=== PATIENT | male | born 1950 | race Caucasian/White ===

== ENCOUNTER 2020-01-24 09:46 | Outpatient (REF) | payer MEDICARE, SELFPAY ==
--- NOTE | 2020-01-24 09:49 | XR_ITS ---
EXAMINATION: XR KNEES, STANDING AP XR KNEE, LEFT CLINICAL INFORMATION: Knee pain. Total arthroplasty on left. COMPARISON: Standing AP knees and left knee 04/26/2019 TECHNIQUE: Standing AP view of both knees is performed along with lateral view left knee. FINDINGS: The left knee has total arthroplasty. The hardware is intact. There is no fracture, dislocation, destructive process, or osteolysis. There is moderate suprapatellar effusion and edema in region of Hoffa's fat pad, similar to prior exam. No periostitis. No acute abnormality. The right knee shows no joint narrowing or erosive change or chondrocalcinosis. Bony mineralization normal. No destructive process. IMPRESSION: 1. Left: Total knee arthroplasty. Hardware intact. No destructive process. Moderate suprapatellar effusion stable. 2. Right: Unremarkable.
== END 2020-01-24 09:47 | disposition home or self-care (01) ==
LOC: HO.XRAY 09:46
PROVIDERS: Visit Provider Orthopaedic Surgery
DX: M25.561 Pain in right knee (principal); M25.562 Pain in left knee; Z96.652 Presence of left artificial knee joint
CPT/HCPCS: 73560; 73565; 99213

== ENCOUNTER 2020-05-01 07:51 | Day surgery (SDC) | payer MEDICARE, SELFPAY ==
[2020-04-25 15:38] VITALS: BMI 27.1
--- NOTE | 2020-04-26 14:57 | P.CONAN_ITS ---
Documented by User: Kristi Dawkins 04/26/20 15:02 HPI - Anesthesia Eval Consult details Narrative: 69yo for Colonoscopy PMFSH Past Medical History Medical History Anxiety Aortic aneurysm Back pain Depression History of hepatitis B HTN (hypertension) Hx-TIA (transient ischemic attack) Hyperlipidemia Osteoarthritis Post traumatic stress disorder (PTSD) Prostatitis RLS (restless legs syndrome) Sleep apnea Family History Family History Father No problems noted. Mother No problems noted. Surgical History Surgical History History of tonsillectomy History of total left knee replacement Hx of detached retina repair S/P left knee arthroscopy Social History Social History Alcohol intake: never Smoking Status: Former smoker Smoking Quit Date: Advance Directives: No Advance Directives Information Provided: No Advance Directives on File: No Current occupational status: retired Current occupation: Right Handed Narrative Narrative: Follows with [facility] Aorti iliac stable 2019 per imaging and eval prior to L TKA Meds Allergies Allergy/AdvReac Type Severity Reaction Status Date / Time red dye [RED DYE] Allergy Unknown + ALLERGY Verified 04/25/20 15:31 TEST shellfish derived Allergy Unknown + ALLERGY Verified 04/25/20 15:31 [SHELLFISH DERIVED] TEST Home Medications Medication Instructions Recorded Confirmed Type amlodipine 5 mg tablet 5 mg PO DAILY 01/23/20 04/25/20 History aspirin 81 mg tablet,delayed 81 mg PO DAILY 01/23/20 04/25/20 History release bupropion HCl 100 mg tablet 150 mg PO DAILY tab 01/23/20 04/25/20 History finasteride 5 mg tablet 5 mg PO BEDTIME 01/23/20 04/25/20 History gabapentin 600 mg tablet 600 mg PO TID 01/23/20 04/25/20 History hydroxyzine HCl 50 mg tablet 50 mg PO TID 01/23/20 04/25/20 History pravastatin 40 mg tablet 40 mg PO BEDTIME 01/23/20 04/25/20 History prazosin 1 mg capsule 2 mg PO BEDTIME 01/23/20 04/25/20 History tamsulosin 0.4 mg capsule 0.4 mg PO DAILY@1700 01/23/20 04/25/20 History valsartan 160 mg tablet 160 mg PO DAILY 01/23/20 04/25/20 History sertraline 100 mg tablet 100 mg PO DAILY 01/24/20 04/25/20 History Exam Exam Date and Time: April 26, 2020 1457 Height,Weight and Vital Signs: Height 6 ft Weight 90.718 kg Assessment and Plan Assessment Anesthesia Assessment: Chart Reviewed Documented by User: Shonda Begum 05/01/20 08:56 PMFSH Past Medical History Medical History Anxiety Aortic aneurysm Back pain Depression History of hepatitis B HTN (hypertension) Hx-TIA (transient ischemic attack) Hyperlipidemia Osteoarthritis Post traumatic stress disorder (PTSD) Prostatitis RLS (restless legs syndrome) Sleep apnea Family History Family History Father No problems noted. Mother No problems noted. Surgical History Surgical History History of tonsillectomy History of total left knee replacement Hx of detached retina repair S/P left knee arthroscopy Social History Social History Alcohol intake: never Smoking Status: Former smoker Smoking Quit Date: Advance Directives: No Advance Directives Information Provided: No Advance Directives on File: No Current occupational status: retired Current occupation: Right Handed Meds Allergies Allergy/AdvReac Type Severity Reaction Status Date / Time red dye [RED DYE] Allergy Unknown + ALLERGY Verified 04/25/20 15:31 TEST shellfish derived Allergy Unknown + ALLERGY Verified 04/25/20 15:31 [SHELLFISH DERIVED] TEST Home Medications Medication Instructions Recorded Confirmed Type amlodipine 5 mg tablet 5 mg PO DAILY 01/23/20 04/25/20 History aspirin 81 mg tablet,delayed 81 mg PO DAILY 01/23/20 04/25/20 History release bupropion HCl 100 mg tablet 150 mg PO DAILY tab 01/23/20 04/25/20 History finasteride 5 mg tablet 5 mg PO BEDTIME 01/23/20 04/25/20 History gabapentin 600 mg tablet 600 mg PO TID 01/23/20 04/25/20 History hydroxyzine HCl 50 mg tablet 50 mg PO TID 01/23/20 04/25/20 History pravastatin 40 mg tablet 40 mg PO BEDTIME 01/23/20 04/25/20 History prazosin 1 mg capsule 2 mg PO BEDTIME 01/23/20 04/25/20 History tamsulosin 0.4 mg capsule 0.4 mg PO DAILY@1700 01/23/20 04/25/20 History valsartan 160 mg tablet 160 mg PO DAILY 01/23/20 04/25/20 History sertraline 100 mg tablet 100 mg PO DAILY 01/24/20 04/25/20 History Exam Airway Mallampati Class: II TM Dist: >3cm Neck ROM: Full
[2020-05-01 08:41] VITALS: BP 134/68; PULSE 53; RESP 18; TEMP 36.6; O2SAT 95
[2020-05-01] MEDS: Lactated Ringers 1,000 ML 100 ML IVCONT (08:58)
--- NOTE | 2020-05-01 08:59 | MHC.SHP ---
Pre-Procedural Eval Section A The patient is an INPATIENT: No Changes since office visit: No Cold of Flu in the past 2 weeks, No New Medical Problems, No Changes in Medication and No Patient answered all questions The History & Physical has been completed within 30 days and I have reviewed it.: Yes Section B Chief Complaint: screening Allergies: Allergies Allergy/AdvReac Type Severity Reaction Status Date / Time red dye [RED DYE] Allergy Unknown + ALLERGY Verified 04/25/20 15:31 TEST shellfish derived Allergy Unknown + ALLERGY Verified 04/25/20 15:31 [SHELLFISH DERIVED] TEST Plan I have reviewed the history and physical and performed a pertinent physical examination on my patient. No changes have occurred unless specified.
[2020-05-01 09:36] VITALS: BP 105/57; PULSE 43; RESP 18; TEMP 36.4; O2SAT 96
--- NOTE | 2020-05-01 09:41 | PM.OP ---
Brief Operative Note Date of Service: 05/01/20 Pre-op diagnosis: screening Post-op diagnosis: same (colon polyp) Procedure: coonoscopyo Surgeon: Clarence Dorsey Anesthesia: MAC Estimated blood loss (mL): 0 Pathology: other (polyp) Condition: stable Disposition: PACU
[2020-05-01 09:51] VITALS: BP 119/67; PULSE 55; RESP 18; TEMP 36.4; O2SAT 95
--- NOTE | 2020-05-01 09:58 | OP_ITS ---
SURGEON: Clarence Dorsey MD INDICATIONS: Colon cancer screening. PREOPERATIVE DIAGNOSIS: POSTOPERATIVE DIAGNOSIS: PROCEDURE PERFORMED: Colonoscopy to the terminal ileum with snare polypectomy. ESTIMATED BLOOD LOSS: COMPLICATIONS: ANESTHESIA: ASSISTANTS: SPECIMENS: MEDICATIONS: Monitored anesthesia care. DESCRIPTION OF PROCEDURE: History and physical performed. The risks and benefits of the procedure were explained to the patient. Informed consent was obtained. The patient was placed in the left lateral decubitus position. A digital rectal exam was performed and was found to be normal. The Olympus pediatric video colonoscope was introduced into the rectum and advanced to the cecum without difficulty. The cecum was identified by transillumination, palpation, and identification of ileocecal valve. Examination was performed and the scope was removed. He tolerated the procedure well and was taken to recovery area in stable condition. FINDINGS: The terminal ileum was examined and appeared normal. The visualized colonic mucosa was within normal limits without evidence of masses or ulcers. A single polyp at 55 cm measuring approximately 8 mm was removed with a snare and recovered via suction. No other polyps were identified. There was mild sigmoid diverticulosis. Retroflexed examination showed small internal hemorrhoids. Quality of the prep was good. IMPRESSION: Colon polyp. RECOMMENDATION: Follow up the biopsy results. MD LIZET Todd/LANNYL / [id number]
--- NOTE | 2020-05-01 10:18 | HO.POSTANES ---
Post Anesthesia Evaluation Post Anesthesia Evaluation Vital Signs: Vital Signs Temp Pulse Resp BP Pulse Ox 05/01/20 09:51 97.5 F 55 18 119/67 95 05/01/20 09:36 97.5 F 43 L 18 105/57 L 96 05/01/20 08:41 97.9 F 53 18 134/68 95 Anesthesia: Monitored Mental Status: Awake Pain Control: Satisfactory Nausea/Vomiting: None Hydration: Adequate Anesthesia-Related Issues: No Anes. Related Issues
== END 2020-05-01 10:17 | disposition home or self-care (01) ==
PROVIDERS: Visit Provider Internal Medicine Gastroenterology
PROC: 0DJD8ZZ Inspection of Lower Intestinal Tract, Via Natural or Artificial Opening Endoscopic (ICD-10-PCS; CPT 45378; principal; 2020-05-01 09:10)
DX: Z12.11 Encounter for screening for malignant neoplasm of colon (principal); K51.40 Inflammatory polyps of colon without complications; K57.30 Diverticulosis of large intestine without perforation or abscess without bleeding; K64.8 Other hemorrhoids; I10 Essential (primary) hypertension; I73.9 Peripheral vascular disease, unspecified; G47.33 Obstructive sleep apnea (adult) (pediatric); F32.9 Major depressive disorder, single episode, unspecified; F43.10 Post-traumatic stress disorder, unspecified; Z79.82 Long term (current) use of aspirin; Z79.899 Other long term (current) drug therapy; Z86.73 Personal history of transient ischemic attack (TIA), and cerebral infarction without residual deficits; Z96.652 Presence of left artificial knee joint; Z87.891 Personal history of nicotine dependence
CPT/HCPCS: 45385; 88305

== ENCOUNTER 2021-01-24 12:44 | Outpatient (REF) | payer MEDICARE, SELFPAY ==
--- NOTE | ~2021-01-24 | XR_ITS ---
EXAMINATION: XR AP BILATERAL KNEES STANDING. LEFT KNEE CLINICAL INFORMATION: Left knee pain. COMPARISON: None. TECHNIQUE: AP bilateral knee 1 view. Left knee 2 views. FINDINGS: AP bilateral knee: There is a total left knee prosthesis in satisfactory alignment. There is mild loss of right hip joint space with periarticular spurring. No bony erosive changes. The lateral compartment right knee is normal. The soft tissues are normal. Left knee: There is a total left knee arthroplasty with patellar prosthesis in addition to the femoral and tibial prostheses. No loosening seen. No abnormal joint effusion. No loose bodies. XR/XR knee standing BI IMPRESSION: Total left knee arthroplasty with prosthetic components in satisfactory alignment. No prosthetic loosening or joint effusion seen. Mild degenerative changes medial compartment right knee.
--- NOTE | ~2021-01-24 | XR_ITS ---
EXAMINATION: XR AP BILATERAL KNEES STANDING. LEFT KNEE CLINICAL INFORMATION: Left knee pain. COMPARISON: None. TECHNIQUE: AP bilateral knee 1 view. Left knee 2 views. FINDINGS: AP bilateral knee: There is a total left knee prosthesis in satisfactory alignment. There is mild loss of right hip joint space with periarticular spurring. No bony erosive changes. The lateral compartment right knee is normal. The soft tissues are normal. Left knee: There is a total left knee arthroplasty with patellar prosthesis in addition to the femoral and tibial prostheses. No loosening seen. No abnormal joint effusion. No loose bodies. XR/XR knee LT 2V IMPRESSION: Total left knee arthroplasty with prosthetic components in satisfactory alignment. No prosthetic loosening or joint effusion seen. Mild degenerative changes medial compartment right knee.
== END 2021-01-24 12:45 | disposition home or self-care (01) ==
LOC: HO.HOSX 12:44
PROVIDERS: Visit Provider Orthopaedic Surgery
DX: Z96.652 Presence of left artificial knee joint (principal)
CPT/HCPCS: 73560; 73565; 99212

== ENCOUNTER 2021-08-22 08:45 | Outpatient (REF) | payer MEDICARE, SELFPAY ==
[2021-08-22 11:34] LABS: Hemoglobin 14.6 g/dl (14.0-18.0); Mean Corpuscular HGB Conc 32.4 g/dl (31.0-36.0); Mean Corpuscular Hemoglobin 26.3 pg (27.0-33.0); Mean Corpuscular Volume 81.1 fL (80.0-98.0); Mean Platelet Volume 10.9 fL (9.4-12.4); Platelet Count 258 X10*3/uL (160-400); Red Blood Count 5.55 X10*6/uL (4.60-5.80); Red Cell Distribution Width 12.9 % (11.0-16.0); White Blood Count 7.5 X10*3/uL (4.8-10.8)
[2021-08-22 12:13] LABS: Alanine Aminotransferase 24 U/L (0-40); Albumin Level 4.1 g/dL (3.5-5.0); Alkaline Phosphatase 75 U/L (39-117); Anion Gap 12 (12-20); Aspartate Amino Transferase 17 U/L (5-37); Bilirubin Total 0.4 mg/dL (0.0-1.0); Blood Urea Nitrogen 26 mg/dL (9-16); Calcium 9.9 mg/dL (8.4-10.2); Carbon Dioxide 28 mmol/L (22-29); Chloride 107 mmol/L (96-108); Estimated Glomerular Filt Rate 44; Glucose Random 99 mg/dL (60-115); Potassium 4.4 mmol/L (3.3-5.1); Sodium 143 mmol/L (135-145); TSH reflex Free T4 3.74 uIU/mL (0.32-4.0); Total Protein 7.5 g/dL (6.5-8.0)
== END 2021-08-22 08:46 | disposition home or self-care (01) ==
LOC: HO.HMGCLDS 08:45
PROVIDERS: PCP Internal Medicine; Visit Provider Internal Medicine
DX: I49.9 Cardiac arrhythmia, unspecified (principal); I11.0 Hypertensive heart disease with heart failure; I50.9 Heart failure, unspecified
CPT/HCPCS: 36415; 80053; 84443; 85027

== ENCOUNTER → 2021-10-17 07:06 | Outpatient (REF) | payer MEDICARE, SELFPAY ==
--- NOTE | 2021-10-17 07:11 | HM_ITS ---
Conclusion: 1. Patient was monitored for total period of 1 day and 18 hours 2. Baseline rhythm is normal sinus rhythm with average heart of 60 beats per minute 3. Very frequent PACs with total burden of 25.5% of total beats 4. No significant atrial fibrillation noted 5. No significant pauses or bradycardia noted 6. No patient reported events MTDD
--- NOTE | 2021-10-17 07:11 | CA_ITS ---
Transthoracic Echocardiogram Patient (Last, First, Middle): Young Monreal S Gender: Male Date of : 1950 Age: 71 Procedure Date: 10/17/2021 Procedure Type: Transthoracic Echocardiogram Location: OP Height: 182.88 cm Weight: 97.52 kg BSA: 2.20 m2 Heart Rate: 55 bpm BP: 131 / 71 mmHg Singer Back Tender: YRIS Referring MD: Teresa Lyn MD Symptoms: I10 - Essential (primary) hypertension Study Quality: Adequate/Contrast ECG Rhythm: Sinus arrhythmia Conclusions: - 1. Normal LV systolic function with grade 1 diastolic dysfunction 2. Normal cardiac valvular Doppler 3. Normal RV systolic pressure 4. No pericardial effusion Findings Procedure Information Contrast agent, definity, is being given per protocol without apparent complications. Left Ventricle Normal left ventricular size, thickness, and systolic function. The visually estimated ejection fraction is between 60-65%. Spectral Doppler is indicative of an impaired relaxation filling pattern. E/E prime ratio is <8, consistent with normal filling pressures. Evidence suggests grade I (mild) diastolic dysfunction. Right Ventricle Normal right ventricular cavity size and systolic function. Atria The left atrium is normal in size. There is no evidence of interatrial shunt. The right atrium is normal in size. Aortic Valve Normal aortic valve structure and function. There is no aortic valve stenosis. There is no aortic valve regurgitation. Mitral Valve Normal mitral valve structure and function. There is trace mitral valve regurgitation. There is no mitral valve stenosis. Pulmonic Valve The pulmonic valve was not well visualized. Tricuspid Valve Normal tricuspid valve structure. There is trace tricuspid valve regurgitation. The right ventricular systolic pressure is normal. The right ventricular systolic pressure is 25 mmHg. Normal right atrial pressure. There is no evidence of pulmonary hypertension. Great Vessels All visible segments of the aorta are normal in size. The pulmonary artery was not well visualized. Venous The inferior vena cava is normal in size and collapses greater than 50% with inspiration. Pericardium/Pleural There is no evidence of pericardial effusion. Prior Study Comparison No prior study available for comparison. Measurements 2D Linear Measurements IVSd: 0.98 0.6-0.9/0.6-1.0 cm LVIDd: 5.21 3.9-5.3/4.2-5.9 cm LVIDd Index: 2.37 2.4-3.2/2.2-3.1 cm/m2 LVIDs: 2.86 2.0-3.6 cm LVPWd: 1.04 0.7-1.1 cm LA Diam: 3.80 2.7-3.8/3.0-4.0 cm LAIDs Index: 1.73 1.5-2.3 cm/m2 LV Mass: 291.67 67-162/88-224 g LV Mass Index: 132.58 43-95/49-115 g/m2 LVOT Diam: 2.70 3.0+(-)1.3 cm 2D Systolic Function EF 4C: 69.70 >55% EF 2C: 59.30 >55% EF BiP: 65.70 >55% Mitral Valve MV Pk E: 0.53 MV PK A: 0.63 MV Decel Time: 340.00 E/A: 0.80 E'Lateral: 8.95 E'Medial: 4.73 E/E' Med: 11.20 E/E' Lat: 5.90 PHT: 100.00 MVA PHT: 2.20 Decel [place]: 1.56 Aortic Valve AoV Pk Lee: 1.37 AoV Mn Lee: 0.96 AoV VTI: 0.28 AoV Pk Grad: 8.00 Aov Mn Grad: 4.00 EMMANUEL Cont.VTI: 4.73 LVOT LVOT Pk Lee: 1.01 LVOT Mn Lee: 0.72 LVOT VTI: 0.23 LVOT Pk Grad: 4.00 LVOT Mn Grad: 2.00 LVOT Diam: 2.70 LVOT Area: 5.73 Diastolic Function MV Pk E: 0.53 MV Pk A: 0.63 E/A: 0.80 E'Medial: 4.73 E/E' Med: 11.20 E' Laterial: 8.95 E/E' Lat: 5.90 Right Ventricle TAPSE (mm): 19.80 TVS' Lee: 10.70 Tricuspid Valve TR Pk Lee: 2.37 TR Pk Grad: 22.00 RA Press: 3.00 RVSP: 25.00 Great Vessels Aorta Sinus of Valsalva: 3.30 2.0-3.5 cm Ao Asc: 3.40 2.1-3.4 cm Pulmonary Veins Pulm Vein S/D 1.30 Pulmonary Valve PV Pk Lee: 0.91 Peak PV Grad: 3.00 Updated in Other Vendor System with Status of Final Pk Werner MD electronically signed on 10/17/2021 2:23:02 PM with status of Final
== END ==
LOC: HO.CARD 07:06
PROVIDERS: PCP Internal Medicine; Visit Provider Internal Medicine
DX: I49.9 Cardiac arrhythmia, unspecified (principal); I11.0 Hypertensive heart disease with heart failure; I50.9 Heart failure, unspecified
CPT/HCPCS: 93242; 93306; Q9957

== ENCOUNTER 2022-12-30 09:20 | Outpatient (AMB) | payer MEDICARE, OTHER, SELFPAY ==
[2022-12-30 09:24] VITALS: BP 142/80; PULSE 61; BMI 29.8
--- NOTE | 2022-12-30 09:24 | A.OFFVIS_ITS ---
Intake Vital Signs 12/30/22 09:24 Height 6 ft Weight 219 lb 9.286 oz BMI 29.8 BP 142/80 H Blood Pressure Location Lt brachial Position Sitting Pulse 61 Intake Visit Reasons: NPV/Abnormal EKG/Marina Donaldson Intake Note: NPV w/ EKG Fruit Pitter Required: No Accompanied by: Self / Same As Patient Allergies red dye [RED DYE] Allergy (Unknown, Verified 12/30/22 09:33) + ALLERGY TEST shellfish derived [SHELLFISH DERIVED] Allergy (Unknown, Verified 12/30/22 09:33) + ALLERGY TEST Medication List - Last Reconciled 12/30/22 by Jozef Meadows MD amlodipine 5 mg PO DAILY aspirin 81 mg PO DAILY bupropion HCl 150 mg PO DAILY finasteride 5 mg PO BEDTIME gabapentin 600 mg PO TID hydroxyzine HCl 50 mg PO TID oxybutynin chloride 10 mg PO DAILY pravastatin 40 mg PO BEDTIME prazosin 2 mg PO BEDTIME sertraline 100 mg PO DAILY tamsulosin 0.4 mg PO DAILY@1700 valsartan 160 mg PO DAILY HPI HPI Comments History of Present Illness Details Young has been referred for evaluation of atrial arrhythmia but unable to open primary care note due to technical issue. EKG today shows atrial bigeminy type pattern. Patient himself states he does not have any cardiac issues known to him. No history of any coronary artery disease myocardial infarction. However, there is mention of 5 iliac artery aneurysm but patient states he does not see anybody in vascular [facility] Within limits of his activity, has not had any chest pain or shortness of breath or anything cardiac sounding. No palpitations. He states he walked up 3 flights of stairs today but no issues. [facility] Medical History Anxiety Aortic aneurysm Arrhythmia Back pain CHF (congestive heart failure) Depression History of hepatitis B HTN (hypertension) Hx-TIA (transient ischemic attack) Hyperlipidemia Osteoarthritis Post traumatic stress disorder (PTSD) Prostatitis RLS (restless legs syndrome) Sleep apnea Surgical History Hx of detached retina repair S/P left knee arthroscopy History of total left knee replacement History of tonsillectomy Family History Father No problems noted. Mother No problems noted. Social History Housing: House Alcohol intake: never Patient Tobacco Use Status: Never used Tobacco e-Cigarette/Vaping Use: Never Used Current occupational status: retired Current occupation: Right Handed Cognitive needs: No Hearing needs: No Vision needs: No Review of Systems Const Denies weakness Eyes Denies loss of vision ENT Denies dizziness Card Denies chest pain, Denies chest pain with activity, Denies syncope, Denies rapid heart rate, Denies pedal edema, Denies edema, Denies leg edema, Denies lightheadedness, Denies palpitations, Denies dyspnea, Denies dyspnea on exertion and Denies orthopnea Resp Denies cough, Denies dyspnea, Denies dyspnea on exertion and Denies wheezing GI Denies hematochezia and Denies change in stool character Denies hematuria, Denies dysuria and Denies urinary frequency Musc Denies abnormal gait, Denies muscle cramps, Denies muscle weakness, Denies numbness, Denies radiating pain into limb and Denies tingling Skin/Breast Denies nail changes and Denies rash Neuro Denies Abnormal speech present, Denies abnormal gait, Denies dizziness, Denies syncope, Denies loss of vision, Denies memory loss, Denies numbness, Denies tingling and Denies weakness Psych Denies depression and Denies memory loss Endo Denies palpitations Aller/Immun Denies wheezing Physical Exam Vital Signs: Last Vital Signs Pulse 61 12/30/22 09:24 BP 142/80 H 12/30/22 09:24 BMI result Body Mass Index 29.8 Const General: comfortable and no acute distress Orientation/consciousness: patient oriented x3 HEENT Other: Unremarkable Head: Yes normal to inspection Neck Neck: Yes normal visual inspection Chest Chest palpation & inspection: normal inspection of the chest Resp Auscultation: clear to auscultation bilaterally Cardio Palpation: normal PMI Heart sounds: S1 normal heart sound present, S2 normal heart sound present, no gallops, no murmurs and no rubs GI Palpation (GI): Soft to palpation Back/Spine/Pelvis Other: unremarkable Skin General skin exam: no rashes or lesions noted Neuro General: patient oriented x3 Speech: No Abnormal speech present Extrem General: Yes normal to inspection Psych Mental Status: mental status grossly normal Office Procedures EKG Details: EKG with sinus rhythm at 61/Min; frequent PACs in a bigeminal pattern. Incomplete left bundle type pattern. [id number], Complete Assessment & Plan Assessment & Plan (1) Atrial arrhythmia: Code(s): I49.8 - Other specified cardiac arrhythmias (2) Incomplete left bundle branch block: Code(s): I44.7 - Left bundle-branch block, unspecified Plan Unable to review the PCP no due to technical issues. Based on prior [facility] consultation from Cardiology in 2021, blistered history of iliac artery aneurysm, hypertension, dyslipidemia, TIA and CARLA/CPAP. At that time, it seems there was atrial bigeminy. Hence this seems to be rather chronic issue. EKG is similar to prior study from 2021. In previous Holter, he had frequent PACs the burden of 25%. However, no clear evidence of atrial fibrillation. We can reassess Holter for the same reason. Echocardiogram for cardiac function. Follow-up after testing. Orders: Orders CA echo transthoracic complete Today I25.10 - Atherosclerotic heart disease of [place] coronary artery without angina pectoris, I49.8 - Other specified cardiac arrhythmias ECG 3 day holter monitor Today I49.8 - Other specified cardiac arrhythmias Coding Level of Care Code New Pt Level 4 (14074) Diagnoses Atrial arrhythmia I49.8 Incomplete left bundle branch block I44.7 CPT Codes EKG - CPT: 19063-[id number], Complete ([id number])
== END 2022-12-30 09:47 | disposition home or self-care (01) ==
PROVIDERS: PCP Internal Medicine; Visit Provider Internal Medicine
DX: I49.8 Other specified cardiac arrhythmias (principal); I44.7 Left bundle-branch block, unspecified
CPT/HCPCS: 93010; 99204

== ENCOUNTER → 2022-12-30 09:20 | Outpatient (BNVA) | payer MEDICARE, OTHER, SELFPAY | PROVIDERS: PCP Internal Medicine; Visit Provider Internal Medicine | DX: I49.8 Other specified cardiac arrhythmias (principal); I44.7 Left bundle-branch block, unspecified | CPT/HCPCS: 93005 ==

== ENCOUNTER → 2023-02-03 08:28 | Outpatient (REF) | payer OTHER, SELFPAY ==
--- NOTE | 2023-02-03 08:31 | CA_ITS ---
Transthoracic Echocardiogram Patient (Last, First, Middle): Young Monreal S Gender: Male Date of : 1950 Age: 72 Procedure Date: 02/03/2023 Procedure Type: Transthoracic Echocardiogram Location: OP Height: 182.88 cm Weight: 96.16 kg BSA: 2.18 m2 Heart Rate: bpm BP: 122 / 68 mmHg Timber Watchman: TO Referring MD: Jozef Meadows MD Symptoms: I25.10 - Atherosclerotic heart disease of [place] coronary artery without... Study Quality: Adequate ECG Rhythm: Sinus Conclusions: - The left ventricular systolic function is normal. The calculated ejection fraction is 61% by biplane method. - No obvious valvular pathology seen on this study. Findings Left Ventricle Normal left ventricular cavity size. The left ventricular systolic function is normal. The calculated ejection fraction is 61% by biplane method. There is no evidence of regional wall motion abnormalities. Diastolic function is normal for age. There is mild septal asymmetric hypertrophy. Right Ventricle Mildly increased right ventricular cavity size. There is normal right ventricular systolic function. Atria Both atria are normal in size. Aortic Valve There is a normal trileaflet aortic valve. There is mild calcification of the aortic valve. There is no aortic valve stenosis. There is no aortic valve regurgitation. Mitral Valve The mitral valve appears normal. There is no mitral valve regurgitation. There is no mitral valve stenosis. Pulmonic Valve There is trace pulmonic valve regurgitation. Tricuspid Valve There is mild tricuspid valve regurgitation. There is no evidence of pulmonary hypertension. Great Vessels Top normal ascending aortic size at 3.9cm. Venous The inferior vena cava is normal in size and collapses greater than 50% with inspiration. Pericardium/Pleural There is no evidence of pericardial effusion. Prior Study Comparison No significant change compared to prior study dated: 10/17/2021. Recommendations, Care & Conclusions No obvious valvular pathology seen on this study. Measurements 2D Linear Measurements IVSd: 1.33 0.6-0.9/0.6-1.0 cm LVIDd: 4.32 3.9-5.3/4.2-5.9 cm LVIDd Index: 1.98 2.4-3.2/2.2-3.1 cm/m2 LVIDs: 2.90 2.0-3.6 cm LVPWd: 0.98 0.7-1.1 cm LA Diam: 3.70 2.7-3.8/3.0-4.0 cm LAIDs Index: 1.70 1.5-2.3 cm/m2 LV Mass: 218.83 67-162/88-224 g LV Mass Index: 100.38 43-95/49-115 g/m2 LVOT Diam: 2.40 3.0+(-)1.3 cm 2D Systolic Function EF 4C: 62.30 >55% EF 2C: 58.70 >55% EF BiP: 61.10 >55% Mitral Valve MV Pk E: 0.45 MV PK A: 0.53 MV Decel Time: 342.00 E/A: 0.90 E'Lateral: 7.62 E'Medial: 4.13 E/E' Med: 10.90 E/E' Lat: 5.90 PHT: 100.00 MVA PHT: 2.20 Decel [place]: 1.31 Aortic Valve AoV Pk Lee: 1.38 AoV Mn Lee: 0.83 AoV VTI: 0.28 AoV Pk Grad: 8.00 Aov Mn Grad: 3.00 EMMANUEL Cont.VTI: 2.92 LVOT LVOT Pk Lee: 0.82 LVOT Mn Lee: 0.51 LVOT VTI: 0.18 LVOT Pk Grad: 3.00 LVOT Mn Grad: 1.00 LVOT Diam: 2.40 LVOT Area: 4.52 Diastolic Function MV Pk E: 0.45 MV Pk A: 0.53 E/A: 0.90 E'Medial: 4.13 E/E' Med: 10.90 E' Laterial: 7.62 E/E' Lat: 5.90 Right Ventricle TAPSE (mm): 25.40 TVS' Lee: 13.10 Tricuspid Valve TR Pk Lee: 2.08 TR Pk Grad: 17.00 RA Press: 3.00 RVSP: 20.00 Great Vessels Aorta Sinus of Valsalva: 3.82 2.0-3.[address] [place]: 2.48 1.7-3.4 cm Ao Asc: 3.90 2.1-3.4 cm Updated in Other Vendor System with Status of Final Jozef Meadows MD electronically signed on 02/04/2023 11:18:18 AM with status of Final
== END ==
LOC: HO.CARD 08:28
PROVIDERS: PCP Internal Medicine; Visit Provider Internal Medicine
DX: I49.8 Other specified cardiac arrhythmias (principal); I25.10 Atherosclerotic heart disease of native coronary artery without angina pectoris
CPT/HCPCS: 93306

== ENCOUNTER → 2023-02-03 08:31 | Outpatient (BNV) | payer OTHER, SELFPAY | PROVIDERS: PCP Internal Medicine; Visit Provider Internal Medicine | DX: I25.10 Atherosclerotic heart disease of native coronary artery without angina pectoris (principal) | CPT/HCPCS: 93306 ==

== ENCOUNTER → 2023-02-10 10:16 | Outpatient (REF) | payer MEDICARE, OTHER, SELFPAY ==
--- NOTE | 2023-02-10 10:19 | HM_ITS ---
Conclusion: 1. Patient was monitored for total period of 2 days and 23 hours 2. Baseline was normal sinus with average heart of 62 beats per minute 3. No significant pauses noted next 4. Frequent PACs noted with total burden of 27.4% 4. 1 4 beat run of ventricular ectopic consistent with possibly excellent 80 ventricular rhythm at 104 beats per minute 5. Patient reported 4 events of sharp pain that correlated with PACs MTDD
== END ==
LOC: HO.CARD 10:16
PROVIDERS: PCP Internal Medicine; Referring Provider Internal Medicine; Visit Provider Internal Medicine
DX: I49.8 Other specified cardiac arrhythmias (principal)
CPT/HCPCS: 93242

== ENCOUNTER → 2023-02-10 10:19 | Outpatient (BNV) | payer OTHER, MEDICARE, SELFPAY | PROVIDERS: PCP Internal Medicine; Visit Provider Internal Medicine Cardiovascular Disease | DX: I49.1 Atrial premature depolarization (principal) | CPT/HCPCS: 93244 ==

== ENCOUNTER 2023-03-17 13:09 | Outpatient (AMB) | payer MEDICARE, OTHER, SELFPAY ==
--- NOTE | 2023-03-17 13:43 | MHC.OFFVIS ---
Intake Vital Signs 03/17/23 13:44 Height 6 ft Weight 216 lb 0.848 oz BMI 29.3 BP 142/78 H Blood Pressure Location Lt brachial Position Sitting Pulse 60 Intake Visit Reasons: f/up holter and echo Intake Note: follow up testing System Administration Manager Required: No Accompanied by: Self / Same As Patient Allergies red dye [RED DYE] Allergy (Unknown, Verified 03/17/23 13:43) + ALLERGY TEST shellfish derived [SHELLFISH DERIVED] Allergy (Unknown, Verified 03/17/23 13:43) + ALLERGY TEST Medication List - Last Reconciled 03/17/23 by Jozef Meadows MD amlodipine 5 mg PO DAILY aspirin 81 mg PO DAILY bupropion HCl 150 mg PO DAILY finasteride 5 mg PO BEDTIME gabapentin 600 mg PO TID hydroxyzine HCl 50 mg PO TID oxybutynin chloride 10 mg PO DAILY pravastatin 40 mg PO BEDTIME prazosin 2 mg PO BEDTIME sertraline 100 mg PO DAILY tamsulosin 0.4 mg PO DAILY@1700 valsartan 160 mg PO DAILY HPI HPI Comments History of Present Illness Details Young returns for follow-up. He was seen recently regarding atrial arrhythmias. EKG last visit had shown atrial bigeminy type pattern. Patient himself does not have any known cardiac issues like coronary disease or myocardial infarction or cardiomyopathy or in fact anything else from cardiac. He does get some occasional chest pains but not clear exertional type patterns. [facility] Medical History Anxiety Aortic aneurysm Arrhythmia Back pain CHF (congestive heart failure) Depression History of hepatitis B HTN (hypertension) Hx-TIA (transient ischemic attack) Hyperlipidemia Osteoarthritis Post traumatic stress disorder (PTSD) Prostatitis RLS (restless legs syndrome) Sleep apnea Surgical History Hx of detached retina repair S/P left knee arthroscopy History of total left knee replacement History of tonsillectomy Family History Father No problems noted. Mother No problems noted. Social History Housing: House Alcohol intake: never Patient Tobacco Use Status: Never used Tobacco e-Cigarette/Vaping Use: Never Used Current occupational status: retired Current occupation: Right Handed Cognitive needs: No Hearing needs: No Vision needs: No Review of Systems Const Denies weakness ENT Denies dizziness Card Denies chest pain with activity, Denies syncope, Denies rapid heart rate, Denies pedal edema, Denies edema, Denies leg edema, Denies lightheadedness, Denies palpitations, Denies dyspnea, Denies dyspnea on exertion and Denies orthopnea Resp Denies cough, Denies dyspnea and Denies dyspnea on exertion GI Denies hematochezia and Denies change in stool character Musc Denies abnormal gait, Denies muscle cramps, Denies muscle weakness, Denies numbness, Denies radiating pain into limb and Denies tingling Neuro Denies abnormal gait, Denies dizziness, Denies syncope, Denies numbness, Denies tingling and Denies weakness Endo Denies palpitations Physical Exam Vital Signs: Last Vital Signs Pulse 46 L 03/17/23 13:44 BP 142/78 H 03/17/23 13:44 BMI result Body Mass Index 29.3 Const General: comfortable and no acute distress Orientation/consciousness: patient oriented x3 HEENT Other: Unremarkable Head: Yes normal to inspection Neck Neck: Yes normal visual inspection Chest Chest palpation & inspection: normal inspection of the chest Resp Auscultation: clear to auscultation bilaterally Cardio Palpation: normal PMI Heart sounds: S1 normal heart sound present, S2 normal heart sound present, no gallops, no murmurs and no rubs GI Palpation (GI): Soft to palpation Back/Spine/Pelvis Other: unremarkable Skin General skin exam: no rashes or lesions noted Neuro General: patient oriented x3 Extrem General: Yes normal to inspection Psych Mental Status: mental status grossly normal Assessment & Plan Assessment & Plan (1) Atrial arrhythmia: Code(s): I49.8 - Other specified cardiac arrhythmias (2) Incomplete left bundle branch block: Code(s): I44.7 - Left bundle-branch block, unspecified (3) Precordial chest pain: Code(s): R07.2 - Precordial pain Plan Based on prior [facility] consultation from Cardiology in 2021, history of iliac artery aneurysm, hypertension, dyslipidemia, TIA and CARLA/CPAP. At that time, it seems there was atrial bigeminy. Hence this seems to be rather chronic issue. EKG is similar to prior study from 2021. Echocardiogram with EF of 61%. No valvular issues and otherwise unremarkable. Holter shows underlying sinus rhythm and frequent PACs with a high burden at 27%. Occasional PVCs. One 4 beat run. We discussed the findings today. High degree of atrial ectopy could be related to the underlying sleep apnea. Advised him to use the CPAP mask regularly. And not clear if he can lose any weight. Otherwise, the chest pain itself is nonspecific but at his age, will need assessment for coronary disease. Hence get an exercise stress test. Orders: Orders CA stress test Today R07.2 - Precordial pain NM cardiolite stress test Today R07.2 - Precordial pain Coding Level of Care Code Est Pt Level 4 (92749) Diagnoses Atrial arrhythmia I49.8 Incomplete left bundle branch block I44.7 Precordial chest pain R07.2
[2023-03-17 13:44] VITALS: BP 142/78; PULSE 60; BMI 29.3
== END 2023-03-17 14:00 | disposition home or self-care (01) ==
PROVIDERS: PCP Internal Medicine; Visit Provider Internal Medicine
DX: I49.8 Other specified cardiac arrhythmias (principal); I44.7 Left bundle-branch block, unspecified; R07.2 Precordial pain
CPT/HCPCS: 99214

== ENCOUNTER → 2023-03-17 13:09 | Outpatient (BNVA) | payer MEDICARE, OTHER, SELFPAY | PROVIDERS: PCP Internal Medicine; Visit Provider Internal Medicine | DX: I49.8 Other specified cardiac arrhythmias (principal); I44.7 Left bundle-branch block, unspecified; R07.2 Precordial pain | CPT/HCPCS: 99212 ==

== ENCOUNTER → 2023-05-06 07:41 | Outpatient (REF) | payer MEDICARE, SELFPAY ==
--- NOTE | ~2023-05-06 | NM_ITS ---
Lexiscan Myocardial perfusion study Indication: Chest pain, assess for coronary disease and ischemia Technique: The patient was brought in for a Lexiscan perfusion study on 05/06/2023 and was injected 0.4 mg of Lexiscan intravenously. Within a minute of this injection 35 mCi of sestamibi was given intravenously. Images were obtained using the SPECT gamma camera interlaced with the gating device. Images were obtained in supine position. Resting perfusion study was performed on 05/07/2023. Patient was administered 35 mCi of sestamibi intravenously at rest. Images were then obtained in supine position. Images were processed with the software and compared side to side in short axis, horizontal long axis and vertical long axis views. Total DLP 111mGy-cm. Findings: Raw acquisition reviewed. The stress perfusion study showed diminished tracer uptake along the inferior wall, most prominent towards the base. With CT attenuation correction, there is significant improvement suggestive of diaphragmatic attenuation artifact. The gated study shows normal LV systolic function with calculated LVEF of 58%. LV cavity is normal in size. The gated study shows basal inferior hypokinesis. Resting study shows diminished tracer uptake along the inferior wall, most prominent at the base. There is improvement with CT attenuation correction suggestive of diaphragmatic attenuation artifact. Gating at rest reveals basal inferior hypokinesis with LVEF of 52%. The findings are consistent with fixed perfusion defect most prominent in the basal to mid inferior wall, possibly from diaphragmatic attenuation artifact. No clear reversible defects.. NM/WI cardiolite stress test Impression: 1. Myocardial perfusion imaging study shows fixed basal inferior defect that could be from diaphragmatic attenuation artifact. Less likely prior inferior infarct. 2. Gated LVEF is 58% during stress and 52% during rest. 3. Transient ischemic dilatation not present. EKG component of the test reported separately.
--- NOTE | 2023-05-06 07:43 | CA_ITS ---
Acquisition Time: 2023-05-06 07:53:12 Total Exercise Time: 00:08:02 Test Indications: CP Medications: SEE H Protocol: WALLY Max HR: 118 BPM 80% of Pred: 147 BPM Max BP: 218/088 mmHG Max Work Load: 9.4 METS Exercise stress test exercise 8 min 2 sec of Wally protocol achieving 78% MPHR, with mild SOB, no chest discomfort, with isolated PVC, with max BP at peak 218/88, without EKG changes. Test changed to pharmacological stress test since didnt achieve the 85% MPHR once blood pressure returned to normal. Pharmacological stress test with Lexiscan injection while sitting and kicking his legs, without anginal symptoms, with isolated PVCs, with normotensive response to injection, with nondiagnositic EKGs. Nuclear images pending. Test reviewed with Dr. Werner. Referred By: Jozef Meadows Overread By: Elena Morel
== END ==
LOC: HO.CARD 07:41
PROVIDERS: PCP Internal Medicine; Visit Provider Internal Medicine
DX: R07.2 Precordial pain (principal)
CPT/HCPCS: 78452; 93017; A9500; J0280; J2785

== ENCOUNTER → 2023-05-06 07:43 | Outpatient (BNV) | payer MEDICARE, SELFPAY | PROVIDERS: PCP Internal Medicine; Visit Provider Nurse Practitioner | DX: R07.2 Precordial pain (principal) | CPT/HCPCS: 78452; 93016; 93018 ==

== ENCOUNTER 2024-04-05 09:48 | Outpatient (AMB) | payer MEDICARE, SELFPAY ==
--- OUTSIDE RECORDS SUMMARY | 2024-04-05 09:51 | XMS_ITS | Continuity of Care Document ---
Author Name [facility] Organization [facility] Care Team Providers Care Registered Medical Assistant Name Role Phone [facility] Unavailable Unavailable Problems Combined list of problems from Department of Defense and Veterans Affairs facilities. It does not include entries that were removed or entered in error. Problem Status Onset Date Problem Type Date of Resolution Comments Source Acute, but ill-defined, cerebrovascular disease (ICD-9-CM 436.) Active Condition Mar 14, 2010 Entered By: DMITRY MCMULLEN Comment: several events 04/2009. minor residuals. scans neg. 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 Jan 22, 2023 Entered By: JT ELISE Comment: 11/2022 stable --> repeat US in 2-3 y [facility] Anxiety * (ICD-9-CM 300.00/300.09) [facility] Aortic aneurysm Active Condition Sep 26, 2016 Entered By: DAVID BUSTAMANTE Comment: , Aorta MAY 22: (new) AAA - 3.1 CMSep 26, 2016 Entered By: DAVID BUSTAMANTE Comment: , Aorta SEPTEMBER 20: AAA Still at 3.1 CM;Sep 26, 2016 Entered By: DAVID BUSTAMANTE Comment: repeat SEPTEMBER 2017 [facility] Benign Prostatic Hypertrophy with Outflow Obstruction ([facility] 932051332) Active Condition [facility] Benign Prostatic Hypertrophy without Outflow Obstruction ([facility] 012145603) Active Condition [facility] Cannabis dependence Active Condition Jan 22, 2023 Entered By: JT ELISE Comment: in remission [facility] Depressive Disorder NOS * (ICD-9-CM 311./300.4) Active Condition [facility] Disorder of heart rhythm Active Condition Jan 22, 2023 Entered By: JT ELISE Comment: PAC bigeminy - f/w cardiology [facility] Elevated Prostate Specific antigen [psa] Active Condition August 12, 2012 Entered By: YADIRA BURNETT Comment: Followed in [facility] Erectile Dysfunction (SCT 899317683) Active Condition [facility] History of iron deficiency Active Condition [facility] Hyperlipidaemia (SNOMED CT 59268941) Active Condition [facility] Idiopathic hypertension (SNOMED CT 04975872) Active Condition [facility] IRON DEFICI[facility] Memory impairment Active Condition [facility] Obesity (SCT 258466397) Active Condition [facility] Periph Vascular Dis Active Condition Mar 14, 2010 Entered By: DMITRY MCMULLEN Comment: 2 cm left iliac aneurysm [facility] Posttraumatic stress disorder Active Condition [facility] Prediabetes (SCT 549753710) Active Condition [facility] Premature atrial contraction Active Condition Jan 23, 2023 Entered By: JT ELISE Comment: Bigeminy [facility] Restless legs Active Condition [facility] Sleep apnea (SNOMED CT 60642802) Active Condition [facility] Subdural hematoma Active Condition Se p 2017 Entered By: DAVID BUSTAMANTE Comment: SDH, NOV 21; CESARIO: Fall Ladder at HomeSep 2017 Entered By: DAVID BUSTAMANTE Comment: CT, Head in ED: +SDH;Dec 08, 2017 Entered By: DAVID BUSTAMANTE Comment: f/u CT, Head NOV 21: +/- Remnant SDH ; No On-Going SDH [facility] Urgency - urination Active Condition [facility] White matter disease Active Condition [facility] Diagnosis: ICD-10-CM L60.0 Ingrowing nail Active Diagnosis [facility] Diagnosis: ICD-10-CM I10 Essential (primary) hypertension Active Diagnosis [facility] Diagnosis: ICD-10-CM G47.30 Sleep apnea, unspecified Active Diagnosis [facility] Diagnosis: ICD-10-CM F43.12 Post-traumatic stress disorder, chronic Active Diagnosis [facility] Diagnosis: ICD-10-CM K02.62 Dental caries on smooth surface penetrating into dentin Active Diagnosis [facility] Diagnosis: ICD-10-CM K03.6 Deposits [accretions] on teeth Active [facility] Diagnosis: ICD-10-CM N40.1 Benign prostatic hyperplasia with lower urinary tract symp Active Diagnosis [facility] Diagnosis: ICD-10-CM R39.15 Urgency of urination Active Diagnosis [facility] Diagnosis: ICD-10-CM L84 Corns and callosities Active Diagnosis [facility] Diagnosis: ICD-10-CM K08.9 Disorder of teeth and supporting structures, unspecified Active Diagnosis [facility] [place] [facility] Diagnosis: ICD-10-CM G47.33 Obstructive sleep apnea (adult) (pediatric) Active Diagnosis [facility] Medications Combined list of outpatient medications from Department of Defense and [facility] Affairs facilities.Medications provided include 1) outpatient medications from the last 15 months, and 2) patient-reported medications. Medication Details Route Status Patient Instructions Prescription Expires Prescription Number Last Dispense Date Ordering Provider Order Date Order Qty Source AMLODIPINE BESYLATE 5MG TAB TAKE ONE TABLET BY MOUTH DAILY FOR BLOOD PRESSURE /HEART, DO NOT TAKE WITH GRAPEFRU IT JUICE ORAL SUSPEND ED 01/12/2025 [id number] 5 Ashkan GREEN [address] [place] [address] IELD AMLODIPINE BESYLATE 5MG TAB TAKE ONE TABLET BY MOUTH DAILY FOR BLOOD PRESSURE /HEART, DO NOT TAKE WITH GRAPEFRU IT JUICE ORAL DISCONT INUED 05/02/2024 [id number] 4 JT NARANJO [address] [place] [address] IELD AMLODIPINE BESYLATE 5MG TAB TAKE ONE TABLET BY MOUTH DAILY FOR BLOOD PRESSURE /HEART, DO NOT TAKE WITH GRAPEFRU IT JUICE ORAL DISCONT INUED 07/18/2023 [id number] JT NARANJO [address] [place] [address] IELD ASCORBIC ACID 500MG TAB TAKE ONE TABLET BY MOUTH TWO TIMES A WEEK TO HELP ABSORB IRON FOR VITAMIN/ NUTRITIO N SUPPLEME NT TAKE AT SAME TIME FERROUS SULFATE TABLETS ORAL DISCONT INUED BY CHARLES R 07/31/2023 [id number] JT NARANJO 2023 100 [place] ASCORBIC ACID 500MG TAB TAKE ONE TABLET BY MOUTH ONCE DAILY FOR VITAMIN/ NUTRITIO N SUPPLEME NT TAKE AT SAME TIME FERROUS SULFATE TABLETS ORAL DISCONT INUED (EDIT) 12/13/2023 [id number] JT NARANJO 2022 100 [place] ASPIRIN 81MG TAB,EC TAKE ONE TABLET BY MOUTH ONCE DAILY TO PREVENT STROKE/H EART ATTACK ORAL SUSPEND ED 01/12/2025 [id number] Ashkan GREEN 2023 120 [place] ASPIRIN 81MG TAB,EC TAKE ONE TABLET BY MOUTH ONCE DAILY TO PREVENT STROKE/H EART ATTACK ORAL DISCONT INUED 08/25/2024 [id number] JT NARANJO 2023 120 [place] ASPIRIN 81MG TAB,EC TAKE ONE TABLET BY MOUTH ONCE DAILY TO PREVENT STROKE/H EART ATTACK ORAL DISCONT INUED 09/12/2023 [id number] JT NARANJO 2022 120 [place] BUPROPION HCL 150MG 12HR TAB,SA TAKE ONE TABLET BY MOUTH EVERY MORNING ORAL SUSPEND ED 10/20/2024 [id number] 5 NOA FALLON 2023 90 [place] BUPROPION HCL 150MG 12HR TAB,SA TAKE ONE TABLET BY MOUTH EVERY MORNING ORAL DISCONT INUED 12/16/2023 [id number] NOA FALLON 2022 90 [place] DICLOFENAC NA 1% GEL,TOP APPLY 4 GRAMS TOPICALL Y FOUR TIMES A DAY FOR PAIN FOR OSTEOART HRITIS - USE DOSING CARD PROVIDED IN BOX TOPICA L ACTIVE 03/16/2025 [id number] JT NARANJO 2023 100 [place] FERROUS SO4 325MG TAB TAKE ONE TABLET BY MOUTH TWO TIMES A WEEK TO SUPPLEME NT IRON TO SUPPLEME NT IRON TAKE ALONG WITH VITAMIN C (ASCORBI C ACID) ORAL DISCONT INUED BY PROVIDE R 07/31/2023 [id number] JT NARANJO M 2023 100 [place] FERROUS SO4 325MG TAB TAKE ONE TABLET BY MOUTH ONCE DAILY TO SUPPLEME NT IRON TAKE ALONG WITH VITAMIN C (ASCORBI C ACID) ORAL DISCONT INUED (EDIT) 12/13/2023 [id number] JT NARANJO 2022 90 [place] FINASTERIDE 5MG TAB TAKE ONE TABLET BY MOUTH AT BEDTIME FOR PROSTATE ORAL SUSPEND ED 01/12/2025 [id number] Ashkan GREEN 2024 90 [place] FINASTERIDE 5MG TAB TAKE ONE TABLET BY MOUTH AT BEDTIME FOR PROSTATE ORAL DISCONT INUED 05/02/2024 [id number] JT NARANJO 2023 90 [place] FINASTERIDE 5MG TAB TAKE ONE TABLET BY MOUTH AT BEDTIME FOR PROSTATE ORAL DISCONT INUED 07/18/2023 [id number] JT NARANJO M 2022 90 [place] GABAPENTIN 300MG CAP TAKE ONE CAPSULE BY MOUTH TWICE DAILY AND TAKE THREE CAPSULES AT BEDTIME FOR PAIN, ANXIETY, POOR SLEEP, AND HEADACHE S ORAL SUSPEND ED 01/25/2025 [id number] 5 JT NARANJO 2023 450 [place] GABAPENTIN 300MG CAP TAKE ONE CAPSULE BY MOUTH TWICE DAILY AND TAKE THREE CAPSULES AT BEDTIME FOR PAIN, ANXIETY, POOR SLEEP, AND HEADACHE S ORAL DISCONT INUED 12/13/2023 [id number] 4 BILLY JOHNSON Y 2022 450 [facility] HYDROXYZINE PAMOATE 50MG CAP TAKE ONE CAPSULE BY MOUTH FOUR TIMES DAILY NEEDED FOR ANXIETY ORAL SUSPEND ED 10/20/2024 [id number] NOA FALLON F 2023 240 [place] HYDROXYZINE PAMOATE 50MG CAP TAKE ONE CAPSULE BY MOUTH FOUR TIMES DAILY NEEDED FOR ANXIETY ORAL DISCONT INUED 07/14/2024 [id number] 4 NOA FALLON F 2023 240 [place] HYDROXYZINE PAMOATE 50MG CAP TAKE ONE CAPSULE BY MOUTH FOUR TIMES DAILY NEEDED FOR ANXIETY ORAL DISCONT INUED 01/20/2024 [id number] 4 NOA FALLON 2022 240 [place] OXYBUTYNIN CL 10MG TAB,SA TAKE ONE TABLET BY MOUTH EVERY MORNING FOR BLADDER INSTABIL ITY ORAL DISCONT INUED BY PROVIDE R 08/07/2024 [id number] JT NARANJO 2023 30 [place] OXYBUTYNIN CL 10MG TAB,SA TAKE ONE TABLET BY MOUTH EVERY MORNING FOR BLADDER INSTABIL ITY ORAL DISCONT INUED 07/18/2023 [id number] JT NARANJO 2022 30 [place] PRAZOSIN HCL 2MG CAP TAKE FOUR CAPSULES BY MOUTH AT BEDTIME ORAL SUSPEND ED 10/20/2024 [id number] 5 NOA FALLON F 2023 360 [place] PRAZOSIN HCL 2MG CAP TAKE FOUR CAPSULES BY MOUTH AT BEDTIME ORAL DISCONT INUED 12/16/2023 [id number] NOA FALLON F 2022 360 [place] ROSUVASTATI N CA 40MG TAB TAKE ONE-HALF TABLET BY MOUTH ONCE DAILY FOR HIGH CHOLESTE ROL ORAL SUSPEND ED 08/25/2024 [id number] 5 JT NARANJO M 2023 45 [place] ROSUVASTATI N CA 40MG TAB TAKE ONE-HALF TABLET BY MOUTH ONCE DAILY FOR CHOLESTE ROL INSTEAD OF PRAVASTA TIN ORAL DISCONT INUED 01/21/2024 [id number] 4 JT NARANJO 2022 45 [place] ROSUVASTATI N CA 40MG TAB TAKE ONE-HALF TABLET BY MOUTH ONCE DAILY FOR CHOLESTE ROL INSTEAD OF PRAVASTA TIN ORAL DISCONT INUED 07/18/2023 [id number] JT NARANJO 2022 45 [place] SERTRALINE HCL 100MG TAB TAKE ONE TABLET BY MOUTH EVERY MORNING ORAL ACTIVE 10/20/2024 [id number] 5 FALLONNOA ROMAN F 2023 90 [place] SERTRALINE HCL 100MG TAB TAKE ONE TABLET BY MOUTH EVERY MORNING ORAL DISCONT INUED 11/05/2023 [id number] NOA FALLON F 2022 90 [place] SILDENAFIL CITRATE 100MG TAB TAKE ONE TABLET BY MOUTH ONCE DAILY NEEDED FOR ERECTILE DYSFUNCT ION TAKE 1 HOUR PRIOR TO SEXUAL ACTIVITY , AND SEPARATE FROM TAMSULOS IN AND PRAZOSIN BY AT LEAST 4 HOURS ORAL ACTIVE 08/25/2024 [id number] 4 JT NARANJO 2023 18 [place] SILDENAFIL CITRATE 100MG TAB TAKE ONE TABLET BY MOUTH ONCE DAILY NEEDED FOR ERECTILE DYSFUNCT ION TAKE 1 HOUR PRIOR TO SEXUAL ACTIVITY , AND SEPARATE FROM TAMSULOS IN AND PRAZOSIN BY AT LEAST 4 HOURS ORAL DISCONT INUED 07/28/2023 [id number] JT NARANJO 2022 6 [place] TAMSULOSIN HCL 0.4MG CAP TAKE TWO CAPSULES BY MOUTH AT BEDTIME FOR ENLARGED PROSTATE ORAL SUSPEND ED 01/12/2025 [id number] 5 Ashkan GREEN 2023 180 [place] TAMSULOSIN HCL 0.4MG CAP TAKE TWO CAPSULES BY MOUTH AT BEDTIME FOR ENLARGED PROSTATE ORAL DISCONT INUED 08/25/2024 [id number] JT NARANJO M 2023 60 [place] TAMSULOSIN HCL 0.4MG CAP TAKE ONE CAPSULE BY MOUTH AT BEDTIME ORAL DISCONT INUED (EDIT) 12/13/2023 [id number] 4 JT NARANJO 2022 30 [place] VALSARTAN 320MG TAB TAKE ONE TABLET BY MOUTH ONCE DAILY FOR HIGH BLOOD PRESSURE ORAL ACTIVE 01/12/2025 [id number] 5 Ashkan GREEN A 2024 90 [place] VALSARTAN 320MG TAB TAKE ONE TABLET BY MOUTH ONCE DAILY FOR HIGH BLOOD PRESSURE ORAL DISCONT INUED 07/29/2024 [id number] ZBIGNIEWJT ANDERSON 2023 90 [place] VALSARTAN 320MG TAB TAKE ONE TABLET BY MOUTH ONCE DAILY FOR HIGH BLOOD PRESSURE ORAL DISCONT INUED 07/18/2023 [id number] JT NARANJO 2022 30 [place] Allergies, Adverse Reactions, Alerts Combined list of allergies from Department of Defense and Veterans Affairs facilities. It does not include entries that were removed or entered in error. Substance Category Reaction Severity Reaction type Status Date Reported Comments Source RED DYES Propensity to adverse reactions to substance (finding) Eruption active 0 [facility] RED DYES Propensity to adverse reactions to substance (finding) active 6 [facility] Immunizations Combined list of available immunizations from the Department of Defense and Veterans Affairs facilities. Immunization Series Date Given Administered By Site Reaction Lot Number CVX Code Drug Creative Services Writer Status Comments Source INFLUENZA, INJECTABLE, QUADRIVALENT, PRESERVATIVE FREE 2022 JASWINDER LAZARO LEFT DELTO ID [id number] A 150 complet ed [facility] INFLUENZA, INJECTABLE, QUADRIVALENT, PRESERVATIVE FREE 2021 150 complet ed [place] INFLUENZA, UNSPECIFIED FORMULATION [address] [facility] COVID-19 (MODERNA), MRNA, LNP-S, PF, 100 MCG/0.5 ML DOSE 2 2020 207 complet ed [place]; [id number]; 1 [place] COVID-19 (MODERNA), MRNA, LNP-S, PF, 100 MCG/0.5 ML DOSE 1 2020 207 complet ed MOD; [id number]; 1 [place] INFLUENZA, INJECTABLE, QUADRIVALENT, PRESERVATIVE FREE 2019 150 complet ed Site: Left Deltoid [place] PNEUMOCOCCAL POLYSACCHARID E PPV23 2019 33 complet ed [facility] INFLUENZA, SEASONAL, INJECTABLE 2018 141 complet ed [facility] ZOSTER RECOMBINANT 2 2018 187 complet ed [place] ZOSTER RECOMBINANT 1 2018 187 complet ed [place] INFLUENZA, SEASONAL, INJECTABLE 2018 141 complet ed x [facility] INFLUENZA, SEASONAL, INJECTABLE 2017 141 complet ed Site: Left Deltoid [place] TDAP 2016 115 complet ed Site: Left Deltoid [place] INFLUENZA, SEASONAL, INJECTABLE 2016 141 complet ed Site: Right Deltoid [place] PNEUMOCOCCAL CONJUGATE PCV 13 2016 133 complet ed [place] FLU,3 YRS (HISTORICAL) 2015 88 complet ed Site: Right Deltoid [place] FLU,3 YRS (HISTORICAL) 2014 88 complet ed Site: Left Deltoid [facility] FLU,3 YRS (HISTORICAL) 2013 88 complet ed Site: Left Deltoid [place] FLU,3 YRS (HISTORICAL) 2012 88 complet ed Site: Left Deltoid [place] FLU,3 YRS (HISTORICAL) 2011 88 complet ed Site: Left Deltoid [place] ZOSTER LIVE 2011 CAITLIN AGUILLON 121 complet ed [place] FLU,3 YRS (HISTORICAL) 2010 88 complet ed [facility] PNEUMOCOCCAL, UNSPECIFIED FORMULATION 2009 109 complet ed [place] FLU,3 YRS (HISTORICAL) 2009 88 complet ed [facility] [place] [facility] DTAP, UNSPECIFIED FORMULATION 2008 107 complet ed [facility] [place] [facility] Results Combined list of recent chemistry, hematology and other laboratory results from Department of Defense and Veterans Affairs, ranging from 15 months to all on record, depending upon the facility. Order Name Results Value Reference Range Date Interpretation Specimen Comments Source LIPID PANEL FASTING CHOLESTEROL [MASS/VOLUM E] IN SERUM OR PLASMA 124 mg/dL 03/11 Specimen Type: SERUM No comment entered. Ordering Provider: KATHERINE VILLA Report Released Date/Time: Mar 09, 2024 02:10 PM Reporting Lab: [address] [address] Performing Lab: [address] [address] [facility] LIPID PANEL FASTING TRIGLYCERID E [MASS/VOLUM E] IN SERUM OR PLASMA 144 mg/dL 0 - 150 03/11 Specimen Type: SERUM No comment entered. Ordering Provider: KATHERINE VILLA Report Released Date/Time: Mar 09, 2024 02:10 PM Reporting Lab: [address] [address] Performing Lab: [address] [address] [facility] LIPID PANEL FASTING CHOLESTEROL IN LDL [MASS/VOLUM E] IN SERUM OR PLASMA BY CALCULATION 59 mg/dL 0 - 129 03/11 Specimen Type: SERUM No comment entered. Ordering Provider: KATHERINE VILLA Report Released Date/Time: Mar 09, 2024 02:10 PM Reporting Lab: [address] [address] Performing Lab: [address] [address] [place] LIPID PANEL FASTING CHOLESTEROL .TOTAL/CHOL ESTEROL IN HDL [MASS RATIO] IN SERUM OR PLASMA 3.4 03/11 Specimen Type: SERUM No comment entered. Ordering Provider: KATHERINE VILLA Report Released Date/Time: Mar 09, 2024 02:10 PM Reporting [facility]: [facility] [address] [address] Performing Lab: [address] [address] [place] LIPID PANEL FASTING CHOLESTEROL IN HDL [MASS/VOLUM E] IN SERUM OR PLASMA 36 mg/dL 40 - 60 03/11 L Specimen Type: SERUM No comment entered. Ordering Provider: KATHERINE VILLA Report Released Date/Time: Mar 09, 2024 02:10 PM Reporting Lab: [address] [address] Performing Lab: [address] [address] [place] LIVER FUNCTION PROTEIN [MASS/VOLUM E] IN SERUM OR PLASMA 7.1 g/dL 6.0 - 8.3 03/11 Specimen Type: SERUM No comment entered. Ordering Provider: KATHERINE VILLA Report Released Date/Time: Mar 09, 2024 02:10 PM Reporting Lab: [address] [address] Performing Lab: [facility] [address] [address] [place] LIVER FUNCTION ALBUMIN [MASS/VOLUM E] IN SERUM OR PLASMA 3.7 g/dL 3.5 - 5.0 03/11 Specimen Type: SERUM No comment entered. Ordering Provider: KATHERINE VILLA Report Released Date/Time: Mar 09, 2024 02:10 PM Reporting Lab: [facility] [address] [address] Performing Lab: [address] [address] [place] LIVER FUNCTION ALKALINE PHOSPHATASE [ENZYMATIC ACTIVITY/VO LUME] IN SERUM OR PLASMA 68 U/L 40 - 150 03/11 Specimen Type: SERUM No comment entered. Ordering Provider: KATHERINE VILLA Report Released Date/Time: Mar 09, 2024 02:10 PM Reporting Lab: [facility] [address] [address] Performing Lab: [facility] [address] [address] [place] LIVER FUNCTION ASPARTATE AMINOTRANSF ERASE [ENZYMATIC ACTIVITY/VO LUME] IN SERUM OR PLASMA 20 U/L 5 - 34 03/11 Specimen Type: SERUM No comment entered. Ordering Provider: KATHERINE VILLA Report Released Date/Time: Mar 09, 2024 02:10 PM Reporting Lab[facility] [address] Performing Lab: [facility] [place] [address] [address] [place] LIVER FUNCTION ALANINE AMINOTRANSF ERASE [ENZYMATIC ACTIVITY/VO LUME] IN SERUM OR PLASMA 24 U/L 03/11 Specimen Type: SERUM No comment entered. Ordering Provider: KATHERINE VILLA Report Released Date/Time: Mar 09, 2024 02:10 PM Reporting Lab: [facility] [address] [address] Performing Lab: [facility] [place] [address] [address] [place] LIVER FUNCTION BILIRUBIN.T OTAL [MASS/VOLUM E] IN SERUM OR PLASMA 0.4 mg/dL 0.2 - 1.2 03/11 Specimen Type: SERUM No comment entered. Ordering Provider: KATHERINE VILLA Report Released Date/Time: Mar 09, 2024 02:10 PM Reporting Lab: [facility] [address] [address] Performing Lab: [facility] [address] [place] BASIC METABOLIC PANEL (non-fast ing) UREA NITROGEN [MASS/VOLUM E] IN SERUM OR PLASMA 29 mg/dL 7 - 25 03/11 H Specimen Type: SERUM No comment entered. Ordering Provider: KATHERINE VILLA Report Released Date/Time: Mar 09, 2024 02:10 PM Reporting Lab: [facility] [address] [address] Performing Lab: [address] [address] [place] BASIC METABOLIC PANEL (non-fast ing) GLUCOSE [MASS/VOLUM E] IN SERUM OR PLASMA 109 mg/dL 65 - 100 03/11 H Specimen Type: SERUM No comment entered. Ordering Provider: KATHERINE VILLA Report Released Date/Time: Mar 09, 2024 02:10 PM Reporting Lab: [address] [address] Performing Lab: [address] [address] [place] BASIC METABOLIC PANEL (non-fast ing) SODIUM [MOLES/VOLU ME] IN SERUM OR PLASMA 141 mmol/L 135 - 145 03/11 Specimen Type: SERUM No comment entered. Ordering Provider: KATHERINE VILLA Report Released Date/Time: Mar 09, 2024 02:10 PM Reporting Lab: [address] [address] Performing Lab: [address] [address] [place] BASIC METABOLIC PANEL (non-fast ing) POTASSIUM [MOLES/VOLU ME] IN SERUM OR PLASMA 4.2 mmol/L 3.5 - 5.0 03/11 Specimen Type: SERUM No comment entered. Ordering Provider: KATHERINE VILLA Report Released Date/Time: Mar 09, 2024 02:10 PM Reporting Lab: [facility] [address] [facility] [address] Performing Lab: [facility] [address] [address] [place] BASIC METABOLIC PANEL (non-fast ing) CHLORIDE [MOLES/VOLU ME] IN SERUM OR PLASMA 106 mmol/L 100 - 110 03/11 Specimen Type: SERUM No comment entered. Ordering Provider: KATHERINE VILLA Report Released Date/Time: Mar 09, 2024 02:10 PM Reporting Lab: [facility] [address] [address] Performing Lab: [facility] [address] [address] [place] BASIC METABOLIC PANEL (non-fast ing) CARBON DIOXIDE, TOTAL [MOLES/VOLU ME] IN SERUM OR PLASMA 27 meq/L 20 - 30 03/11 Specimen Type: SERUM No comment entered. Ordering Provider: KATHERINE VILLA Report Released Date/Time: Mar 09, 2024 02:10 PM Reporting Lab: [facility] [address] [address] Performing Lab: [facility] [address] [address] [place] BASIC METABOLIC PANEL (non-fast ing) CREATININE [MASS/VOLUM E] IN SERUM OR PLASMA 1.19 mg/dL 0.50 - 1.40 03/11 Specimen Type: SERUM No comment entered. Ordering Provider: KATHERINE VILLA Report Released Date/Time: Mar 09, 2024 02:10 PM Reporting Lab: [facility] [address] [address] Performing Lab: [facility] [address] [address] [place] BASIC METABOLIC PANEL (non-fast ing) GLOMERULAR FILTRATION RATE/1.73 SQ M.PREDICTED [VOLUME RATE/AREA] IN SERUM, PLASMA OR BLOOD BY CREATININE- BASED FORMULA (CKD-EPI 2020) 64 mL/min 60 03/11 Specimen Type: SERUM No comment entered. Ordering Provider: KATHERINE VILLA Report Released Date/Time: Mar 09, 2024 02:10 PM Reporting Lab: [address] [address] Performing Lab: [address] [address] [place] TSH THYROTROPIN [UNITS/VOLU ME] IN SERUM OR PLASMA 3.07 u[IU]/ mL 0.35 - 5.00 03/11 Specimen Type: SERUM No comment entered. Ordering Provider: KATHERINE VILLA Report Released Date/Time: Mar 09, 2024 02:10 PM Reporting Lab: [address] [address] Performing Lab: [address] [address] [employer] [place] HEMOGLOBI N A1C PANEL HEMOGLOBIN A1C/HEMOGLO BIN.TOTAL IN BLOOD BY HPLC 5.9 4.0 - 5.6 03/11 H Specimen Type: BLOOD Comment: Values obtained from A1C measurement s can vary. For atypical A1C assays, a reported value of 7.0 could actually be between 6.72 and 7.28 if measured by a reference method. A reported value of 9.0 could actually be between 8.73 and 9.27. Ref: http://www. ngsp.org/[place] Pdata.asp Ordering Provider: KATHERINE VILLA Report Released Date/Time: Mar 09, 2024 02:10 PM Reporting Lab: [address] [address] Performing Lab: [address] [address] [place] CALCIUM CALCIUM [MASS/VOLUM E] IN SERUM OR PLASMA 9.8 mg/dL 8.5 - 10.2 03/11 Specimen Type: SERUM No comment entered. Ordering Provider: KATHERINE VILLA Report Released Date/Time: Mar 09, 2024 02:10 PM Reporting Lab: [address] [address] Performing Lab: [address] [address] [place] URIC ACID URATE [MASS/VOLUM E] IN SERUM OR PLASMA 5.4 mg/dL 3.5 - 7.2 03/11 Specimen Type: SERUM No comment entered. Ordering Provider: KATHERINE VILLA Report Released Date/Time: Mar 09, 2024 02:10 PM Reporting Lab: [address] [address] Performing Lab: [address] [address] [place] CBC AND DIFF (AUTO) LEUKOCYTES [#/VOLUME] IN BLOOD BY AUTOMATED COUNT 7.48 10*3/u L 4.50 - 11.00 03/11 Specimen Type: BLOOD No comment entered. Ordering Provider: KATHERINE VILLA Report Released Date/Time: Mar 09, 2024 02:10 PM Reporting Lab: [address] [address] Performing Lab: [address] [address] [place] CBC AND DIFF (AUTO) ERYTHROCYTE S [#/VOLUME] IN BLOOD BY AUTOMATED COUNT 5.19 10*6/u L 4.23 - 5.66 03/11 Specimen Type: BLOOD No comment entered. Ordering Provider: KATHERINE VILLA Report Released Date/Time: Mar 09, 2024 02:10 PM Reporting Lab: [address] [address] Performing Lab: [address] [address] [place] CBC AND DIFF (AUTO) HEMOGLOBIN [MASS/VOLUM E] IN BLOOD 14.0 g/dL 12.8 - 17 03/11 Specimen Type: BLOOD No comment entered. Ordering Provider: KATHERINE VILLA Report Released Date/Time: Mar 09, 2024 02:10 PM Reporting Lab: [facility]ITALTRN [facility] [address] [address] Performing Lab: [facility]ITALRL TRN [facility]ITALUSETS [address] [address] [place] CBC AND DIFF (AUTO) HEMATOCRIT [VOLUME FRACTION] OF BLOOD BY AUTOMATED COUNT 42.3 39.2 - 50.4 03/11 Specimen Type: BLOOD No comment entered. Ordering Provider: KATHERINE VILLA Report Released Date/Time: Mar 09, 2024 02:10 PM Reporting Lab: [facility]ITALTRN [facility]USE[address] [address] Performing Lab: [facility]ITALTRN [facility]ITALUSETS [address] [address] [place] CBC AND DIFF (AUTO) MCV [ENTITIC VOLUME] BY AUTOMATED COUNT 81.5 fL 82 - 99 03/11 L Specimen Type: BLOOD No comment entered. Ordering Provider: KATHERINE VILLA Report Released Date/Time: Mar 09, 2024 02:10 PM Reporting Lab: [facility]ITALTRN [facility]ITALUSETS [address] [address] Performing Lab: [facility]RL TRN [facility] [address] [address] [place] CBC AND DIFF (AUTO) MCHC [MASS/VOLUM E] BY AUTOMATED COUNT 33.1 g/dL 30.8 - 35.1 03/11 Specimen Type: BLOOD No comment entered. Ordering Provider: KATHERINE VILLA Report Released Date/Time: Mar 09, 2024 02:10 PM Reporting Lab: [facility]OSPITALTRN [facility]USE[address] [address] Performing Lab: [facility]OSPITALTRN [facility]USE[address] [address] [place] CBC AND DIFF (AUTO) PLATELETS [#/VOLUME] IN BLOOD BY AUTOMATED COUNT 241 10*3/u L 140 - 360 03/11 Specimen Type: BLOOD No comment entered. Ordering Provider: KATHERINE VILLA Report Released Date/Time: Mar 09, 2024 02:10 PM Reporting Lab: [facility] [place] [address] [address] Performing Lab: [facility] [place] [address] [place] CBC AND DIFF (AUTO) ERYTHROCYTE DISTRIBUTIO N WIDTH [RATIO] BY AUTOMATED COUNT 12.9 12.0 - 16.0 03/11 Specimen Type: BLOOD No comment entered. Ordering Provider: KATHERINE VILLA Report Released Date/Time: Mar 09, 2024 02:10 PM Reporting Lab: [facility] [place] [address] [address] Performing Lab: [facility] [place] [address] [address] [place] CBC AND DIFF (AUTO) MONOCYTES [#/VOLUME] IN BLOOD BY AUTOMATED COUNT 0.78 10*3/u L 0.30 - 1.10 03/11 Specimen Type: BLOOD No comment entered. Ordering Provider: KATHERINE VILLA Report Released Date/Time: Mar 09, 2024 02:10 PM Reporting Lab: [facility] [place] [address] [address] Performing Lab: [facility] [place] [address] [address] [place] CBC AND DIFF (AUTO) MCH [ENTITIC MASS] BY AUTOMATED COUNT 27.0 pg 26.2 - 32.6 03/11 Specimen Type: BLOOD No comment entered. Ordering Provider: KATHERINE VILLA Report Released Date/Time: Mar 09, 2024 02:10 PM Reporting Lab: [facility] [place] [address] [address] Performing Lab: [facility]ITALRL WSTRN [facility]ITAL[facility]ETS [facility] [address] [address] [place] CBC AND DIFF (AUTO) NEUTROPHILS /100 LEUKOCYTES IN BLOOD BY AUTOMATED COUNT 61.1 43.7 - 75.8 03/11 Specimen Type: BLOOD No comment entered. Ordering Provider: KATHERINE VILLA Report Released Date/Time: Mar 09, 2024 02:10 PM Reporting Lab: [facility]ITALRL WSTRN [facility]CH[facility]ETS [address] [address] Performing Lab: [facility]ITALRL TRN [facility] [address] [address] [place] CBC AND DIFF (AUTO) LYMPHOCYTES /100 LEUKOCYTES IN BLOOD BY AUTOMATED COUNT 25.5 14.0 - 42.3 03/11 Specimen Type: BLOOD No comment entered. Ordering Provider: KATHERINE VILLA Report Released Date/Time: Mar 09, 2024 02:10 PM Reporting Lab: [facility]ITALRL TRN [facility] [address] [address] Performing Lab: [facility]ITALRL TRN [facility] [address] [address] [place] CBC AND DIFF (AUTO) MONOCYTES/1 00 LEUKOCYTES IN BLOOD BY AUTOMATED COUNT 10.4 5.1 - 13.7 03/11 Specimen Type: BLOOD No comment entered. Ordering Provider: KATHERINE VILLA Report Released Date/Time: Mar 09, 2024 02:10 PM Reporting Lab: [facility]ITALRL WSTRN [facility]CHUSETS [address] [address] Performing Lab: [facility]ITALREN[facility] HOSPITALTRN [facility]US[facility] [address] [address] [place] CBC AND DIFF (AUTO) EOSINOPHILS /100 LEUKOCYTES IN BLOOD BY AUTOMATED COUNT 2.0 0.4 - 6.8 03/11 Specimen Type: BLOOD No comment entered. Ordering Provider: KATHERINE VILLA Report Released Date/Time: Mar 09, 2024 02:10 PM Reporting Lab: [facility] [place] [address] [address] Performing Lab: [facility] [address] [address] [place] CBC AND DIFF (AUTO) BASOPHILS/1 00 LEUKOCYTES IN BLOOD BY AUTOMATED COUNT 0.7 0.1 - 2.0 03/11 Specimen Type: BLOOD No comment entered. Ordering Provider: KATHERINE VILLA Report Released Date/Time: Mar 09, 2024 02:10 PM Reporting Lab: [facility] [address] [address] Performing Lab: [facility]ITALUSE[address] [address] [place] CBC AND DIFF (AUTO) NEUTROPHILS [#/VOLUME] IN BLOOD BY AUTOMATED COUNT 4.57 10*3/u L 2.20 - 7.60 03/11 Specimen Type: BLOOD No comment entered. Ordering Provider: KATHERINE VILLA Report Released Date/Time: Mar 09, 2024 02:10 PM Reporting Lab: [facility] [address] [address] Performing Lab: [facility] [address] [address] [place] CBC AND DIFF (AUTO) LYMPHOCYTES [#/VOLUME] IN BLOOD BY AUTOMATED COUNT 1.91 10*3/u L 1.00 - 3.20 03/11 Specimen Type: BLOOD No comment entered. Ordering Provider: KATHERINE VILLA Report Released Date/Time: Mar 09, 2024 02:10 PM Reporting Lab: [facility] [address] [address] Performing Lab: [facility] [address] [address] [place] CBC AND DIFF (AUTO) EOSINOPHILS [#/VOLUME] IN BLOOD BY AUTOMATED COUNT 0.15 10*3/u L 0.03 - 0.44 03/11 Specimen Type: BLOOD No comment entered. Ordering Provider: KATHERINE VILLA Report Released Date/Time: Mar 09, 2024 02:10 PM Reporting Lab: [facility] [place] [facility] [address] [address] Performing Lab: [facility] [address] [address] [place] CBC AND DIFF (AUTO) BASOPHILS [#/VOLUME] IN BLOOD BY AUTOMATED COUNT 0.05 10*3/u L 0.01 - 0.13 03/11 Specimen Type: BLOOD No comment entered. Ordering Provider: KATHERINE VILLA Report Released Date/Time: Mar 09, 2024 02:10 PM Reporting Lab: [facility] [address] [address] Performing Lab: [facility] [address] [address] [place] CBC AND DIFF (AUTO) IMMATURE GRANULOCYTE S/100 LEUKOCYTES IN BLOOD BY AUTOMATED COUNT 0.3 0.0 - 0.7 03/11 Specimen Type: BLOOD No comment entered. Ordering Provider: KATHERINE VILLA Report Released Date/Time: Mar 09, 2024 02:10 PM Reporting Lab: [facility] [address] [address] Performing Lab: [facility] [address] [address] [place] CBC AND DIFF (AUTO) IMMATURE GRANULOCYTE S [#/VOLUME] IN BLOOD 0.02 10*3/u L 0.00 - 0.06 03/11 Specimen Type: BLOOD No comment entered. Ordering Provider: KATHERINE VILLA Report Released Date/Time: Mar 09, 2024 02:10 PM Reporting Lab: [facility] [address] [address] Performing Lab: [facility] [address] [address] [place] CBC AND DIFF (AUTO) NRBC % 0.0 0.0 - 0.0 03/11 Specimen Type: BLOOD No comment entered. Ordering Provider: KATHERINE VILLA Report Released Date/Time: Mar 09, 2024 02:10 PM Reporting Lab: [facility] [address] [address] Performing Lab: [facility] [place] [address] [place] CBC AND DIFF (AUTO) NRBC, ABS 0.00 10*3/u L 0.00 - 0.00 03/11 Specimen Type: BLOOD No comment entered. Ordering Provider: KATHERINE VILLA Report Released Date/Time: Mar 09, 2024 02:10 PM Reporting Lab: [address] [address] Performing Lab: [facility] [address] [address] [place] MICROSCOP IC AUTOMATED , URINE LEUKOCYTES [#/AREA] IN URINE SEDIMENT BY MICROSCOPY HIGH POWER FIELD 0-5/[H PF] 0 - 5 08/04 Specimen Type: URINE Comment: If Glucose = >500 and Ketones are positive, please alert the Physician. Ordering Provider: KATHERINE VILLA Report Released Date/Time: Jul 30, 2023 08:43 AM Reporting Lab: [facility] [address] Performing Lab: [facility] [address] [place] MICROSCOP IC AUTOMATED , URINE MUCUS [#/AREA] IN URINE SEDIMENT BY MICROSCOPY LOW POWER FIELD FEW/[L PF] 08/04 Specimen Type: URINE Comment: If Glucose = >500 and Ketones are positive, please alert the Physician. Ordering Provider: KATHERINE VILLA Report Released Date/Time: Jul 30, 2023 08:43 AM Reporting Lab: [facility] [address] [address] Performing Lab: [address] [address] [employer] MICROSCOP IC AUTOMATED , URINE ERYTHROCYTE S [#/AREA] IN URINE SEDIMENT BY MICROSCOPY HIGH POWER FIELD 0-2/[H PF] 0 - 3 08/04 Specimen Type: URINE Comment: If Glucose = >500 and Ketones are positive, please alert the Physician. Ordering Provider: KATHERINE VILLA Report Released Date/Time: Jul 30, 2023 08:43 AM Reporting Lab: [address] [address] Performing Lab: [address] [address] ANJELICAAstro Gaming[employer] KAM FERRITIN FERRITIN [MASS/VOLUM E] IN SERUM OR PLASMA 159 ng/mL 20 - 300 08/04 Specimen Type: SERUM No comment entered. Ordering Provider: KATHERINE VILLA Report Released Date/Time: Jan 22, 2023 11:47 AM Reporting Lab: [address] [address] Performing Lab: [address] [address] ANJELICAAstro Gaming[employer] KAM Vital Signs Combined list of inpatient and outpatient Vital Signs from Department of Defense and Veterans Affairs, ranging from 12 months to all on record, depending upon the facility. Vital Sign Value Date Comments Source PULSE OXIMETRY 96 03/15/2024 09:07:39 S SIMI WEIGHT 219 03/15/2024 09:07:39 JANENEWENDY HUFFMANTRE BMI 31kg/m2 03/15/2024 09:07:39 ELVIRA DEMARCO TEMPERATURE 98.2 03/15/2024 09:07:39 [facility] ANGELES PULSE 62 03/15/2024 09:07:39 [facility] SYSTOLIC BLOOD PRESSURE 155 08/25/2023 09:26:14 [facility] DIASTOLIC BLOOD PRESSURE 86 08/25/2023 09:26:14 [place] PULSE OXIMETRY 95 08/25/2023 09:26:14 S SIMI WEIGHT 207.6 08/25/2023 09:26:14 ELVIRA DEMARCO BMI 30kg/m2 08/25/2023 09:26:14 ELVIRA DEMARCO TEMPERATURE 97.7 08/25/2023 09:26:14 SPR[facility] KARTHIK PULSE 56 08/25/2023 09:26:14 ELVIRA DEMARCO Encounters Combined list of: 1) Encounters from Department of [facility] 2) Encounters from the Department of [facility] facilities going back up to 280 months. Location Location Details Encounter Type Encounter Number Reason For Visit Attending Provider ADM Date DC Date Status Disposition Source [facility] [place] [facility] Outpatient Encounter [id number] 10/09 [facility] [place] [place] [facility] OFFICE O/P EST LOW 20-29 MIN [id number] Diagnos is: ICD-10- CM F43.12 Post-tr aumatic stress disorde r, chronic
RENETTA FALLON OY F 11/04 [facility] [place] [place] [facility] Outpatient Encounter [id number] 11/11 [facility] [place] [place] [facility] OFFICE/[place] [id number] Diagnos is: ICD-10- CM G47.33 Obstruc tive [facility] ([facility]
JERRELL MELLO 11/12 [facility] [place] [place] [facility] Outpatient Encounter [id number] 12/09 [facility] [place] [facility] [place] [facility] Outpatient Encounter [id number] MINESH LAZARO 12/10 [facility] [place] [place] [facility] [place] [facility] Outpatient Encounter [id number] 12/11 [facility] [place] [facility] En[facility] [id number] 12/30 [facility] [place] INTRAORAL FULL IMAGE SERIES [id number] Diagnos is: ICD-10- CM 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
JHONY ELMORE 01/09 [facility] [place] En[facility] [id number] 01/19 [facility] [place] Encounter [id number] 01/19 [facility] [place] Encounter [id number] 01/19 [facility] [place] Encounter [id number] 01/22 [facility] [place] OFF[place] O/P EST HI 40-54 MIN [id number] Diagnos is: ICD-10- CM I10 Essenti al (primar y) hyperte nsion<b r/> AMAN HUGHES 01/22 [place] [facility] [place] ADMIN [id number] AMAN HUGHES M 01/22 [facility] [place] OFF[place] O/P EST LOW 20-29 MIN [id number] Diagnos is: ICD-10- CM F43.12 Post-tr aumatic stress disorde r, chronic
[place] OY F 02/17 [place] [facility] Out[facility] Encounter [id number] 02/19 [facility] [place] [place] [facility] CASE MGMT-ORAL HEALTH LIT [id number] Diagnos is: ICD-10- CM K03.6 Deposit s [accret ions] on teeth<b r/> JORDEN,MARIELA KLEBER K 02/20 [facility] [place] [facility] [place] OFF[place] O/P EST LOW 20-29 MIN [id number] Diagnos is: ICD-10- CM L60.0 Ingrowi ng nail
MARILUZ SUBRAMANIAN F 02[place] [facility] En[facility] [id number] 02/25 [facility] Encounter [id number] 03/17 [facility] [place] Encounter [id number] 04/09 [facility] [place] Encounter [id number] LAUREN HENDRICKS 05/01 [facility] [place] En[facility] [id number] 05/01 [facility] [place] [facility] MIN [id number] 03 Diagnos is: ICD-10- CM L84 Corns and callosi ties
MARILUZ SUBRAMANIAN ES F 05/27 [place] [facility] En[facility] [id number] 07/12 [facility] [place] O/P EST LOW 20 MIN [id number] Diagnos is: ICD-10- CM F43.12 Post-tr aumatic stress disorde r, chronic
F[place]RENET[place] OY F 07/13 [place] [facility] En[facility] [id number] 07/20 [facility] Encounter [id number] 07/27 [facility] [place] Encounter [id number] 07/27 [facility] Encounter [id number] 07/28 [facility] Encounter [id number] 07/29 [facility] Out[facility] Encounter [id number] 08/02 [facility] [place] Outpatient Encounter [id number] 08/04 [facility] [place] OFF/OP EST AUGUST X REQ PHY/QHP [id number] Diagnos is: ICD-10- CM R39.15 Urgency of urinati on
VANDANA DING 08/12 [facility] [place] OFF[place] O/P EST LOW 20 MIN [id number] Diagnos is: ICD-10- CM L60.0 Ingrowi ng nail
MARILUZ SUBRAMANIAN ES F 08/18 [place] [facility] Outpatient Encounter [id number] 08/24 [facility] [place] [facility] [place] OFF[place] O/P EST MOD 30 MIN [id number] Diagnos is: ICD-10- CM N40.1 Benign prostat ic hyperpl jarod with lower urinary tract symp
AAMN HUGHES [place] [facility] [place] Outpatient Encounter [id number] 09/09 [facility] [place] [facility] [place] OFF/OP EST MAY X REQ PHY/QHP [id number] Diagnos is: ICD-10- CM I10 Essenti al (primar y) hyperte nsion<b r/> VANDANA DING [place] [facility] [place] [facility] Outpatient Encounter [id number] 10/13 [facility] [place] [facility] [place] [facility] TOPICAL FLUORIDE VARNISH [id number] Diagnos is: ICD-10- CM K03.6 Deposit s [accret ions] on teeth<b r/> JORDENMARIELA KLEBER K 10/14 [facility] [place] [facility] [place] OFFICE O/P EST LOW 20 MIN [id number] 1BY. 92 Diagnos is: ICD-10- CM F43.12 Post-tr aumatic stress disorde r, chronic
RENETTA FALLNO OY F 10/19 [place] [facility] Out[facility] Encounter [id number] 10/20 [facility] [place] [facility] [place] OFF[place] O/P EST LOW 20 MIN [id number] Diagnos is: ICD-10- CM L60.0 Ingrowi ng nail
ACE SUBRAMANIANChely ES F 11/11 [place] [facility] Encounter [id number] 1.11/26 [facility] POST 1 SRFC RESINBASED CMPST [id number] 1. Diagnos is: ICD-10- CM K02.62 Dental caries on smooth surface penetra ting into dentin< br/> SAMEERA FRANCO 11/29 [facility] En[facility] [id number] 1. MINESH LAZARO 01/11 [facility] [place] [facility] Out[facility] Encounter [id number] 01/11 [facility] [place] [facility] Encounter [id number] 1. MINESH LAZARO 01/11 [facility] [place] [facility] OFFICE O/P EST LOW 20 MIN [id number] 1BY. 74 Diagnos is: ICD-10- CM F43.12 Post-tr aumatic stress disorde r, chronic
[place] OY F 01/18 [place] [facility] En[facility] [id number] 1.01/18 [facility] En[facility] [id number] 01/19 [facility] [place] [facility] SPECIAL SUPPLIES PHYS/QHP [id number] Diagnos is: ICD-10- CM G47.30 Sleep apnea, unspeci fied
ST AMSHANAE,JERRELL E P 02/02 [facility] Outpatient Encounter [id number] 03/04 [facility] [place] [facility] [place] [facility] Outpatient Encounter [id number] 03/07 [facility] [place] [facility] Outpatient Encounter [id number] 03/08 [facility] [place] [facility] [place] [facility] Outpatient Encounter [id number] BEN RUBALCAVA 03/09 [facility] [place]P EST MOD 30 MIN [id number] Diagnos is: ICD-10- CM I10 Essenti al (primar y) hyperte nsion<b r/> AMAN HUGHES 03[place] [facility] [place] Outpatient Encounter [id number] 03/21 [facility] [place] [facility] LD OFFICE O/P EST LOW 20 MIN [id number] Diagnos is: ICD-10- CM L60.0 Ingrowi ng nail
MARILUZ SUBRAMANIAN F 03/24 [facility] [place] Social History Combined list of available smoking, tobacco, and other social history from Department of Defense and Veterans Affairs facilities. Social History Type Response Date Comment Source Tobacco smoking status [facility] NEVER USED 07/14/2023 [place] History of tobacco use [facility] NEVER USED 08/05/2022 [place] History of tobacco use [facility]-TO[facility]ACCO NEVER USED 09/03/2021 [place] History of tobacco use [facility]-TO[facility]ACCO NEVER USED 09/25/2020 [place] History of tobacco use [facility]-TOBACCO NEVER USED 10/12/2019 [place] History of tobacco use [facility]-TOBACCO NEVER USED 08/31/2018 [place] History of tobacco use LIFETIME NON-TOBACCO USER 07/30/2017 [place] History of tobacco use QUIT TOBACCO USE 1-7 YEARS AGO 02/17/2017 [place] History of tobacco use QUIT TOBACCO USE > 7 YEARS AGO 12/19/2015 [place] History of tobacco use QUIT TOBACCO USE > 7 YEARS AGO 08/30/2009 quit about 25 years [facility] Plan of Care List of future care activities from Department of Veterans Affairs facilities. Additional future care activities may be listed in the Assessment and Plan section. Date/Time Care Activity Care Activity Detail Facili ty 04/19/2024 AMBULATORY - NONE [facility]ONE [facility]/17/2024 AMBULAT[facility] - PSYCHIATRY AMBULATORY - PS[facility] [place] 07/14/2024 AMBULATORY - MEDICINE AMBULATORY - MEDICI [facility] 10/03/2024 AMBULATORY - MEDICINE AMBULATORY - MEDICI [facility] Advance Directives List of completed, amended, or rescinded Advance Directives on record at Department of [facility] Affairs facilities. An actual copy of the Directive is not included. Date Advance Directive Provider Source 05/17/[address] [facility]
--- OUTSIDE RECORDS SUMMARY | 2024-04-05 09:51 | XMS_ITS | Encounter Summary ---
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 This section includes the names of all active insurance providers for the patient. Insurance Provider Type of Coverage Plan Name Start of Policy Coverage End of Policy Coverage Group Number Member ID Insurance Provider's Telephone Number Policy Solano's Name Patient's Relationship to Policy Solano BC[facility] OF [facility] PREFERRED PROVIDER ORGANIZAT ION (PPO) [facility] August 10, 2010 [id number] [phone] ZHOU QUINTERO RAY PATIENT [facility] (WNR) MEDICARE (M) [facility] (WNR) Apr 06, 2014 NO GROUP NUMBER [id number] INGRID,ZHOU RAY PATIENT JANE [facility] (WNR) MEDICARE ADVANTAGE [facility](W NR) Apr 06, 2015 [id number] INGRID,ZHOU RAY PATIENT JANE [facility] (WNR) MEDICARE ADVANTAGE [facility] (WNR) Apr 06, 2014 [id number] BOWLEXI,ZHOU RAY PATIENT Selected Encounter This section includes the information on record at [place] for the Encounter. Date/Time Encounter Type Encounter Description Reason Provider Source Mar 15, 2024 09:00 AM OFFICE O/P EST MOD 30 MIN PRIMARY CARE/MEDICINE ICD-10-CM I10 Essential (primary) hypertension JT ELISE Zehra Encounter Template Text not used by [place] Assessments - Encounter Diagnoses This section includes the primary and secondary diagnoses documented for the Encounter. Date/Time Primary/Secondary Diagnosis Diagnosis Name Provider Source Mar 19, 2024 10:22 PM PRIMARY Essential (primary) hypertension JT BROUSSARD [place] Mar 19, 2024 10:22 PM SECONDARY Aneurysm of iliac artery JT BROUSSARD [place] Mar 19, 2024 10:22 PM SECONDARY Benign prostatic hyperplasia with lower urinary tract symp ALFA-JT COHEN [facility] Mar 19, 2024 10:22 PM SECONDARY Benign prostatic hyperplasia without lower urinry tract symp ALFA-BOSKO JT MACEDO [place] Mar 19, 2024 10:22 PM SECONDARY Hyperlipidemia, unspecified AMYAZDIN-BOSKO HELLENJT [facility] Mar 19, 2024 10:22 PM SECONDARY Male erectile dysfunction, unspecified ZBIGNIEWDIN-BOSKO JT MACEDO [facility] Mar 19, 2024 10:22 PM SECONDARY Obesity, unspecified AMYAZDIN-BOSKO HELLENJT [facility] Mar 19, 2024 10:22 PM SECONDARY Other obstructive and reflux uropathy ALFA-JT COHEN [facility] Mar 19, 2024 10:22 PM SECONDARY Other specified cardiac arrhythmias ALFA-BOSKO JT MACEDO [facility] Mar 19, 2024 10:22 PM SECONDARY Overweight ALFA-BOSKO JT MACEDO [facility] Mar 19, 2024 10:22 PM SECONDARY Personal history of endo, nutritional and metabolic disease ALFA-BOSKO JT MACEDO [facility] Mar 19, 2024 10:22 PM SECONDARY Post-traumatic stress disorder, chronic ALFA-JT COHEN [facility] Mar 19, 2024 10:22 PM SECONDARY Prediabetes ALFA-BOSJT HUSSEIN [place] Mar 19, 2024 10:22 PM SECONDARY Restless legs syndrome JT BROUSSARD [place] Mar 19, 2024 10:22 PM SECONDARY Sleep apnea, unspecified JT BROUSSARD [place] Mar 19, 2024 10:22 PM SECONDARY White matter disease, unspecified JT BROUSSARD [place] Plan of Treatment: Future Appointments (+ 6 months) and Future Tests (+/- 45 days) The Plan of Treatment section includes future care activities for the patient from all [place] [facility]. This section includes future appointments and future orders which are active, pending or scheduled. Future Appointments This section includes appointments that were scheduled to occur 6 months from the date of the Encounter, up to a maximum of 20 appointments. The data comes from all [place] treatment facilities. Appointment Date/Time Appointment Type Appointme nt Facility Name Mar 24, 2024 08:00 AM AMBULATORY - MEDICINE [facility] Apr 19, 2024 08:30 AM AMBULATORY - NONE [facility] May 17, 2024 01:30 PM AMBULATORY - PSYCHIATRY [facility] Jul 14, 2024 08:00 AM AMBULATORY - MEDICINE [facility] Lab Results: +/- 30 days of the encounter This section includes the Chemistry and Hematology Lab Results on record with [place] for the patient. Radiology Reports and Pathology Reports are provided separately, in subsequent sections. Lab Results This section contains the Chemistry/Hematology Results that were resulted 30 days before or 30 daysafter the date of the Encounter. Date/Time Source Result Type Result - Unit Interpretation Reference Range Comment Mar 11, 2024 11:40 AM [place] HEMOGLOBIN A1C PANEL Specimen Type: BLOOD Comment: Values obtained from A1C measurements can vary. For atypical A1C assays, a reported value of 7.0 could actually be between 6.72 and 7.28 if measured by a reference method. A reported value of 9.0 could actually be between 8.73 and 9.27. Ref: http://www.ngs p.org/CAPdata. asp Ordering Provider: JT BROUSSARD Report Released Date/Time: Mar 09, 2024 02:10 PM Reporting Lab: [address] [place] [address] Performing Lab: [facility] [address] [address] HEMOGLOBIN A1C 5.9 H 4.0-5.6 Mar 11, 2024 11:40 AM [place] TSH Specimen Type: SERUM No comment entered. Ordering Provider: JT BROUSSARD Report Released Date/Time: Mar 09, 2024 02:10 PM Reporting Lab: [facility] [address] [address] Performing Lab: [facility] [address] [address] TSH 3.07 u[IU]/mL 0.35-5.00 Mar 11, 2024 11:40 AM [place] BASIC METABOLIC PANEL (non-fasting) Spe cimen Type: SERUM No comment entered. Ordering Provider: JT BROUSSARD Report Released Date/Time: Mar 09, 2024 02:10 PM Reporting Lab: [facility] [address] [address] Performing Lab: [facility] [address] [address] UREA NITROGEN 29 mg/dL H 7-25 GLUCOSE 109 mg/dL H 65-100 SODIUM 141 mmol/L 135-145 POTASSIUM 4.2 mmol/L 3.5-5.0 CHLORIDE 106 mmol/L 100-110 CO2 27 meq/L 20-30 CREATININE, Serum 1.19 mg/dL 0.50-1.40 eGFR(CKD-EPI 2020) 64 mL/min >60 Mar 11, 2024 11:40 AM [place] LIPID PANEL FASTING Specimen Type: SERUM No comment entered. Ordering Provider: JT BROUSSARD Report Released Date/Time: Mar 09, 2024 02:10 PM Reporting Lab: [facility] [address] [address] Performing Lab: [address] [address] CHOLESTEROL 124 mg/dL TRIGLYCERIDE 144 mg/dL 0-150 LDL calculated 59 mg/dL 0-129 CHOL/HDL 3.4 HDL CHOLESTEROL 36 mg/dL L 40-60 Mar 11, 2024 11:40 AM [place] LIVER FUNCTION Specimen Type: SERUM No comment entered. Ordering Provider: JT BROUSSARD Report Released Date/Time: Mar 09, 2024 02:10 PM Reporting Lab: [address] [address] Performing Lab: [address] [address] PROTEIN,TOTAL 7.1 g/dL 6.0-8.3 ALBUMIN 3.7 g/dL 3.5-5.0 ALKALINE PHOSPHATASE 68 U/L 40-150 AST 20 U/L 5-34 ALT 24 U/L BILIRUBIN, TOTAL 0.4 mg/dL 0.2-1.2 Mar 11, 2024 11:40 AM [place] CALCIUM Specimen Type: SERUM No comment entered. Ordering Provider: JT BROUSSARD Report Released Date/Time: Mar 09, 2024 02:10 PM Reporting Lab: [address] [address] Performing Lab: [address] [address] CALCIUM 9.8 mg/dL 8.5-10.2 Mar 11, 2024 11:40 AM [place] URIC ACID Specimen Type: SERUM No comment entered. Ordering Provider: JT BROUSSARD Report Released Date/Time: Mar 09, 2024 02:10 PM Reporting Lab: [address] [address] Performing Lab: [address] [address] URIC ACID 5.4 mg/dL 3.5-7.2 Mar 11, 2024 11:40 AM [place] CBC AND DIFF (AUTO) Specimen Type: BLOOD No comment entered. Ordering Provider: JT BROUSSARD Report Released Date/Time: Mar 09, 2024 02:10 PM Reporting Lab: [facility] [address] [facility] [address] Performing Lab: [facility] [address] [facility] [address] WBC 7.48 10*3/uL 4.50-11.00 RBC 5.19 10*6/uL 4.23-5.66 HGB 14.0 g/dL 12.8-17 HCT 42.3 39.2-50.4 MCV 81.5 fL L 82-99 MCHC 33.1 g/dL 30.8-35.1 PLT 241 10*3/uL 140-360 RDW-CV 12.9 12.0-16.0 MONO, ABS 0.78 10*3/uL 0.30-1.10 MCH 27.0 pg 26.2-32.6 NEUT % 61.1 43.7-75.8 LYMPH % 25.5 14.0-42.3 MONO % 10.4 5.1-13.7 EOS % 2.0 0.4-6.8 BASO % 0.7 0.1-2.0 NEUT, ABS 4.57 10*3/uL 2.20-7.60 LYMPH, ABS 1.91 10*3/uL 1.00-3.20 EOS, ABS 0.15 10*3/uL 0.03-0.44 BASO, ABS 0.05 10*3/uL 0.01-0.13 IMMATURE GRAN % 0.3 0.0-0.7 IMMATURE GRAN, ABS 0.02 10*3/uL 0.00-0.06 NRBC % 0.0 0.0-0.0 NRBC, ABS 0.00 10*3/uL 0.00-0.00 Vital Signs: All taken on the encounter date This section contains inpatient and outpatient Vital Signs collected on the date of the Encounter. Date/Time Temperature Pulse Blood Pressure Respiratory Rate SP02 Pain Height Weight Body Mass Index Source Mar 15, 2024 09:37 AM 132/77 [place] Mar 15, 2024 09:07 AM 98.2 62 96 219 31 [place] Social History: Smoking Status (Most current) and Tobacco Use (All prior to encounter date) This section includes the most current, and the historical, smoking and tobacco- related health factors from the [place] facility where the Encounter took place. Current Smoking Status This section includes the most current smoking, or tobacco-related health factor, from the [place] facility where the Encounter took place. Date/Time Current Smoking Status Comment Anai james Jul 14, 2023 02:00 PM VA-TOBACCO NEVER USED [place] Tobacco Use History This section includes a history of the smoking, or tobacco-related health factors, that were collected on or before the date of the Encounter. The data comes from the [place] facility where the Encounter took place. Date/Time Smoking Status/Tobacco Use Comment [facility] August 05, 2022 02:30 PM VA-TOBACCO NEVER USED [place] September 03, 2021 09:30 AM VA-TOBACCO NEVER USED [place] Sep 25, 2020 09:30 AM VA-TOBACCO NEVER USED [place] Oct 12, 2019 10:35 AM VA-TOBACCO NEVER USED [place] August 31, 2018 08:55 AM VA-TOBACCO NEVER USED [place] Jul 30, 2017 09:07 AM LIFETIME NON-TOBACCO USER [place] Feb 17, 2017 10:23 AM QUIT TOBACCO USE 1-7 YEARS AGO [place] Dec 19, 2015 08:35 AM QUIT TOBACCO USE > 7 YEARS AGO [place] Advance Directives: All historical and current Section Date Range: From patient's date of to the date document was created. This section includes ALL of a patient's completed or amended [place] Advance and Rescinded Directives. The entries below indicate that a directive exists for the patient, but an actual copy is not included with this document. The data comes from all [facility]. Date Advance Directives Provider Source May 17, 2018 ADVANCE DIRECTIVE KEVIN DEAL [place] Lis NTRChely WSTRPablo [facility] Encounter Notes: All associated encounter notes This section contains the clinical notes associated to the Encounter. Date/Time Encounter Note(s) Provider Source Mar 15, 2024 09:00 AM PHYSICIAN NOTE: LOCAL TITLE: MD NOTE STANDARD TITLE: PHYSICIAN NOTE DATE OF NOTE: MAR 15, 2024@09:00 ENTRY DATE: MAR 13, 2024@18:31:27 AUTHOR: Marko NICOLE COSIGNER: URGENCY: STATUS: COMPLETED Pt is 73 y/o M with PMH of obesity, HTN, HL, arrhythmia, CARLA on CPAP, RLS, BPH, PTSD here for follow-up LAST VISIT 08/[address] Levon Waddell - annually Other providers: --Mental health [place] --Neurology [facility] last 03/2022-> annually --Podiatry [place] --cardiology Dr Meadows -- urology Dr Burnette 10/2023 RTC 1y Reports feeling well Since last visit oxybutynin discontinued #BPH PVR 289 ml (10/2023) 08/05/23 PSA 1.[address] Burnette 10/2023 oxybutinin dc/d for worsening retention c/w finasteride and flomax 0.8mg and in case of worsening sx bladder outlet procedure might be warrented. has been having pain in left calf, s/p L TKR ~ 8 years ago intermittent random lasting 10 minutes, muscle spasms, no edema , no symptoms with walking, exertion #HTN/HL BP at home <130/70 compliant with medications denies CP/SOB/BLOOM/palpitations/dizzi ness /claudication denies h/o [place],CVA irregular rhythm PAC bigeminy seen by cardiology 12/2022 EKG similar to 01/2023 Echo LVEF 61%, no valvular issues 01/2023 Holter showed underlying sinus rhythm and frequent PACs with high burden 27%,Occasional PVCs, one 4 beat run High degree of atrial ectopy could be related to the underlying sleep apnea Patient fully compliant with CPAP Stress test was ordered, to assess for CAD--the patient NMPI was unremarkable, no results available for review today #CARLA fully compliant with CPAP sleep well >8h #RLS -some sx during the day as well gabapentin 300mg BID and 900mg hs #h/o iron deficiency - still takes iron, vit c daily no constipation PAST MEDICAL HISTORY: -- HTN -- HL -- CARLA using CPAP nightly -- EKG PAC bigeminy 09/2022 -- PVD -- Elevated PSA -- MARJORIE -- COVID 2021 -- Aortic aneurysm-- 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 -- Disorder of heart rhythm -bradycardia -- Subdural hematoma 2018, resolved -- RLS -- White matter disease -- TIA --> per pt in 2010 hospitalized in [facility] for slurred speech and bradycardia - head imaging was unremarkable - Dx TIA -- Acute, but ill-defined, cerebrovascular disease -- gout -- History of hepatitis B -- Depressive Disorder -- Anxiety -- Cannabis dependence in remission -- PTSD PAST SURGICAL HISTORY: --Tonsillectomy --Left TKR --Retinal detachment repair ALLERGIES: RED DYES MEDICATIONS: Reconciled today VALSARTAN 320MG DAILY AMLODIPINE BESYLATE 5MG ASPIRIN 81MG ROSUVASTATIN CA 20MG BUPROPION HCL 150MG 12HR SA EVERY MORNING PRAZOSIN HCL 8MG BEDTIME SERTRALINE HCL 100MG HYDROXYZINE PAMOATE 50MG QID prn FOR ANXIETY GABAPENTIN 300MG CAP BID, 900mg HS FOR PAIN,ANXIETY, POOR SLEEP, AND HEADACHES FINASTERIDE 5MG TAB TAMSULOSIN HCL 0.4MG SILDENAFIL CITRATE 50MG OTC supplements: checked natural medicine -> possibly safe -release GOLO -KnowFu beets -vit D -vit E -Mg -B12 FAMILY HISTORY: --DM: mother --Cancer: GF - ? 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 --Cohabitation: , living with his --Children: 2 --Diet: regular --Exercise: yard work, walking 30 min daily --Caffeine: none --EtOH: denies --Tob: quit >30 y ago --MJ: denies --Illicits:denies --Sexual activity: monogamous --Eye: UTD --Dental: UTD - [facility] --Hospitalizations: #03/2022 covid, heart rate in 60s/70s, PAC bigeminy, no further testing indicated ROS: Constitutional: fatigue, no fever/no chills, no ns Eyes: no decreased vision/blurry vision Ears/Nose/Throat: no hearing change Respiratory: no cough/wheezing/SOB Cardiovascular: no CP /palpitations/ le edema Gastrointestinal: no abdominal pain/bloody/black stools :no dysuria/hematuria/trouble voiding +, nocturia 1, retention +, UUI + MSK: no joint pain/myalgia Neuro: no dizziness/H/A Skin: no pruritus/rash ambulates w/o assistance PHYSICAL EXAM: Vital Signs: Blood Pressure: 132/77 03/2024 155/86 (08/25/2023 09:26)--> forget to take medications today am 150/68 (01/22/2023 10:51) --> manual repeat 135/70 171/74 (07/17/2022 09:36) Pulse: 62 (03/15/2024 09:07) Respiration: 18 Temperature: 98.2 F [36.8 C] (03/15/2024 09:07) BMI 30->31.5 Patient Weight: 219 lb [99.34 kg] (03/15/2024 09:07) 207.6 lb [94.17 kg] (08/25/2023 09:26) 216 lb [97.98 kg] (01/22/2023 10:36) 218.6 lb [99.16 kg] (07/17/2022 09:36) Gen: pleasant, engaged, NAD neck: supple, no LAD Chest/CV: RRR Lungs: CTA B/L Abdomen: obese, BS+, Soft, NT/ND Extremities: no edema LABORATORY:03/2024 WBC: 7.48 HGB: 14.0 HCT: 42.3 MCV: 81.5 L PLT: 241 TSH (Access): 3.07 HGB A1C (WR): 5.9 H GLUCOSE: 109 H UREA NITROGEN: 29 H CREATININE-EGFR: 1.19 eGFR CKD-EPI 2020: 64 SODIUM: 141 POTASSIUM: 4.2 CHLORIDE: 106 CO2: 27 CALCIUM: 9.8 URIC ACID: 5.4 PROTEIN,TOTAL: 7.1 ALBUMIN: 3.7 ALKALINE PHOSPHATASE: 68 BILIRUBIN,TOT.: 0.4 SGOT: 20 SGPT: 24 CHOLESTEROL: 124 TRIGLYCERIDE: 144 LDL CHOL: 59 CHOL/HDL RATIO: 3.4 HDL: 36 L IMAGING: #12/[address] evidence for hemorrhage, mass effect or large vascular territory infarct. No new or enlarging extra-axial collections. Periventricular white matter hypodensities are nonspecific, usually attributable to chronic microvascular ischemic changes. Please note that MRI is more sensitive for acute/evolving ischemia and may be considered for further evaluation if clinical concern persists. ##aortic US 11/2022 --> repeat 2-3 y stable right common iliac artery ectasia and stable left common iliac artery aneurysm The right common iliac artery ectatic measuring stable at 1.5 cm AP. The left common iliac artery aneurysm is not significantly changed, currently measuring 2.71 cm AP, previously measuring 2.6 cm AP, which tapers to a normal caliber 1.12 cm AP. Cephalocaudad dimension of 4.1 cm. #09/2022 EKG: Sinus rhythm with premature atrial complexes in a pattern of bigeminy, non specific TWA in inf leads #01/2023 Echo LVEF 61%, no valvular issues #01/2023 Holter showed underlying sinus rhythm and frequent PACs with high burden 27%,Occasional PVCs, one 4 beat run ASSESSMENT/PLAN: Pt is 73 y/o M with PMH of obesity, HTN, HL, arrhythmia, CARLA on CPAP, RLS, BPH, PTSD here for follow-up #HTN:well controlled, goal BP <130/80 -c/w VALSARTAN 320mg -c/w AMLODIPINE 5MG #prediabetes A1C 5.9 #obesity BMI 31.5 -declined referral to [facility] #HL: h/o TIA, goal LDL <70, LDL 59 -rosuvastatin 40mg hs -asa 81mg #CARLA on CPAP -Patient fully compliant with CPAP #BPH PVR 289 ml (10/2023) PSA 1.58, U/A negative FINASTERIDE 5MG , PSA 1.58 (08/2023) TAMSULOSIN to 0.8mg hs -f/w urology annually #h/o Iron deficiency, ferritin 159 (08/2023) check iron panel prior to next visit #ED on sildenafil #PTSD doing well -f/w [facility] Alpha Stim therapy good effect. 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 #RLS gabapentin 300mg bid, along with 900mg 90 minutes before bedtime #L illiac aneurysm: last US 11/2022 --> repeat [id number]/[id number] stable right common iliac artery ectasia and stable left common iliac artery aneurysm Follow-up aortic ultrasound in 2-3 years Healthcare maintenance: --Lipids: LDL 59 (03/2024) --Diabetes: A1c 5.9 (03/2024) --Colon CA (50-75): due in 04/2030 colonoscopy 04/2020 one 8mm inflamatory polyp removed - --Lung CA: --PSA PSA 1.58 (08/2023) --AAA (smoker/65): 11/2022 no AAA --Influenza (yrly): 2023 --COVID: 2020x2 --PCV13 2016 --PCV23: 2019 --HZV (>60yrs, x1): 2011 --RZV (>50yrs, x2): 2018 x2 --TDAP: --Hep C screen: --HIV screen: --DEXA: --Advanced Directives: Comanagement - prefers to have most aspects of health maintenance, chronic condition(s) and medication management to non-VA PCP. Address at next visit: HTN, HL Return to clinic to see me in 6__ months, sooner PRN. Virtual ( ), F2F (x ) ( )non fasting labs ordered prior to f/u ( )fasting labs ordered prior to f/u ( )no labs needed ( )request labs from outside provider (X )request records from outside providers -Cardiology stress test results and f/u recommendations Medication Reconciliation: Outpatient: Has the patient been taking medications as documented in the EMLR? YES: The patient has been taking medications as documented in the EMLR. Essential Medication List for Review used to complete this medication reconciliation. INCLUDED IN THIS LIST: Alphabetical list of active outpatient prescriptions dispensed from this [facility] (local) and dispensed from another [place] or DoD facility (remote) as well as inpatient orders (local, pending and active), local clinic medications, locally documented non-VA medications, and local prescriptions that have or been discontinued in the past 90 days. - All changes in medications, including all non-VA/Herbal/OTC medications were entered into CPRS. - If there were any medications the patient should no longer take, they were discontinued. - The patient/caregiver was instructed to update this list, discard old lists, and take this list to the next appointment, whether with a VA or non-VA provider. /swetha/ JT NICOLE MD PHYSICIAN Signed: 03/19/2024 22:22 Receipt Acknowledged By: 03/21/2024 08:37 /KATHERINE Pratt [place] Mar 11, 2024 10:13 AM ADMINISTRATIVE NOT E: LOCAL TITLE: ADMINISTRATIVE NOTE STANDARD TITLE: ADMINISTRATIVE NOTE DATE OF NOTE: MAR 11, 2024@10:13 ENTRY DATE: MAR 11, 2024@10:13:10 AUTHOR: BRANDIE ESPANA EXP COSIGNER: URGENCY: STATUS: COMPLETED [facility] [address] [place] [id number] [phone] * LON ALFREDO QUINTERO [address] [place] [phone] Date: MAR 11, 2024 re: This is a reminder of your upcoming PCP appt with JT NICOLE. Appointment Date: Mar@09:00 Appointment Type: In-person visit Fasting blood work (X)NON fasting blood work CONFIRMED APPT AND LABWORK WITH THE Sincerely, Office Staff for: JT NICOLE Primary Care Provider [facility] [address] [place] [id number] T [phone] F [phone] Upcoming Appointments: 03/15/2024 09:00 CWM/SO/PACT 5 03/24/2024 08:00 CWM/SO/PODIATRY/ROSS 04/19/2024 08:30 [facility] D[facility] RDH 1 AM 05/17/2024 13:30 SPOPC/MHC/VASYL APPOINTMENT ABBREVIATION ARTIS (SPOPC OR SO = [place], [address] [facility]) (GOPC OR GO = [facility] [address] [facility]) (NHM or NO = [facility]) (VVC - Video Call) (Tel-X Telephone Visit) ( - Telehealth) /swetha/ BRANDIE YODER Signed: 03/11/2024 10:13 BRANDIE ESPANA
[2024-04-05 09:52] VITALS: BP 136/74; PULSE 68; O2SAT 97; BMI 29.4
--- OUTSIDE RECORDS SUMMARY | 2024-04-05 09:52 | XMS_ITS | Encounter Summary ---
Author Name [facility] Organization [facility] Address [address] [place] [id number] Care Team Providers Care Supervisor Picking Crew Name Role Phone JT NICOLE Primary Care [...] Patient's Relationship to Policy [place] BCBS OF [facility] PREFERRED PROVIDER ORGANIZAT ION (PPO) [facility] August 10, 2010 [id number] BOWDER,ZHOU RAY PATIENT [facility] (WNR) MEDICARE (M) [facility] (WNR) Apr 06, 2014 NO GROUP NUMBER [id number] BOWDER,RO RAY PATIENT [facility] (WNR) MEDICARE ADVANTAGE [facility](W NR) Apr 06, 2015 [id number] FRANSICODER,RO RAY PATIENT [facility] (WNR) MEDICARE [facility] (WNR) Apr 06, 2014 [id number] BOWDER,RO RAY PATIENT Selected Encounter This section includes the information on record at [place] for the Encounter. Date/Time Encounter Type Encounter Description Reason Pro vider Source Apr 09, 2023 11:45 AM Outpatient Encounter TELEPHONE TRIAGE IHE Encounter Template Text not used by [place] Plan of Treatment: Future Appointments (+ 6 months) and Future Tests (+/- 45 days) The Plan of Treatment section includes future care activities for the patient from all [place] treatmentfacilities. This section includes future appointments and future orders which are active, pending or scheduled. Future Appointments This section includes appointments that were scheduled to occur 6 months from the date of the Encounter, up to a maximum of 20 appointments. The data comes from all [place] treatment facilities. Appointment Date/Time Appointment Type Appointme nt Facility Name May 27, 2023 08:00 AM AMBULATORY - MEDICINE [facility] Jul 14, 2023 02:00 PM AMBULATORY - [facility]CHIATRY [facility] August 05, 2023 10:30 AM AMBULATORY - MEDICINE [facility] August 13, 2023 02:30 PM AMBULATORY - MEDICINE [facility] August 19, 2023 08:30 AM AMBULATORY - MEDICINE [facility] August 25, 2023 09:00 AM AMBULATORY - MEDICINE [facility] Sep 16, 2023 11:30 AM AMBULATORY - MEDICINE [facility] Social History: Smoking Status (Most current) and Tobacco Use (All prior to encounter date) This section includes the most current, and the historical, smoking and tobacco- related health factors from the [place] facility where the Encounter took place. Current Smoking Status This section includes the most current smoking, or tobacco-related health factor, from the [place] facility where the Encounter took place. Date/Time Current Smoking Status [facility] Facility August 30, 2009 09:45 AM QUIT TOBACCO USE > 7 YEARS AGO quit about 25 years ago [facility] Advance Directives: All historical and current Section Date Range: From patient's date of to the date document was created. This section includes ALL of a patient's completed or amended [place] Advance and Rescinded Directives. The entries below indicate that a directive exists for the patient, but an actual copy is not included with this document. The data comes from all [facility]. Date Advance Directives Provider Source May 17, 2018 ADVANCE DIRECTIVE KEVIN DEAL [facility] Encounter Notes: All associated encounter notes This section contains the clinical notes associated to the Encounter. Date/Time Encounter Note(s) Provider Source Apr 09, 2023 11:46 AM RN PROGRESS NOTE: LOCAL TITLE: CCC: CLINICAL TRIAGE STANDARD TITLE: RN PROGRESS NOTE DATE OF NOTE: APR 09, 2023@11:46 ENTRY DATE: APR 09, 2023@11:46:10 AUTHOR: NETO HERRMANN EXP COSIGNER: URGENCY: STATUS: COMPLETED Received call from . has a dry cough with a burning sensation in his chest when he coughs x 9 days. SOB with exertion. Speaking in complete sentences without difficulty. Temperature this am was 99.3. Taking Tylenol. See ROS. Up triaged to seek care today at a [facility]. [place] plans on going to [facility] in [place]. States he does not want names of [facility]. ER/911 precautions discussed. Information forwarded to [facility] for review and follow up. /es/ NETO HERRMANN RN Signed: 04/09/2023 11:49 Receipt Acknowledged By: 04/09/2023 14:25 /es/ CURTIS GRANADO, RN REGISTERED NURSE for CHARLIEPINO HENDRICKS 04/10/2023 09:41 /es/ GEORGIE FLORES LPN, [facility] ANDRE [facility]A [facility]
--- OUTSIDE RECORDS SUMMARY | 2024-04-05 09:52 | XMS_ITS | Encounter Summary ---
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 Role Phone JT NICOLE Primary Care [...] Patient's Relationship to Policy [place] BCBS OF [facility] PREFERRED PROVIDER ORGANIZAT ION (PPO) [facility] August 10, 2010 [id number] [phone] ZHOU QUINTERO RAY PATIENT [facility] (WNR) MEDICARE (M) [facility] (WNR) Apr 06, 2014 NO GROUP NUMBER [id number] INGRID,ZHOU RAY PATIENT JANE [facility] (WNR) MEDICARE ADVANTAGE [facility](W NR) Apr 06, 2015 [id number] INGRID,ZHOU RAY PATIENT JANE [facility] (WNR) MEDICARE ADVANTAGE [facility] (WNR) Apr 06, 2014 [id number] BOWLEXI,ZHOU RAY PATIENT Selected Encounter This section includes the information on record at [place] for the Encounter. Date/Time Encounter Type Encounter Description Reason Provider Source May 27, 2023 08:00 AM OFFICE O/P EST MOD 30 MIN PODIATRY ICD-10-CM L84 Corns and callosities DAVID SUBRAMANIAN Zehra Encounter Template Text not used by [place] Assessments - Encounter Diagnoses This section includes the primary and secondary diagnoses documented for the Encounter. Date/Time Primary/Secondary Diagnosis Diagnosis Name Provider Source May 27, 2023 08:30 AM PRIMARY Corns and callosities DAVID SUBRAMANIAN [place] May 27, 2023 08:30 AM SECONDARY Ingrowing nail DAVID SUBRAMANIAN [place] May 27, 2023 08:30 AM SECONDARY Pain in left foot DAVID SUBRAMANIAN [place] May 27, 2023 08:30 AM SECONDARY Pain in left toe(s) DAVID SUBRAMANIAN CRUZ May 27, 2023 08:30 AM SECONDARY Pain in right foot DAVID SUBRAMANIAN CRUZ May 27, 2023 08:30 AM SECONDARY Pain in right toe(s) DAVID SUBRAMANIAN [place] May 27, 2023 08:30 AM SECONDARY Peripheral vascular disease, unspecified MORISDAVID Kemp [place] Plan of Treatment: Future Appointments (+ 6 months) and Future Tests (+/- 45 days) The Plan of Treatment section includes future care activities for the [facility] This section includes future appointments and future orders which are active, pending or scheduled. Future Appointments This section includes appointments that were scheduled to occur 6 months from the date of the Encounter, up to a maximum of 20 appointments. The data comes from all [place] treatment facilities. Appointment Date/Time Appointment Type Appointme nt Facility Name Jul 14, 2023 02:00 PM AMBULATORY - PSYCHIATRY [facility] August 05, 2023 10:30 AM [facility] August 13, 2023 02:30 PM [facility] August 19, 2023 08:30 AM [facility] - MEDICINE [facility] August 25, 2023 09:00 AM AMBULATORY - MEDICINE [facility] Sep 16, 2023 11:30 AM [facility] Oct 15, 2023 08:30 AM AMBULATORY - NONE [facility] Oct 20, 2023 01:00 PM AMBULATORY - PSYCHIATRY [facility] Oct 21, 2023 10:30 AM AMBULATORY - MEDICINE [place] C NTRL [facility] Nov 12, 2023 08:00 AM AMBULATORY - MEDICINE [facility] Social History: Smoking Status (Most current) and Tobacco Use (All prior to encounter date) This section includes the most current, and the historical, smoking and tobacco- related health factors from the [place] facility where the Encounter took place. Current Smoking Status This section includes the most current smoking, or tobacco-related health factor, from the [place] facility where the Encounter took place. Date/Time Current Smoking Status Comment Facil ity August 05, 2022 02:30 PM VA-TOBACCO NEVER USED [place] Tobacco Use History This section includes a history of the smoking, or tobacco-related health factors, that were collected on or before the date of the Encounter. The data comes from the [place] facility where the Encounter took place. Date/Time Smoking Status/Tobacco Use Comment F acdiana September 03, 2021 09:30 AM VA-TOBACCO NEVER USED [place] Sep 25, 2020 09:30 AM VA-TOBACCO NEVER USED [place] Oct 12, 2019 10:35 AM VA-TOBACCO NEVER USED [place] August 31, 2018 08:55 AM VA-TOBACCO NEVER USED [place] Jul 30, 2017 09:07 AM LIFETIME NON-TOBACCO USER [place] Feb 17, 2017 10:23 AM QUIT TOBACCO USE 1-7 YEARS AGO [place] Dec 19, 2015 08:35 AM QUIT TOBACCO USE > 7 YEARS AGO [place] Advance Directives: All historical and current Section Date Range: From patient's date of to the date document was created. This section includes ALL of a patient's completed or amended [place] Advance and Rescinded Directives. The entries below indicate that a directive exists for the patient, but an actual copy is not included with this document. The data comes from all [place] facilities. Date Advance Directives Provider Source May 17, 2018 ADVANCE DIRECTIVE KEVIN DEAL [place] Lis NTR [facility] Encounter Notes: All associated encounter notes This section contains the clinical notes associated to the Encounter. Date/Time Encounter Note(s) Provider Source May 27, 2023 09:02 AM PODIATRY NOTE: LOCAL TITLE: PODIATRY PAVE FOOT EXAM STANDARD TITLE: PODIATRY NOTE DATE OF NOTE: MAY 27, 2023@09:02 ENTRY DATE: MAY 27, 2023@09:02:07 AUTHOR: DAVID SUBRAMANIAN COSIGNER: URGENCY: STATUS: COMPLETED PAVE FOOT EXAM A foot risk level was completed. The following risk level was identified for this patient: +POD RISK SCORE+ *--LEVEL 3 - (HIGH RISK)* ANY of the following: Severe obstructive peripheral arterial disease Ulceration; OR history of ulceration, osteomyelitis, or amputation Charcot joint w/foot deformity Chronic kidney disease, stage 4 or higher (Decreased sensation, foot deformity, and minor foot infection may be present or absent) LEVEL 3 FOOT EDUCATION: 1. Advised patient that extra depth footwear with soft molded inserts and braces may be required. 2. Advised patient not to walk barefoot. Instructed the patient to pay close attention to the style and fit of shoes. 3. Explained the importance of daily foot checks. Explained that loss of sensation leads to callouses. Callouses break down, which result in ulcers that may lead to gangrene and amputation. 4. Stressed the importance of daily foot hygiene. Warm (not hot) bathing of the feet, complete drying and thorough inspection for changes in the condition of the skin constitute daily foot care. Demonstrated how to do a thorough foot check. 5. Emphasized the use of clean, non-restrictive socks/stockings and well fitting shoes. 6. Stressed the importance of immediate follow-up of any foot injuries or ulcers. Explained that he/she should be non-weight bearing whenever there are lesions on the foot, to prevent cellular damage. Level of Understanding: Good Patient/Family Response to Foot Care Teaching Patient walks barefoot: A few times per month Patient/caregiver able to clean feet at least once daily: Yes Patient/caregiver has difficulty examining feet: No /swetha/ DAVID SUBRAMANIAN DPM BOARD CERTIFIED MUSIC THERAPIST Signed: 05/27/2023 09:02 DAVID SUBRAMANIAN May 27, 2023 07:27 AM PODIATRY NOTE: LOCAL TITLE: PODIATRY NOTE STANDARD TITLE: PODIATRY NOTE DATE OF NOTE: MAY 27, 2023@07:27 ENTRY DATE: MAY 27, 2023@07:27:15 AUTHOR: DAVID SUBRAMANIAN COSIGNER: URGENCY: STATUS: COMPLETED NOTE: [facility] FOR T[facility]ATMENT: 02/25/2023 S: Pt. is a 73 yo alert WDWN CAUC MALE who IS SEEN for CONTINUED podiatric examination & CARE for treatment of a presenting complaint of painful CALLUS HE RENDERS SELF CARE FOR NAILS. Patient has PVD & is at risk of injury with self or other non-professional care. Patient has been referred by: DR. SINGER Location of symptoms are: PLANTAR 5TH MPJ BILATERAL & 2ND & 4TH RT Onset of symptoms has been several months due to this being a recurrent condition that has been exacerbating over the past few weeks AND HAS BEEN PRESENT FOR MANY YEARS WITH A PAIN LEVEL OF 7-8/10 WHEN AT ITS' WORST AND HE TOLERATE STHE PAIN WITH NO MEDS OR OTHER TREATMENT. Duration of symptoms is daily with periods of exacerbation and remission. Description of symptoms is of an tyhvsh-ajahobetf-udxkbgy nature. Contributing factors are: shoes and increased activity. PMH: Active problems - Computerized Problem List is the source for the following: *NOTE: REVIEWED ABOVE, NOTING NON-CONTRIBUTORY TO THE CC OTHER THAN THE PRESENCE OF PVD *NOTE: REVIEWED ABOVE NOTING NO CHANGES SINCE PREVIOUS VISIT *NOTE: PLEASE SEE PROBLEM LIST TEMPLATE FOR COMPLETE LIST NEEDED. Family History: Non-contributory Social History: N/A RECONCILIATION PERFOMED THIS DATE BELOW TOBACCO USE = NONE Allergies:RED DYES Previous Surgery/Hospitalization: N/A TO THE CC HEIGHT:218.6 lb [99.16 kg] (07/17/2022 09:36) WEIGHT:70 in [177.8 cm] (07/17/2022 09:36) REVIEW OF SYSTEMS: *NOTE:DEFERRED BEING NON-CONTRIBUTORY TO THE CC & I HAVE REVIEWED THE PCP NOTES & PMH WELL. O: DERMATOLOGICAL: Exam reveals skin color & text to be WNL. Temp is diminished warm to cool proximal to distal. There is ABSENCE of hair noted. Nails are WNLAND NOT IN YONATHAN OF ATTENTION AT THIS TIME. There are superficial painful hyperkeratotic lesions noted at this time located at the following sites: PLANTAR 5TH M3T HEAD BILATEAL AND PLANTAR 2ND & 4TH MET HEADS RT. There are no rashes, ulcers, indurations or nodules noted. VASCULAR: Exam reveals DP & PT pulses to be +2 equal & symmetrical bilateral. CFT is < 3 sec x 10. There are no superficial varices noted and there is no edema noted. MUSCULOSKELETAL: Exam reveals muscle strength and tone to be equal & symmetrical bilaterally & WNL for an individual of this age and present physical-medical condition. There is pain free ROM at all joints distal to and including the ankle. THERE ARE PLANTAR FLEXED METATARSALS ASOCIATED WITH THE ABOVE MENTIONED HYPERKERATOSIS NEUROLOGICAL: Exam reveals S/D, vibratory-DIMINISHED TO ABSENT DISTALLY, light touch & proprioception sensations to be equal & symmetrical bilaterally & diminished for an individual of this age and present physical-medical status. Protective sensation utilizing a [place]-Xavi lOg monofilament is 07/10 RT & 10/10 LEFT. *NOTE: *YEARLY COMPLETE PAVE EXAM PERFORMED TODAY - SEE BELOW. BIOMECHANICAL: Exam is deferred at this time due to the presence of pain. A: Clinical Impression is painful HYPERKERATOSIS ; plantar 2-3-5 bilateral and periphery of heels bilat in the presence of PAIN & IN NEED OF NAIL CARE HE INJURED HIS BACK AND IS UNABLE TO RENDER SELF CARE. P: Treatment consists of surgical PARING-debridement of all hyperkeratosis utilizing sharp dissection WITH A STERILE # 10 SCALPEL. All care rendered without complications & the patient is progressing well after podiatric care this date and will be scheduled for periodic podiatric care in an attempt to prevent future complications due to the RECURREN PAINFUL LESIONS. HE MAY BE A CANDIDATE FOR CUSTOM ORTHOSES IN THE FUTURE. RTC: 12 WEEKS NEEDED TO MINIMIZE PAIN.(08/18@ 8:30AM) *DISCUSSED NEW PROTOCOLS AND WILL BE CALLED FOR RESCHEDULING I DISCUSSED THE FINDINGS & PLAN WITH PATIENT (UNCHANGED SINCE PREVIOUS VISIT) & PATIENT AGREES AND UNDERSTANDS PLAN DISCUSSED OUR EARLY YOUTHFUL DAYS AND HIS TIME IN [facility] WELL ADJUSTMENT AFTERWAT=RDS. Medication Reconciliation: PERFORMED TODAY - SEE BELOW. Outpatient: Has the patient been taking medications as documented in the EMLR? YES: The patient has been taking medications as documented in the EMLR. Essential Medication List for Review used to complete this medication reconciliation. INCLUDED IN THIS LIST: Alphabetical list of active outpatient prescriptions dispensed from this [place] (local) and dispensed from another [place] or [facility] facility (remote) as well as inpatient orders [...] whether with a VA or non-VA provider. JLV Link Data on this list may not be complete. Please check JLV. Allergies/ADRs (Tool #5) FACILITY ALLERGY/ADR -------- [facility] RED DYES [facility] RED DYES [place] [facility] NO KNOWN ALLERGIES Med Recon NoGlossary (Tool #1) INCLUDED IN THIS LIST: Alphabetical list of active outpatient prescriptions dispensed from this [place] (local) and dispensed from another [place] or [facility] facility (remote) as well as inpatient orders (local pending and active), local clinic medications, locally documented non-VA medications, and local prescriptions that have or been discontinued in the past 90 days. Non-VA Meds Last Documented On: Dec 04, 2011 NOTE The display of VA prescriptions dispensed from another VA or [facility] facility (remote) is limited to active outpatient prescription entries matched to National Drug File at the originating site and may not include some items such as investigational drugs, compounds, etc. NOT INCLUDED IN THIS LIST: Medications self-entered by the patient into personal health records (i.e. [facility]) are NOT included in this list. Non-VA medications documented outside this [place], remote inpatient orders (regardless of status) and remote clinic medications are NOT included in this list. The patient and provider must always discuss medications the patient is taking, regardless of where the medication was dispensed or obtained. OUTPT AMLODIPINE BESYLATE 5MG TAB (Status = Discontinued) TAKE ONE TABLET BY MOUTH DAILY FOR BLOOD PRESSURE/HEART, DO NOT TAKE WITH GRAPEFRUIT JUICE Rx# [id number] Last Released: 03/13/23 Qty/Days Supply: 90 Rx Expiration Date: 07/18/23 Refills Remainin OUTPT AMLODIPINE BESYLATE 5MG TAB (Status = Active/Suspended) TAKE ONE TABLET BY MOUTH DAILY FOR BLOOD PRESSURE/HEART, DO NOT TAKE WITH GRAPEFRUIT JUICE Rx# [id number] Last Released: Qty/Days Supply: 90 Rx Expiration Date: 05/02/24 Refills Remainin OUTPT ASCORBIC ACID 500MG TAB (Status = Discontinued) TAKE ONE TABLET BY MOUTH ONCE DAILY FOR VITAMIN/NUTRITION SUPPLEMENT TAKE AT SAME TIME FERROUS SULFATE TABLETS Rx# [id number] Last Released: 02/27/23 Qty/Days Supply: 10090 Rx Expiration Date: 12/13/23 Refills Remainin Indication: TO HELP ABSORB IRON OUTPT ASCORBIC ACID 500MG TAB (Status = Active) TAKE ONE TABLET BY MOUTH TWO TIMES A WEEK TO HELP ABSORB IRON FOR VITAMIN/NUTRITION SUPPLEMENT TAKE AT SAME TIME FERROUS SULFATE TABLETS Rx# [id number] Last Released: 05/06/23 Qty/Days Supply: 100/90 Rx Expiration Date: 07/31/23 Refills Remainin Indication: TO HELP ABSORB IRON OUTPT ASPIRIN 81MG EC TAB (Status = Active) TAKE ONE TABLET BY MOUTH ONCE DAILY TO PREVENT STROKE/HEART ATTACK Rx# [id number] Last Released: 05/26/23 Qty/Days Supply: 120/90 Rx Expiration Date: 09/12/23 Refills Remainin Indication: FOR BLOOD CLOT PREVENTION FOLLOWING PCI OUTPT BUPROPION HCL 150MG 12HR SA TAB (Status = Active/Suspended) TAKE ONE TABLET BY MOUTH EVERY MORNING Rx# [id number] Last Released: 03/16/23 Qty/Days Supply: 90 Rx Expiration Date: 12/16/23 Refills Remainin OUTPT FERROUS SULFATE 325MG TAB (Status = Discontinued) TAKE ONE TABLET BY MOUTH ONCE DAILY TO SUPPLEMENT IRON TAKE ALONG WITH VITAMIN C (ASCORBIC ACID) Rx# [id number] Last Released: 02/27/23 Qty/Days Supply: 90 Rx Expiration Date: 12/13/23 Refills Remainin Indication: TO SUPPLEMENT IRON OUTPT FERROUS SULFATE 325MG TAB (Status = Active) TAKE ONE TABLET BY MOUTH TWO TIMES A WEEK TO SUPPLEMENT IRON TO SUPPLEMENT IRON TAKE ALONG WITH VITAMIN C (ASCORBIC ACID) Rx# [id number] Last Released: 05/06/23 Qty/Days Supply: 100/ Rx Expiration Date: 07/31/23 Refills Remainin Indication: TO SUPPLEMENT IRON OUTPT FINASTERIDE 5MG TAB (Status = Discontinued) TAKE ONE TABLET BY MOUTH AT BEDTIME FOR PROSTATE Rx# [id number] Last Released: 04/29/23 Qty/Days Supply: 90 Rx Expiration Date: 07/18/23 Refills Remainin OUTPT FINASTERIDE 5MG TAB (Status = Active/Suspended) TAKE ONE TABLET BY MOUTH AT BEDTIME FOR PROSTATE Rx# [id number] Last Released: QtDays Supply: 90 Rx Expiration Date: 05/02/24 Refills Remainin OUTPT GABAPENTIN 300MG CAP (Status = Active) TAKE ONE CAPSULE BY MOUTH TWICE DAILY AND TAKE THREE CAPSULES AT BEDTIME FOR PAIN, ANXIETY, POOR SLEEP, AND HEADACHES Rx# [id number] Last Released: 05/16/23 Qty/Days Supply: 450/90 Rx Expiration Date: 12/13/23 Refills Remainin Indication: RLS OUTPT HYDROXYZINE PAMOATE 50MG CAP (Status = Active/Suspended) TAKE ONE CAPSULE BY MOUTH FOUR TIMES DAILY NEEDED FOR ANXIETY Rx# [id number] Last Released: 04/09/23 Qty/Days Supply: 240/60 Rx Expiration Date: 01/20/24 Refills Remainin OUTPT OXYBUTYNIN CHLORIDE 10MG SA TAB (Status = Active) TAKE ONE TABLET BY MOUTH EVERY MORNING FOR BLADDER INSTABILITY Rx# [id number] Last Released: 05/06/23 Qty/Days Supply: Rx Expiration Date: 07/18/23 Refills Remainin OUTPT PRAZOSIN HCL 2MG CAP (Status = Active) TAKE FOUR CAPSULES BY MOUTH AT BEDTIME Rx# [id number] Last Released: 05/01/23 Qty/Days Supply: Rx Expiration Date: 12/16/23 Refills Remainin OUTPT ROSUVASTATIN CA 40MG TAB (Status = Active/Suspended) TAKE ONE-HALF TABLET BY MOUTH ONCE DAILY FOR CHOLESTEROL INSTEAD OF PRAVASTATIN Rx# [id number] Last Released: 03/31/23 Qty/Days Supply: Rx Expiration Date: 01/21/24 Refills Remainin Indication: FOR HIGH CHOLESTEROL OUTPT SERTRALINE HCL 100MG TAB (Status = Active) TAKE ONE TABLET BY MOUTH EVERY MORNING Rx# [id number] Last Released: 04/23/23 Qty/Days Supply: Rx Expiration Date: 11/05/23 Refills Remainin OUTPT SILDENAFIL CITRATE 100MG TAB (Status = Active) TAKE ONE TABLET BY MOUTH ONCE DAILY NEEDED FOR ERECTILE DYSFUNCTION TAKE 1 HOUR PRIOR TO SEXUAL ACTIVITY, AND SEPARATE FROM TAMSULOSIN AND PRAZOSIN BY AT LEAST 4 HOURS Rx# [id number] Last Released: 01/15/23 Qty/Days Supply: 10/03 Rx Expiration Date: 07/28/23 Refills Remainin Indication: FOR ERECTILE DYSFUNCTION OUTPT TAMSULOSIN HCL 0.4MG CAP (Status = Active) TAKE ONE CAPSULE BY MOUTH AT BEDTIME Rx# [id number] Last Released: 05/06/23 Qty/Days Supply: Rx Expiration Date: 12/13/23 Refills Remainin OUTPT VALSARTAN 320MG TAB (Status = Active) TAKE ONE TABLET BY MOUTH ONCE DAILY FOR HIGH BLOOD PRESSURE Rx# [id number] Last Released: 05/04/23 Qty/Days Supply: Rx Expiration Date: 07/18/23 Refills Remainin Indication: FOR HIGH BLOOD PRESSURE SUPPLIES PAVE Foot Check: A complete foot check was completed at this encounter. VISUAL INSPECTION: Includes inspection for skin breaks, deformity, erythema, trauma, pallor on elevation, dependent rubor, nail deformities, extensive callus and pitting edema. Visual exam results: Abnormal Observations: Other:CALLUS HEELS PEDAL PULSES: Includes palpation of dorsalis and posterior tibial pulses and signs/symptoms of vascular compromise like pain, pallor, parasthesia or paralysis. Present (even if diminished) Comment: DP PRESENT & PT ABSENT BILAT SENSORY CHECK: Includes 10 gram Monofilament (Marietta-Xavi) test of sensation. Intact (Greater than or equal to 80% of sites checked) Abnormal (Less than 80% of sites checked): Intact Comment: VIBRATORY & MONOFILAMENT WNL BILAT HIGH-RISK HIGH RISK FOOT EDUCATION: 1. Advised patient that extra depth footwear with soft molded inserts and braces may be required. 2. Advised patient not to walk barefoot. Instructed the patient to pay close attention to the style and fit of shoes. 3. Explained the importance of daily foot checks. Explained that loss of sensation leads to callouses. Callouses break down, which result in ulcers that may lead to gangrene and amputation. 4. Stressed the importance of daily foot hygiene. Warm (not hot) bathing of the feet, complete drying and thorough inspection for changes in the condition of the skin constitute daily foot care. Demonstrated how to do a thorough foot check. 5. Emphasized the use of clean, non-restrictive socks/stockings and well fitting shoes. 6. Stressed the importance of immediate follow-up of any foot injuries or ulcers. Explained that he/she should be non-weight bearing whenever there are lesions on the foot, to prevent cellular damage. Level of Understanding: Good Patient is established patient of Podiatry and/or Vascular Date last seen: 02/25/2023 Suicide Screen: C-SSRS Screening [place]-Suicide Severity Rating Scale (C-SSRS Screener) 1. Over the past month, have you wished you were or wished you could go to sleep and not wake up? No 2. Over the past month, have you had any actual thoughts of killing yourself? No 3. Over the past month, have you been thinking about how you might do this? Response not required due to responses to other questions. 4. Over the past month, have you had these thoughts and had some intention of acting on them? Response not required due to responses to other questions. 5. Over the past month, have you started to work out or worked out the details of how to kill yourself? Response not required due to responses to other questions. 6. If yes, at any time in the past month did you intend to carry out this plan? Response not required due to responses to other questions. 7. In your lifetime, have you ever done anything, started to do anything, or prepared to do anything to end your life (for example, collected pills, obtained a gun, gave away valuables, went to the roof but didn't jump)? No 8. If YES, was this within the past 3 months? Response not required due to responses to other questions. /swetha/ DAVID SUBRAMANIAN DPM BOARD CERTIFIED MUSIC THERAPIST Signed: 05/27/2023 09:03 DAVID SUBRAMANIAN
--- OUTSIDE RECORDS SUMMARY | 2024-04-05 09:52 | XMS_ITS | Encounter Summary ---
Author Name [facility] [place] Address [address] [place] [id number] Care Team Providers Care Installment Agent Name Role Phone JT NICOLE Primary Care [...] Patient's Relationship to Policy [place] BC[employer] OF [facility] PREFERRED PROVIDER ORGANIZAT ION (PPO) [facility] August 10, 2010 [id number] BOWDER,RO RAY PATIENT [facility] (WNR) MEDICARE (M) [facility] (WNR) Apr 06, 2014 NO GROUP NUMBER [id number] BOWDER,RO RAY PATIENT JANE [facility] (WNR) MEDICARE ADVANTAGE [facility](W NR) Apr 06, 2015 [id number] BOWDER,RO RAY PATIENT JANE [facility] (WNR) MEDICARE ADVANTAGE [facility] (WNR) Apr 06, 2014 [id number] BOWDER,RO RAY PATIENT Selected Encounter This section includes the information on record at [place] for the Encounter. Date/Time Encounter Type Encounter Description Reason Provider Source May 01, 2023 04:20 PM Outpatient Encounter PRIMARY CARE/MEDICINE CHARLIE HENDRICKS Encounter Template Text not used by [place] Plan of Treatment: Future Appointments (+ 6 months) and Future Tests (+/- 45 days) The Plan of Treatment section includes future care activities for the patient from all [place] [facility] This section includes future appointments and future orders which are active, pending or scheduled. Future Appointments This section includes appointments that were scheduled to occur 6 months from the date of the Encounter, up to a maximum of 20 appointments. The data comes from all [facility]. Appointment Date/Time Appointment Type Appointme nt Facility Name May 27, 2023 08:00 AM [facility] Jul 14, 2023 02:00 PM AMBULATORY - PSYCHIATRY [facility] August 05, 2023 10:30 AM [facility] August 13, 2023 02:30 PM [facility] August 19, 2023 08:30 AM [facility] August 25, 2023 09:00 AM [facility] Sep 16, 2023 11:30 AM [facility] Oct 15, 2023 08:30 AM AMBULATORY - NONE [facility] Oct 20, 2023 01:00 PM AMBULATORY - PSYCHIATRY [facility] Oct 21, 2023 10:30 AM AMBULATORY - MEDICINE [facility] Social History: Smoking Status (Most current) and Tobacco Use (All prior to encounter date) This section includes the most current, and the historical, smoking and tobacco- related health factors from the [place] facility where the Encounter took place. Current Smoking Status This section includes the most current smoking, or tobacco-related health factor, from the [place] facility where the Encounter took place. Date/Time Current Smoking Status [facility] August 30, 2009 09:45 AM QUIT TOBACCO USE > 7 YEARS AGO quit about 25 years ago [facility] Advance Directives: All historical and current Section Date Range: From patient's date of to the date document was created. This section includes ALL of a patient's completed or amended VA Advance and Rescinded Directives. The entries below indicate that a directive exists for the patient, but an actual copy is not included with this document. The data comes from all [place] facilities. Date Advance Directives Provider Source May 17, 2018 ADVANCE DIRECTIVE KEVIN DEAL [facility] Encounter Notes: All associated encounter notes This section contains the clinical notes associated to the Encounter. Date/Time Encounter Note(s) Provider Source May 01, 2023 04:20 PM PRIMARY CARE SECUR E MESSAGING: LOCAL TITLE: PRIMARY CARE SECURE MESSAGING STANDARD TITLE: PRIMARY CARE SECURE MESSAGING DATE OF NOTE: MAY 01, 2023@16:20 ENTRY DATE: MAY 01, 2023@16:20:25 AUTHOR: CHARLIE HENDRICKS EXP COSIGNER: URGENCY: STATUS: COMPLETED PRIMARY CARE SECURE MESSAGING Has ADDENDA ------Original Message ------ Sent: 05/01/2023 12:22 PM ET From: LON QUINTERO To: BIJAN NICOLE [facility] Subject: General:scripts Hello, would you be able to refill some scripts for me? they are amlodipine rx #[id number], ascobic Acid px#[id number], Ferrous [id number] and FinasterideL Thank You /desi HENDRICKS RN REGISTERED NURSE Signed: 05/01/2023 16:20 05/01/2023 ADDENDUM STATUS: COMPLETED Medication request sent to the provider. /desi HENDRICKS RN REGISTERED NURSE Signed: 05/01/2023 16:23 CHARLIE HENDRICKS [facility]
--- OUTSIDE RECORDS SUMMARY | 2024-04-05 09:52 | XMS_ITS ---
Author Name [facility] [place] Address [address] [place] [id number] Care Team Providers Care Chief Operator Hydroformer Name Role Phone JT NICOLE Primary Care [...] Patient's Relationship to Policy [place] BC[employer] [facility] PREFERRED PROVIDER ORGANIZAT ION (PPO) [facility] August 10, 2010 [id number] [phone] BOWDER,RO RAY PATIENT [facility] (WNR) MEDICARE (M) [facility] (WNR) Apr 06, 2014 NO GROUP NUMBER [id number] BOWDER,RO RAY PATIENT JANE [facility] (WNR) MEDICARE ADVANTAGE [facility](W NR) Apr 06, 2015 [id number] BOWDER,RO RAY PATIENT JANE [facility] (WNR) MEDICARE ADVANTAGE [facility] (WNR) Apr 06, 2014 [id number] BOWDER,RO RAY PATIENT Selected Encounter This section includes the information on record at [place] for the Encounter. Date/Time Encounter Type Encounter Description Reason Pro vider Source May 01, 2023 04:21 PM Outpatient Encounter PRIMARY CARE/MEDICINE [facility] Encounter Template Text not used by [place] Plan of Treatment: Future Appointments (+ 6 months) and Future Tests (+/- 45 days) The Plan of Treatment section includes future care activities for the patient from all [place] [facility]. This section includes future appointments and future orders which are active, pending or scheduled. Future Appointments This section includes appointments that were scheduled to occur 6 months from the date of the Encounter, up to a maximum of 20 appointments. The data comes from all [place] treatment facilities. Appointment Date/Time Appointment Type Appointme nt Facility Name May 27, 2023 08:00 AM [facility] Jul 14, 2023 02:00 PM AMBULATORY - PSYCHIATRY [facility] August 05, 2023 10:30 AM [facility] August 13, 2023 02:30 PM [facility] August 19, 2023 08:30 AM [facility] August 25, 2023 09:00 AM [facility] Sep 16, 2023 11:30 AM [facility] Oct 15, 2023 08:30 AM [facility] Oct 20, 2023 01:00 PM AMBULATORY - PSYCHIATRY [facility] Oct 21, 2023 10:30 [facility] Social History: Smoking Status (Most current) and Tobacco Use (All prior to encounter date) This section includes the most current, and the historical, smoking and tobacco- related health factors from the [place] facility where the Encounter took place. Current Smoking Status This section includes the most current smoking, or tobacco-related health factor, from the [place] facility where the Encounter took place. Date/Time Current Smoking Status [facility] August 30, 2009 09:45 AM QUIT TOBACCO USE > 7 YEARS AGO quit about 25 years ago [facility] Advance Directives: All historical and current Section Date Range: From patient's date of to the date document was created. This section includes ALL of a patient's completed or amended VA Advance and Rescinded Directives. The entries below indicate that a directive exists for the patient, but an actual copy is not included with this document. The data comes from all [place] facilities. Date Advance Directives Provider Source May 17, 2018 ADVANCE DIRECTIVE KEVIN DEAL [place] [facility] W[facility] Encounter Notes: All associated encounter notes This section contains the clinical notes associated to the Encounter. Date/Time Encounter Note(s) Provider Source May 01, 2023 04:21 PM MEDICATION MGT NOT E: LOCAL TITLE: OUTPATIENT MEDICATION REQUEST STANDARD TITLE: MEDICATION MGT NOTE DATE OF NOTE: MAY 01, 2023@16:21 ENTRY DATE: MAY 01, 2023@16:21:28 AUTHOR: CHARLIE HENDRICKS EXP COSIGNER: URGENCY: STATUS: COMPLETED Medication Request Date of Request: Apr Please renew and mail. ASCORBIC ACID TAB 500MG TAKE ONE TABLET BY MOUTH ONCE DAILY FOR VITAMIN/NUTRITION SUPPLEMENT TAKE AT SAME TIME FERROUS SULFATE TABLETS Quantity: 100 Refills: 1 Indication: TO HELP ABSORB IRON FERROUS SULFATE TAB 325MG TAKE ONE TABLET BY MOUTH ONCE DAILY TO SUPPLEMENT IRON TAKE ALONG WITH VITAMIN C (ASCORBIC ACID) Quantity: 90 Refills: 1 Indication: TO SUPPLEMENT IRON AMLODIPINE BESYLATE TAB 5MG TAKE ONE TABLET BY MOUTH DAILY FOR BLOOD PRESSURE/HEART, DO NOT TAKE WITH GRAPEFRUIT JUICE Quantity: 90 Refills: 3 FINASTERIDE 5MG TABLET TAB 5MG TAKE ONE TABLET BY MOUTH AT BEDTIME FOR PROSTATE Quantity: 90 Refills: 3 /swetha/ CHARLIE HENDRICKS RN REGISTERED NURSE Signed: 05/01/2023 16:22 Receipt Acknowledged By: 05/02/2023 14:26 /swetha/ JT NICOLE MD PHYSICIAN CHARLIE HENDRICKS
--- OUTSIDE RECORDS SUMMARY | 2024-04-05 09:52 | XMS_ITS | Encounter Summary ---
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 Name Role Phone JT NICOLE Primary Care [...] Patient's Relationship to Policy [place] [facility] OF [facility] PREFERRED PROVIDER ORGANIZAT ION (PPO) [facility] August 10, 2010 [id number] ZHOU QUINTERO RAY PATIENT [facility] (WNR) MEDICARE (M) [facility] (WNR) Apr 06, 2014 NO GROUP NUMBER [id number] INGRID,ZHOU RAY PATIENT JANE [facility] (WNR) MEDICARE ADVANTAGE [facility](W NR) Apr 06, 2015 [id number] INGRID,ZHOU RAY PATIENT JANE [facility] (WNR) MEDICARE ADVANTAGE [facility] (WNR) Apr 06, 2014 [id number] BOWLEXI,ZHOU RAY PATIENT Selected Encounter This section includes the information on record at [place] for the Encounter. Date/Time Encounter Type Encounter Description Reason Provider Source Mar 24, 2024 08:00 AM OFFICE O/P EST LOW 20 MIN PODIATRY ICD-10-CM L60.0 Ingrowing nail DAVID SUBRAMANIAN [place] Encounter Template Text not used by [place] Assessments - Encounter Diagnoses This section includes the primary and secondary diagnoses documented for the Encounter. Date/Time Primary/Secondary Diagnosis Diagnosis Name Provider Source Mar 24, 2024 08:21 AM PRIMARY Ingrowing nail DAVID SUBRAMANIAN [place] Mar 24, 2024 08:21 AM SECONDARY Corns and callosities DAVID SUBRAMANIAN [place] Mar 24, 2024 08:21 AM SECONDARY Pain in left foot DAVID SUBRAMANIAN [place] Mar 24, 2024 08:21 AM SECONDARY Pain in left toe(s) DAVID SUBRAMANIAN [place] Mar 24, 2024 08:21 AM SECONDARY Pain in right foot DAVID SUBRAMANIAN [place] Mar 24, 2024 08:21 AM SECONDARY Pain in right toe(s) DAVID SUBRAMANIAN [place] Plan of Treatment: Future Appointments (+ 6 months) and Future Tests (+/- 45 days) The Plan of Treatment section includes future care activities for the patient from all [place] treatmentfacilities. This section includes future appointments and future orders which are active, pending or scheduled. Future Appointments This section includes appointments that were scheduled to occur 6 months from the date of the Encounter, up to a maximum of 20 appointments. The data comes from all [place] treatment facilities. Appointment Date/Time Appointment Type Appointme nt Facility Name Apr 19, 2024 08:30 AM AMBULATORY - NONE [facility] May 17, 2024 01:30 PM AMBULATORY - PSYCHIATRY [facility] Jul 14, 2024 08:00 AM AMBULATORY - MEDICINE [facility] Lab Results: +/- 30 days of the encounter This section includes the Chemistry and Hematology Lab Results on record with [place] for the patient. Radiology Reports and Pathology Reports are provided separately, in subsequent sections. Lab Results This section contains the Chemistry/Hematology Results that were resulted 30 days before or 30 daysafter the date of the Encounter. Date/Time Source Result Type Result - Unit Interpretation Reference Range Comment Mar 11, 2024 11:40 AM [place] TSH Specimen Type: SERUM No comment entered. Ordering Provider: JT BROUSSARD Report Released Date/Time: Mar 09, 2024 02:10 PM Reporting Lab: [address] [address] Performing Lab: [address] [address] TSH 3.07 u[IU]/mL 0.35-5.00 Mar 11, 2024 11:40 AM [place] HEMOGLOBIN A1C PANEL Specimen Type: BLOOD Comment: [...] Mar 09, 2024 02:10 PM Reporting Lab: [address] [address] Performing Lab: [address] [address] HEMOGLOBIN A1C 5.9 H 4.0-5.6 Mar 11, 2024 11:40 AM [place] LIPID PANEL FASTING Specimen Type: SERUM No comment entered. Ordering Provider: JT BROUSSARD Report Released Date/Time: Mar 09, 2024 02:10 PM Reporting Lab: [address] [address] Performing Lab: [address] [address] CHOLESTEROL 124 mg/dL TRIGLYCERIDE 144 mg/dL 0-150 LDL calculated 59 mg/dL 0-129 CHOL/HDL 3.4 HDL CHOLESTEROL 36 mg/dL L 40-60 Mar 11, 2024 11:40 AM [place] BASIC METABOLIC PANEL (non-fasting) Spe cimen Type: SERUM No comment entered. Ordering Provider: JT BROUSSARD Report Released Date/Time: Mar 09, 2024 02:10 PM Reporting Lab: [address] [address] Performing Lab: [facility] [address] [address] UREA NITROGEN 29 mg/dL H 7-25 GLUCOSE 109 mg/dL H 65-100 SODIUM 141 mmol/L 135-145 POTASSIUM 4.2 mmol/L 3.5-5.0 CHLORIDE 106 mmol/L 100-110 CO2 27 meq/L 20-30 CREATININE, Serum 1.19 mg/dL 0.50-1.40 eGFR(CKD-EPI 2020) 64 mL/min >60 Mar 11, 2024 11:40 AM [place] LIVER FUNCTION Specimen Type: SERUM No comment entered. Ordering Provider: JT BROUSSARD Report Released Date/Time: Mar 09, 2024 02:10 PM Reporting Lab: [facility] [address] [address] Performing Lab: [facility] [address] [address] PROTEIN,TOTAL 7.1 g/dL 6.0-8.3 ALBUMIN 3.7 g/dL 3.5-5.0 ALKALINE PHOSPHATASE 68 U/L 40-150 AST 20 U/L 5-34 ALT 24 U/L BILIRUBIN, TOTAL 0.4 mg/dL 0.2-1.2 Mar 11, 2024 11:40 AM [place] CALCIUM Specimen Type: SERUM No comment entered. Ordering Provider: JT BROUSSARD Report Released Date/Time: Mar 09, 2024 02:10 PM Reporting Lab: [facility] [address] Performing Lab: [facility] [address] CALCIUM 9.8 mg/dL 8.5-10.2 Mar 11, 2024 11:40 AM [place] URIC ACID Specimen Type: SERUM No comment entered. Ordering Provider: JT BROUSSARD Report Released Date/Time: Mar 09, 2024 02:10 PM Reporting Lab: [facility] [address] Performing Lab: [facility] [address] [facility] [address] URIC ACID 5.4 mg/dL 3.5-7.2 Mar 11, 2024 11:40 AM [place] CBC AND DIFF (AUTO) Specimen Type: BLOOD No comment entered. Ordering Provider: JT BROUSSARD Report Released Date/Time: Mar 09, 2024 02:10 PM Reporting Lab: [facility] [address] [facility] [address] Performing Lab: [facility] [address] [facility] [address] WBC 7.48 10*3/uL 4.50-11.00 RBC 5.19 10*6/uL [...] 0.0 0.0-0.0 NRBC, ABS 0.00 10*3/uL 0.00-0.00 Social History: Smoking Status (Most current) and Tobacco Use (All prior to encounter date) This section includes the most current, and the historical, smoking and tobacco- related health factors from the [place] facility where the Encounter took place. Current Smoking Status This section includes the most current smoking, or tobacco-related health factor, from the [place] facility where the Encounter took place. Date/Time Current Smoking Status Comment nAai james Jul 14, 2023 02:00 PM VA-TOBACCO NEVER USED [place] Tobacco Use History This section includes a history of the smoking, or tobacco-related health factors, that were collected on or before the date of the Encounter. The data comes from the [place] facility where the Encounter took place. Date/Time Smoking Status/Tobacco Use Comment F acility August 05, 2022 02:30 PM VA-TOBACCO NEVER USED [place] September 03, 2021 09:30 AM VA-TOBACCO NEVER USED [place] Sep 25, 2020 09:30 AM VA-TOBACCO NEVER USED [place] Oct 12, 2019 10:35 AM VA-TOBACCO NEVER USED [place] August 31, 2018 08:55 AM VA-TOBACCO NEVER USED [place] Jul 30, 2017 09:07 AM LIFETIME NON-TOBACCO USER [place] Feb 17, 2017 10:23 AM QUIT TOBACCO USE 1-7 YEARS AGO [place] Dec 19, 2015 08:35 AM QUIT TOBACCO USE > 7 YEARS AGO [place] Advance Directives: All historical and current Section Date Range: From patient's date of to the date document was created. This section includes ALL of a patient's completed or amended [place] Advance and Rescinded Directives. The entries below indicate that a directive exists for the patient, but an actual copy is not included with this document. The data comes from all [facility]. Date Advance Directives Provider Source May 17, 2018 ADVANCE DIRECTIVE KEVIN DEAL [place] [facility] Encounter Notes: All associated encounter notes This section contains the clinical notes associated to the Encounter. Date/Time Encounter Note(s) Provider Source Mar 24, 2024 07:21 AM PODIATRY NOTE: LOCAL TITLE: PODIATRY NOTE STANDARD TITLE: PODIATRY NOTE DATE OF NOTE: MAR 24, 2024@07:21 ENTRY DATE: MAR 24, 2024@07:21:55 AUTHOR: DAVID SUBRAMANIAN COSIGNER: URGENCY: STATUS: COMPLETED NOTE: HAS RECEIVED BOTH COVID VACCINE DOSES AT [facility] LAST SEEN FOR TREATMENT: 11/12/2023 S: Víctor. is a 73 yo alert WDWN CAUC MALE who IS SEEN for CONTINUED podiatric examination & CARE for treatment of a presenting complaint of painful CALLUS HE HAD RENDERED SELF CARE FOR NAILS. Patient has PVD [...] remission. Description of symptoms is of an dznhag-lvmllcjgu-tlovnop nature. Contributing factors are: shoes and increased [...] located at the following sites: PLANTAR 5TH MET HEAD BILATEAL AND PLANTAR 2ND & 4TH [...] present physical-medical status. Protective sensation utilizing a [place]-Xavi lOg monofilament is 07/10 RT & 10/10 LEFT. BIOMECHANICAL: Exam is deferred at this time due to the presence of pain. A: Clinical Impression is painful HYPERKERATOSIS plantar 2-3-5 bilateral and periphery of heels bilat in the presence of PAIN & IN NEED OF NAIL CARE HE INJURED HIS BACK AND IS UNABLE TO RENDER SELF CARE CONSISTING OF TRIMMING- REDUCTION OF ALL NAILS 1-2-3-4-5 BILATERAL VIA MANUAL AND ELECTRIC MEANS . NAILS ARE WNL BUT ELONGATED AND INCURVATED. P: Treatment consists of surgical PARING-debridement of all hyperkeratosis utilizing sharp dissection WITH A STERILE # 10 SCALPEL AND TRIMMING-REDUCTION OF ALL NAILS VIA MANUAL AND ELECTRIC MEANS. All care rendered without complications & the patient is progressing well after podiatric care this date and will be scheduled for periodic podiatric care in an attempt to prevent future complications due to the RECURREN PAINFUL LESIONS. HE MAY BE A CANDIDATE FOR CUSTOM ORTHOSES IN THE FUTURE. RTC: 12 WEEKS NEEDED IF AVAILABLE TO MINIMIZE PAIN.(03/24@ TT) *DISCUSSED NEW PROTOCOLS AND WILL BE CALLED FOR RESCHEDULING I DISCUSSED THE FINDINGS & PLAN WITH PATIENT (UNCHANGED SINCE PREVIOUS VISIT) & PATIENT AGREES AND UNDERSTANDS PLAN DISCUSSED HAVING JOSS AT HIS HOME AND HAVING PASTA NOT INTERESTED IN HAM OR TURKEY Medication Reconciliation: PERFORMED TODAY - SEE BELOW. Outpatient: Has the patient been taking medications as documented in the EMLR? YES: The patient has been taking medications as documented in the EMLR. Essential Medication List for Review used to complete this medication reconciliation. INCLUDED IN THIS LIST: Alphabetical list of active outpatient prescriptions dispensed from this [place] (local) and dispensed from another [place] or DoD facility (remote) as well as [...] JLV. Allergies/ADRs (Tool #5) FACILITY ALLERGY/ADR -------- [facility] [place] [facility] [place] [facility] NO KNOWN ALLERGIES Med Recon NoGlossary (Tool #1) INCLUDED IN THIS LIST: Alphabetical list of active outpatient prescriptions dispensed from this [place] (local) and dispensed from another VA or DoD facility (remote) as well as inpatient orders (local pending and active), local clinic medications, locally documented non-VA medications, and local prescriptions that have or been discontinued in the past 90 days. Non-VA Meds Last Documented On: Dec 04, 2011 NOTE The display of VA prescriptions dispensed from another VA or DoD facility (remote) is limited to active outpatient prescription entries matched to National Drug File at the originating site and may not include some items such as investigational drugs, compounds, etc. NOT INCLUDED IN THIS LIST: Medications self-entered by the patient into personal health records (i.e. TRUE linkswear) are NOT included in this list. Non-VA medications documented outside this [place], remote inpatient orders (regardless of status) and remote clinic medications are NOT included in this list. The patient and provider must always discuss medications the patient is taking, regardless of where the medication was dispensed or obtained. OUTPT AMLODIPINE BESYLATE 5MG TAB (Status = Discontinued) TAKE ONE TABLET BY MOUTH DAILY FOR BLOOD PRESSURE/HEART, DO NOT TAKE WITH GR[employer] JUICE Rx# [id number] Last Released: 11/27/23 Qty/Days Supply: 90 Rx Expiration Date: 05/02/24 Refills Remainin OUTPT AMLODIPINE BESYLATE 5MG TAB (Status = Active/Suspended) TAKE ONE TABLET BY MOUTH DAILY FOR BLOOD PRESSURE/HEART, DO NOT TAKE WITH GRAPEFRUIT JUICE Rx# [id number] Last Released: 02/26/24 Qty/Days Supply: 90 Rx Expiration Date: 01/12/25 Refills Remainin OUTPT ASPIRIN 81MG EC TAB (Status = Discontinued) TAKE ONE TABLET BY MOUTH ONCE DAILY TO PREVENT STROKE/HEART ATTACK Rx# [id number] Last Released: 11/04/23 Qty/Days Supply: 120/90 Rx Expiration Date: 08/25/24 Refills Remainin Indication: FOR BLOOD CLOT PREVENTION FOLLOWING PCI OUTPT ASPIRIN 81MG EC TAB (Status = Active/Suspended) TAKE ONE TABLET BY MOUTH ONCE DAILY TO PREVENT STROKE/HEART ATTACK Rx# [id number] Last Released: 02/08/24 Qty/Days Supply: 120/90 Rx Expiration Date: 01/12/25 Refills Remainin Indication: FOR BLOOD CLOT PREVENTION FOLLOWING PCI OUTPT BUPROPION HCL 150MG 12HR SA TAB (Status = Active/Suspended) TAKE ONE TABLET BY MOUTH EVERY MORNING Rx# [id number] Last Released: 02/17/24 Qty/Days Supply: 90/90 Rx Expiration Date: 10/20/24 Refills Remainin OUTPT DICLOFENAC NA 1% TOP GEL (Status = Active/Suspended) APPLY 4 GRAMS TOPICALLY FOUR TIMES A DAY FOR PAIN FOR OSTEOARTHRITIS - USE DOSING CARD PROVIDED IN BOX Rx# [id number] Last Released: 03/16/24 Qty/Days Supply: 100/30 Rx Expiration Date: 03/16/25 Refills Remainin Indication: FOR PAIN OUTPT FINASTERIDE 5MG TAB (Status = Discontinued) TAKE ONE TABLET BY MOUTH AT BEDTIME FOR PROSTATE Rx# [id number] Last Released: 01/12/24 Qty/Days Supply: 90 Rx Expiration Date: 05/02/24 Refills Remainin OUTPT FINASTERIDE 5MG TAB (Status = Active/Suspended) TAKE ONE TABLET BY MOUTH AT BEDTIME FOR PROSTATE Rx# [id number] Last Released: Supply: Rx Expiration Date: 01/12/25 Refills Remainin OUTPT GABAPENTIN 300MG CAP (Status = Active/Suspended) TAKE ONE CAPSULE BY MOUTH TWICE DAILY AND TAKE THREE CAPSULES AT BEDTIME FOR PAIN, ANXIETY, POOR SLEEP, AND HEADACHES Rx# [id number] Last Released: 02/08/24 Qty/Days Supply: 450/90 Rx Expiration Date: 01/25/25 Refills Remainin Indication: RLS OUTPT HYDROXYZINE PAMOATE 50MG CAP (Status = Active/Suspended) TAKE ONE CAPSULE BY MOUTH FOUR TIMES DAILY NEEDED FOR ANXIETY Rx# [id number] Last Released: 03/16/24 Qty/Days Supply: 240/60 Rx Expiration Date: 10/20/24 Refills Remainin OUTPT OXYBUTYNIN CHLORIDE 10MG SA TAB (Status = Discontinued) TAKE ONE TABLET BY MOUTH EVERY MORNING FOR BLADDER INSTABILITY Rx# [id number] Last Released: 11/16/23 Qty/Days Supply: 30 Rx Expiration Date: 08/07/24 Refills Remainin OUTPT PRAZOSIN HCL 2MG CAP (Status = Active/Suspended) TAKE FOUR CAPSULES BY MOUTH AT BEDTIME Rx# [id number] Last Released: 01/12/24 Qty/Days Supply: 360/ Rx Expiration Date: 10/20/24 Refills Remainin OUTPT ROSUVASTATIN [place] 40MG TAB (Status = Active/Suspended) TAKE ONE-HALF TABLET BY MOUTH ONCE DAILY FOR HIGH CHOLESTEROL Rx# [id number] Last Released: 02/26/24 Qty/Days Supply: 45/90 Rx Expiration Date: 08/25/24 Refills Remainin Indication: FOR HIGH CHOLESTEROL OUTPT SERTRALINE HCL 100MG TAB (Status = Active/Suspended) TAKE ONE TABLET BY MOUTH EVERY MORNING Rx# [id number] Last Released: 01/12/24 Qty/Days Supply: Rx Expiration Date: 10/20/24 Refills Remainin OUTPT SILDENAFIL CITRATE 100MG TAB (Status = Active) TAKE ONE TABLET BY MOUTH ONCE DAILY NEEDED FOR ERECTILE DYSFUNCTION TAKE 1 HOUR PRIOR TO SEXUAL ACTIVITY, AND SEPARATE FROM TAMSULOSIN AND PRAZOSIN BY AT LEAST 4 HOURS Rx# [id number] Last Released: 11/04/23 Qty/Days Supply: Rx Expiration Date: 08/25/24 Refills Remainin Indication: FOR ERECTILE DYSFUNCTION OUTPT TAMSULOSIN HCL 0.4MG CAP (Status = Discontinued) TAKE TWO CAPSULES BY MOUTH AT BEDTIME FOR ENLARGED PROSTATE Rx# [id number] Last Released: 01/06/24 Qty/Days Supply: Rx Expiration Date: 08/25/24 Refills Remainin Indication: FOR ENLARGED PROSTATE OUTPT TAMSULOSIN HCL 0.4MG CAP (Status = Active/Suspended) TAKE TWO CAPSULES BY MOUTH AT BEDTIME FOR ENLARGED PROSTATE Rx# [id number] Last Released: 02/08/24 Qty/Days Supply: Rx Expiration Date: 01/12/25 Refills Remainin Indication: FOR ENLARGED PROSTATE OUTPT VALSARTAN 320MG TAB (Status = Discontinued) TAKE ONE TABLET BY MOUTH ONCE DAILY FOR HIGH BLOOD PRESSURE Rx# [id number] Last Released: 01/06/24 Qty/Days Supply: Rx Expiration Date: 07/29/24 Refills Remainin Indication: FOR HIGH BLOOD PRESSURE OUTPT VALSARTAN 320MG TAB (Status = Active/Suspended) TAKE ONE TABLET BY MOUTH ONCE DAILY FOR HIGH BLOOD PRESSURE Rx# [id number] Last Released: Supply: Rx Expiration Date: 01/12/25 Refills Remainin Indication: FOR HIGH BLOOD PRESSURE SUPPLIES /swetha/ DAVID SUBRAMANIAN DPM MANAGER SPA Signed: 03/24/2024 08:21 DAVID SUBRAMANIANFIELD
--- OUTSIDE RECORDS SUMMARY | 2024-04-05 09:52 | XMS_ITS ---
Author Name [place] Address [address] [place] [address] Care Team Providers Care Blood Donor Recruiter Name Role Phone JT NICOLE Primary Care [...] Patient's Relationship to Policy [place] BCBS OF [facility] PREFERRED PROVIDER ORGANIZAT ION (PPO) [facility] August 10, 2010 [id number] [phone] BOWDER,RO RAY PATIENT [facility] (WNR) MEDICARE (M) [facility] (WNR) Apr 06, 2014 NO GROUP NUMBER [id number] BOWDER,RO RAY PATIENT JANE [facility] (WNR) MEDICARE ADVANTAGE [facility](W NR) Apr 06, 2015 [id number] BOWDER,RO RAY PATIENT JANE [facility] (WNR) MEDICARE ADVANTAGE [facility] (WNR) Apr 06, 2014 [id number] BOWDER,RO RAY PATIENT Selected Encounter This section includes the information on record at [place] for the Encounter. Date/Time Encounter Type Encounter Description Reason Pro vider Source Mar 21, 2024 09:43 AM Outpatient Encounter PRIMARY CARE/MEDICINE IHE Encounter Template Text not used by [place] Plan of Treatment: Future Appointments (+ 6 months) and Future Tests (+/- 45 days) The Plan of Treatment section includes future care activities for the patient from all [place] treatmentfacilities. This section includes future appointments and future orders which are active, pending or scheduled. Future Appointments This section includes appointments that were scheduled to occur 6 months from the date of the Encounter, up to a maximum of 20 appointments. The data comes from all [place] treatment facilities. Appointment Date/Time Appointment Type Appointme nt Facility Name Mar 24, 2024 08:00 AM AMBULATORY - MEDICINE [facility] Apr 19, 2024 08:30 AM AMBULATORY - NONE [facility] May 17, 2024 01:30 PM AMBULATORY - PSYCHIATRY [facility] Jul 14, 2024 08:00 AM AMBULATORY - MEDICINE [facility] Lab Results: +/- 30 days of the encounter This section includes the Chemistry and Hematology Lab Results on record with [place] for the patient. Radiology Reports and Pathology Reports are provided separately, in subsequent sections. Lab Results This section contains the Chemistry/Hematology Results that were resulted 30 days before or 30 daysafter the date of the Encounter. Date/Time Source Result Type Result - Unit Interpretation Reference Range Comment Mar 11, 2024 11:40 AM [place] HEMOGLOBIN A1C PANEL Specimen Type: BLOOD Comment: [...] Mar 09, 2024 02:10 PM Reporting Lab: [address] [address] Performing Lab: [address] [address] HEMOGLOBIN A1C 5.9 H 4.0-5.6 Mar 11, 2024 11:40 AM [place] TSH Specimen Type: SERUM No comment entered. Ordering Provider: JT BROUSSARD Report Released Date/Time: Mar 09, 2024 02:10 PM Reporting Lab: [facility] [address] [facility] [address] Performing Lab: [address] [address] TSH 3.07 u[IU]/mL 0.35-5.00 Mar 11, 2024 11:40 AM [place] BASIC METABOLIC PANEL (non-fasting) Spe cimen Type: SERUM No comment entered. Ordering Provider: JT BROUSSARD Report Released Date/Time: Mar 09, 2024 02:10 PM Reporting Lab: [address] [address] Performing Lab: [address] [address] UREA NITROGEN 29 mg/dL H 7-25 GLUCOSE 109 mg/dL H 65-100 SODIUM 141 mmol/L 135-145 POTASSIUM 4.2 mmol/L 3.5-5.0 CHLORIDE 106 mmol/L 100-110 CO2 27 meq/L 20-30 CREATININE, Serum 1.19 mg/dL 0.50-1.40 eGFR(CKD-EPI 2020) 64 mL/min >60 Mar 11, 2024 11:40 AM [place] LIPID PANEL FASTING Specimen Type: SERUM No comment entered. Ordering Provider: JT BROUSSARD Report Released Date/Time: Mar 09, 2024 02:10 PM Reporting Lab: [address] [address] Performing Lab: [address] [address] CHOLESTEROL 124 mg/dL TRIGLYCERIDE 144 mg/dL 0-150 LDL calculated 59 mg/dL 0-129 CHOL/HDL 3.4 HDL CHOLESTEROL 36 mg/dL L 40-60 Mar 11, 2024 11:40 AM [place] LIVER FUNCTION Specimen Type: SERUM No comment entered. Ordering Provider: JT BROUSSARD Report Released Date/Time: Mar 09, 2024 02:10 PM Reporting Lab: [address] [address] Performing [facility]: [facility] [address] [address] PROTEIN,TOTAL 7.1 g/dL 6.0-8.3 ALBUMIN 3.7 g/dL 3.5-5.0 ALKALINE PHOSPHATASE 68 U/L 40-150 AST 20 U/L 5-34 ALT 24 U/L BILIRUBIN, TOTAL 0.4 mg/dL 0.2-1.2 Mar 11, 2024 11:40 AM [place] CALCIUM Specimen Type: SERUM No comment entered. Ordering Provider: JT BROUSSARD Report Released Date/Time: Mar 09, 2024 02:10 PM Reporting Lab: [address] [address] Performing Lab: [address] [address] CALCIUM 9.8 mg/dL 8.5-10.2 Mar 11, 2024 11:40 AM [place] URIC ACID Specimen Type: SERUM No comment entered. Ordering Provider: JT BROUSSARD Report Released Date/Time: Mar 09, 2024 02:10 PM Reporting Lab: [address] [address] Performing Lab: [address] [address] URIC ACID 5.4 mg/dL 3.5-7.2 Mar 11, 2024 11:40 AM [place] CBC AND DIFF (AUTO) Specimen Type: BLOOD No comment entered. Ordering Provider: JT BROUSSARD Report Released Date/Time: Mar 09, 2024 02:10 PM Reporting Lab: [address] [address] Performing Lab: [address] [address] WBC 7.48 10*3/uL 4.50-11.00 RBC 5.19 10*6/uL [...] and tobacco- related health factors from the [place] facility where the Encounter took place. Current Smoking Status This section includes the most current smoking, or tobacco-related health factor, from the [place] facility where the Encounter took place. Date/Time Current Smoking Status [facility] August 30, 2009 09:45 AM QUIT TOBACCO USE > 7 YEARS AGO quit about 25 years ago [place] [facility] Advance Directives: All historical and current Section Date Range: From patient's date of to the date document was created. This section includes ALL of a patient's completed or amended [place] Advance and Rescinded Directives. The entries below indicate that a directive exists for the patient, but an actual copy is not included with this document. The data comes from all [place] facilities. Date Advance Directives Provider Source May 17, 2018 ADVANCE DIRECTIVE KEVIN DEAL [place] [facility] Encounter Notes: All associated encounter notes This section contains the clinical notes associated to the Encounter. Date/Time Encounter Note(s) Provider Source Mar 21, 2024 09:43 AM PRIMARY CARE SECUR E MESSAGING: LOCAL TITLE: PRIMARY CARE SECURE MESSAGING STANDARD TITLE: PRIMARY CARE SECURE MESSAGING DATE OF NOTE: MAR 21, 2024@09:43 ENTRY DATE: MAR 21, 2024@09:43:26 AUTHOR: BRANDIE ESPANA EXP COSIGNER: URGENCY: STATUS: COMPLETED PRIMARY CARE SECURE MESSAGING Has ADDENDA ------Original Message -------- Sent: 03/20/2024 10:53 AM ET From: LON QUINTERO To: COREY,O_P [facility] Subject: Medication:medicines Hello, I have several scripts that need to be refilled. Please refill them for me. Thank You /swetha/ BRANDIE YODER Signed: 03/21/2024 09:43 Receipt Acknowledged By: 03/22/2024 16:26 /swetha/ MINESH LAZARO LPN LPN 03/27/2024 22:18 /swetha/ BEN HINES RN REGISTERED NURSE 03/22/2024 ADDENDUM STATUS: COMPLETED Response sent via Secure Message: Hello, Please list the medications you would like refilled. We can not refill meds blindly, you have to let us know which ones. /desi LAZARO LPN LPN Signed: 03/22/2024 16:26 BRANDIE ESPANARL [facility]
--- OUTSIDE RECORDS SUMMARY | 2024-04-05 09:53 | XMS_ITS | Encounter Summary ---
Author Name [facility] [place] Organization [facility] [place] Address [address] [place] [address] Care Team Providers Care Metal Drawer Name Role Phone JT NICOLE Primary Care [...] Patient's Relationship to Policy [place] BCBS OF [facility] PREFERRED PROVIDER ORGANIZAT ION (PPO) [facility] August 10, 2010 [id number] [phone] BOWDER,RO RAY PATIENT [facility] (WNR) MEDICARE (M) [facility] (WNR) Apr 06, 2014 NO GROUP NUMBER [id number] BOWDER,RO RAY PATIENT JANE [facility] (WNR) MEDICARE ADVANTAGE [facility](W NR) Apr 06, 2015 [id number] BOWDER,RO RAY PATIENT JANE [facility] (WNR) MEDICARE ADVANTAGE [facility] (WNR) Apr 06, 2014 [id number] BOWDER,RO RAY PATIENT Selected Encounter This section includes the information on record at [place] for the Encounter. Date/Time Encounter Type Encounter Description Reason Pro vider Source Jul 28, 2023 10:22 AM Outpatient Encounter DENTAL IHE Encounter Template Text not used by [place] Plan of Treatment: Future Appointments (+ 6 months) and Future Tests (+/- 45 days) The Plan of Treatment section includes future care [facility] [place] [facility] This section includes future appointments and future orders which are active, pending or scheduled. Future Appointments This section includes appointments that were scheduled to occur 6 months from the date of the Encounter, up to a maximum of 20 appointments. The data comes from all [place] treatment facilities. Appointment Date/Time Appointment Type Appointme nt Facility Name August 05, 2023 10:30 AM AMBULATORY - MEDICINE [facility] August 13, 2023 02:30 PM AMBULATORY - MEDICINE [facility] August 19, 2023 08:30 AM AMBULATORY - MEDICINE [facility] August 25, 2023 09:00 AM AMBULATORY - MEDICINE [facility] Sep 16, 2023 11:30 AM AMBULATORY - MEDICINE [facility] Oct 15, 2023 08:30 AM AMBULATORY - NONE [place] [facility] [place] [facility] Oct 20, 2023 01:00 PM AMBULATORY - PSYCHIATRY [facility] Oct 21, 2023 10:30 AM AMBULATORY - MEDICINE [place] [facility] [facility] [facility] Nov 12, 2023 08:00 AM AMBULATORY - MEDICINE [facility] Nov 30, 2023 09:00 AM AMBULATORY - NONE [place] [facility] [facility] Jan 19, 2024 11:00 AM AMBULATORY - PSYCHIATRY [facility] Lab Results: +/- 30 days of the encounter This section includes the Chemistry and Hematology Lab Results on record with [place] for the patient. Radiology Reports and Pathology Reports are provided separately, in subsequent sections. Lab Results This section contains the Chemistry/Hematology Results that were resulted 30 days before or 30 daysafter the date of the Encounter. Date/Time Source Result Type Result - Unit Interpretation Reference Range Comment August 05, 2023 07:53 AM [place] MICROSCOPIC AUTOMATED, URINE Specimen T ype: URINE Comment: If Glucose = >500 and Ketones are positive, please alert the Physician. Ordering Provider: JT BROUSSARD Report Released Date/Time: Jul 30, 2023 08:43 AM Reporting Lab: [place] [facility] [place] [facility] [address] [facility] [address] Performing [facility]: [facility] [address] [facility] [address] UA WBC 0-5 /[HPF] 0-5 UA MUCUS FEW /[LPF] Trace UA RBC 0-2 /[HPF] 0-3 August 05, 2023 07:53 AM [place] FERRITIN Specimen Type: SERUM No comment entered. Ordering Provider: JT BROUSSARD Report Released Date/Time: Jan 22, 2023 11:47 AM Reporting Lab: [facility] [address] [facility] [address] Performing Lab: [address] [address] FERRITIN 159 ng/mL 20-300 August 05, 2023 07:53 AM [place] MICROALBUMIN CREATININE RATIO PANEL Spe cimen Type: URINE No comment entered. Ordering Provider: JT BROUSSARD Report Released Date/Time: Jan 22, 2023 11:47 AM Reporting Lab: [address] [address] Performing Lab: [address] [address] MICROALBUMIN/C REATININE RATIO 114.6 mg/g H 0-29.9 MICROALBUMIN,Q UANTITATIVE 14.6 mg/dL RR UNAVAIL CREATININE URINE 127.42 mg/dL August 05, 2023 07:53 AM [place] PSA Specimen Type: SERUM No comment entered. Ordering Provider: TJ BROUSSARD Report Released Date/Time: Jan 22, 2023 11:47 AM Reporting Lab: [address] [address] Performing Lab: [address] [address] PSA 1.58 ng/mL 0.00-4.00 August 05, 2023 07:53 AM [place] URINALYSIS Specimen Type: URINE Comment: If Glucose = >500 and Ketones are positive, please alert the Physician. Ordering Provider: JT BROUSSARD Report Released Date/Time: Jul 30, 2023 08:43 AM Reporting Lab: [address] [address] Performing Lab: [address] [address] UA COLOR Light-Yellow Yellow UA APPEARANCE Clear Clear UA GLUCOSE NEGATIVE mg/dL Negative UA KETONES NEGATIVE mg/dL Negative UA BLOOD NEGATIVE mg/dL Negative UA PROTEIN 30 mg/dL Negative UA NITRITE NEGATIVE mg/dL Negative UA BILIRUBIN NEGATIVE mg/dL Negative UA SPECIFIC GRAVITY 1.017 1.016-1.022 UA pH 6.5 5.0-9.0 UA UROBILINOGEN <2.0 mg/dL <2.0 UA LEUKOCYTE TRACE Negative August 05, 2023 07:53 AM [place] LIPID PANEL FASTING Specimen Type: SERUM No comment entered. Ordering Provider: JT BROUSSARD Report Released Date/Time: Jan 22, 2023 11:47 AM Reporting Lab: [address] [address] Performing Lab: [address] [address] CHOLESTEROL 103 mg/dL TRIGLYCERIDE 116 mg/dL 0-150 LDL calculated 47 mg/dL 0-129 CHOL/HDL 3.1 HDL CHOLESTEROL 33 mg/dL L 40-60 August 05, 2023 07:53 AM [place] BASIC METABOLIC PANEL (fasting) Specime n Type: SERUM No comment entered. Ordering Provider: JT BROUSSARD Report Released Date/Time: Jan 22, 2023 11:47 AM Reporting Lab: [address] [address] Performing Lab: [address] [address] UREA NITROGEN 18 mg/dL 7-25 GLUCOSE 104 mg/dL H 65-100 SODIUM 139 mmol/L 135-145 POTASSIUM 4.0 mmol/L 3.5-5.0 CHLORIDE 104 mmol/L 100-110 CO2 26 meq/L 20-30 CREATININE, Serum 1.56 mg/dL H 0.50-1.40 eGFR(CKD-EPI 2020) 46 mL/min L >60 August 05, 2023 07:53 AM [place] LIVER FUNCTION Specimen Type: SERUM No comment entered. Ordering Provider: JT BROUSSARD Report Released Date/Time: Jan 22, 2023 11:47 AM Reporting Lab: [facility] [address] [facility] [address] Performing Lab: [facility] [address] [facility] [address] PROTEIN,TOTAL 7.4 g/dL 6.0-8.3 ALBUMIN 4.0 g/dL 3.5-5.0 ALKALINE PHOSPHATASE 71 U/L 40-150 AST 27 U/L 5-34 ALT 33 U/L BILIRUBIN, TOTAL 0.7 mg/dL 0.2-1.2 August 05, 2023 07:53 AM [place] HEMOGLOBIN A1C PANEL Specimen Type: BLOOD Comment: Values obtained from A1C measurements can vary. For atypical A1C assays, a reported value of 7.0 could actually be between 6.72 and 7.28 if measured by a reference method. A reported value of 9.0 could actually be between 8.73 and 9.27. Ref: http://www.ngs p.org/CAPdata. asp Ordering Provider: JT BROUSSARD Report Released Date/Time: Jan 22, 2023 11:47 AM Reporting Lab: [facility] [address] [address] Performing Lab: [facility] [address] [address] HEMOGLOBIN A1C 5.9 H 4.0-5.6 August 05, 2023 07:53 AM [place] TSH Specimen Type: SERUM No comment entered. Ordering Provider: JT BROUSSARD Report Released Date/Time: Jan 22, 2023 11:47 AM Reporting Lab: [address] [address] Performing [facility]: [facility] [address] [address] TSH 2.55 u[IU]/mL 0.35-5.00 August 05, 2023 07:53 AM [place] CBC AND DIFF (AUTO) Specimen Type: BLOOD No comment entered. Ordering Provider: JT BROUSSARD Report Released Date/Time: Jan 22, 2023 11:47 AM Reporting Lab: [facility] [address] [address] Performing [facility]: [facility] [address] [address] WBC 6.98 10*3/uL 4.50-11.00 RBC 5.28 10*6/uL 4.23-5.66 HGB 14.4 g/dL 12.8-17 HCT 43.7 39.2-50.4 MCV 82.8 fL 82-99 MCHC 33.0 g/dL 30.8-35.1 PLT 237 10*3/uL 140-360 RDW-CV 12.7 12.0-16.0 [place], Abs 0.61 10*3/uL 0.30-1.10 MCH 27.3 pg 26.2-32.6 Neut % 62.8 43.7-75.8 Lymph % 25.4 14.0-42.3 [place] % 8.7 5.1-13.7 Eos % 2.4 0.4-6.8 Baso % 0.6 0.1-2.0 Neut, Abs 4.38 10*3/uL 2.20-7.60 Lymph, Abs 1.77 10*3/uL 1.00-3.20 Eos, Abs 0.17 10*3/uL 0.03-0.44 Baso, Abs 0.04 10*3/uL 0.01-0.13 Immature Gran % 0.1 0.0-0.7 Immature Gran, Abs 0.01 10*3/uL 0.00-0.06 Social History: Smoking Status (Most current) and Tobacco Use (All prior to encounter date) This section includes the most current, and the historical, smoking and tobacco- related health factors from the [place] facility where the Encounter took place. Current Smoking Status This section includes the most current smoking, or tobacco-related health factor, from the [place] facility where the Encounter took place. Date/Time Current Smoking Status Comment Facility August 30, 2009 09:45 AM QUIT TOBACCO USE > 7 YEARS AGO quit about 25 years ago [facility] Advance Directives: All historical and current Section Date Range: From patient's date of to the date document was created. This section includes ALL of a patient's completed or amended [place] Advance and Rescinded Directives. The entries below indicate that a directive exists for the patient, but an actual copy is not included with this document. The data comes from all [place] facilities. Date Advance Directives Provider Source May 17, 2018 ADVANCE DIRECTIVE S[facility]KEVIN [facility] Pathology Reports: +/- 30 days of the encounter Pathology Reports For cases when an order for pathology services may have been completed prior to the date of the Encounter, the report list includes the Pathology Reports that were completed up to 30 days before dateof the Encounter. For cases when an order for pathology services may have been completed after the date of the Encounter, the report list also includes the Pathology Reports that were completed up to30 days after date of the Encounter. The data comes from all [place] treatment facilities. Date/Time Pathology Report Provider Source August 05, 2023 07:53 AM [place] MICROBIOLOGY RE PORT: Reporting Lab: [facility] [CLIA# [id number]] [address] [place] [id number] Accession [UID]: [id number] [[id number]] Received: August 05, 2023@07:53 Collection sample: URINE CLEAN CATCH Collection date: August 05, 2023 07:53 Site/Specimen: URINE Provider: JT NICOLE Comment on specimen: cc Test(s) ordered: URINE CULTURE(MWROX).......... completed: August 10, 2023 10:39 * BACTERIOLOGY FINAL REPORT => August 10, 2023 10:39 TECH CODE: [id number] Bacteriology Remark(s): NO GROWTH IN 24 HOURS, FINAL REPORT TO FOLLOW. FINAL AEROBIC REPORT: NO GROWTH =--=--=--=--=--=--=--=--=--=--=--=--= --=--=--=--=--=--=--=--=--=--=--=--=- -=-- Performing Laboratory: Bacteriology Report Performed By: [facility] [CLIA# [id number]] [address] [place] [address] Bact Report Remark #2 Performed By: [facility] [CLIA# [id number]] [address] [place] [address] [facility] [place] [place] Encounter Notes: All associated encounter notes This section contains the clinical notes associated to the Encounter. Date/Time Encounter Note(s) Provider Source Jul 28, 2023 10:22 AM DENTISTRY TELEPHON E ENCOUNTER NOTE: LOCAL TITLE: TELEPHONE NOTE/DENTAL STANDARD TITLE: DENTISTRY TELEPHONE ENCOUNTER NOTE DATE OF NOTE: JUL 28, 2023@10:22 ENTRY DATE: JUL 28, 2023@10:22:08 AUTHOR: ELENITA JAMES EXP COSIGNER: URGENCY: STATUS: COMPLETED Called and spoke with pt, appointment with dental on 08/18/2023 has been cancelled and rescheduled to 10/15/2023. /swetha/ ELENITA JAMES ADVANCED MRI SUPERVISOR Signed: 07/28/2023 10:22 ELENITA JAMES [place] [facility]
--- OUTSIDE RECORDS SUMMARY | 2024-04-05 09:53 | XMS_ITS | Encounter Summary ---
Author Name [facility] Organization [facility] Address [address] [place] [id number] Care Team Providers Care Actuarial Internship Name Role Phone JT NICOLE Primary Care [...] Patient's Relationship to Policy [place] BC[employer] OF [place] PREFERRED PROVIDER ORGANIZAT ION (PPO) [facility] August 10, 2010 [id number] BOWDER,RO RAY PATIENT [facility] (WNR) MEDICARE (M) [facility] (WNR) Apr 06, 2014 NO GROUP NUMBER [id number] BOWDER,RO RAY PATIENT [facility] (WNR) MEDICARE ADVANTAGE [facility](W NR) Apr 06, 2015 [id number] BOWDER,RO RAY PATIENT JANE [facility] (WNR) MEDICARE ADVANTAGE [facility] (WNR) Apr 06, 2014 [id number] BOWDER,RO RAY PATIENT Selected Encounter This section includes the information on record at NH for the Encounter. Date/Time Encounter Type Encounter Description Reason Pro vider Source August 05, 2023 10:30 AM Outpatient Encounter PRIMARY CARE/MEDICINE [facility] Encounter Template Text not used by NH Plan of Treatment: Future Appointments (+ 6 months) and Future Tests (+/- 45 days) The Plan of Treatment section includes future care activities for the patient from all NH treatmentfacilities. This section includes future appointments and future orders which are active, pending or scheduled. Future Appointments This section includes appointments that were scheduled to occur 6 months from the date of the Encounter, up to a maximum of 20 appointments. The data comes from all NH treatment facilities. Appointment Date/Time Appointment Type Appointme nt Facility Name August 13, 2023 02:30 PM AMBULATORY - MEDICINE [facility] August 19, 2023 08:30 AM AMBULATORY - MEDICINE [facility] August 25, 2023 09:00 AM AMBULATORY - MEDICINE [facility] Sep 16, 2023 11:30 AM AMBULATORY - MEDICINE [facility] Oct 15, 2023 08:30 AM [facility]UL[facility] NONE [facility] Oct 20, 2023 01:00 PM AMBULATORY - PSYCHIATRY [facility] Oct 21, 2023 10:30 AM [facility] Nov 12, 2023 08:00 AM AMBULATORY - MEDICINE [facility] Nov 30, 2023 09:00 AM AMBULATORY - NONE [facility] Jan 19, 2024 11:00 AM AMBULATORY - PSYCHIATRY [facility] Lab Results: +/- 30 days of the encounter This section includes the Chemistry and Hematology Lab Results on record with NH for the patient. Radiology Reports and Pathology Reports are provided separately, in subsequent sections. Lab Results This section contains the Chemistry/Hematology Results that were resulted 30 days before or 30 daysafter the date of the Encounter. Date/Time Source Result Type Result - Unit Interpretation Reference Range Comment August 05, 2023 07:53 AM [place] MICROSCOPIC AUTOMATED, URINE Specimen T ype: URINE Comment: If Glucose = >500 and Ketones are positive, please alert the Physician. Ordering Provider: JT BROUSSARD Report Released Date/Time: Jul 30, 2023 08:43 AM Reporting Lab: [address] [address] Performing Lab: [facility] [place] [facility] [address] [facility] [address] UA WBC 0-5 /[HPF] 0-5 UA MUCUS FEW /[LPF] Trace UA RBC 0-2 /[HPF] 0-3 August 05, 2023 07:53 AM [place] FERRITIN Specimen Type: SERUM No comment entered. Ordering Provider: JT BROUSSARD Report Released Date/Time: Jan 22, 2023 11:47 AM Reporting Lab: [facility] [place] [facility] [address] [facility] [address] Performing Lab: [facility] [address] [address] FERRITIN 159 ng/mL 20-300 August 05, 2023 07:53 AM [place] MICROALBUMIN CREATININE RATIO PANEL Spe cimen Type: URINE No comment entered. Ordering Provider: JT BROUSSARD Report Released Date/Time: Jan 22, 2023 11:47 AM Reporting Lab: [facility] [address] [facility] [address] Performing Lab: [facility] [address] MICROALBUMIN/C REATININE RATIO 114.6 mg/g H 0-29.9 MICROALBUMIN,Q UANTITATIVE 14.6 mg/dL RR UNAVAIL CREATININE URINE 127.42 mg/dL August 05, 2023 07:53 AM [place] PSA Specimen Type: SERUM No comment entered. Ordering Provider: JT BROUSSARD Report Released Date/Time: Jan 22, 2023 11:47 AM Reporting Lab: [facility]ETS [address] [address] Performing Lab: [facility]US[facility]TR[facility]USUSE[address] [address] PSA 1.58 ng/mL 0.00-4.00 August 05, 2023 07:53 AM [place] URINALYSIS Specimen Type: URINE Comment: If Glucose = >500 and Ketones are positive, please alert the Physician. Ordering Provider: JT BROUSSARD Report Released Date/Time: Jul 30, 2023 08:43 AM Reporting Lab: [address] [address] Performing Lab: [address] [address] UA COLOR Light-Yellow Yellow UA APPEARANCE Clear Clear UA GLUCOSE NEGATIVE mg/dL Negative UA KETONES NEGATIVE mg/dL Negative UA BLOOD NEGATIVE mg/dL Negative UA PROTEIN 30 mg/dL Negative UA NITRITE NEGATIVE mg/dL Negative UA BILIRUBIN NEGATIVE mg/dL Negative UA SPECIFIC GRAVITY 1.017 1.016-1.022 UA pH 6.5 5.0-9.0 UA UROBILINOGEN <2.0 mg/dL <2.0 UA LEUKOCYTE TRACE Negative August 05, 2023 07:53 AM [place] LIPID PANEL FASTING Specimen Type: SERUM No comment entered. Ordering Provider: JT BROUSSARD Report Released Date/Time: Jan 22, 2023 11:47 AM Reporting Lab: [address] [address] Performing Lab: [address] [address] CHOLESTEROL 103 mg/dL TRIGLYCERIDE 116 mg/dL 0-150 LDL calculated 47 mg/dL 0-129 CHOL/HDL 3.1 HDL CHOLESTEROL 33 mg/dL L 40-60 August 05, 2023 07:53 AM [place] BASIC METABOLIC PANEL (fasting) Specime n Type: SERUM No comment entered. Ordering Provider: JT BROUSSARD Report Released Date/Time: Jan 22, 2023 11:47 AM Reporting Lab: [address] [address] Performing Lab: [address] [address] UREA NITROGEN 18 mg/dL 7-25 GLUCOSE 104 mg/dL H 65-100 SODIUM 139 mmol/L 135-145 POTASSIUM 4.0 mmol/L 3.5-5.0 CHLORIDE 104 mmol/L 100-110 CO2 26 meq/L 20-30 CREATININE, Serum 1.56 mg/dL H 0.50-1.40 eGFR(CKD-EPI 2020) 46 mL/min L >60 August 05, 2023 07:53 AM [place] LIVER FUNCTION Specimen Type: SERUM No comment entered. Ordering Provider: JT BROUSSARD Report Released Date/Time: Jan 22, 2023 11:47 AM Reporting Lab: [facility]USUSECLAX[facility] [address] [facility] [address] Performing Lab: [facility] [address] [address] PROTEIN,TOTAL 7.4 g/dL 6.0-8.3 ALBUMIN 4.0 g/dL 3.5-5.0 ALKALINE PHOSPHATASE 71 U/L 40-150 AST 27 U/L 5-34 ALT 33 U/L BILIRUBIN, TOTAL 0.7 mg/dL 0.2-1.2 August 05, 2023 07:53 AM [place] HEMOGLOBIN A1C PANEL Specimen Type: BLOOD Comment: [...] Jan 22, 2023 11:47 AM Reporting Lab: [facility] [address] [address] Performing Lab: [facility] [address] [address] HEMOGLOBIN A1C 5.9 H 4.0-5.6 August 05, 2023 07:53 AM [place] TSH Specimen Type: SERUM No comment entered. Ordering Provider: JT BROUSSARD Report Released Date/Time: Jan 22, 2023 11:47 AM Reporting Lab: [facility] [address] [facility] [address] Performing Lab: [facility]ITAL[facility]N [facility]AMPUSUSE[address] [address] TSH 2.55 u[IU]/mL 0.35-5.00 August 05, 2023 07:53 AM [place] CBC AND DIFF (AUTO) Specimen Type: BLOOD No comment entered. Ordering Provider: JT BROUSSARD Report Released Date/Time: Jan 22, 2023 11:47 AM Reporting Lab: [facility] [address] [facility] [address] Performing Lab: [facility] [address] [facility] [address] WBC 6.98 10*3/uL 4.50-11.00 RBC 5.28 10*6/uL 4.23-5.66 HGB 14.4 g/dL 12.8-17 HCT 43.7 39.2-50.4 MCV 82.8 fL 82-99 MCHC 33.0 g/dL 30.8-35.1 PLT 237 10*3/uL 140-360 RDW-CV 12.7 12.0-16.0 Crockett, Abs 0.61 10*3/uL 0.30-1.10 MCH 27.3 pg 26.2-32.6 Neut % 62.8 43.7-75.8 Lymph % 25.4 14.0-42.3 Crockett % 8.7 5.1-13.7 Eos % 2.4 0.4-6.8 [...] and tobacco- related health factors from the NH facility where the Encounter took place. Current Smoking Status This section includes the most current smoking, or tobacco-related health factor, from the NH facility where the Encounter took place. Date/Time Current Smoking Status Comment Facil ity Jul 14, 2023 02:00 PM VA-TOBACCO NEVER USED [place] Tobacco Use History This section includes a history of the smoking, or tobacco-related health factors, that were collected on or before the date of the Encounter. The data comes from the NH facility where the Encounter took place. Date/Time Smoking Status/Tobacco Use Comment Justo naranjo August 05, 2022 02:30 PM VA-TOBACCO NEVER USED [place] September 03, 2021 09:30 AM VA-TOBACCO NEVER USED [place] Sep 25, 2020 09:30 AM VA-TOBACCO NEVER USED [place] Oct 12, 2019 10:35 AM VA-TOBACCO NEVER USED [place] August 31, 2018 08:55 AM VA-TOBACCO NEVER USED [place] Jul 30, 2017 09:07 AM LIFETIME NON-TOBACCO USER [place] Feb 17, 2017 10:23 AM QUIT TOBACCO USE 1-7 YEARS AGO [place] Dec 19, 2015 08:35 AM QUIT TOBACCO USE > 7 YEARS AGO [place] Advance Directives: All historical and current Section Date Range: From patient's date of to the date document was created. This section includes ALL of a patient's completed or amended [place] Advance and Rescinded Directives. The entries below indicate that a directive exists for the patient, but an actual copy is not included with this document. The data comes from all NH facilities. Date Advance Directives Provider Source May 17, 2018 ADVANCE DIRECTIVE KEVIN DEAL [facility] Lis [facility] Pathology Reports: +/- 30 days of [...] the Encounter. The data comes from all [place] treatment facilities. Date/Time Pathology Report Provider Source August 05, 2023 07:53 AM [place] MICROBIOLOGY RE PORT: Reporting Lab: [facility] [CLIA# [id number]] [address] [place] [phone] Accession [UID]: [id number] [[id number]] Received: August 05, 2023@07:53 Collection sample: URINE CLEAN CATCH Collection date: August 05, 2023 07:53 Site/Specimen: URINE Provider: JT NICOLE Comment on specimen: cc Test(s) ordered: URINE CULTURE(MWROX).......... completed: August 10, 2023 10:39 * BACTERIOLOGY FINAL REPORT => August 10, 2023 10:39 TECH CODE: [id number] Bacteriology Remark(s): NO GROWTH IN 24 HOURS, FINAL REPORT TO FOLLOW. FINAL AEROBIC REPORT: NO GROWTH =--=--=--=--=--=--=--=--=--=--=--=--= --=--=--=--=--=--=--=--=--=--=--=--=- -=-- Performing Laboratory: Bacteriology Report Performed By: [facility] [CLIA# [id number]] [address] [place] [address] Bact Report Remark #2 Performed By: [facility] [CLIA# [id number]] [address] [place] [address] [facility]UELLEN [facility] [place] Encounter Notes: All associated encounter notes This section contains the clinical notes associated to the Encounter. Date/Time Encounter Note(s) Provider Source August 05, 2023 10:48 AM ADMINISTRATIVE NOT E: LOCAL TITLE: ADMINISTRATIVE NOTE STANDARD TITLE: ADMINISTRATIVE NOTE DATE OF NOTE: AUGUST 05, 2023@10:48 ENTRY DATE: AUGUST 05, 2023@10:48:33 AUTHOR: MILAN FRANKS EXP COSIGNER: URGENCY: STATUS: COMPLETED ADMINISTRATIVE NOTE Has ADDENDA Patient was a no call, no show for today's nursing visit. AMSA please call to reschedule. /desi FRANKS LPN LPN Signed: 08/05/2023 10:49 Receipt Acknowledged By: 08/05/2023 10:57 /desi YODER 08/05/2023 ADDENDUM STATUS: COMPLETED Twist Tester sent a no show letter to . /swetha/ MAGDIEL YODER Signed: 08/05/2023 10:57 MILAN FRANKS
--- OUTSIDE RECORDS SUMMARY | 2024-04-05 09:53 | XMS_ITS | Encounter Summary ---
Author Name [facility] [place] Organization [facility] [place] Address [address] [place] [id number] Care Team Providers Care Construction Management Instructor Name Role Phone JT NICOLE Primary Care [...] Patient's Relationship to Policy [place] BCBS OF [facility] PREFERRED PROVIDER ORGANIZAT ION (PPO) [facility] August 10, 2010 [id number] [phone] BOWDER,ZHOU RAY PATIENT [facility] (WNR) MEDICARE (M) [facility] (WNR) Apr 06, 2014 NO GROUP NUMBER [id number] BOWDER,RO RAY PATIENT [facility] (WNR) MEDICARE ADVANTAGE [facility](W NR) Apr 06, 2015 [id number] FRANSICODER,RO RAY PATIENT JANE [facility] (WNR) MEDICARE [facility] (WNR) Apr 06, 2014 [id number] BOWDER,RO RAY PATIENT Selected Encounter This section includes the information on record at [place] for the Encounter. Date/Time Encounter Type Encounter Description Reason Pro vider Source Jul 28, 2023 04:57 PM Outpatient Encounter TELEPHONE TRIAGE IHE Encounter Template Text not used by AL Plan of Treatment: Future Appointments (+ 6 months) and Future Tests (+/- 45 days) The Plan of Treatment section includes future care activities for the [facility] This section includes future appointments and future orders which are active, pending or scheduled. Future Appointments This section includes appointments that were scheduled to occur 6 months from the date of the Encounter, up to a maximum of 20 appointments. The data comes from all [place] treatment facilities. Appointment Date/Time Appointment Type Appointme nt Facility Name August 05, 2023 10:30 AM [facility] August 13, 2023 02:30 PM AMBULATORY - MEDICINE [facility] August 19, 2023 08:30 AM AMBULATORY - MEDICINE [facility] August 25, 2023 09:00 AM AMBULATORY - MEDICINE [facility] Sep 16, 2023 11:30 AM AMBULATORY - MEDICINE [facility] Oct 15, 2023 08:30 AM AMBULATORY - NONE [facility] [place] [facility] Oct 20, 2023 01:00 PM AMBULATORY - PSYCHIATRY [facility] Oct 21, 2023 10:30 AM AMBULATORY - MEDICINE [facility] [place] [facility] Nov 12, 2023 08:00 AM AMBULATORY - MEDICINE [facility] Nov 30, 2023 09:00 AM AMBULATORY - NONE [facility] [place] [facility] Jan 19, 2024 11:00 AM AMBULATORY - PSYCHIATRY [facility] Lab Results: +/- 30 days of the encounter This section includes the Chemistry and Hematology Lab Results on record with AL for the patient. Radiology Reports and Pathology Reports are provided separately, in subsequent sections. Lab Results This section contains the Chemistry/Hematology Results that were resulted 30 days before or 30 daysafter the date of the Encounter. Date/Time Source Result Type Result - Unit Interpretation Reference Range Comment August 05, 2023 07:53 AM [place] MICROSCOPIC AUTOMATED, URINE Specimen T ype: URINE Comment: If Glucose = >500 and Ketones are positive, please alert the Physician. Ordering Provider: JT BROUSSARD Report Released Date/Time: Jul 30, 2023 08:43 AM Reporting Lab: [facility] [place] [facility] [address] [facility] [address] Performing [facility]: [facility] [address] [facility] [address] UA WBC 0-5 /[HPF] 0-5 UA MUCUS FEW /[LPF] Trace UA RBC 0-2 /[HPF] 0-3 August 05, 2023 07:53 AM [place] FERRITIN Specimen Type: SERUM No comment entered. Ordering Provider: JT BROUSSARD Report Released Date/Time: Jan 22, 2023 11:47 AM Reporting Lab: [address] [address] Performing Lab: [address] [address] FERRITIN 159 ng/mL 20-300 August 05, 2023 07:53 AM [place] MICROALBUMIN CREATININE RATIO PANEL Spe cimen Type: URINE No comment entered. Ordering Provider: JT BROUSSARD Report Released Date/Time: Jan 22, 2023 11:47 AM Reporting Lab: [address] [address] Performing Lab: [address] [address] MICROALBUMIN/C REATININE RATIO 114.6 mg/g H 0-29.9 MICROALBUMIN,Q UANTITATIVE 14.6 mg/dL RR UNAVAIL CREATININE URINE 127.42 mg/dL August 05, 2023 07:53 AM [place] PSA Specimen Type: SERUM No comment entered. Ordering Provider: JT BROUSSARD Report Released Date/Time: Jan 22, 2023 11:47 AM Reporting Lab: [address] [address] Performing Lab: [address] [address] PSA 1.58 ng/mL 0.00-4.00 August 05, 2023 07:53 AM [place] URINALYSIS Specimen Type: URINE Comment: If Glucose = >500 and Ketones are positive, please alert the Physician. Ordering Provider: JT BROUSSARD Report Released Date/Time: Jul 30, 2023 08:43 AM Reporting Lab: [address] [address] Performing Lab: [address] [address] UA COLOR Light-Yellow Yellow UA APPEARANCE Clear Clear UA GLUCOSE NEGATIVE mg/dL Negative UA KETONES NEGATIVE mg/dL Negative UA BLOOD NEGATIVE mg/dL Negative UA PROTEIN 30 mg/dL Negative UA NITRITE NEGATIVE mg/dL Negative UA BILIRUBIN NEGATIVE mg/dL Negative UA SPECIFIC GRAVITY 1.017 1.016-1.022 UA pH 6.5 5.0-9.0 UA UROBILINOGEN <2.0 mg/dL <2.0 UA LEUKOCYTE TRACE Negative August 05, 2023 07:53 AM [place] LIPID PANEL FASTING Specimen Type: SERUM No comment entered. Ordering Provider: JT BROUSSARD Report Released Date/Time: Jan 22, 2023 11:47 AM Reporting Lab: [address] [address] Performing Lab: [address] [address] CHOLESTEROL 103 mg/dL TRIGLYCERIDE 116 mg/dL 0-150 LDL calculated 47 mg/dL 0-129 CHOL/HDL 3.1 HDL CHOLESTEROL 33 mg/dL L 40-60 August 05, 2023 07:53 AM [place] BASIC METABOLIC PANEL (fasting) Specime n Type: SERUM No comment entered. Ordering Provider: JT BROUSSARD Report Released Date/Time: Jan 22, 2023 11:47 AM Reporting Lab: [address] [address] Performing Lab: [address] [address] UREA NITROGEN 18 mg/dL 7-25 GLUCOSE 104 mg/dL H 65-100 SODIUM 139 mmol/L 135-145 POTASSIUM 4.0 mmol/L 3.5-5.0 CHLORIDE 104 mmol/L 100-110 CO2 26 meq/L 20-30 CREATININE, Serum 1.56 mg/dL H 0.50-1.40 eGFR(CKD-EPI 2020) 46 mL/min L >60 August 05, 2023 07:53 AM [place] LIVER FUNCTION Specimen Type: SERUM No comment entered. Ordering Provider: JT BROUSSARD Report Released Date/Time: Jan 22, 2023 11:47 AM Reporting Lab: [facility] [address] [facility] [address] Performing Lab: [facility] [address] [facility] [address] PROTEIN,TOTAL 7.4 g/dL 6.0-8.3 ALBUMIN 4.0 g/dL 3.5-5.0 ALKALINE PHOSPHATASE 71 U/L 40-150 AST 27 U/L 5-34 ALT 33 U/L BILIRUBIN, TOTAL 0.7 mg/dL 0.2-1.2 August 05, 2023 07:53 AM [place] HEMOGLOBIN A1C PANEL Specimen Type: BLOOD Comment: [...] Jan 22, 2023 11:47 AM Reporting Lab: [address] [address] Performing Lab: [facility] [address] [address] HEMOGLOBIN A1C 5.9 H 4.0-5.6 August 05, 2023 07:53 AM [place] TSH Specimen Type: SERUM No comment entered. Ordering Provider: JT BROUSSARD Report Released Date/Time: Jan 22, 2023 11:47 AM Reporting Lab: [address] [address] Performing Lab: [address] [place] [address] TSH 2.55 u[IU]/mL 0.35-5.00 August 05, 2023 07:53 AM [place] CBC AND DIFF (AUTO) Specimen Type: BLOOD No comment entered. Ordering Provider: JT BROUSSARD Report Released Date/Time: Jan 22, 2023 11:47 AM Reporting [facility] [address] [address] Performing Lab: [facility] [address] [address] WBC 6.98 10*3/uL 4.50-11.00 RBC 5.28 10*6/uL 4.23-5.66 HGB 14.4 g/dL 12.8-17 HCT 43.7 39.2-50.4 MCV 82.8 fL 82-99 MCHC 33.0 g/dL 30.8-35.1 PLT 237 10*3/uL 140-360 RDW-CV 12.7 12.0-16.0 [place], Abs 0.61 10*3/uL 0.30-1.10 MCH 27.3 pg 26.2-32.6 Neut % 62.8 43.7-75.8 Lymph % 25.4 14.0-42.3 [place] % 8.7 5.1-13.7 Eos % 2.4 0.4-6.8 [...] and tobacco- related health factors from the AL facility where the Encounter took place. Current Smoking Status This section includes the most current smoking, or tobacco-related health factor, from the AL facility where the Encounter took place. Date/Time Current Smoking Status Comment Facility August 30, 2009 09:45 AM QUIT TOBACCO USE > 7 YEARS AGO quit about 25 years ago [facility] Advance Directives: All historical and current Section Date Range: From patient's date of to the date document was created. This section includes ALL of a patient's completed or amended [place] Advance and Rescinded Directives. The entries below indicate that a directive exists for the patient, but an actual copy is not included with this document. The data comes from all [place] facilities. Date Advance Directives Provider Source May 17, 2018 ADVANCE DIRECTIVE [facility]VIN [facility] Pathology Reports: +/- 30 days of [...] the Encounter. The data comes from all [place] treatment facilities. Date/Time Pathology Report Provider Source August 05, 2023 07:53 AM [place] MICROBIOLOGY RE PORT: Reporting Lab: [facility] [CLIA# [id number]] [address] [place] [phone] Accession [UID]: [id number] [[id number]] Received: August 05, 2023@07:53 Collection sample: URINE CLEAN CATCH Collection date: August 05, 2023 07:53 Site/Specimen: URINE Provider: JT NICOLE Comment on specimen: cc Test(s) ordered: URINE CULTURE(MWROX).......... completed: August 10, 2023 10:39 * BACTERIOLOGY FINAL REPORT => August 10, 2023 10:39 TECH CODE: [id number] Bacteriology Remark(s): NO GROWTH IN 24 HOURS, FINAL REPORT TO FOLLOW. FINAL AEROBIC REPORT: NO GROWTH =--=--=--=--=--=--=--=--=--=--=--=--= --=--=--=--=--=--=--=--=--=--=--=--=- -=-- Performing Laboratory: Bacteriology Report Performed By: [facility] [CLIA# [id number]] [address] [place] [address] Bact Report Remark #2 Performed By: [facility] [CLIA# [id number]] [address] [place] [address] [place] Encounter Notes: All associated encounter notes This section contains the clinical notes associated to the Encounter. Date/Time Encounter Note(s) Provider Source Jul 28, 2023 04:57 PM RN PROGRESS NOTE: LOCAL TITLE: [facility]: CLINICAL TRIAGE STANDARD TITLE: RN PROGRESS NOTE DATE OF NOTE: JUL 28, 2023@16:57:06 ENTRY DATE: JUL 28, 2023@16:57:06 AUTHOR: PAMELA LUNSFORD EXP COSIGNER: URGENCY: STATUS: COMPLETED CCC: CLINICAL TRIAGE Has ADDENDA Patient Demographics Patient Name: LON QUINTERO Patient Primary [address]: [address] [place] [id number] Patient Primary Phone: [phone] Patient : 1950 Patient Age: 73 Caller/Recipient Relation to Patient: Self Emergency Contact: NETO QUINTERO Medication Refill/Renewal Request [place] Medications Refill/Renewal Request: [facility] called for renewal of the following medication that has :: Rx #[id number] - VALSARTAN 320MG TAB. Natalie has been out of this medication for over a month and did not realize he wasn't taking it. Natalie states his BP has been running 150/80's. Denies any s/s and is feeling well. Natalie is requesting call back from PACT nurse once the med has been ordered. would like to pick it up at [facility] tomorrow if possible. RN will notify PACT for review and f/u. Natalie has no additional needs at this time. RN advised to call back to [facility] 27/10 for any new worsening s/s. [facility] agreed. Nursing Plan and Disposition Other course(s) of action Generated msg to PACT/Provider Provided guidance for worsening symptoms: *Caller/Patient* advised to call facilities [place] Clinical Contact Center or seek immediate medical attention for new or worsening symptoms Clinical Contact Center Codes Clinic/Location: V1 CWM PHONE [facility] RN /swetha/ Pamela Lunsford RN VISN 2 [facility] NURSE Signed: 07/28/2023 16:57 Receipt Acknowledged By: 07/30/2023 09:18 /swetha/ VANDANA DING RN REGISTERED NURSE 07/30/2023 14:34 /es/ MINESH LAZARO LPN LPN 07/29/2023 13:49 /swetha/ JT NICOLE MD PHYSICIAN 07/29/2023 ADDENDUM STATUS: COMPLETED Refilled for pickup /swetha/ JT NICOLE MD PHYSICIAN Signed: 07/29/2023 13:49 PAMELA LUNSFORD [facility]
--- OUTSIDE RECORDS SUMMARY | 2024-04-05 09:53 | XMS_ITS ---
Author Name [facility] Organization [facility] [place] Address [address] [place] [id number] Care Team Providers Care Lineman Name Role Phone JT NICOLE Primary Care [...] to Policy [place] BCBS OF [facility] PREFERRED PROVIDER ORGANIZAT ION (PPO) [facility] August 10, 2010 [id number] [phone] BOWDER,RO RAY PATIENT JANE [facility] (WNR) MEDICARE (M) [facility] (WNR) Apr 06, 2014 NO GROUP NUMBER [id number] BOWDER,RO RAY PATIENT JANE [facility] (WNR) MEDICARE ADVANTAGE [facility](W NR) Apr 06, 2015 [id number] BOWDER,RO RAY PATIENT JANE [facility] (WNR) MEDICARE ADVANTAGE [facility] (WNR) Apr 06, 2014 [id number] BOWDER,RO RAY PATIENT Selected Encounter This section includes the information on record at [place] for the Encounter. Date/Time Encounter Type Encounter Description Reason Pro vider Source Jul 21, 2023 01:59 PM Outpatient Encounter ADMIN PAT ACTIVTIES (AADMNONCT) IHE Encounter Template Text not used by [place] Plan of Treatment: Future Appointments (+ 6 months) and Future Tests (+/- 45 days) The Plan of Treatment section includes future care activities for the patient from all [place] [facility]. This section includes future appointments and future orders which are active, pending or scheduled. Future Appointments This section includes appointments that were scheduled to occur 6 months from the date of the Encounter, up to a maximum of 20 appointments. The data comes from all [place] treatment facilities. Appointment Date/Time Appointment Type Appointme nt Facility Name August 05, 2023 10:30 AM [facility] August 13, 2023 02:30 PM AMBULATORY - MEDICINE [facility] August 19, 2023 08:30 AM AMBULATORY - MEDICINE [facility] August 25, 2023 09:00 AM [facility] Sep 16, 2023 11:30 AM AMBULATORY - MEDICINE [facility] Oct 15, 2023 08:30 AM [facility] Oct 20, 2023 01:00 PM AMBULATORY - PSYCHIATRY [facility] Oct 21, 2023 10:30 AM AMBUL[facility] - [facility]INE [place] [facility] Nov 12, 2023 08:00 AM AMBULATORY - MEDICINE [facility] Nov 30, 2023 09:00 AM [facility] - NONE [place] [facility] Jan 19, 2024 11:00 AM AMBULATORY - PSYCHIATRY [facility] Lab Results: +/- 30 days of the encounter This section includes the Chemistry and Hematology Lab Results on record with [place] for the patient. Radiology Reports and Pathology Reports are provided separately, in subsequent sections. Lab Results This section contains the Chemistry/Hematology Results that were resulted 30 days before or 30 daysafter the date of the Encounter. Date/Time Source Result Type Result - Unit Interpretation Reference Range Comment August 05, 2023 07:53 AM [facility] MICROSCOPIC AUTOMATED, URINE Specimen T ype: URINE Comment: If Glucose = >500 and Ketones are positive, please alert the Physician. Ordering Provider: JT BROUSSARD Report Released Date/Time: Jul 30, 2023 08:43 AM Reporting Lab: [facility] [address] [address] Performing Lab: [facility] [address] [facility] [address] UA WBC 0-5 /[HPF] 0-5 UA MUCUS FEW /[LPF] Trace UA RBC 0-2 /[HPF] 0-3 August 05, 2023 07:53 AM [facility] FERRITIN Specimen Type: SERUM No comment entered. Ordering Provider: JT BROUSSARD Report Released Date/Time: Jan 22, 2023 11:47 AM Reporting Lab: [facility] [address] [address] Performing Lab: [facility] [address] [address] FERRITIN 159 ng/mL 20-300 August 05, 2023 07:53 AM [facility] MICROALBUMIN CREATININE RATIO PANEL Spe cimen Type: URINE No comment entered. Ordering Provider: JT BROUSSARD Report Released Date/Time: Jan 22, 2023 11:47 AM Reporting Lab: [facility] [address] [address] Performing Lab: [facility] [address] [address] MICROALBUMIN/C REATININE RATIO 114.6 mg/g H 0-29.9 MICROALBUMIN,Q UANTITATIVE 14.6 mg/dL RR UNAVAIL CREATININE URINE 127.42 mg/dL August 05, 2023 07:53 AM [facility] PSA Specimen Type: SERUM No comment entered. Ordering Provider: JT BROUSSARD Report Released Date/Time: Jan 22, 2023 11:47 AM Reporting Lab: [facility] [address] Performing Lab: [facility] [address] [address] PSA 1.58 ng/mL 0.00-4.00 August 05, 2023 07:53 AM [facility] URINALYSIS Specimen Type: URINE Comment: If Glucose = >500 and Ketones are positive, please alert the Physician. Ordering Provider: JT BROUSSARD Report Released Date/Time: Jul 30, 2023 08:43 AM Reporting Lab: [address] [address] Performing Lab: [address] [address] UA COLOR Light-Yellow Yellow UA APPEARANCE Clear Clear UA GLUCOSE NEGATIVE mg/dL Negative UA KETONES NEGATIVE mg/dL Negative UA BLOOD NEGATIVE mg/dL Negative UA PROTEIN 30 mg/dL Negative UA NITRITE NEGATIVE mg/dL Negative UA BILIRUBIN NEGATIVE mg/dL Negative UA SPECIFIC GRAVITY 1.017 1.016-1.022 UA pH 6.5 5.0-9.0 UA UROBILINOGEN <2.0 mg/dL <2.0 UA LEUKOCYTE TRACE Negative August 05, 2023 07:53 AM [facility] LIPID PANEL FASTING Specimen Type: SERUM No comment entered. Ordering Provider: JT BROUSSARD Report Released Date/Time: Jan 22, 2023 11:47 AM Reporting Lab: [address] [address] Performing Lab: [address] [address] CHOLESTEROL 103 mg/dL TRIGLYCERIDE 116 mg/dL 0-150 LDL calculated 47 mg/dL 0-129 CHOL/HDL 3.1 HDL CHOLESTEROL 33 mg/dL L 40-60 August 05, 2023 07:53 AM [facility] BASIC METABOLIC PANEL (fasting) Specime n Type: SERUM No comment entered. Ordering Provider: JT BROUSSARD Report Released Date/Time: Jan 22, 2023 11:47 AM Reporting Lab: [address] [address] Performing Lab: [address] [address] UREA NITROGEN 18 mg/dL 7-25 GLUCOSE 104 mg/dL H 65-100 SODIUM 139 mmol/L 135-145 POTASSIUM 4.0 mmol/L 3.5-5.0 CHLORIDE 104 mmol/L 100-110 CO2 26 meq/L 20-30 CREATININE, Serum 1.56 mg/dL H 0.50-1.40 eGFR(CKD-EPI 2020) 46 mL/min L >60 August 05, 2023 07:53 AM [facility] LIVER FUNCTION Specimen Type: SERUM No comment entered. Ordering Provider: JT BROUSSARD Report Released Date/Time: Jan 22, 2023 11:47 AM Reporting Lab: [address] [address] Performing Lab: [address] [address] PROTEIN,TOTAL 7.4 g/dL 6.0-8.3 ALBUMIN 4.0 g/dL 3.5-5.0 ALKALINE PHOSPHATASE 71 U/L 40-150 AST 27 U/L 5-34 ALT 33 U/L BILIRUBIN, TOTAL 0.7 mg/dL 0.2-1.2 August 05, 2023 07:53 AM [facility] HEMOGLOBIN A1C PANEL Specimen Type: BLOOD Comment: [...] Jan 22, 2023 11:47 AM Reporting Lab: [address] [address] Performing Lab: [address] [address] HEMOGLOBIN A1C 5.9 H 4.0-5.6 August 05, 2023 07:53 AM [facility] TSH Specimen Type: SERUM No comment entered. Ordering Provider: JT BROUSSARD Report Released Date/Time: Jan 22, 2023 11:47 AM Reporting Lab: [address] [address] Performing Lab: [facility] [address] [facility] [address] TSH 2.55 u[IU]/mL 0.35-5.00 August 05, 2023 07:53 AM [facility] CBC AND DIFF (AUTO) Specimen Type: BLOOD No comment entered. Ordering Provider: JT BROUSSARD Report Released Date/Time: Jan 22, 2023 11:47 AM Reporting Lab: [facility] [address] [facility] [address] Performing Lab: [facility] [address] [facility] [address] WBC 6.98 10*3/uL 4.50-11.00 RBC 5.28 10*6/uL 4.23-5.66 HGB 14.4 g/dL 12.8-17 HCT 43.7 39.2-50.4 MCV 82.8 fL 82-99 MCHC 33.0 g/dL 30.8-35.1 PLT 237 10*3/uL 140-360 RDW-CV 12.7 12.0-16.0 Rankin, Abs 0.61 10*3/uL 0.30-1.10 MCH 27.3 pg 26.2-32.6 Neut % 62.8 43.7-75.8 Lymph % 25.4 14.0-42.3 Rankin % 8.7 5.1-13.7 Eos % 2.4 0.4-6.8 [...] and tobacco- related health factors from the [place] facility where the Encounter took place. Current Smoking Status This section includes the most current smoking, or tobacco-related health factor, from the [place] facility where the Encounter took place. Date/Time Current Smoking Status Comment Facility August 30, 2009 09:45 AM QUIT TOBACCO USE > 7 YEARS AGO quit about 25 years ago [facility] Advance Directives: All historical and current Section Date Range: From patient's date of to the date document was created. This section includes ALL of a patient's completed or amended [place] Advance and Rescinded Directives. The entries below indicate that a directive exists for the patient, but an actual copy is not included with this document. The data comes from all [place] facilities. Date Advance Directives Provider Source May 17, 2018 ADVANCE DIRECTIVE KEVIN DEAL [facility] Pathology Reports: +/- 30 days of [...] the Encounter. The data comes from all [place] treatment facilities. Date/Time Pathology Report Provider Source August 05, 2023 07:53 AM LR MICROBIOLOGY RE PORT: Reporting Lab: [facility] [CLIA# [id number]] [address] [place] [address] Accession [UID]: [id number] [[id number]] Received: August 05, 2023@07:53 Collection sample: URINE CLEAN CATCH Collection date: August 05, 2023 07:53 Site/Specimen: URINE Provider: JT NICOLE Comment on specimen: cc Test(s) ordered: URINE CULTURE(MWROX).......... completed: August 10, 2023 10:39 * BACTERIOLOGY FINAL REPORT => August 10, 2023 10:39 TECH CODE: [id number] Bacteriology Remark(s): NO GROWTH IN 24 HOURS, FINAL REPORT TO FOLLOW. FINAL AEROBIC REPORT: NO GROWTH =--=--=--=--=--=--=--=--=--=--=--=--= --=--=--=--=--=--=--=--=--=--=--=--=- -=-- Performing Laboratory: Bacteriology Report Performed By: [facility] [CLIA# [id number]] [address] [place] [address] Bact Report Remark #2 Performed By: [facility] [CLIA# [id number]] [address] [place] [address] SUELLEN SHELL [facility] Encounter Notes: All associated encounter notes This section contains the clinical notes associated to the Encounter. Date/Time Encounter Note(s) Provider Source Jul 30, 2023 11:17 AM ADDENDUM: LOCAL TITLE: Addendum STANDARD TITLE: ADDENDUM DATE OF NOTE: JUL 30, 2023@11:17:39 ENTRY DATE: JUL 30, 2023@11:17:40 AUTHOR: VANDANA DING COSIGNER: URGENCY: STATUS: COMPLETED Forwarding to [facility]- Please contact to schedule Nursing visit for bladder scan and labs prior to next PCP visit /swetha/ VANDANA DING RN REGISTERED NURSE Signed: 07/30/2023 11:18 Receipt Acknowledged By: 07/30/2023 11:26 /swetha/ MAGDIEL YODER === --- Original Document --- 07/21/23 CCC: SCHEDULING ADMINISTRATION: Patient Demographics Patient Name: LON QUINTERO Patient Primary Phone: [phone] Patient Primary Address: [address] [place] [address] Patient : 1950 Patient Age: 73 Call Back Number: [phone] Caller/Recipient Relation to Patient: Self Administrative Administrative Note Reason: Medication Renewal [place] Medications Refill/Renewal Request: pt is asking for a call in ref to oxybutin pt states no longer working /es/ GARCIA MAST [facility] Signed: 07/21/2023 13:59 Receipt Acknowledged By: 07/27/2023 08:45 /swetha/ VANDANA DING RN REGISTERED NURSE 07/24/2023 09:18 /es/ MINESH LAZARO LPN LPN 07/24/2023 ADDENDUM STATUS: COMPLETED Attempted to contact via telephone to discuss. Generic message left asking to call back. /swetha/ VANDANA DING RN REGISTERED NURSE Signed: 07/24/2023 08:52 07/27/2023 ADDENDUM STATUS: COMPLETED [place] contacted via telephone. [place] states medication (Oxybutynin) is not working as well as expected, continues to have issues with urinary incontinence. requests review by PCP to determine if a different medication may be warranted. also states he would be agreeable to Urology consult if recommended by PCP. Please advise. /swetha/ VANDANA DING RN REGISTERED NURSE Signed: 07/27/2023 08:45 Receipt Acknowledged By: 07/30/2023 08:44 /es/ JT NICOLE MD PHYSICIAN 07/30/2023 ADDENDUM STATUS: COMPLETED Symptoms to be addressed on his next visit in August, please remind patient to complete blood work prior to visit with clean-catch urine, and please schedule patient for the bladder scan to assess PVR. Thank you /swetha/ JT NICOLE MD PHYSICIAN Signed: 07/30/2023 08:46 Receipt Acknowledged By: 07/30/2023 11:19 /swetha/ VANDANA DING RN REGISTERED NURSE 07/30/2023 ADDENDUM STATUS: UNSIGNED You may not VIEW this UNSIGNED Addendum. VANDANA DING [facility] [place] [facility] Jul 30, 2023 08:44 AM ADDENDUM: LOCAL TITLE: Addendum STANDARD TITLE: ADDENDUM DATE OF NOTE: JUL 30, 2023@08:44:40 ENTRY DATE: JUL 30, 2023@08:44:42 AUTHOR: Marko NICOLE COSIGNER: URGENCY: STATUS: COMPLETED Symptoms to be addressed on his next visit in August, please remind patient to complete blood work prior to visit with clean-catch urine, and please schedule patient for the bladder scan to assess PVR. Thank you /swetha/ JT NICOLE MD PHYSICIAN Signed: 07/30/2023 08:46 Receipt Acknowledged By: 07/30/2023 11:19 /swetha/ VANDANA DING RN REGISTERED NURSE === --- Original Document --- 07/21/23 CCC: SCHEDULING ADMINISTRATION: Patient Demographics Patient Name: LON QUINTERO Patient Primary Phone: [phone] Patient Primary Address: [address] [place] [address] Patient : 1950 Patient Age: 73 Call Back Number: [phone] Caller/Recipient Relation to Patient: Self Administrative Administrative Note Reason: Medication Renewal [place] Medications Refill/Renewal Request: pt is asking for a call in ref to oxybutin pt states no longer working /es/ GARCIA [facility] Signed: 07/21/2023 13:59 Receipt Acknowledged By: 07/27/2023 08:45 /swetha/ VANDANA DING RN REGISTERED NURSE 07/24/2023 09:18 /es/ MINESH LAZARO LPN LPN 07/24/2023 ADDENDUM STATUS: COMPLETED Attempted to contact via telephone to discuss. Generic message left asking to call back. /swetha/ VANDANA DING RN REGISTERED NURSE Signed: 07/24/2023 08:52 07/27/2023 ADDENDUM STATUS: COMPLETED contacted via telephone. [place] states medication (Oxybutynin) is not working as well as expected, continues to have issues with urinary incontinence. requests review by PCP to determine if a different medication may be warranted. also states he would be agreeable to Urology consult if recommended by PCP. Please advise. /desi DING RN REGISTERED NURSE Signed: 07/27/2023 08:45 Receipt Acknowledged By: 07/30/2023 08:44 /swetha/ JT NICOLE MD PHYSICIAN 07/30/2023 ADDENDUM STATUS: COMPLETED Forwarding to [facility]- Please contact to schedule Nursing visit for bladder scan and labs prior to next PCP visit /swetha/ VANDANA DING RN REGISTERED NURSE Signed: 07/30/2023 11:18 Receipt Acknowledged By: * AWAITING SIGNATURE * MAGDIEL HUTTON,Marko Felix [place] [facility] [place] [facility] Jul 27, 2023 08:34 AM ADDENDUM: LOCAL TITLE: Addendum STANDARD TITLE: ADDENDUM DATE OF NOTE: JUL 27, 2023@08:34:33 ENTRY DATE: JUL 27, 2023@08:43:37 AUTHOR: VANDANA DING COSIGNER: URGENCY: STATUS: COMPLETED contacted via telephone. [place] states medication (Oxybutynin) is not working as well as expected, continues to have issues with urinary incontinence. requests review by PCP to determine if a different medication may be warranted. also states he would be agreeable to Urology consult if recommended by PCP. Please advise. /swetha/ VANDANA DING RN REGISTERED NURSE Signed: 07/27/2023 08:45 Receipt Acknowledged By: 07/30/2023 08:44 /es/ JT NICOLE MD PHYSICIAN === --- Original Document --- 07/21/23 CCC: SCHEDULING ADMINISTRATION: Patient Demographics Patient Name: LON QUINTERO Patient Primary Phone: [phone] Patient Primary Address: [address] [place] [address] Patient : 1950 Patient Age: 73 Call Back Number: [phone] Caller/Recipient Relation to Patient: Self Administrative Administrative Note Reason: Medication Renewal [place] Medications Refill/Renewal Request: pt is asking for a call in ref to oxybutin pt states no longer working /swetha/ GARCIA [facility] Signed: 07/21/2023 13:59 Receipt Acknowledged By: 07/27/2023 08:45 /swetha/ VANDANA DING RN REGISTERED NURSE 07/24/2023 09:18 /swetha/ MINESH LAZARO LPN LPN 07/24/2023 ADDENDUM STATUS: COMPLETED Attempted to contact via telephone to discuss. Generic message left asking to call back. /deis DING RN REGISTERED NURSE Signed: 07/24/2023 08:52 07/30/2023 ADDENDUM STATUS: UNSIGNED You may not VIEW this UNSIGNED Addendum. VANDANA DING [facility] [place] [facility] Jul 21, 2023 01:59 PM ADMINISTRATIVE NOTE: LOCAL TITLE: CCC: SCHEDULING ADMINISTRATION STANDARD TITLE: ADMINISTRATIVE NOTE DATE OF NOTE: JUL 21, 2023@13:59:23 ENTRY DATE: JUL 21, 2023@13:59:23 AUTHOR: GARCIA MAST COSIGNER: URGENCY: STATUS: COMPLETED CCC: SCHEDULING ADMINISTRATION Has ADDENDA Patient Demographics Patient Name: LON QUINTERO Patient Primary Phone: [phone] Patient Primary Address: [address] [place] [address] Patient : 1950 Patient Age: 73 Call Back Number: [phone] Caller/Recipient Relation to Patient: Self Administrative Administrative Note Reason: Medication Renewal [place] Medic[place] Refill/Renewal Request: pt is asking for a call in ref to oxybutin pt states no longer working /swetha/ GARCIA MAST [facility] Signed: 07/21/2023 13:59 Receipt Acknowledged By: 07/27/2023 08:45 /swetha/ VANDANA DING RN REGISTERED NURSE 07/24/2023 09:18 /es/ MINESH LAZARO LPN LPN 07/24/2023 ADDENDUM STATUS: COMPLETED Attempted to contact via telephone to discuss. Generic message left asking to call back. /swetha/ VANDANA DING RN REGISTERED NURSE Signed: 07/24/2023 08:52 07/27/2023 ADDENDUM STATUS: COMPLETED [place] contacted via telephone. [place] states medication (Oxybutynin) is not working as well as expected, continues to have issues with urinary incontinence. [place] requests review by PCP to determine if a different medication may be warranted. [place] also states he would be agreeable to Urology consult if recommended by PCP. Please advise. /desi DING RN REGISTERED NURSE Signed: 07/27/2023 08:45 Receipt Acknowledged By: 07/30/2023 08:44 /swetha/ JT NICOLE MD PHYSICIAN 07/30/2023 ADDENDUM STATUS: COMPLETED Symptoms to be addressed on his next visit in August, please remind patient to complete blood work prior to visit with clean-catch urine, and please schedule patient for the bladder scan to assess PVR. Thank you /desi NICOLE MD PHYSICIAN Signed: 07/30/2023 08:46 Receipt Acknowledged By: 07/30/2023 11:19 /swetha/ VANDANA DING RN REGISTERED NURSE 07/30/2023 ADDENDUM STATUS: COMPLETED Forwarding to [facility]- Please contact to schedule Nursing visit for bladder scan and labs prior to next PCP visit /desi DING RN REGISTERED NURSE Signed: 07/30/2023 11:18 Receipt Acknowledged By: 07/30/2023 11:26 /desi YODER 07/30/2023 ADDENDUM STATUS: COMPLETED Clinical Instructor LVM for to call back to make a nursing appointment. /desi YODER Signed: 07/30/2023 11:27 GARCIA MAST [facility]
--- OUTSIDE RECORDS SUMMARY | 2024-04-05 09:53 | XMS_ITS | Encounter Summary ---
Author Name Department of Veter[facility] Affairs [place] Organization Department of Veter[place] Address [address] [place] [id number] Care Team Providers Care Offset Printer Name Role Phone JT NICOLE Primary Care [...] Patient's Relationship to Policy Solano BCBS OF [facility] PREFERRED PROVIDER ORGANIZAT ION (PPO) [facility] August 10, 2010 [id number] BOWDER,RO RAY PATIENT [facility] (WNR) MEDICARE (M) [facility] (WNR) Apr 06, 2014 NO GROUP NUMBER [id number] BOWDER,RO RAY PATIENT [facility] (WNR) MEDICARE ADVANTAGE [facility](W NR) Apr 06, 2015 [id number] BOWDER,RO RAY PATIENT [facility] (WNR) MEDICARE ADVANTAGE [facility] (WNR) Apr 06, 2014 [id number] BOWDER,RO RAY PATIENT Selected Encounter This section includes the information on record at ME for the Encounter. Date/Time Encounter Type Encounter Description Reason Pro vider Source Aug 03, 2023 06:46 AM Outpatient Encounter PRIMARY CARE/MEDICINE IHE Encounter Template Text not used by ME Plan of Treatment: Future Appointments (+ 6 months) and Future Tests (+/- 45 days) The Plan of Treatment section includes future care activities for the patient from all [facility] This section includes future appointments and future orders which are active, pending or scheduled. Future Appointments This section includes appointments that were scheduled to occur 6 months from the date of the Encounter, up to a maximum of 20 appointments. The data comes from all [place] treatment facilities. Appointment Date/Time Appointment Type Appointme nt Facility Name August 05, 2023 10:30 AM AMBULATORY [facility]INE [facility] August 13, 2023 02:30 PM [facility] August 19, 2023 08:30 AM [facility] August 25, 2023 09:00 AM AMBULATORY - [facility]ICINE [facility] Sep 16, 2023 11:30 AM [facility] - [facility]INE [facility] Oct 15, 2023 08:30 AM [facility] Oct 20, 2023 01:00 PM AMBULATORY - PSYCHIATRY [facility] Oct 21, 2023 10:30 AM [facility] Nov 12, 2023 08:00 AM AMBULATORY - MEDICINE [facility] Nov 30, 2023 09:00 AM [facility] Jan 19, 2024 11:00 AM AMBULATORY - PS[facility]CHIATRY [facility] Lab Results: +/- 30 days of the encounter This section includes the Chemistry and Hematology Lab Results on record with ME for the patient. Radiology Reports and Pathology Reports are provided separately, in subsequent sections. Lab Results This section contains the Chemistry/Hematology Results that were resulted 30 days before or 30 daysafter the date of the Encounter. Date/Time Source Result Type Result - Unit Interpretation Reference Range Comment August 05, 2023 07:53 AM [facility] MICROSCOPIC AUTOMATED, URINE Specimen T ype: URINE Comment: If Glucose = >500 and Ketones are positive, please alert the Physician. Ordering Provider: JT BROUSSARD Report Released Date/Time: Jul 30, 2023 08:43 AM Reporting Lab: [facility] [address] [facility] [address] Performing Lab: [facility] [address] [facility] [facility] [address] UA WBC 0-5 /[HPF] 0-5 UA MUCUS FEW /[LPF] Trace UA RBC 0-2 /[HPF] 0-3 August 05, 2023 07:53 AM [facility] PSA Specimen Type: SERUM No comment entered. Ordering Provider: JT BROUSSARD Report Released Date/Time: Jan 22, 2023 11:47 AM Reporting Lab: [address] [address] Performing Lab: [address] [address] PSA 1.58 ng/mL 0.00-4.00 August 05, 2023 07:53 AM [facility] MICROALBUMIN CREATININE RATIO PANEL Spe cimen Type: URINE No comment entered. Ordering Provider: JT BROUSSARD Report Released Date/Time: Jan 22, 2023 11:47 AM Reporting Lab: [address] [address] Performing Lab: [address] [address] MICROALBUMIN/C REATININE RATIO 114.6 mg/g H 0-29.9 MICROALBUMIN,Q UANTITATIVE 14.6 mg/dL RR UNAVAIL CREATININE URINE 127.42 mg/dL August 05, 2023 07:53 AM [facility] URINALYSIS Specimen Type: URINE Comment: If Glucose = >500 and Ketones are positive, please alert the Physician. Ordering Provider: JT BROUSSARD Report Released Date/Time: Jul 30, 2023 08:43 AM Reporting Lab: [address] [address] Performing Lab: [address] [address] UA COLOR Light-Yellow Yellow UA APPEARANCE Clear Clear UA GLUCOSE NEGATIVE mg/dL Negative UA KETONES NEGATIVE mg/dL Negative UA BLOOD NEGATIVE mg/dL Negative UA PROTEIN 30 mg/dL Negative UA NITRITE NEGATIVE mg/dL Negative UA BILIRUBIN NEGATIVE mg/dL Negative UA SPECIFIC GRAVITY 1.017 1.016-1.022 UA pH 6.5 5.0-9.0 UA UROBILINOGEN <2.0 mg/dL <2.0 UA LEUKOCYTE TRACE Negative August 05, 2023 07:53 AM [facility] FERRITIN Specimen Type: SERUM No comment entered. Ordering Provider: JT BROUSSARD Report Released Date/Time: Jan 22, 2023 11:47 AM Reporting Lab: [address] [address] Performing Lab: [address] [address] FERRITIN 159 ng/mL 20-300 August 05, 2023 07:53 AM [facility] LIPID PANEL FASTING Specimen Type: SERUM No comment entered. Ordering Provider: JT BROUSSARD Report Released Date/Time: Jan 22, 2023 11:47 AM Reporting Lab: [address] [address] Performing Lab: [address] [address] CHOLESTEROL 103 mg/dL TRIGLYCERIDE 116 mg/dL 0-150 LDL calculated 47 mg/dL 0-129 CHOL/HDL 3.1 HDL CHOLESTEROL 33 mg/dL L 40-60 August 05, 2023 07:53 AM [facility] BASIC METABOLIC PANEL (fasting) Specime n Type: SERUM No comment entered. Ordering Provider: JT BROUSSARD Report Released Date/Time: Jan 22, 2023 11:47 AM Reporting Lab: [address] [address] Performing Lab: [address] [address] UREA NITROGEN 18 mg/dL 7-25 GLUCOSE 104 mg/dL H 65-100 SODIUM 139 mmol/L 135-145 POTASSIUM 4.0 mmol/L 3.5-5.0 CHLORIDE 104 mmol/L 100-110 CO2 26 meq/L 20-30 CREATININE, Serum 1.56 mg/dL H 0.50-1.40 eGFR(CKD-EPI 2020) 46 mL/min L >60 August 05, 2023 07:53 AM [facility] HEMOGLOBIN A1C PANEL Specimen Type: BLOOD Comment: [...] Jan 22, 2023 11:47 AM Reporting Lab: [address] [address] Performing Lab: [address] [address] HEMOGLOBIN A1C 5.9 H 4.0-5.6 August 05, 2023 07:53 AM [facility] LIVER FUNCTION Specimen Type: SERUM No comment entered. Ordering Provider: JT BROUSSARD Report Released Date/Time: Jan 22, 2023 11:47 AM Reporting Lab: [facility] [address] [facility] [address] Performing Lab: [address] [address] PROTEIN,TOTAL 7.4 g/dL 6.0-8.3 ALBUMIN 4.0 g/dL 3.5-5.0 ALKALINE PHOSPHATASE 71 U/L 40-150 AST 27 U/L 5-34 ALT 33 U/L BILIRUBIN, TOTAL 0.7 mg/dL 0.2-1.2 August 05, 2023 07:53 AM [facility] TSH Specimen Type: SERUM No comment entered. Ordering Provider: JT BROUSSARD Report Released Date/Time: Jan 22, 2023 11:47 AM Reporting Lab: [facility] [address] [address] Performing Lab: [place] [address] [facility] [address] TSH 2.55 u[IU]/mL 0.35-5.00 August 05, 2023 07:53 AM [facility] CBC AND DIFF (AUTO) Specimen Type: BLOOD No comment entered. Ordering Provider: JT BROUSSARD Report Released Date/Time: Jan 22, 2023 11:47 AM Reporting Lab: [facility] [address] [facility] [address] Performing Lab: [facility] [address] [address] WBC 6.98 10*3/uL 4.50-11.00 RBC 5.28 10*6/uL 4.23-5.66 HGB 14.4 g/dL 12.8-17 HCT 43.7 39.2-50.4 MCV 82.8 fL 82-99 MCHC 33.0 g/dL 30.8-35.1 PLT 237 10*3/uL 140-360 RDW-CV 12.7 12.0-16.0 Socorro, Abs 0.61 10*3/uL 0.30-1.10 MCH 27.3 pg 26.2-32.6 Neut % 62.8 43.7-75.8 Lymph % 25.4 14.0-42.3 [place] % 8.7 5.1-13.7 Eos % 2.4 0.4-6.8 [...] and tobacco- related health factors from the ME facility where the Encounter took place. Current Smoking Status This section includes the most current smoking, or tobacco-related health factor, from the ME facility where the Encounter took place. Date/Time Current Smoking Status Comment Facility August 30, 2009 09:45 AM QUIT TOBACCO USE > 7 YEARS AGO quit about 25 years ago [facility] Advance Directives: All historical and current Section Date Range: From patient's date of to the date document was created. This section includes ALL of a patient's completed or amended [place] Advance and Rescinded Directives. The entries below indicate that a directive exists for the patient, but an actual copy is not included with this document. The data comes from all [place] facilities. Date Advance Directives Provider Source May 17, 2018 ADVANCE DIRECTIVE KEVIN DEAL [facility] Pathology Reports: +/- 30 days of the [...] the Encounter. The data comes from all [place] treatment facilities. Date/Time Pathology Report Provider Source August 05, 2023 07:53 AM LR MICROBIOLOGY RE PORT: Reporting Lab: [facility] [CLIA# [id number]] [address] [place] [address] Accession [UID]: [id number] [[id number]] Received: August 05, 2023@07:53 Collection sample: URINE CLEAN CATCH Collection date: August 05, 2023 07:53 Site/Specimen: URINE Provider: JT NICOLE Comment on specimen: cc Test(s) ordered: URINE CULTURE(MWROX).......... completed: August 10, 2023 10:39 * BACTERIOLOGY FINAL REPORT => August 10, 2023 10:39 TECH CODE: [id number] Bacteriology Remark(s): NO GROWTH IN 24 HOURS, FINAL REPORT TO FOLLOW. FINAL AEROBIC REPORT: NO GROWTH =--=--=--=--=--=--=--=--=--=--=--=--= --=--=--=--=--=--=--=--=--=--=--=--=- -=-- Performing Laboratory: Bacteriology Report Performed By: [facility] [CLIA# [id number]] [address] [place] [address] Bact Report Remark #2 Performed By: [facility] [CLIA# [id number]] [address] [place] [address] SUELLEN SHELL [facility] Encounter Notes: All associated encounter notes This section contains the clinical notes associated to the Encounter. Date/Time Encounter Note(s) Provider Source Aug 03, 2023 06:46 AM PRIMARY CARE SECUR E MESSAGING: LOCAL TITLE: PRIMARY CARE SECURE MESSAGING STANDARD TITLE: PRIMARY CARE SECURE MESSAGING DATE OF NOTE: AUG 03, 2023@06:46 ENTRY DATE: AUG 03, 2023@07:46:40 AUTHOR: MAGDIEL HUTTON EXP COSIGNER: URGENCY: STATUS: COMPLETED ------Original Message ----- Sent: 08/01/2023 09:28 AM ET From: LON QUINTERO To: [facility] Subject: Medication:oxbutynin cloride 10 MG sa tab hello , would you please write another script for the above script. thank you. /swetha/ MAGDIEL YODER Signed: 08/03/2023 07:46 Receipt Acknowledged By: 08/03/2023 11:31 /swetha/ VANDANA DING RN REGISTERED NURSE 08/04/2023 12:18 /swetha/ GEORGIE FLORES LPN, [facility]
--- OUTSIDE RECORDS SUMMARY | 2024-04-05 09:53 | XMS_ITS ---
Author Name [place] Organization [place] Address [address] [place] [address] Care Team Providers Care Timber Selector Name Role Phone JT NICOLE Primary Care [...] Patient's Relationship to Policy [place] BCBS OF [facility] PREFERRED PROVIDER ORGANIZAT ION (PPO) [facility] August 10, 2010 [id number] [phone] BOWDER,RO RAY PATIENT [facility] (WNR) MEDICARE (M) [facility] (WNR) Apr 06, 2014 NO GROUP NUMBER [id number] BOWDER,RO RAY PATIENT [facility] (WNR) MEDICARE ADVANTAGE [facility](W NR) Apr 06, 2015 [id number] BOWDER,RO RAY PATIENT [facility] (WNR) MEDICARE ADVANTAGE [facility] (WNR) Apr 06, 2014 [id number] BOWDER,RO RAY PATIENT Selected Encounter This section includes the information on record at [place] for the Encounter. Date/Time Encounter Type Encounter Description Reason Pro vider Source Jul 30, 2023 12:32 PM Outpatient Encounter ADMIN PAT ACTIVTIES (ADAMNONCT) IHE Encounter Template Text not used by [place] Plan of Treatment: Future Appointments (+ 6 months) and Future Tests (+/- 45 days) The Plan of Treatment section includes future care activities for the patient from all [place] [facility]. This section includes future appointments and future orders which are active, pending or scheduled. Future Appointments This section includes appointments that were scheduled to occur 6 months from the date of the Encounter, up to a maximum of 20 appointments. The data comes from all [place] treatment facilities. Appointment Date/Time Appointment Type Appointme nt Facility Name August 05, 2023 10:30 AM [facility] August 13, 2023 02:30 PM AMBULATORY - MEDICINE [facility] August 19, 2023 08:30 AM AMBULATORY - MEDICINE [facility] August 25, 2023 09:00 AM [facility] Sep 16, 2023 11:30 AM AMBULATORY - MEDICINE [facility] Oct 15, 2023 08:30 AM [facility] Oct 20, 2023 01:00 PM AMBULATORY - PSYCHIATRY [facility] Oct 21, 2023 10:30 AM AM[place]UL[place] [facility] Nov 12, 2023 08:00 AM AMBULATORY - MEDICINE [facility] Nov 30, 2023 09:00 AM AMBULATORY - NONE [place] [facility] Jan 19, 2024 11:00 AM AMBULATORY - PSYCHIATRY [facility] Lab Results: +/- 30 days of the encounter This section includes the Chemistry and Hematology Lab Results on record with [place] for the patient. Radiology Reports and Pathology Reports are provided separately, in subsequent sections. Lab Results This section contains the Chemistry/Hematology Results that were resulted 30 days before or 30 daysafter the date of the Encounter. Date/Time Source Result Type Result - Unit Interpretation Reference Range Comment August 05, 2023 07:53 AM [facility] MICROSCOPIC AUTOMATED, URINE Specimen T ype: URINE Comment: If Glucose = >500 and Ketones are positive, please alert the Physician. Ordering Provider: JT BROUSSARD Report Released Date/Time: Jul 30, 2023 08:43 AM Reporting Lab: [facility] [address] [facility] [address] Performing Lab: [facility] [address] [facility] [address] UA WBC 0-5 /[HPF] 0-5 UA MUCUS FEW /[LPF] Trace UA RBC 0-2 /[HPF] 0-3 August 05, 2023 07:53 AM [facility] MICROALBUMIN CREATININE RATIO PANEL Spe cimen Type: URINE No comment entered. Ordering Provider: JT BROUSSARD Report Released Date/Time: Jan 22, 2023 11:47 AM Reporting Lab: [address] [address] Performing Lab: [address] [address] MICROALBUMIN/C REATININE RATIO 114.6 mg/g H 0-29.9 MICROALBUMIN,Q UANTITATIVE 14.6 mg/dL RR UNAVAIL CREATININE URINE 127.42 mg/dL August 05, 2023 07:53 AM [facility] FERRITIN Specimen Type: SERUM No comment entered. Ordering Provider: JT BROUSSARD Report Released Date/Time: Jan 22, 2023 11:47 AM Reporting Lab: [address] [address] Performing Lab: [address] [address] FERRITIN 159 ng/mL 20-300 August 05, 2023 07:53 AM [facility] URINALYSIS Specimen Type: URINE Comment: If Glucose = >500 and Ketones are positive, please alert the Physician. Ordering Provider: JT BROUSSARD Report Released Date/Time: Jul 30, 2023 08:43 AM Reporting Lab: [address] [address] Performing Lab: [address] [address] UA COLOR Light-Yellow Yellow UA APPEARANCE Clear Clear UA GLUCOSE NEGATIVE mg/dL Negative UA KETONES NEGATIVE mg/dL Negative UA BLOOD NEGATIVE mg/dL Negative UA PROTEIN 30 mg/dL Negative UA NITRITE NEGATIVE mg/dL Negative UA BILIRUBIN NEGATIVE mg/dL Negative UA SPECIFIC GRAVITY 1.017 1.016-1.022 UA pH 6.5 5.0-9.0 UA UROBILINOGEN <2.0 mg/dL <2.0 UA LEUKOCYTE TRACE Negative August 05, 2023 07:53 AM [facility] PSA Specimen Type: SERUM No comment entered. Ordering Provider: JT BROUSSARD Report Released Date/Time: Jan 22, 2023 11:47 AM Reporting Lab: [address] [address] Performing Lab: [address] [address] PSA 1.58 ng/mL 0.00-4.00 August 05, 2023 07:53 AM [facility] LIPID PANEL FASTING Specimen Type: SERUM No comment entered. Ordering Provider: JT BROUSSARD Report Released Date/Time: Jan 22, 2023 11:47 AM Reporting Lab: [address] [address] Performing Lab: [address] [address] CHOLESTEROL 103 mg/dL TRIGLYCERIDE 116 mg/dL 0-150 LDL calculated 47 mg/dL 0-129 CHOL/HDL 3.1 HDL CHOLESTEROL 33 mg/dL L 40-60 August 05, 2023 07:53 AM [facility] BASIC METABOLIC PANEL (fasting) Specime n Type: SERUM No comment entered. Ordering Provider: JT BROUSSARD Report Released Date/Time: Jan 22, 2023 11:47 AM Reporting Lab: [address] [address] Performing Lab: [address] [address] UREA NITROGEN 18 mg/dL 7-25 GLUCOSE 104 mg/dL H 65-100 SODIUM 139 mmol/L 135-145 POTASSIUM 4.0 mmol/L 3.5-5.0 CHLORIDE 104 mmol/L 100-110 CO2 26 meq/L 20-30 CREATININE, Serum 1.56 mg/dL H 0.50-1.40 eGFR(CKD-EPI 2020) 46 mL/min L >60 August 05, 2023 07:53 AM [facility] LIVER FUNCTION Specimen Type: SERUM No comment entered. Ordering Provider: JT BROUSSARD Report Released Date/Time: Jan 22, 2023 11:47 AM Reporting Lab: [address] [address] Performing Lab: [address] [address] PROTEIN,TOTAL 7.4 g/dL 6.0-8.3 ALBUMIN 4.0 g/dL 3.5-5.0 ALKALINE PHOSPHATASE 71 U/L 40-150 AST 27 U/L 5-34 ALT 33 U/L BILIRUBIN, TOTAL 0.7 mg/dL 0.2-1.2 August 05, 2023 07:53 AM [facility] HEMOGLOBIN A1C PANEL Specimen Type: BLOOD Comment: [...] Jan 22, 2023 11:47 AM Reporting Lab: [address] [address] Performing Lab: [address] [address] HEMOGLOBIN A1C 5.9 H 4.0-5.6 August 05, 2023 07:53 AM [facility] TSH Specimen Type: SERUM No comment entered. Ordering Provider: JT BROUSSARD Report Released Date/Time: Jan 22, 2023 11:47 AM Reporting Lab: [address] [address] [facility] [address] [facility] [address] TSH 2.55 u[IU]/mL 0.35-5.00 August 05, 2023 07:53 AM [facility] CBC AND DIFF (AUTO) Specimen Type: BLOOD No comment entered. Ordering Provider: JT BROUSSARD Report Released Date/Time: Jan 22, 2023 11:47 AM Reporting Lab: [facility] [address] [facility] [address] Performing [facility]: [facility] [address] [facility] [facility] [address] WBC 6.98 10*3/uL 4.50-11.00 RBC 5.28 10*6/uL 4.23-5.66 HGB 14.4 g/dL 12.8-17 HCT 43.7 39.2-50.4 MCV 82.8 fL 82-99 MCHC 33.0 g/dL 30.8-35.1 PLT 237 10*3/uL 140-360 RDW-CV 12.7 12.0-16.0 Bryan, Abs 0.61 10*3/uL 0.30-1.10 MCH 27.3 pg 26.2-32.6 Neut % 62.8 43.7-75.8 Lymph % 25.4 14.0-42.3 Bryan % 8.7 5.1-13.7 Eos % 2.4 0.4-6.8 [...] and tobacco- related health factors from the [place] facility where the Encounter took place. Current Smoking Status This section includes the most current smoking, or tobacco-related health factor, from the [place] facility where the Encounter took place. Date/Time Current Smoking Status Comment Facility August 30, 2009 09:45 AM QUIT TOBACCO USE > 7 YEARS AGO quit about 25 years ago [facility] Advance Directives: All historical and current Section Date Range: From patient's date of to the date document was created. This section includes ALL of a patient's completed or amended [place] Advance and Rescinded Directives. The entries below indicate that a directive exists for the patient, but an actual copy is not included with this document. The data comes from all [place] facilities. Date Advance Directives Provider Source May 17, 2018 ADVANCE DIRECTIVE KEVIN DEAL [facility] Pathology Reports: +/- 30 days of the [...] the Encounter. The data comes from all [place] treatment facilities. Date/Time Pathology Report Provider Source August 05, 2023 07:53 AM LR MICROBIOLOGY RE PORT: Reporting Lab: [facility] [CLIA# [id number]] [address] [place] [address] Accession [UID]: [id number] [[id number]] Received: August 05, 2023@07:53 Collection sample: URINE CLEAN CATCH Collection date: August 05, 2023 07:53 Site/Specimen: URINE Provider: JT NICOLE Comment on specimen: cc Test(s) ordered: URINE CULTURE(MWROX).......... completed: August 10, 2023 10:39 * BACTERIOLOGY FINAL REPORT => August 10, 2023 10:39 TECH CODE: [id number] Bacteriology Remark(s): NO GROWTH IN 24 HOURS, FINAL REPORT TO FOLLOW. FINAL AEROBIC REPORT: NO GROWTH =--=--=--=--=--=--=--=--=--=--=--=--= --=--=--=--=--=--=--=--=--=--=--=--=- -=-- Performing Laboratory: Bacteriology Report Performed By: [facility] [CLIA# [id number]] [address] [place] [address] Bact Report Remark #2 Performed By: [facility] [CLIA# [id number]] [address] [place] [address] SUELLEN SHELL ST[facility] Encounter Notes: All associated encounter notes This section contains the clinical notes associated to the Encounter. Date/Time Encounter Note(s) Provider Source Jul 30, 2023 12:32 PM ADMINISTRATIVE NOT E: LOCAL TITLE: CCC: SCHEDULING ADMINISTRATION STANDARD TITLE: ADMINISTRATIVE NOTE DATE OF NOTE: JUL 30, 2023@12:32:24 ENTRY DATE: JUL 30, 2023@12:32:24 AUTHOR: JOHANNE SHIELDS COSIGNER: URGENCY: STATUS: COMPLETED Patient Demographics Patient Name: LON QUINTERO Patient Primary Phone: [phone] Patient Primary Address: [address] [place] [address] Patient : 1950 Patient Age: 73 Caller/Recipient Relation to Patient: Self Administrative Administrative Note Reason: Returned Call Administrative Note Comments: reports he is returning clinics call. Please call back at number on file. /swetha/ JOHANNE SMITH 1 [facility] Signed: 07/30/2023 12:32 Receipt Acknowledged By: 07/31/2023 12:36 /swetha/ VANDANA DING RN REGISTERED NURSE 07/30/2023 14:34 /swetha/ GEORGIE FLORES LPN, [facility]
--- OUTSIDE RECORDS SUMMARY | 2024-04-05 09:53 | XMS_ITS | Encounter Summary ---
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 (WNR) Apr 06, 2014 NO GROUP NUMBER [id number] BOWDER,RO RAY PATIENT [facility] (WNR) MEDICARE ADVANTAGE 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 Date/Time Encounter Type Encounter Description Reason Pro vider Source Jul 29, 2023 11:50 AM Outpatient Encounter TELEPHONE TRIAGE IHE Encounter Template Text not used by [place] Plan of Treatment: Future Appointments (+ 6 months) and Future Tests (+/- 45 days) The Plan of Treatment section includes [facility] care [facility] for the [facility] [place] [facility] This section includes future appointments and future [...] 05, 2023 10:30 AM AMB[facility] August 13, 2023 02:30 PM AMBULATORY - MEDICINE [facility] August 19, 2023 08:30 AM AMBULATORY - MEDICINE [facility] August 25, 2023 09:00 AM AMBULATORY - MEDICINE [facility] Sep 16, 2023 11:30 AM AMBULATORY - MEDICINE [facility] Oct 15, 2023 08:30 AM AMBULATORY - NONE [place] [facility] [place] [facility] Oct 20, 2023 01:00 PM AMBULATORY - PSYCHIATRY [facility] Oct 21, 2023 10:30 AM AMBULATORY - MEDICINE [place] [facility] [place] [facility] Nov 12, 2023 08:00 AM AMBULATORY - MEDICINE [facility] Nov 30, 2023 09:00 AM AMBULATORY - NONE [place] [facility] [place] [facility] Jan 19, 2024 11:00 AM AMBULATORY - PSYCHIATRY [facility] Lab Results: +/- 30 days of the encounter This section includes the Chemistry and Hematology Lab Results on record with [place] for the patient. Radiology Reports and Pathology Reports are provided separately, in subsequent sections. Lab Results This section contains the Chemistry/Hematology Results that were resulted 30 days before or 30 daysafter the date of the Encounter. Date/Time Source Result Type Result - Unit Interpretation Reference Range Comment August 05, 2023 07:53 AM [place] MICROSCOPIC AUTOMATED, URINE Specimen T ype: URINE Comment: If Glucose = >500 and Ketones are positive, please alert the Physician. Ordering Provider: JT BROUSSARD Report Released Date/Time: Jul 30, 2023 08:43 AM Reporting Lab: [facility] [place] [facility] [address] [facility] [address] Performing Lab: [facility] [address] [facility] [address] UA WBC 0-5 /[HPF] 0-5 UA MUCUS FEW /[LPF] Trace UA RBC 0-2 /[HPF] 0-3 August 05, 2023 07:53 AM [place] MICROALBUMIN CREATININE RATIO PANEL Spe cimen Type: URINE No comment entered. Ordering Provider: JT BROUSSARD Report Released Date/Time: Jan 22, 2023 11:47 AM Reporting Lab: [address] [address] Performing Lab: [address] [address] MICROALBUMIN/C REATININE RATIO 114.6 mg/g H 0-29.9 MICROALBUMIN,Q UANTITATIVE 14.6 mg/dL RR UNAVAIL CREATININE URINE 127.42 mg/dL August 05, 2023 07:53 AM [place] FERRITIN Specimen Type: SERUM No comment entered. Ordering Provider: JT BROUSSARD Report Released Date/Time: Jan 22, 2023 11:47 AM Reporting Lab: [address] [address] Performing Lab: [address] [address] FERRITIN 159 ng/mL 20-300 August 05, 2023 07:53 AM [place] URINALYSIS Specimen Type: URINE Comment: If Glucose = >500 and Ketones are positive, please alert the Physician. Ordering Provider: JT BROUSSARD Report Released Date/Time: Jul 30, 2023 08:43 AM Reporting Lab: [address] [address] Performing Lab: [address] [address] UA COLOR Light-Yellow Yellow UA APPEARANCE Clear Clear UA GLUCOSE NEGATIVE mg/dL Negative UA KETONES NEGATIVE mg/dL Negative UA BLOOD NEGATIVE mg/dL Negative UA PROTEIN 30 mg/dL Negative UA NITRITE NEGATIVE mg/dL Negative UA BILIRUBIN NEGATIVE mg/dL Negative UA SPECIFIC GRAVITY 1.017 1.016-1.022 UA pH 6.5 5.0-9.0 UA UROBILINOGEN <2.0 mg/dL <2.0 UA LEUKOCYTE TRACE Negative August 05, 2023 07:53 AM [place] PSA Specimen Type: SERUM No comment entered. Ordering Provider: JT BROUSSARD Report Released Date/Time: Jan 22, 2023 11:47 AM Reporting Lab: [facility] [address] [facility] [facility] [address] Performing Lab: [address] [address] PSA 1.58 ng/mL 0.00-4.00 August 05, 2023 07:53 AM [place] LIPID PANEL FASTING Specimen Type: SERUM No comment entered. Ordering Provider: JT BROUSSARD Report Released Date/Time: Jan 22, 2023 11:47 AM Reporting Lab: [address] [address] Performing Lab: [address] [address] CHOLESTEROL 103 mg/dL TRIGLYCERIDE 116 mg/dL 0-150 LDL calculated 47 mg/dL 0-129 CHOL/HDL 3.1 HDL CHOLESTEROL 33 mg/dL L 40-60 August 05, 2023 07:53 AM [place] BASIC METABOLIC PANEL (fasting) Specime n Type: SERUM No comment entered. Ordering Provider: JT BROUSSARD Report Released Date/Time: Jan 22, 2023 11:47 AM Reporting Lab: [address] [address] Performing Lab: [address] [address] UREA NITROGEN 18 mg/dL 7-25 GLUCOSE 104 mg/dL H 65-100 SODIUM 139 mmol/L 135-145 POTASSIUM 4.0 mmol/L 3.5-5.0 CHLORIDE 104 mmol/L 100-110 CO2 26 meq/L 20-30 CREATININE, Serum 1.56 mg/dL H 0.50-1.40 eGFR(CKD-EPI 2020) 46 mL/min L >60 August 05, 2023 07:53 AM [place] LIVER FUNCTION Specimen Type: SERUM No comment entered. Ordering Provider: JT BROUSSARD Report Released Date/Time: Jan 22, 2023 11:47 AM Reporting Lab: [facility] [address] [facility] [address] Performing Lab: [facility] [address] [facility] [address] PROTEIN,TOTAL 7.4 g/dL 6.0-8.3 ALBUMIN 4.0 g/dL 3.5-5.0 ALKALINE PHOSPHATASE 71 U/L 40-150 AST 27 U/L 5-34 ALT 33 U/L BILIRUBIN, TOTAL 0.7 mg/dL 0.2-1.2 August 05, 2023 07:53 AM [place] HEMOGLOBIN A1C PANEL Specimen Type: BLOOD Comment: [...] Jan 22, 2023 11:47 AM Reporting Lab: [address] [address] Performing Lab: [facility] [address] [address] HEMOGLOBIN A1C 5.9 H 4.0-5.6 August 05, 2023 07:53 AM [place] TSH Specimen Type: SERUM No comment entered. Ordering Provider: JT BROUSSARD Report Released Date/Time: Jan 22, 2023 11:47 AM Reporting Lab: [address] [address] Performing Lab: [address] [place] [address] TSH 2.55 u[IU]/mL 0.35-5.00 August 05, 2023 07:53 AM [place] CBC AND DIFF (AUTO) Specimen Type: BLOOD No comment entered. Ordering Provider: JT BROUSSARD Report Released Date/Time: Jan 22, 2023 11:47 AM Reporting Lab: [facility] [address] [address] Performing Lab: [facility] [address] [address] WBC 6.98 10*3/uL 4.50-11.00 RBC 5.28 10*6/uL 4.23-5.66 HGB 14.4 g/dL 12.8-17 HCT 43.7 39.2-50.4 MCV 82.8 fL 82-99 MCHC 33.0 g/dL 30.8-35.1 PLT 237 10*3/uL 140-360 RDW-CV 12.7 12.0-16.0 Casey, Abs 0.61 10*3/uL 0.30-1.10 MCH 27.3 pg 26.2-32.6 Neut % 62.8 43.7-75.8 Lymph % 25.4 14.0-42.3 Casey % 8.7 5.1-13.7 Eos % 2.4 0.4-6.8 [...] YEARS AGO quit about 25 years ago [facility] Advance Directives: All historical and current [...] May 17, 2018 ADVANCE DIRECTIVE SAYKEVIN [facility] Pathology Reports: +/- 30 days of [...] the Encounter. The data comes from all [place] treatment facilities. Date/Time Pathology Report Provider Source August 05, 2023 07:53 AM [place] MICROBIOLOGY RE PORT: Reporting Lab: [facility] [CLIA# [id number]] [address] [place] [phone] Accession [UID]: [id number] [[id number]] Received: August 05, 2023@07:53 Collection sample: URINE CLEAN CATCH Collection date: August 05, 2023 07:53 Site/Specimen: URINE Provider: JT NICOLE Comment on specimen: cc Test(s) ordered: URINE CULTURE(MWROX).......... completed: August 10, 2023 10:39 * BACTERIOLOGY FINAL REPORT => August 10, 2023 10:39 TECH CODE: [id number] Bacteriology Remark(s): NO GROWTH IN 24 HOURS, FINAL REPORT TO FOLLOW. FINAL AEROBIC REPORT: NO GROWTH =--=--=--=--=--=--=--=--=--=--=--=--= --=--=--=--=--=--=--=--=--=--=--=--=- -=-- Performing Laboratory: Bacteriology Report Performed By: [facility] [CLIA# [id number]] [address] [place] [address] Bact Report Remark #2 Performed By: [facility] [CLIA# [id number]] [address] [place] [address] [facility]UE[facility] [place] Encounter Notes: All associated encounter notes This section contains the clinical notes associated to the Encounter. Date/Time Encounter Note(s) Provider Source Jul 29, 2023 11:50 AM RN PROGRESS NOTE: LOCAL TITLE: CCC: CLINICAL TRIAGE STANDARD TITLE: RN PROGRESS NOTE DATE OF NOTE: JUL 29, 2023@11:50:33 ENTRY DATE: JUL 29, 2023@11:50:33 AUTHOR: MICHELLE STACY COSIGNER: URGENCY: STATUS: COMPLETED CCC: CLINICAL TRIAGE Has ADDENDA Patient Demographics Patient Name: LON QUINTERO Patient Primary [address]: [address] [place] [id number] Patient Primary Phone: [phone] Patient : 1950 Patient Age: 73 Caller/Recipient Relation to Patient: Self Emergency Contact: NETO QUINTERO Triage Summary Conducted triage/discussed symptoms Nursing Plan and Disposition Other course(s) of action Generated msg to PACT/Provider Nurse Summary Nurse Summary: Patient calls to check on status of call in yesterday. Advised note is in. Will send reminder to clinic. Patient thankful. _ Clinical Contact Center Codes Clinic/Location: V1 CWM PHONE CCC RN /swetha/ MICHELLE GONZALES,RN CLINICAL CONTACT CENTER RN Signed: 07/29/2023 11:50 Receipt Acknowledged By: 07/29/2023 15:04 /swetha/ BEN HINES RN REGISTERED NURSE for VANDANA DING 07/30/2023 14:33 /swetha/ MINESH LAZARO LPN LPN 07/29/2023 ADDENDUM STATUS: COMPLETED PCP notified. 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 /swetha/ BEN HINESRN REGISTERED NURSE Signed: 07/29/2023 15:04 MICHELLE STACY [facility]
--- OUTSIDE RECORDS SUMMARY | 2024-04-05 09:53 | XMS_ITS | Encounter Summary ---
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 Role Phone JT NICOLE Primary Care [...] Patient's Relationship to Policy [place] BCBS OF [facility] PREFERRED PROVIDER ORGANIZAT ION (PPO) [facility] August 10, 2010 [id number] [phone] ZHOU QUINTERO RAY PATIENT [facility] (WNR) MEDICARE (M) [facility] (WNR) Apr 06, 2014 NO GROUP NUMBER [id number] [phone] INGRID,ZHOU RAY PATIENT JAEN [facility] (WNR) MEDICARE ADVANTAGE [facility](W NR) Apr 06, 2015 [id number] INGRID,ZHOU RAY PATIENT JANE [facility] (WNR) MEDICARE ADVANTAGE [facility] (WNR) Apr 06, 2014 [id number] BOWLEXI,ZHOU RAY PATIENT Selected Encounter This section includes the information on record at [place] for the Encounter. Date/Time Encounter Type Encounter Description Reason Provider Source August 25, 2023 09:00 AM OFFICE O/P EST MOD 30 MIN PRIMARY CARE/MEDICINE ICD-10-CM N40.1 Benign prostatic hyperplasia with lower urinary tract symp AMYAZDIN-BOSKO JT MACEDO [facility] Encounter Template Text not used by [place] Assessments - Encounter Diagnoses This section includes the primary and secondary diagnoses documented for the Encounter. Date/Time Primary/Secondary Diagnosis Diagnosis Name Provider Source August 25, 2023 10:01 AM PRIMARY Benign prostatic hyperplasia with lower urinary tract symp AMYAZDIN-BOSKO JT MACEDO [facility] August 25, 2023 10:01 AM SECONDARY Aneurysm of iliac artery ALFA-BOSKO HELLENACE [facility] August 25, 2023 10:01 AM SECONDARY Essential (primary) hypertension [facility] August 25, 2023 10:01 AM SECONDARY Hyperlipidemia, unspecified [facility]IN[facility] August 25, 2023 10:01 AM SECONDARY Male erectile dysfunction, unspecified [facility]IN[facility] August 25, 2023 10:01 AM SECONDARY Obesity, unspecified [facility]AZDIN[facility]OSKO [facility] August 25, 2023 10:01 AM SECONDARY Other amnesia [facility] August 25, 2023 10:01 AM SECONDARY Other obstructive and reflux uropathy [facility] August 25, 2023 10:01 AM SECONDARY Other retention of urine [facility] August 25, 2023 10:01 AM SECONDARY Overweight [facility] August 25, 2023 10:01 AM SECONDARY Personal history of endo, nutritional and metabolic disease [facility]FA[facility]OSKO [facility] August 25, 2023 10:01 AM SECONDARY Post-traumatic stress disorder, chronic ZBIGNIEWDIN-BOSKO [facility] August 25, 2023 10:01 AM SECONDARY Prediabetes [facility] August 25, 2023 10:01 AM SECONDARY Sleep apnea, unspecified JT BROUSSARD [facility] August 25, 2023 10:01 AM SECONDARY Urgency of urination JT BROUSSARD [facility] August 25, 2023 10:01 AM SECONDARY White matter disease, unspecified JT BROUSSARD [facility] Plan of Treatment: Future Appointments (+ 6 months) and Future Tests (+/- 45 days) The Plan of Treatment section includes future care activities for the patient [facility] [place] [facility] This section includes future appointments and future orders which are active, pending or scheduled. Future Appointments This section includes appointments that were scheduled to occur 6 months from the date of the Encounter, up to a maximum of 20 appointments. The data comes from all [place] treatment facilities. Appointment Date/Time Appointment Type Appointme nt Facility Name Sep 16, 2023 11:30 AM AMBULATORY - MEDICINE [facility] Oct 15, 2023 08:30 AM [facility] Oct 20, 2023 01:00 PM AM[facility]ULAT[facility] - PS[facility]CHIATRY [facility] Oct 21, 2023 10:30 AM AMBULATORY - MEDICINE [facility] Nov 12, 2023 08:00 AM AMBULATORY - MEDICINE [facility] Nov 30, 2023 09:00 AM [facility]ORY NONE [facility] Jan 19, 2024 11:00 AM AMBULATORY PSYCHIATRY [facility] Lab Results: +/- 30 days of the encounter This section includes the Chemistry and Hematology Lab Results on record with [place] for the patient. Radiology Reports and Pathology Reports are provided separately, in subsequent sections. Lab Results This section contains the Chemistry/Hematology Results that were resulted 30 days before or 30 daysafter the date of the Encounter. Date/Time Source Result Type Result - Unit Interpretation Reference Range Comment August 05, 2023 07:53 AM [facility] MICROSCOPIC AUTOMATED, URINE Specimen T ype: URINE Comment: If Glucose = >500 and Ketones are positive, please alert the Physician. Ordering Provider: JT BROUSSARD Report Released Date/Time: Jul 30, 2023 08:43 AM Reporting Lab: [facility] [address] [address] Performing Lab: [facility] [address] [address] UA WBC 0-5 /[HPF] 0-5 UA MUCUS FEW /[LPF] Trace UA RBC 0-2 /[HPF] 0-3 August 05, 2023 07:53 AM [facility] FERRITIN Specimen Type: SERUM No comment entered. Ordering Provider: JT BROUSSARD Report Released Date/Time: Jan 22, 2023 11:47 AM Reporting Lab: [address] [address] Performing Lab: [address] [address] FERRITIN 159 ng/mL 20-300 August 05, 2023 07:53 AM [facility] URINALYSIS Specimen Type: URINE Comment: If Glucose = >500 and Ketones are positive, please alert the Physician. Ordering Provider: JT BROUSSARD Report Released Date/Time: Jul 30, 2023 08:43 AM Reporting Lab: [address] [address] Performing Lab: [address] [address] UA COLOR Light-Yellow Yellow UA APPEARANCE Clear Clear UA GLUCOSE NEGATIVE mg/dL Negative UA KETONES NEGATIVE mg/dL Negative UA BLOOD NEGATIVE mg/dL Negative UA PROTEIN 30 mg/dL Negative UA NITRITE NEGATIVE mg/dL Negative UA BILIRUBIN NEGATIVE mg/dL Negative UA SPECIFIC GRAVITY 1.017 1.016-1.022 UA pH 6.5 5.0-9.0 UA UROBILINOGEN <2.0 mg/dL <2.0 UA LEUKOCYTE TRACE Negative August 05, 2023 07:53 AM [facility] MICROALBUMIN CREATININE RATIO PANEL Spe cimen Type: URINE No comment entered. Ordering Provider: JT BROUSSARD Report Released Date/Time: Jan 22, 2023 11:47 AM Reporting Lab: [address] [address] Performing Lab: [facility] [address] [address] MICROALBUMIN/C REATININE RATIO 114.6 mg/g H 0-29.9 MICROALBUMIN,Q UANTITATIVE 14.6 mg/dL RR UNAVAIL CREATININE URINE 127.42 mg/dL August 05, 2023 07:53 AM [facility] PSA Specimen Type: SERUM No comment entered. Ordering Provider: JT BROUSSARD Report Released Date/Time: Jan 22, 2023 11:47 AM Reporting Lab: [facility] [address] [address] Performing Lab: [address] [address] PSA 1.58 ng/mL 0.00-4.00 August 05, 2023 07:53 AM [facility] LIPID PANEL FASTING Specimen Type: SERUM No comment entered. Ordering Provider: JT BROUSSARD Report Released Date/Time: Jan 22, 2023 11:47 AM Reporting Lab: [address] [address] Performing Lab: [address] [address] CHOLESTEROL 103 mg/dL TRIGLYCERIDE 116 mg/dL 0-150 LDL calculated 47 mg/dL 0-129 CHOL/HDL 3.1 HDL CHOLESTEROL 33 mg/dL L 40-60 August 05, 2023 07:53 AM [facility] BASIC METABOLIC PANEL (fasting) Specime n Type: SERUM No comment entered. Ordering Provider: JT BROUSSARD Report Released Date/Time: Jan 22, 2023 11:47 AM Reporting Lab: [address] [address] Performing Lab: [address] [address] UREA NITROGEN 18 mg/dL 7-25 GLUCOSE 104 mg/dL H 65-100 SODIUM 139 mmol/L 135-145 POTASSIUM 4.0 mmol/L 3.5-5.0 CHLORIDE 104 mmol/L 100-110 CO2 26 meq/L 20-30 CREATININE, Serum 1.56 mg/dL H 0.50-1.40 eGFR(CKD-EPI 2020) 46 mL/min L >60 August 05, 2023 07:53 AM [facility] LIVER FUNCTION Specimen Type: SERUM No comment entered. Ordering Provider: JT BROUSSARD Report Released Date/Time: Jan 22, 2023 11:47 AM Reporting Lab: [facility] [address] [address] Performing Lab: [facility] [address] [address] PROTEIN,TOTAL 7.4 g/dL 6.0-8.3 ALBUMIN 4.0 g/dL 3.5-5.0 ALKALINE PHOSPHATASE 71 U/L 40-150 AST 27 U/L 5-34 ALT 33 U/L BILIRUBIN, TOTAL 0.7 mg/dL 0.2-1.2 August 05, 2023 07:53 AM [facility] HEMOGLOBIN A1C PANEL Specimen Type: BLOOD Comment: [...] Jan 22, 2023 11:47 AM Reporting Lab: [facility] [address] [address] Performing Lab: [facility] [address] [address] HEMOGLOBIN A1C 5.9 H 4.0-5.6 August 05, 2023 07:53 AM [facility] TSH Specimen Type: SERUM No comment entered. Ordering Provider: JT BROUSSARD Report Released Date/Time: Jan 22, 2023 11:47 AM Reporting Lab: [address] [address] Performing Lab: [facility] [address] [address] TSH 2.55 u[IU]/mL 0.35-5.00 August 05, 2023 07:53 AM [facility] CBC AND DIFF (AUTO) Specimen Type: BLOOD No comment entered. Ordering Provider: JT BROUSSARD Report Released Date/Time: Jan 22, 2023 11:47 AM Reporting Lab: [facility] [address] [address] Performing Lab: [place] [facility] [address] [address] WBC 6.98 10*3/uL 4.50-11.00 RBC 5.28 10*6/uL 4.23-5.66 HGB 14.4 g/dL 12.8-17 HCT 43.7 39.2-50.4 MCV 82.8 fL 82-99 MCHC 33.0 g/dL 30.8-35.1 PLT 237 10*3/uL 140-360 RDW-CV 12.7 12.0-16.0 [place], Abs 0.61 10*3/uL 0.30-1.10 MCH 27.3 pg 26.2-32.6 Neut % 62.8 43.7-75.8 Lymph % 25.4 14.0-42.3 [place] % 8.7 5.1-13.7 Eos % 2.4 0.4-6.8 Baso % 0.6 0.1-2.0 Neut, Abs 4.38 10*3/uL 2.20-7.60 Lymph, Abs 1.77 10*3/uL 1.00-3.20 Eos, Abs 0.17 10*3/uL 0.03-0.44 Baso, Abs 0.04 10*3/uL 0.01-0.13 Immature Gran % 0.1 0.0-0.7 Immature Gran, Abs 0.01 10*3/uL 0.00-0.06 Vital Signs: All taken on the encounter date This section contains inpatient and outpatient Vital Signs collected on the date of the Encounter. Date/Time Temperature Pulse Blood Pressure Respiratory Rate SP02 Pain Height Weight Body Mass Index Source August 25, 2023 09:26 AM 97.7 56 155/86 95 207.6 30 [place] Social History: Smoking Status (Most current) and Tobacco Use (All prior to encounter date) This section includes the most current, and the historical, smoking and tobacco- related health factors from the [place] facility where the Encounter took place. Current Smoking Status This section includes the most current smoking, or tobacco-related health factor, from the [place] facility where the Encounter took place. Date/Time Current Smoking Status Comment Facil ity Jul 14, 2023 02:00 PM VA-TOBACCO NEVER USED [facility] Tobacco Use History This section includes a history of the smoking, or tobacco-related health factors, that were collected on or before the date of the Encounter. The data comes from the [place] facility where the Encounter took place. Date/Time Smoking Status/Tobacco Use Comment F acility August 05, 2022 02:30 PM VA-TOBACCO NEVER USED [facility] September 03, 2021 09:30 AM VA-TOBACCO NEVER USED [facility] Sep 25, 2020 09:30 AM VA-TOBACCO NEVER USED [facility] Oct 12, 2019 10:35 AM VA-TOBACCO NEVER USED [facility] August 31, 2018 08:55 AM VA-TOBACCO NEVER USED [facility] Jul 30, 2017 09:07 AM LIFETIME NON-TOBACCO USER [facility] Feb 17, 2017 10:23 AM QUIT TOBACCO USE 1-7 YEARS AGO [facility] Dec 19, 2015 08:35 AM QUIT TOBACCO USE > 7 YEARS AGO [facility] Advance Directives: All historical and current Section Date Range: From patient's date of to the date document was created. This section includes ALL of a patient's completed or amended [place] Advance and Rescinded Directives. The entries below indicate that a directive exists for the patient, but an actual copy is not included with this document. The data comes from all [place] facilities. Date Advance Directives Provider Source May 17, 2018 ADVANCE DIRECTIVE KEVIN DEAL [place] [facility] Pathology Reports: +/- 30 days [...] the Encounter. The data comes from all [place] treatment facilities. Date/Time Pathology Report Provider Source August 05, 2023 07:53 AM LR MICROBIOLOGY RE PORT: Reporting Lab: [facility] [CLIA# [id number]] [address] [place] [address] Accession [UID]: [id number] [[id number]] Received: August 05, 2023@07:53 Collection sample: URINE CLEAN CATCH Collection date: August 05, 2023 07:53 Site/Specimen: URINE Provider: JT NICOLE Comment on specimen: cc Test(s) ordered: URINE CULTURE(MWROX).......... completed: August 10, 2023 10:39 * BACTERIOLOGY FINAL REPORT => August 10, 2023 10:39 TECH CODE: [id number] Bacteriology Remark(s): NO GROWTH IN 24 HOURS, FINAL REPORT TO FOLLOW. FINAL AEROBIC REPORT: NO GROWTH =--=--=--=--=--=--=--=--=--=--=--=--= --=--=--=--=--=--=--=--=--=--=--=--=- -=-- Performing Laboratory: Bacteriology Report Performed By: [facility] [CLIA# [id number]] [address] [place] [address] Bact Report Remark #2 Performed By: [facility] [CLIA# [id number]] [address] [place] [address] SUELLEN SHELL [facility] Encounter Notes: All associated encounter notes This section contains the clinical notes associated to the Encounter. Date/Time Encounter Note(s) Provider Source August 25, 2023 09:00 AM PHYSICIAN NOTE: LOCAL TITLE: NOTE STANDARD TITLE: PHYSICIAN NOTE DATE OF NOTE: AUGUST 25, 2023@09:00 ENTRY DATE: AUGUST 24, 2023@23:35:56 AUTHOR: Marko NICOLE COSIGNER: URGENCY: STATUS: COMPLETED NOTE Has ADDENDA Pt is 73 y/o M with PMH of obesity, HTN, HL, arrhythmia, CARLA on CPAP, RLS, BPH, PTSD here for follow-up LAST VISIT 01/[address] Levon Waddell - annually - last 02/2023 Other providers: --Mental health [place] --Neurology [place] last 03/2022-> annually --Podiatry [place] --cardiology Dr Meadows Patient reports feeling well CC: urinary urge incontinence, retention PVR conducted 08/13/23 446 ml residual immediately following void. Urinalysis negative 08/05/23 PSA 1.58 GFR 46 A1C 5.9 #HTN/HL BP at home 120s/70s - forgot to take meds today compliant with medications denies CP/SOB/BLOOM/palpitations/dizzi ness /claudication denies h/o KS,CVA irregular rhythm PAC bigeminy seen by cardiology 12/2022 ECHO and holter obtained, no result available for review today- per pt wnl On previous Holter patient had PAC burden of 25% without evidence of A. fib no change in medications #CARLA fully compliant with CPAP sleep well [...] --> per pt in 2010 hospitalized in [facility] for slurred speech and bradycardia - head imaging was unremarkable - Dx TIA -- Acute, but ill-defined, cerebrovascular disease -- gout -- History of hepatitis B -- Depressive Disorder -- Anxiety -- Cannabis dependence in remission -- PTSD PAST SURGICAL HISTORY: --Tonsillectomy --Left TKR --Retinal detachment repair ALLERGIES: RED DYES MEDICATIONS: Reconciled today -VALSARTAN 320MG DAILY -AMLODIPINE BESYLATE 5MG -ASPIRIN 81MG -ROSUVASTATIN CA 20MG -BUPROPION HCL 150MG 12HR SA EVERY MORNING -PRAZOSIN HCL 8MG BEDTIME -SERTRALINE HCL 100MG -HYDROXYZINE PAMOATE 50MG QID prn FOR ANXIETY -GABAPENTIN 300MG CAP BID, 900mg HS FOR PAIN,ANXIETY, POOR SLEEP, AND HEADACHES FERROUS SULFATE 325MG DAILY ASCORBIC ACID 500MG TAB -FINASTERIDE 5MG TAB -TAMSULOSIN HCL 0.4MG -OXYBUTYNIN CHLORIDE 10MG EVERY MORNING FOR BLADDER INSTABILITY SILDENAFIL CITRATE 50MG OTC supplements: checked natural medicine -> possibly safe -release GOLO -Super beets -vit D -vit E -Mg -B12 FAMILY HISTORY: --DM: mother --Cancer: GF - ? 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 --Cohabitation: , living with his --Children: 2 --Diet: regular --Exercise: yard work, walking 30 min --Caffeine: none --EtOH: denies --Tob: quit >30 y ago --MJ: denies --Illicits:denies --Sexual activity: monogamous --Eye: UTD --Dental: UTD - [place] [facility] --Hospitalizations: #03/2022 covid, heart rate in 60s/70s, [...] assistance PHYSICAL EXAM: Vital Signs: Blood Pressure: 155/86 (08/25/2023 09:26)--> forget to take medications today am 150/68 (01/22/2023 10:51) --> manual repeat 135/70 171/74 (07/17/2022 09:36) Pulse: 56 (08/25/2023 09:26) Respiration: 18 Temperature: 97.7 F [36.5 C] (08/25/2023 09:26) BMI 30 Patient Weight: 207.6 lb [94.17 kg] (08/25/2023 09:26) 216 lb [97.98 kg] (01/22/2023 10:36) 218.6 lb [99.16 kg] (07/17/2022 09:36) Gen: pleasant, engaged, NAD neck: supple, no LAD Chest/CV: RRR Lungs: CTA B/L Abdomen: obese, BS+, Soft, NT/ND Extremities: no edema LABORATORY:08/2023 WBC: 6.98 HGB: 14.4 HCT: 43.7 MCV: 82.8 PLT: 237 HGB A1C (WR): 5.9 H ---> GLUCOSE: 104 H UREA NITROGEN: 18 CREATININE-EGFR: 1.56 H eGFR CKD-EPI 2020: 46 L MICROALB/CR RATIO: 114.6 H MICROALBUMIN URINE: 14.6 CREATININE URINE: 127.42 SODIUM: 139 POTASSIUM: 4.0 CHLORIDE: 104 CO2: 26 PROTEIN,TOTAL: 7.4 ALBUMIN: 4.0 ALKALINE PHOSPHATASE: 71 BILIRUBIN,TOT.: 0.7 SGOT: 27 SGPT: 33 CHOLESTEROL: 103 TRIGLYCERIDE: 116 LDL CHOL: 47 CHOL/HDL RATIO: 3.1 HDL: 33 L FERRITIN (WR): 159 TSH (Access): 2.55 PROSTATIC SP ANTIGEN: 1.58 WBC/HPF: 0-5 RBC/HPF: 0-2 MUCUS: FEW Color, Urine (AX 4280): Light-Yellow Appearance, Urine (AX 4280): Clear Glucose, Urine (AX 4280): NEGATIVE Ketones, Urine (AX 4280): NEGATIVE Blood, Urine (AX 4280): NEGATIVE Protein, Urine (AX 4280): 30 Nitrite, Urine (AX 4280): NEGATIVE Bilirubin, Urine (AX 4280): NEGATIVE Specific [place], (AX 4280): 1.017 pH, Urine ([id number]): 6.5 Urobilinogen, Urine (AX 4280): <2.0 Leukocyte Esterase, (AX 4280): TRACE IMAGING: #12/[address] evidence for [...] bigeminy, non specific TWA in inf leads ASSESSMENT/PLAN: Pt is 73 y/o M with PMH of obesity, HTN, HL, arrhythmia, CARLA on CPAP, RLS, BPH, PTSD here for follow-up #HTN:well controlled at home, today hypertensive, forgot to take medications this morning , goal BP <130/80 -c/w VALSARTAN 320mg -c/w AMLODIPINE 5MG c/w BP monitoring at home , PACt [facility] visit in 2-4 weeks for BP check EKG PAC in a pattern of bigeminy-pt asymptomatic 2022 CC cardiology evaluation holter and ECHO per pt unremarkable, no change in Rx, will obtain records #prediabetes A1C 5.9 #obesity BMI 30 -constinue great weight loss efforts -declined referral to [facility], nutrition #HL: h/o TIA, goal LDL <70, LDL 47 -rosuvastatin 40mg hs -asa 81mg #CARLA on CPAP -pt complinat with CPAP #BPH with urinary retention PVR 446 ml (08/2023) PSA 1.58, U/A negative FINASTERIDE 5MG , PSA 1.58 (08/2023) increase TAMSULOSIN to 0.8mg hs -referral to urology #OAB OXYBUTYNIN CHLORIDE 10MG d #h/o Iron deficiency, ferritin 159 d/c supplementation, check iron panel prior to next visit #ED on sildenafil #PTSD doing well -f/w [facility] Alpha Stim therapy good effect. 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 #RLS gabapentin 300mg bid, along with 900mg 90 minutes before bedtime #L illiac aneurysm: last US 11/2022 --> repeat [id number] stable right common iliac artery ectasia and stable left common iliac artery aneurysm Follow-up aortic ultrasound in 2-3 years Healthcare maintenance: --Lipids: LDL 47 (08/2023) --Diabetes: A1c 5.9 (08/2023) --Colon CA (50-75): due in 04/2030 colonoscopy 04/2020 one 8mm inflamatory polyp removed - --Lung CA: --PSA PSA 1.58 (08/2023) --AAA (smoker/65): 11/2022 no AAA --Influenza (yrly): 2022 --COVID: 2020x2 --PCV13 2016 --PCV23: 2019 --HZV [...] provider (X )request records from outside providers ==> PCP and cardiology [place] (with ECHO and holter results) Medication Reconciliation: Outpatient: Has the patient been taking medications as documented in the EMLR? YES: The patient has been taking medications as documented in the EMLR. Essential Medication List for Review used to complete this medication reconciliation. INCLUDED IN THIS LIST: Alphabetical list of active outpatient prescriptions dispensed from this [place] (local) and dispensed from another [place] or [facility] facility (remote) as well as [...] whether with a VA or non-VA provider. HTN Assess for Elevated BP>=140/90: Patient reported blood pressure Systolic BP 125 Diastolic BP 80 The patient's blood pressure is usually adequately controlled. No medication changes are indicated at this time. Comment: forgot ot take meds this morning /swetha/ JT NICOLE MD PHYSICIAN Signed: 08/25/2023 10:01 Receipt Acknowledged By: 08/25/2023 10:10 /swetha/ MAGDIEL YODER 08/25/2023 ADDENDUM STATUS: COMPLETED HOSIERY PAIRER REQUESTED RECORDS. /desi YODER Signed: 08/25/2023 10:10 09/24/2023 ADDENDUM STATUS: COMPLETED Cardiology note and Holter monitor reports received on 08/25/23, sent to scanning /swetha/ Gina Avitia RN Registered Nurse (RN) Signed: 09/24/2023 14:36 KATHERINE NICOLE [facility] Aug 03, 2023 11:30 AM MEDICATION MGT NOT E: LOCAL TITLE: OUTPATIENT MEDICATION REQUEST STANDARD TITLE: MEDICATION MGT NOTE DATE OF NOTE: AUG 03, 2023@11:30 ENTRY DATE: AUG 03, 2023@11:30:42 AUTHOR: VANDANA DING EXP COSIGNER: URGENCY: STATUS: COMPLETED Medication Request Date of Request: Jul OXYBUTYNIN CHLORIDE (DITROPAN XL) TAB,SA 10MG TAKE ONE TABLET BY MOUTH EVERY MORNING FOR BLADDER INSTABILITY Quantity: 30 Refills: 11 Requests for MAIL /swetha/ VANDANA DING RN REGISTERED NURSE Signed: 08/03/2023 11:31 Receipt Acknowledged By: 08/07/2023 09:40 /es/ JT NICOLE MD PHYSICIAN VANDANA DING
--- OUTSIDE RECORDS SUMMARY | 2024-04-05 09:53 | XMS_ITS | Encounter Summary ---
Author Name [facility] [place] Organization [facility] [place] [facility] [place] Address [address] [place] [address] Care Team Providers Care Bookmobile Librarian Name Role Phone JT NICOLE Primary Care [...] Patient's Relationship to Policy [place] BCBS OF [facility] PREFERRED PROVIDER ORGANIZAT ION (PPO) [facility] August 10, 2010 [id number] ZHOU QUINTERO RAY PATIENT [facility] (WNR) MEDICARE (M) [facility] (WNR) Apr 06, 2014 NO GROUP NUMBER [id number] INGRID,ZHOU RAY PATIENT JANE [facility] (WNR) MEDICARE ADVANTAGE [facility](W NR) Apr 06, 2015 [id number] INGRID,ZHOU RAY PATIENT JANE [facility] (WNR) MEDICARE ADVANTAGE [facility] (WNR) Apr 06, 2014 [id number] BOWLEXI,ZHOU RAY PATIENT Selected Encounter This section includes the information on record at [place] for the Encounter. Date/Time Encounter Type Encounter Description Reason Provider Source Jul 14, 2023 02:00 PM OFFICE O/P EST LOW 20 [facility] - IND ICD-10-CM F43.12 Post-traumatic stress disorder, chronic NEYMAR FALLON Zehra Encounter Template Text not used by [place] Assessments - Encounter Diagnoses This section includes the primary and secondary diagnoses documented for the Encounter. Date/Time Primary/Secondary Diagnosis Diagnosis Name Provider Source Jul 14, 2023 03:57 PM PRIMARY Post-traumatic stress disorder, chronic VASYLNEYMAR Justo [place] Plan of Treatment: Future Appointments (+ 6 months) and Future Tests (+/- 45 days) The Plan of Treatment section includes future care activities for the patient [facility] This section includes future appointments and future orders which are active, pending or scheduled. Future Appointments This section includes appointments that were scheduled to occur 6 months from the date of the Encounter, up to a maximum of 20 appointments. The data comes from all [place] treatment facilities. Appointment Date/Time Appointment Type Appointme nt Facility Name August 05, 2023 10:30 AM AMBULATORY - MEDICINE [facility] August 13, 2023 02:30 PM [facility] August 19, 2023 08:30 AM [facility] August 25, 2023 09:00 AM [facility] Sep 16, 2023 11:30 AM [facility] Oct 15, 2023 08:30 AM AMBULATORY - NONE [place] [facility] [place] [facility] Oct 20, 2023 01:00 PM AMBULATORY - PSYCHIATRY [facility] Oct 21, 2023 10:30 AM AMBULATORY - MEDICINE [place] C [facility]L [facility] [place] [facility] Nov 12, 2023 08:00 AM [facility] Nov 30, 2023 09:00 AM [facility] Lab Results: +/- 30 days of the encounter This section includes the Chemistry and Hematology Lab Results on record with [place] for the patient. Radiology Reports and Pathology Reports are provided separately, in subsequent sections. Lab Results This section contains the Chemistry/Hematology Results that were resulted 30 days before or 30 daysafter the date of the Encounter. Date/Time Source Result Type Result - Unit Interpretation Reference Range Comment August 05, 2023 07:53 AM [place] MICROSCOPIC AUTOMATED, URINE Specimen T ype: URINE Comment: If Glucose = >500 and Ketones are positive, please alert the Physician. Ordering Provider: JT BROUSSARD Report Released Date/Time: Jul 30, 2023 08:43 AM Reporting Lab: [facility] [address] [address] Performing Lab: [facility] [address] UA WBC 0-5 /[HPF] 0-5 UA MUCUS FEW /[LPF] Trace UA RBC 0-2 /[HPF] 0-3 August 05, 2023 07:53 AM [place] FERRITIN Specimen Type: SERUM No comment entered. Ordering Provider: JT BROUSSARD Report Released Date/Time: Jan 22, 2023 11:47 AM Reporting Lab: [facility] [address] [address] Performing Lab: [facility] [address] FERRITIN 159 ng/mL 20-300 August 05, 2023 07:53 AM [place] MICROALBUMIN CREATININE RATIO PANEL Spe cimen Type: URINE No comment entered. Ordering Provider: JT BROUSSARD Report Released Date/Time: Jan 22, 2023 11:47 AM Reporting Lab: [facility] [address] Performing Lab: [facility] [address] MICROALBUMIN/C REATININE RATIO 114.6 mg/g H 0-29.9 MICROALBUMIN,Q UANTITATIVE 14.6 mg/dL RR UNAVAIL CREATININE URINE 127.42 mg/dL August 05, 2023 07:53 AM [place] PSA Specimen Type: SERUM No comment entered. Ordering Provider: JT BROUSSARD Report Released Date/Time: Jan 22, 2023 11:47 AM Reporting Lab: [facility] [address] Performing Lab: [address] [address] PSA 1.58 ng/mL 0.00-4.00 August 05, 2023 07:53 AM [place] URINALYSIS Specimen Type: URINE Comment: If Glucose = >500 and Ketones are positive, please alert the Physician. Ordering Provider: JT BROUSSARD Report Released Date/Time: Jul 30, 2023 08:43 AM Reporting Lab: [address] [address] Performing Lab: [address] [address] UA COLOR Light-Yellow Yellow UA APPEARANCE Clear Clear UA GLUCOSE NEGATIVE mg/dL Negative UA KETONES NEGATIVE mg/dL Negative UA BLOOD NEGATIVE mg/dL Negative UA PROTEIN 30 mg/dL Negative UA NITRITE NEGATIVE mg/dL Negative UA BILIRUBIN NEGATIVE mg/dL Negative UA SPECIFIC GRAVITY 1.017 1.016-1.022 UA pH 6.5 5.0-9.0 UA UROBILINOGEN <2.0 mg/dL <2.0 UA LEUKOCYTE TRACE Negative August 05, 2023 07:53 AM [place] LIPID PANEL FASTING Specimen Type: SERUM No comment entered. Ordering Provider: JT BROUSSARD Report Released Date/Time: Jan 22, 2023 11:47 AM Reporting Lab: [address] [address] Performing Lab: [address] [address] CHOLESTEROL 103 mg/dL TRIGLYCERIDE 116 mg/dL 0-150 LDL calculated 47 mg/dL 0-129 CHOL/HDL 3.1 HDL CHOLESTEROL 33 mg/dL L 40-60 August 05, 2023 07:53 AM [place] BASIC METABOLIC PANEL (fasting) Specime n Type: SERUM No comment entered. Ordering Provider: JT BROUSSARD Report Released Date/Time: Jan 22, 2023 11:47 AM Reporting Lab: [address] [address] Performing Lab: [address] [place] [address] UREA NITROGEN 18 mg/dL 7-25 GLUCOSE 104 mg/dL H 65-100 SODIUM 139 mmol/L 135-145 POTASSIUM 4.0 mmol/L 3.5-5.0 CHLORIDE 104 mmol/L 100-110 CO2 26 meq/L 20-30 CREATININE, Serum 1.56 mg/dL H 0.50-1.40 eGFR(CKD-EPI 2020) 46 mL/min L >60 August 05, 2023 07:53 AM [place] LIVER FUNCTION Specimen Type: SERUM No comment entered. Ordering Provider: JT BROUSSARD Report Released Date/Time: Jan 22, 2023 11:47 AM Reporting Lab: [address] [address] Performing Lab: [address] [address] PROTEIN,TOTAL 7.4 g/dL 6.0-8.3 ALBUMIN 4.0 g/dL 3.5-5.0 ALKALINE PHOSPHATASE 71 U/L 40-150 AST 27 U/L 5-34 ALT 33 U/L BILIRUBIN, TOTAL 0.7 mg/dL 0.2-1.2 August 05, 2023 07:53 AM [place] HEMOGLOBIN A1C PANEL Specimen Type: BLOOD Comment: [...] Jan 22, 2023 11:47 AM Reporting Lab: [address] [address] Performing Lab: [address] [address] HEMOGLOBIN A1C 5.9 H 4.0-5.6 August 05, 2023 07:53 AM [place] TSH Specimen Type: SERUM No comment entered. Ordering Provider: JT BROUSSARD M Report Released Date/Time: Jan 22, 2023 11:47 AM Reporting Lab: [facility] [address] [address] Performing Lab: [place] CNTRL W[facility]N [facility] [address] [address] TSH 2.55 u[IU]/mL 0.35-5.00 August 05, 2023 07:53 AM [place] CBC AND DIFF (AUTO) Specimen Type: BLOOD No comment entered. Ordering Provider: JT BROUSSARD Report Released Date/Time: Jan 22, 2023 11:47 AM Reporting Lab: [facility] [address] [address] Performing Lab: [facility] [address] [address] WBC 6.98 10*3/uL 4.50-11.00 RBC 5.28 10*6/uL 4.23-5.66 HGB 14.4 g/dL 12.8-17 HCT 43.7 39.2-50.4 MCV 82.8 fL 82-99 MCHC 33.0 g/dL 30.8-35.1 PLT 237 10*3/uL 140-360 RDW-CV 12.7 12.0-16.0 [place], Abs 0.61 10*3/uL 0.30-1.10 MCH 27.3 pg 26.2-32.6 Neut % 62.8 43.7-75.8 Lymph % 25.4 14.0-42.3 [place] % 8.7 5.1-13.7 Eos % 2.4 0.4-6.8 [...] and tobacco- related health factors from the [place] facility where the Encounter took place. Current Smoking Status This section includes the most current smoking, or tobacco-related health factor, from the [place] facility where the Encounter took place. Date/Time Current Smoking Status Comment Anai ity Jul 14, 2023 02:00 PM VA-TOBACCO NEVER USED [place] Tobacco Use History This section includes a history of the smoking, or tobacco-related health factors, that were collected on or before the date of the Encounter. The data comes from the [place] facility where the Encounter took place. Date/Time Smoking Status/Tobacco Use Comment F acility August 05, 2022 02:30 PM VA-TOBACCO NEVER USED [place] September 03, 2021 09:30 AM VA-TOBACCO NEVER USED [place] Sep 25, 2020 09:30 AM VA-TOBACCO NEVER USED [place] Oct 12, 2019 10:35 AM VA-TOBACCO NEVER USED [place] August 31, 2018 08:55 AM VA-TOBACCO NEVER USED [place] Jul 30, 2017 09:07 AM LIFETIME NON-TOBACCO USER [place] Feb 17, 2017 10:23 AM QUIT TOBACCO USE 1-7 YEARS AGO [place] Dec 19, 2015 08:35 AM QUIT TOBACCO USE > 7 YEARS AGO [place] Advance Directives: All historical and current Section Date Range: From patient's date of to the date document was created. This section includes ALL of a patient's completed or amended [place] Advance and Rescinded Directives. The entries below indicate that a directive exists for the patient, but an actual copy is not included with this document. The data comes from all [place] facilities. Date Advance Directives Provider Source May 17, 2018 ADVANCE DIRECTIVE KEVIN DEAL [place] Lis NTRL WSTRP[facility] Pathology Reports: +/- 30 days of the [...] the Encounter. The data comes from all [place] treatment facilities. Date/Time Pathology Report Provider Source August 05, 2023 07:53 AM LR MICROBIOLOGY RE PORT: Reporting Lab: [facility] WSTRPablo [facility] [CLIA# [id number]] [address] [place] [address] Accession [UID]: [id number] [[id number]] Received: August 05, 2023@07:53 Collection sample: URINE CLEAN CATCH Collection date: August 05, 2023 07:53 Site/Specimen: URINE Provider: JT NICOLE Comment on specimen: cc Test(s) ordered: URINE CULTURE(MWROX).......... completed: August 10, 2023 10:39 * BACTERIOLOGY FINAL REPORT => August 10, 2023 10:39 TECH CODE: [id number] Bacteriology Remark(s): NO GROWTH IN 24 HOURS, FINAL REPORT TO FOLLOW. FINAL AEROBIC REPORT: NO GROWTH =--=--=--=--=--=--=--=--=--=--=--=--= --=--=--=--=--=--=--=--=--=--=--=--=- -=-- Performing Laboratory: Bacteriology Report Performed By: [facility] [CLIA# [id number]] [address] [place] [address] Bact Report Remark #2 Performed By: [facility] [CLIA# [id number]] [address] [place] [address] SUELLEN SHELL [place] Encounter Notes: All associated encounter notes This section contains the clinical notes associated to the Encounter. Date/Time Encounter Note(s) Provider Source Jul 14, 2023 02:20 PM CLINICAL NURSE SPE CIALIST NOTE: LOCAL TITLE: CLINICAL NURSE SPECIALIST/MENTAL HEALTH STANDARD TITLE: CLINICAL NURSE SPECIALIST NOTE DATE OF NOTE: JUL 14, 2023@14:20 ENTRY DATE: JUL 14, 2023@14:20:59 AUTHOR: NEYMAR FALLON EXP COSIGNER: URGENCY: STATUS: COMPLETED Pertinent symptoms: PTSD,chronic.- medication management In person visit - 22 min Active problems - Computerized Problem List is the source for the followin. Cannabis dependence 2. 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 Cannabis dependence, episodic 4. IRON DEFICIENCY 5. Elevated Prostate Specific antigen [psa] 6. Depressive Disorder NOS * 7. Anxiety * 8. PTSD, Chronic 9. Hypertension 10. Periph Vascular Dis 11. Acute, but ill-defined, cerebrovascular disease 12. Sleep apnea (SNOMED CT 03342255) 13. Restless Legs * The following VA and Non-VA medications were reconciled Dx PTSD- chronic - medication management. [facility]. He reports that he is in a new group of [employer] v[facility] and is doing very well. Followed by Jolie The following VA and Non-VA medications were reconciled with the patient: Active Outpatient Medications (including Supplies): AMLODIPINE BESYLATE 5MG TAB TAKE ONE TABLET BY MOUTH DAILY ACTIVE FOR BLOOD PRESSURE/HEART, DO NOT TAKE WITH GRAPEFRUIT JUICE BUPROPION HCL 150MG 12HR SA TAB TAKE ONE TABLET BY MOUTH ACTIVE EVERY MORNING FINASTERIDE 5MG TAB TAKE ONE TABLET BY MOUTH AT BEDTIME ACTIVE FOR PROSTATE GABAPENTIN 600MG TAB TAKE ONE TABLET BY MOUTH THREE TIMES ACTIVE A DAY HYDROXYZINE PAMOATE 50MG CAP TAKE ONE CAPSULE BY MOUTH ACTIVE THREE TIMES A DAY FOR ANXIETY OXYBUTYNIN CHLORIDE 10MG SA TAB TAKE ONE TABLET BY MOUTH ACTIVE EVERY MORNING FOR BLADDER INSTABILITY PRAVASTATIN NA 40MG TAB TAKE ONE TABLET BY MOUTH DAILY FOR ACTIVE CHOLESTEROL PRAZOSIN HCL 2MG CAP TAKE FOUR CAPSULES BY MOUTH AT ACTIVE BEDTIME SERTRALINE HCL 100MG TAB TAKE ONE TABLET BY MOUTH EVERY ACTIVE MORNING TAMSULOSIN HCL 0.4MG CAP TAKE ONE CAPSULE BY MOUTH AT ACTIVE BEDTIME VALSARTAN 160MG TAB TAKE ONE TABLET BY MOUTH DAILY ACTIVE Relevant mental status exam or other objective findings: Well groomed, friendly- wears shorts, cap sweatshirt Mild psychomotor restlessness(baseline) Thought process- goal directed Speech : normal rate and tone No a/v hallucination/ delusions. Judgement and insight -intact Orientation- x 3 Associations intact Recent and remote memory- intact Attention and concentration- good Language- intact Mild psychomotor restlessness(baseline Mood - mild anxiety No S/I PTSD symptoms: hypervigilance, revisiting memories have decreased since last visit, social withdrawal, sleep disturbance- in good control Assessment: Mood remains generally stable- . PTSD He has now returned to group at the [facility]. He states that he feels better about returning to group. He reports that family is well. Plan: Renew Bupropion 150mg SA daily , Zoloft 100mg daily, Hydroxyzine 50 mg for anxiety prn - can take up to 4 caps daily prn. Takes Prazosin 8 mg at hs, nightmares are infrequent - good response-takes all meds as prescribed- no side effects. Uses Alpha Stim Labs/Radiology/Tests/Consultation _x_ none ordered __ obtained: labs reviewed Rt in 3 months- in person visit The rationale for the psychiatric medications and the alternatives to treatment were discussed with the patient. The side effect profile of the psychiatric medications was reviewed with the patient. Patient demonstrated reasonable understanding of the medication side effects and the above issues. The benefits of psychiatric medications outweigh risks for this patient. Alcohol Use Screen (AUDIT-C): Alcohol Screen: SCREEN FOR ALCOHOL (AUDIT-C) An alcohol screening test (AUDIT-C) was negative (score=0). 1. How often did you have a drink containing alcohol in the past year? Consider a drink to be a 12 ounce can or bottle of regular beer, 8 ounces of malt liquor, a 5 ounce glass of table wine, or a 1.5 ounce shot of liquor (like scotch, gin, or vodka). Never 2. How many drinks containing alcohol did you have on a typical day when you were drinking in the past year? Response not required due to responses to other questions. 3. How often did you have six or more drinks on one occasion in the past year? Response not required due to responses to other questions. Tobacco Use Screening: The patient has never used tobacco. Medication Reconciliation: Outpatient: Has the patient been taking medications as documented in the EMLR? YES: The patient has been taking medications as documented in the EMLR. Essential Medication List for Review used to complete this medication reconciliation. INCLUDED IN THIS LIST: Alphabetical list of active outpatient prescriptions dispensed from this [facility] (local) and dispensed from another [place] or [facility] facility (remote) as well as [...] whether with a VA or non-VA provider. Depression Screening: Perform PHQ-2 A PHQ-2 screen was performed. The score was 1 which is a negative screen for depression. Over the past two weeks, how often have you been bothered by the following problems? 1. Little interest or pleasure in doing things Not at all 2. Feeling down, depressed, or hopeless Several days /es/ Neymar Fallon APRN, STAFF CLINICAL NURSE SPECIALIST Signed: 07/14/2023 15:58 NEYMAR FALLON
--- OUTSIDE RECORDS SUMMARY | 2024-04-05 09:53 | XMS_ITS ---
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 Name Role Phone JT NICOLE Primary Care [...] Patient's Relationship to Policy [place] BCBS OF [facility] PREFERRED PROVIDER ORGANIZAT ION (PPO) [facility] August 10, 2010 [id number] BOWDER,RO RAY PATIENT [facility] (WNR) MEDICARE (M) [facility] (WNR) Apr 06, 2014 NO GROUP NUMBER [id number] BOWDER,RO RAY PATIENT [facility] (WNR) MEDICARE ADVANTAGE [facility](W NR) Apr 06, 2015 [id number] FRANSICODER,RO RAY PATIENT [facility] (WNR) MEDICARE [facility] (WNR) Apr 06, 2014 [id number] BOWDER,RO RAY PATIENT Selected Encounter This section includes the information on record at [place] for the Encounter. Date/Time Encounter Type Encounter Description Reason Pro vider Source Jul 13, 2023 12:54 PM Outpatient Encounter TELEPHONE MH IHE Encounter Template Text not used by [place] Plan of Treatment: Future Appointments (+ 6 months) and Future Tests (+/- 45 days) The Plan of Treatment section includes future care activities for the patient from all [place] treatmentfacilities. This section includes future appointments and future orders which are active, pending or scheduled. Future Appointments This section includes appointments that were scheduled to occur 6 months from the date of the Encounter, up to a maximum of 20 appointments. The data comes from all [place] treatment facilities. Appointment Date/Time Appointment Type Appointme nt Facility Name Jul 14, 2023 02:00 PM AMBULATORY - PSYCHIATRY [facility] August 05, 2023 10:30 AM AMBUL[facility] MED[facility]INE [facility] August 13, 2023 02:30 PM [facility] August 19, 2023 08:30 AM [facility] August 25, 2023 09:00 AM [facility]ORY - MEDICINE [facility] Sep 16, 2023 11:30 AM AMBULATORY - MEDICINE [facility] Oct 15, 2023 08:30 AM AMBULATORY - NONE [place] [facility] [place] [facility] Oct 20, 2023 01:00 PM AMBULATORY - PSYCHIATRY [facility] Oct 21, 2023 10:30 AM AMBULATORY - MEDICINE [place] [facility] [place] [facility] Nov 12, 2023 08:00 AM AM[facility] Nov 30, 2023 09:00 AM AMBULATORY - NONE [place] [facility] [place] [facility] Lab Results: +/- 30 days of the encounter This section includes the Chemistry and Hematology Lab Results on record with [place] for the patient. Radiology Reports and Pathology Reports are provided separately, in subsequent sections. Lab Results This section contains the Chemistry/Hematology Results that were resulted 30 days before or 30 daysafter the date of the Encounter. Date/Time Source Result Type Result - Unit Interpretation Reference Range Comment August 05, 2023 07:53 AM [facility] MICROSCOPIC AUTOMATED, URINE Specimen T ype: URINE Comment: If Glucose = >500 and Ketones are positive, please alert the Physician. Ordering Provider: JT BROUSSARD Report Released Date/Time: Jul 30, 2023 08:43 AM Reporting Lab: [facility] [place] [facility] [address] [facility] [address] Performing Lab: [facility] [address] [facility] [address] UA WBC 0-5 /[HPF] 0-5 UA MUCUS FEW /[LPF] Trace UA RBC 0-2 /[HPF] 0-3 August 05, 2023 07:53 AM [facility] FERRITIN Specimen Type: SERUM No comment entered. Ordering Provider: JT BROUSSARD Report Released Date/Time: Jan 22, 2023 11:47 AM Reporting Lab: [address] [address] Performing Lab: [address] [address] FERRITIN 159 ng/mL 20-300 August 05, 2023 07:53 AM [facility] MICROALBUMIN CREATININE RATIO PANEL Spe cimen Type: URINE No comment entered. Ordering Provider: JT BROUSSARD Report Released Date/Time: Jan 22, 2023 11:47 AM Reporting Lab: [address] [address] Performing Lab: [address] [address] MICROALBUMIN/C REATININE RATIO 114.6 mg/g H 0-29.9 MICROALBUMIN,Q UANTITATIVE 14.6 mg/dL RR UNAVAIL CREATININE URINE 127.42 mg/dL August 05, 2023 07:53 AM [facility] PSA Specimen Type: SERUM No comment entered. Ordering Provider: JT BROUSSARD Report Released Date/Time: Jan 22, 2023 11:47 AM Reporting Lab: [address] [address] Performing Lab: [address] [address] PSA 1.58 ng/mL 0.00-4.00 August 05, 2023 07:53 AM [facility] URINALYSIS Specimen Type: URINE Comment: If Glucose = >500 and Ketones are positive, please alert the Physician. Ordering Provider: JT BROUSSARD Report Released Date/Time: Jul 30, 2023 08:43 AM Reporting Lab: [address] [address] Performing Lab: [address] [address] UA COLOR Light-Yellow Yellow UA APPEARANCE Clear Clear UA GLUCOSE NEGATIVE mg/dL Negative UA KETONES NEGATIVE mg/dL Negative UA BLOOD NEGATIVE mg/dL Negative UA PROTEIN 30 mg/dL Negative UA NITRITE NEGATIVE mg/dL Negative UA BILIRUBIN NEGATIVE mg/dL Negative UA SPECIFIC GRAVITY 1.017 1.016-1.022 UA pH 6.5 5.0-9.0 UA UROBILINOGEN <2.0 mg/dL <2.0 UA LEUKOCYTE TRACE Negative August 05, 2023 07:53 AM [facility] LIPID PANEL FASTING Specimen Type: SERUM No comment entered. Ordering Provider: JT BROUSSARD Report Released Date/Time: Jan 22, 2023 11:47 AM Reporting Lab: [address] [address] Performing Lab: [address] [address] CHOLESTEROL 103 mg/dL TRIGLYCERIDE 116 mg/dL 0-150 LDL calculated 47 mg/dL 0-129 CHOL/HDL 3.1 HDL CHOLESTEROL 33 mg/dL L 40-60 August 05, 2023 07:53 AM [facility] BASIC METABOLIC PANEL (fasting) Specime n Type: SERUM No comment entered. Ordering Provider: JT BROUSSARD Report Released Date/Time: Jan 22, 2023 11:47 AM Reporting Lab: [address] [address] Performing Lab: [address] [address] UREA NITROGEN 18 mg/dL 7-25 GLUCOSE 104 mg/dL H 65-100 SODIUM 139 mmol/L 135-145 POTASSIUM 4.0 mmol/L 3.5-5.0 CHLORIDE 104 mmol/L 100-110 CO2 26 meq/L 20-30 CREATININE, Serum 1.56 mg/dL H 0.50-1.40 eGFR(CKD-EPI 2020) 46 mL/min L >60 August 05, 2023 07:53 AM [facility] LIVER FUNCTION Specimen Type: SERUM No comment entered. Ordering Provider: JT BROUSSARD Report Released Date/Time: Jan 22, 2023 11:47 AM Reporting Lab: [facility] [address] [facility] [address] Performing Lab: [facility] [address] [facility] [address] PROTEIN,TOTAL 7.4 g/dL 6.0-8.3 ALBUMIN 4.0 g/dL 3.5-5.0 ALKALINE PHOSPHATASE 71 U/L 40-150 AST 27 U/L 5-34 ALT 33 U/L BILIRUBIN, TOTAL 0.7 mg/dL 0.2-1.2 August 05, 2023 07:53 AM [facility] HEMOGLOBIN A1C PANEL Specimen Type: BLOOD Comment: [...] Jan 22, 2023 11:47 AM Reporting Lab: [address] [address] Performing Lab: [facility] [address] [address] HEMOGLOBIN A1C 5.9 H 4.0-5.6 August 05, 2023 07:53 AM [facility] TSH Specimen Type: SERUM No comment entered. Ordering Provider: JT BROUSSARD Report Released Date/Time: Jan 22, 2023 11:47 AM Reporting Lab: [address] [address] Performing Lab: [address] [place] [address] TSH 2.55 u[IU]/mL 0.35-5.00 August 05, 2023 07:53 AM [facility] CBC AND DIFF (AUTO) Specimen Type: BLOOD No comment entered. Ordering Provider: JT BROUSSARD Report Released Date/Time: Jan 22, 2023 11:47 AM Reporting Lab: [place] [facility] [address] [address] Performing Lab: [place] [facility] [address] [address] WBC 6.98 10*3/uL 4.50-11.00 RBC 5.28 10*6/uL 4.23-5.66 HGB 14.4 g/dL 12.8-17 HCT 43.7 39.2-50.4 MCV 82.8 fL 82-99 MCHC 33.0 g/dL 30.8-35.1 PLT 237 10*3/uL 140-360 RDW-CV 12.7 12.0-16.0 Christian, Abs 0.61 10*3/uL 0.30-1.10 MCH 27.3 pg 26.2-32.6 Neut % 62.8 43.7-75.8 Lymph % 25.4 14.0-42.3 Christian % 8.7 5.1-13.7 Eos % 2.4 0.4-6.8 [...] and tobacco- related health factors from the [place] facility where the Encounter took place. Current Smoking Status This section includes the most current smoking, or tobacco-related health factor, from the [place] facility where the Encounter took place. Date/Time Current Smoking Status Comment Facility August 30, 2009 09:45 AM QUIT TOBACCO USE > 7 YEARS AGO quit about 25 years ago [facility] Advance Directives: All historical and current Section Date Range: From patient's date of to the date document was created. This section includes ALL of a patient's completed or amended [place] Advance and Rescinded Directives. The entries below indicate that a directive exists for the patient, but an actual copy is not included with this document. The data comes from all [place] facilities. Date Advance Directives Provider Source May 17, 2018 [facility] Pathology Reports: +/- 30 days of [...] the Encounter. The data comes from all [place] treatment facilities. Date/Time Pathology Report Provider Source August 05, 2023 07:53 AM LR MICROBIOLOGY RE PORT: Reporting Lab: [facility] [CLIA# [id number]] [address] [place] [address] Accession [UID]: [id number] [[id number]] Received: August 05, 2023@07:53 Collection sample: URINE CLEAN CATCH Collection date: August 05, 2023 07:53 Site/Specimen: URINE Provider: JT NICOLE Comment on specimen: cc Test(s) ordered: URINE CULTURE(MWROX).......... completed: August 10, 2023 10:39 * BACTERIOLOGY FINAL REPORT => August 10, 2023 10:39 TECH CODE: [id number] Bacteriology Remark(s): NO GROWTH IN 24 HOURS, FINAL REPORT TO FOLLOW. FINAL AEROBIC REPORT: NO GROWTH =--=--=--=--=--=--=--=--=--=--=--=--= --=--=--=--=--=--=--=--=--=--=--=--=- -=-- Performing Laboratory: Bacteriology Report Performed By: [facility] [CLIA# [id number]] [address] [place] [address] Bact Report Remark #2 Performed By: [facility] [CLIA# [id number]] [address] [place] [address] [facility] Encounter Notes: All associated encounter notes This section contains the clinical notes associated to the Encounter. Date/Time Encounter Note(s) Provider Source Jul 13, 2023 12:54 PM MENTAL HEALTH NOTE : LOCAL TITLE: TC BHIP CC ASSIGNMENT STANDARD TITLE: MENTAL HEALTH NOTE DATE OF NOTE: JUL 13, 2023@12:54 ENTRY DATE: JUL 13, 2023@12:55:05 AUTHOR: JULIENNE REEVES EXP COSIGNER: URGENCY: STATUS: COMPLETED Mental Health Creative Perfumer Assignment Reassignment The [facility]'s current Mental Health Creative Perfumer (MHTC) is: MH Treatment Team: TOBIAS Power MH Creative Perfumer: LIANET DING Office , [phone] Analog Pager: Digital Pager: This note documents the REASSIGNMENT of the [facility] Creative Perfumer (MHTC) on Jul. New MHTC name: Roxana Soto RN MHTC Contact Information: [phone] This 's existing MHTC was reassigned due to: [facility] is transitioning to a new BHIP Team /swetha/ JULIENNE BYERS WORK[employer] COMP[employer]ATION HEARINGS OFFICER Signed: 07/13/2023 12:55 JULIENNE REEVES [place] [facility]
--- NOTE | 2024-04-05 09:54 | AM.OFFVISMDC ---
Intake Vital Signs 04/05/24 09:52 04/05/24 09:59 Height 6 ft Weight 217 lb BMI 29.4 29.4 BP 136/74 Blood Pressure Location Lt brachial Position Sitting Pulse 68 Pulse Source Pulse Oximeter Pulse Oximetry (%) 97 Oxygen Delivery Method Room Air Intake Visit Reasons: Wellness visit PE Sub Intake Note: Pt is here today for AWV. Allergies red dye [RED DYE] Allergy (Unknown, Verified 04/05/24 09:54) + ALLERGY TEST shellfish derived [SHELLFISH DERIVED] Allergy (Unknown, Verified 04/05/24 09:54) + ALLERGY TEST codeine Allergy (Verified 04/05/24 09:54) upset stomach Medication List - Last Reconciled 04/05/24 by Teresa Lyn MD amlodipine 5 mg PO DAILY aspirin 81 mg PO DAILY bupropion HCl 150 mg PO DAILY finasteride 5 mg PO BEDTIME gabapentin 600 mg PO TID hydroxyzine HCl 50 mg PO TID oxybutynin chloride 10 mg PO DAILY prazosin 2 mg PO BEDTIME rosuvastatin 40 mg PO DAILY sertraline 100 mg PO DAILY tamsulosin 0.4 mg PO DAILY@1700 valsartan 320 mg PO DAILY HPI Wellness visit PE Sub HPI Details Initiated the conversation about Advanced Directives. Advanced Directives help? patients prepare for current and future decisions about their medical treatment? and place of care. Discussed with patient that it is a process where a patients? current condition and prognosis are reviewed, their wishes for information? regarding their illness are elicited, and likely medical dilemmas are presented? and options discussed. The form can be amended as needed, reviewed yearly and? make changes as needed IPPE/AWV ? year old presents? for her ? Annual? Wellness Visit, initial visit.? Medical / Social History Reviewed? Past Medical History ?Yes? . ? [place]? of Care / Care Team list updated ?Yes . ? Surgical/Hospitalization? History ?Yes . ? Current Medications? (including OTC and supplements) ?Yes . ? Family History ?Yes? . ? Tobacco? Control form ?Yes . ? AUDIT-C (Alcohol use) form? ?Yes . ? Illicit drug use in Social? History ?Yes . ? Current diagnosis of? depression? ?No ? Appropriate PHQ2/PHQ9? completed ?Yes . ? Data entered by ?Medical? Water Softener Servicer And Installer and reviewed by provider ? Fall Risk ? Fall? History? Have you had any falls with? injury in the past year? ?No . ? Have you had two or more? falls in the past year? ?No . ? Fall Risk Assessment: ?No? falls in the past year . ? HRA filled out by? the patient, reviewed by Provider and scanned. ? IPPE/AWV ? Balance? [place]? ?Yes . ? Tandem? walk ?Yes . ? Walk and? Turn ?Yes . ? Rise from? sit to stand ?Yes . ?Vision? Corrective? lens ?Yes ? Vision? screen ? Up-to-date, has an appointment [] for vision? screening and glaucoma screening ?Hearing? Whisper? test ?pass .? Initiated the conversation about Advanced Directives. Advanced Directives help? patients prepare for current and future decisions about their medical treatment? and place of care. Discussed with patient that it is a process where a patients? current condition and prognosis are reviewed, their wishes for information? regarding their illness are elicited, and likely medical dilemmas are presented? and options discussed. The form can be amended as needed, reviewed yearly and? make changes as needed Written? Plan?Completed. See Patient? Documents. Pt presents for annual.Pt c/o nasal congestion postnasal drip productive cough and low grade fever for 10 days. He denies pleurisy shortness or breath. [facility] and [facility] PCP's every 6 month getting blood work done twice a year.. [facility] Medical History (Updated 04/05/24 @ 10:39 by Teresa Lyn MD) Arrhythmia Back pain History of hepatitis B Osteoarthritis Hx-TIA (transient ischemic attack) Aortic aneurysm Sleep apnea RLS (restless legs syndrome) HTN (hypertension) Post traumatic stress disorder (PTSD) Depression Prostatitis Hyperlipidemia Anxiety Surgical History (Updated 04/05/24 @ 10:40 by Teresa Lyn MD) Hx of detached retina repair S/P left knee arthroscopy History of total left knee replacement History of tonsillectomy Family History Father No problems noted. Mother No problems noted. Social History Housing: House Alcohol intake: never Patient Tobacco Use Status: Never used Tobacco e-Cigarette/Vaping Use: Never Used Current occupational status: retired Current occupation: Right Handed Cognitive needs: No Hearing needs: No Vision needs: No Questionnaire Medicare Wellness Checkup What [age] What gender do you identify with?: male During the past 4 weeks, how much have you been bothered by emotional problems such as feeling anxious, depressed, irritable, sad or downhearted, and blue?: quite a bit During the past 4 weeks, has your physical & emotional health limited your social activities with family, friends, neighbors, or groups?: moderately During the past 4 weeks, how much bodily pain have you generally had?: moderate pain During the past 4 weeks, was someone available to help you if you needed & wanted help?: yes, quite a bit During the past 4 weeks, what was the hardest physical activity you could do for at least 2 minutes?: moderate Can you get to places out of walking distance without help? (For eg., can you travel alone on buses, taxis or drive your car?): Yes Can you go shopping for groceries or clothes without someone's help?: Yes Can you prepare your own meals?: Yes Can you do your housework without help?: Yes Because of any health problems, do you need the help of another person with your personal care needs such as eating, bathing, dressing or getting around the house?: No Can you handle your own money without help?: Yes During the past 4 weeks, how would you rate your health in general?: poor During the past 4 weeks how have things been going for you?: good & bad parts about equal Are you having difficulties driving your car?: no Do you always fasten your seat belt when you are in a car?: yes, usually During past 4 weeks, have you been bothered by the following: never: Teeth or denture problems? and Problems using the telephone?, seldom: Trouble eating well?, sometimes: Falling or dizzy when standing up and Tiredness or fatigue? and always: Sexual problems? Have you fallen 2 or more times in the past year?: No Are you afraid of falling?: No Are you a smoker?: no During the past 4 weeks, how many drinks of wine, beer, or other alcoholic beverages did you have?: no alcohol at all Do you exercise for about 20 minutes 3 or more times a week?: no, I usually do not exercise this much Have you been given information to help with the following?: no: Hazards in your house that might hurt you? and no: Keeping track of your medications? How often do you have trouble taking medicines the way you have been told to take them?: I always take medicine as prescribed How confident are you that you can control & manage most of your health problems?: very confident What is your race?: White Mini Mental State Exam (MMSE) Orientation What is the (year) (season) (date) (day) (month)?: year, season, date, day and month Where are we (state) (county) (town or city) (hospital) (floor)?: state, county, town or city, hospital/clinic and floor Registration Name of 3 unrelated objects clearly and slowly, then ask patient to repeat all 3 of them. (1st repeat determines score. Make sure they can repeat all three): object 1, object 2 and object 3 Attention & Calculation (CHOOSE ONE) Spell WORLD backwards (DLROW): 5 letters Recall Ask patient to repeat the 3 items from question #3.: object 1, object 2 and object 3 Language Show patient a wristwatch & ask what it is. Repeat for pencil.: watch and pencil Ask the patient to repeat the phrase 'No ifs, ands, or buts' after you.: correct Ask the patient to 'take a piece of paper with their right hand' 'fold paper in half' 'place paper on floor': take paper in right hand, fold paper in half and place paper on floor Print the sentence 'CLOSE YOUR EYES' on a piece. If patient actually closes eyes then score.: followed written direction Give patient a blank piece of paper & ask to write a sentence. Score if it contains a noun & verb.: sentence contains subject and verb Score Score: 29 PHQ-9 Over the last 2 weeks, how often have you been bothered by any of the following problems? 1. Little interest or pleasure in doing things: nearly every day 2. Feeling down, depressed, or hopeless: not at all 3. Trouble falling or staying asleep, or sleeping too much: several days 4. Feeling tired or having little energy: more than half the days 5. Poor appetite or overeating: several days 6. Feeling bad about yourself - or that you are a failure or have let yourself or your family down: several days 7. Trouble concentrating on things, such as reading the newspaper or watching television: more than half the days 8. Moving or speaking so slowly that other people could have noticed. Or the opposite - being so fidgety or restless that you have been moving around a lot more than usual: several days 9. Thoughts that you would be better off or of hurting yourself in some way: not at all Total score: 11 Depression Screening Interpretation: Positive Depression Screening Done: Yes 33319 - PHQ-9 Billing: Yes Source: Developed by Drs. Gwyn Cooper, Vaishnavi Calzada, Brian Smith and colleagues, with an educational vasquez from [employer]. Review of Systems Const All systems reviewed & are unremarkable except as noted in HPI and below Eyes Reports no additional complaints ENT Reports no additional complaints Card Reports no additional complaints Resp Reports no additional complaints GI Reports no additional complaints Reports no additional complaints Physical Exam Vital Signs: Last Vital Signs Pulse 68 04/05/24 09:52 BP 136/74 04/05/24 09:52 Pulse Ox 97 04/05/24 09:52 Oxygen Delivery Method Room Air 04/05/24 09:52 BMI result Body Mass Index 29.4 Const General: no acute distress HEENT Head: Yes normal to inspection Ears: TM's normal bilaterally Face and sinus: Yes normal facial exam Throat: Yes postnasal drainage Eyes General: appearance normal, both eyes and all related structures Neck Neck: Yes no lymphadenopathy and Yes supple Resp Effort & Inspection: normal respiratory effort Auscultation: clear to auscultation bilaterally Cardio Rhythm: regular rhythm Heart sounds: S1 normal heart sound present and S2 normal heart sound present GI Inspection: Yes normal to inspection Palpation (GI): Soft to palpation Percussion: Yes normal to percussion Auscultation: normal bowel sounds Extrem General: Yes no clubbing, cyanosis or edema Assessment & Plan Assessment & Plan (1) Aortic aneurysm: Comment: and iliac , f/u with [facility] Code(s): I71.9 - Aortic aneurysm of unspecified site, without rupture Plan: Patient is established with [facility] system (2) HTN (hypertension): Code(s): I10 - Essential (primary) hypertension Plan: Continue current medications (3) Hyperlipidemia: Code(s): E78.5 - Hyperlipidemia, unspecified Plan: Continue statin (4) Depression: Comment: Patient is established with a counselor and psychiatrist at [facility] Code(s): F32.9 - Major depressive disorder, single episode, unspecified Plan: Continue current medications follow-up with psychiatrist and a counselor (5) Sleep apnea: Comment: Compliant with cpap Code(s): G47.30 - Sleep apnea, unspecified Plan: Continue CPAP (6) History of colonoscopy: Comment: negative at [facility] Code(s): Z98.890 - Other specified postprocedural states Plan: [facility] Medications: New doxycycline hyclate 100 mg PO BID 10 tabs 0RF doxycycline hyclate 100 mg PO BID 10 tabs 0RF Quality Reporting (2019) Depression/Bipolar (159/160/161/177) PHQ-9: Total score: 11 Coding Level of Care Code Medicare Subsequent (G0439) Diagnoses Aortic aneurysm I71.9 HTN (hypertension) I10 Hyperlipidemia E78.5 Depression F32.9 Sleep apnea G47.30 History of colonoscopy Z98.890 CPT Codes Advance Care Planning - Time spent: 1-15 minutes, not on file ([id number]) Additional Codes PHQ-9 - 54626 - PHQ-9 Billing: Yes ([id number]) Advance Care Planning Advance Care Planning discussion: Exists, not on file Forms completed: Health Care Proxy Time spent: 1-15 minutes, not on file Did not discuss due to Cultural/Spiritual beliefs: Yes
--- OUTSIDE RECORDS SUMMARY | 2024-04-05 09:54 | XMS_ITS ---
Author Name [facility] [place] Address [address] [place] [address] Care Team Providers Care Tape Coater Name Role Phone JT NICOLE Primary Care [...] Patient's Relationship to Policy [place] BCBS OF [facility] PREFERRED PROVIDER ORGANIZAT ION (PPO) [facility] August 10, 2010 [id number] [phone] BOWDER,RO RAY PATIENT [facility] (WNR) MEDICARE (M) [facility] (WNR) Apr 06, 2014 NO GROUP NUMBER [id number] BOWDER,RO RAY PATIENT [facility] (WNR) MEDICARE ADVANTAGE [facility](W NR) Apr 06, 2015 [id number] BOWDER,RO RAY PATIENT [facility] (WNR) MEDICARE ADVANTAGE [facility] (WNR) Apr 06, 2014 [id number] BOWDER,RO RAY PATIENT Selected Encounter This section includes the information on record at [place] for the Encounter. Date/Time Encounter Type Encounter Description Reason Pro vider Source Sep 10, 2023 07:37 AM Outpatient Encounter PRIMARY CARE/MEDICINE IHE Encounter Template Text not used by [place] Plan of Treatment: Future Appointments (+ 6 months) and Future Tests (+/- 45 days) The Plan of Treatment section includes future care activities for the patient [facility] [place] [facility]. This section includes future appointments and future orders which are active, pending or scheduled. Future Appointments This section includes appointments that were scheduled to occur 6 months from the date of the Encounter, up to a maximum of 20 appointments. The data comes from all [place] treatment facilities. Appointment Date/Time Appointment Type Appointme nt Facility Name Sep 16, 2023 11:30 AM AMBULATORY - MEDICINE [facility] Oct 15, 2023 08:30 AM [facility] Oct 20, 2023 01:00 PM AMBULATORY - PSYCHIATRY [facility] Oct 21, 2023 10:30 AM AM[place]UL[place]ORY - MEDICINE [place] [facility] [facility] Nov 12, 2023 08:00 AM AMBULATORY - MEDICINE [facility] Nov 30, 2023 09:00 AM [facility] Jan 19, 2024 11:00 AM AMBULATORY - PS[facility]CHIATRY [facility] Social History: Smoking Status (Most current) and Tobacco Use (All prior to encounter date) This section includes the most current, and the historical, smoking and tobacco- related health factors from the [place] facility where the Encounter took place. Current Smoking Status This section includes the most current smoking, or tobacco-related health factor, from the [place] facility where the Encounter took place. Date/Time Current Smoking Status Comment Facility August 30, 2009 09:45 AM QUIT TOBACCO USE > 7 YEARS AGO [facility] about 25 years [facility] Advance Directives: All historical and current Section Date Range: From patient's date of to the date document was created. This section includes ALL of a patient's completed or amended [place] Advance and Rescinded Directives. The entries below indicate that a directive exists for the patient, but an actual copy is not included with this document. The data comes from all [place] facilities. Date Advance Directives Provider Source May 17, 2018 ADVANCE DIRECTIVE KEVIN DEAL [place] [facility] Encounter Notes: All associated encounter notes This section contains the clinical notes associated to the Encounter. Date/Time Encounter Note(s) Provider Source Sep 10, 2023 07:37 AM PRIMARY CARE SECUR E MESSAGING: LOCAL TITLE: PRIMARY CARE SECURE MESSAGING STANDARD TITLE: PRIMARY CARE SECURE MESSAGING DATE OF NOTE: SEP 10, 2023@07:37 ENTRY DATE: SEP 10, 2023@08:37:58 AUTHOR: MAGDIEL HUTTON EXP COSIGNER: URGENCY: STATUS: COMPLETED ------Original Message ----- Sent: 09/09/2023 04:42 PM ET From: LON QUINTERO To: CORE[facility] Subject: Medication:new scripts Hello, I have some scripts that need to be re-written. thank you. stay blesilvioed /swetha/ MAGDIEL YODER Signed: 09/10/2023 08:37 Receipt Acknowledged By: 09/14/2023 12:52 /swetha/ VANDANA DING RN REGISTERED NURSE 09/16/2023 08:31 /swetha/ GEORGIE FLORES LPN, [facility]
--- OUTSIDE RECORDS SUMMARY | 2024-04-05 09:54 | XMS_ITS | Encounter Summary ---
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 August 10, 2010 [id number] BOWDER,ZHOU RAY PATIENT [facility] (WNR) MEDICARE (M) [facility] (WNR) Apr 06, 2014 NO GROUP NUMBER [id number] BOWDER,RO RAY PATIENT [facility] (WNR) MEDICARE ADVANTAGE [facility](W NR) Apr 06, 2015 [id number] FRANSICODER,RO RAY PATIENT [facility] (WNR) MEDICARE ADVANTAGE [facility] (WNR) Apr 06, 2014 [id number] BOWDER,ZHOU RAY PATIENT Selected Encounter This section includes the information on record at CT for the Encounter. Date/Time Encounter Type Encounter Description Reason Provider Source August 13, 2023 02:30 PM OFF/OP EST MAY X REQ PHY/QHP PRIMARY CARE/MEDICINE ICD-10-CM R39.15 Urgency of urination VANDAAN DING Encounter Template Text not used by CT Assessments - Encounter Diagnoses This section includes the primary and secondary diagnoses documented for the Encounter. Date/Time Primary/Secondary Diagnosis Diagnosis Name Provider Source August 13, 2023 03:14 PM PRIMARY Urgency of urination VANADNA DING August 13, 2023 03:14 PM SECONDARY Benign prostatic hyperplasia without lower urinry tract symp VANDANA DING Plan of Treatment: Future Appointments (+ 6 months) and Future Tests (+/- 45 days) The Plan of Treatment section includes future care activities for the patient [facility] This section includes future appointments and future orders which are active, pending or scheduled. Future Appointments This section includes appointments that were scheduled to occur 6 months from the date of the Encounter, up to a maximum of 20 appointments. The data comes from all CT treatment facilities. Appointment Date/Time Appointment Type Appointme nt Facility Name August 19, 2023 08:30 AM AMBULATORY - MEDICINE [facility] August 25, 2023 09:00 AM [facility] Sep 16, 2023 11:30 AM AMBULATORY - MEDICINE [facility] Oct 15, 2023 08:30 AM AMBULATORY - NONE [facility] Oct 20, 2023 01:00 PM AMBULATORY - PSYCHIATRY [facility] Oct 21, 2023 10:30 AM [facility] Nov 12, 2023 08:00 AM AM[facility]ULAT[facility] - MEDICINE [facility] Nov 30, 2023 09:00 AM AMBULATORY - NONE [facility] Jan 19, 2024 11:00 AM AMBULATORY - PSYCHIATRY [facility] Lab Results: +/- 30 days of the encounter This section includes the Chemistry and Hematology Lab Results on record with CT for the patient. Radiology Reports and Pathology Reports are provided separately, in subsequent sections. Lab Results This section contains the Chemistry/Hematology Results that were resulted 30 days before or 30 daysafter the date of the Encounter. Date/Time Source Result Type Result - Unit Interpretation Reference Range Comment August 05, 2023 07:53 AM [place] MICROSCOPIC AUTOMATED, URINE Specimen T ype: URINE Comment: If Glucose = >500 and Ketones are positive, please alert the Physician. Ordering Provider: JT BROUSSARD Report Released Date/Time: Jul 30, 2023 08:43 AM Reporting Lab: [facility] [address] [address] Performing Lab: [facility] [address] [address] UA WBC 0-5 /[HPF] 0-5 UA MUCUS FEW /[LPF] Trace UA RBC 0-2 /[HPF] 0-3 August 05, 2023 07:53 AM [facility] PSA Specimen Type: SERUM No comment entered. Ordering Provider: JT BROUSSARD Report Released Date/Time: Jan 22, 2023 11:47 AM Reporting Lab: [address] [address] Performing Lab: [address] [address] PSA 1.58 ng/mL 0.00-4.00 August 05, 2023 07:53 AM [facility] MICROALBUMIN CREATININE RATIO PANEL Spe cimen Type: URINE No comment entered. Ordering Provider: JT BROUSSARD Report Released Date/Time: Jan 22, 2023 11:47 AM Reporting Lab: [address] [address] Performing Lab: [facility] [address] MICROALBUMIN/C REATININE RATIO 114.6 mg/g H 0-29.9 MICROALBUMIN,Q UANTITATIVE 14.6 mg/dL RR UNAVAIL CREATININE URINE 127.42 mg/dL August 05, 2023 07:53 AM [facility] URINALYSIS Specimen Type: URINE Comment: If Glucose = >500 and Ketones are positive, please alert the Physician. Ordering Provider: JT BROUSSARD Report Released Date/Time: Jul 30, 2023 08:43 AM Reporting Lab: [address] [address] Performing Lab: [facility] [address] [facility] [facility] [address] UA COLOR Light-Yellow Yellow UA APPEARANCE Clear Clear UA GLUCOSE NEGATIVE mg/dL Negative UA KETONES NEGATIVE mg/dL Negative UA BLOOD NEGATIVE mg/dL Negative UA PROTEIN 30 mg/dL Negative UA NITRITE NEGATIVE mg/dL Negative UA BILIRUBIN NEGATIVE mg/dL Negative UA SPECIFIC GRAVITY 1.017 1.016-1.022 UA pH 6.5 5.0-9.0 UA UROBILINOGEN <2.0 mg/dL <2.0 UA LEUKOCYTE TRACE Negative August 05, 2023 07:53 AM [facility] FERRITIN Specimen Type: SERUM No comment entered. Ordering Provider: JT BROUSSARD Report Released Date/Time: Jan 22, 2023 11:47 AM Reporting Lab: [address] [address] Performing Lab: [address] [address] FERRITIN 159 ng/mL 20-300 August 05, 2023 07:53 AM [facility] LIPID PANEL FASTING Specimen Type: SERUM No comment entered. Ordering Provider: JT BROUSSARD Report Released Date/Time: Jan 22, 2023 11:47 AM Reporting Lab: [address] [address] Performing Lab: [address] [address] CHOLESTEROL 103 mg/dL TRIGLYCERIDE 116 mg/dL 0-150 LDL calculated 47 mg/dL 0-129 CHOL/HDL 3.1 HDL CHOLESTEROL 33 mg/dL L 40-60 August 05, 2023 07:53 AM [facility] BASIC METABOLIC PANEL (fasting) Specime n Type: SERUM No comment entered. Ordering Provider: JT BROUSSARD Report Released Date/Time: Jan 22, 2023 11:47 AM Reporting Lab: [address] [address] Performing Lab: [facility] [address] [address] UREA NITROGEN 18 mg/dL 7-25 GLUCOSE 104 mg/dL H 65-100 SODIUM 139 mmol/L 135-145 POTASSIUM 4.0 mmol/L 3.5-5.0 CHLORIDE 104 mmol/L 100-110 CO2 26 meq/L 20-30 CREATININE, Serum 1.56 mg/dL H 0.50-1.40 eGFR(CKD-EPI 2020) 46 mL/min L >60 August 05, 2023 07:53 AM [facility] HEMOGLOBIN A1C PANEL Specimen Type: BLOOD Comment: Values obtained from A1C measurements can vary. For atypical A1C assays, a reported value of 7.0 could actually be between 6.72 and 7.28 if measured by a reference method. A reported value of 9.0 could actually be between 8.73 and 9.27. Ref: http://www.[employer].org/CAPdata. asp Ordering Provider: JT BROUSSARD Report Released Date/Time: Jan 22, 2023 11:47 AM Reporting Lab: [address] [address] Performing Lab: [address] [address] HEMOGLOBIN A1C 5.9 H 4.0-5.6 August 05, 2023 07:53 AM [facility] LIVER FUNCTION Specimen Type: SERUM No comment entered. Ordering Provider: JT BROUSSARD Report Released Date/Time: Jan 22, 2023 11:47 AM Reporting Lab: [address] [address] Performing Lab: [address] [address] PROTEIN,TOTAL 7.4 g/dL 6.0-8.3 ALBUMIN 4.0 g/dL 3.5-5.0 ALKALINE PHOSPHATASE 71 U/L 40-150 AST 27 U/L 5-34 ALT 33 U/L BILIRUBIN, TOTAL 0.7 mg/dL 0.2-1.2 August 05, 2023 07:53 AM [place] TSH Specimen Type: SERUM No comment entered. Ordering Provider: JT BROUSSARD Report Released Date/Time: Jan 22, 2023 11:47 AM Reporting Lab: [facility] [address] [address] Performing Lab: [facility] [address] [address] TSH 2.55 u[IU]/mL 0.35-5.00 August 05, 2023 07:53 AM [place] CBC AND DIFF (AUTO) Specimen Type: BLOOD No comment entered. Ordering Provider: JT BROUSSARD Report Released Date/Time: Jan 22, 2023 11:47 AM Reporting Lab: [facility] [address] [address] Performing Lab: [facility] [address] [address] WBC 6.98 10*3/uL 4.50-11.00 RBC 5.28 10*6/uL 4.23-5.66 HGB 14.4 g/dL 12.8-17 HCT 43.7 39.2-50.4 MCV 82.8 fL 82-99 MCHC 33.0 g/dL 30.8-35.1 PLT 237 10*3/uL 140-360 RDW-CV 12.7 12.0-16.0 Adams, Abs 0.61 10*3/uL 0.30-1.10 MCH 27.3 pg 26.2-32.6 Neut % 62.8 43.7-75.8 Lymph % 25.4 14.0-42.3 Adams % 8.7 5.1-13.7 Eos % 2.4 0.4-6.8 [...] and tobacco- related health factors from the CT facility where the Encounter took place. Current Smoking Status This section includes the most current smoking, or tobacco-related health factor, from the CT facility where the Encounter took place. Date/Time Current Smoking Status Comment Anai ity Jul 14, 2023 02:00 PM VA-TOBACCO NEVER USED [facility] Tobacco Use History This section includes a history of the smoking, or tobacco-related health factors, that were collected on or before the date of the Encounter. The data comes from the CT facility where the Encounter took place. Date/Time Smoking Status/Tobacco Use Comment F acility August 05, 2022 02:30 PM VA-TOBACCO NEVER USED [facility] September 03, 2021 09:30 AM VA-TOBACCO NEVER USED [facility] Sep 25, 2020 09:30 AM VA-TOBACCO NEVER USED [facility] Oct 12, 2019 10:35 AM VA-TOBACCO NEVER USED [facility] August 31, 2018 08:55 AM VA-TOBACCO NEVER USED [facility] Jul 30, 2017 09:07 AM LIFETIME NON-TOBACCO USER [facility] Feb 17, 2017 10:23 AM QUIT TOBACCO USE 1-7 YEARS AGO [facility] Dec 19, 2015 08:35 AM QUIT TOBACCO USE > 7 YEARS AGO [facility] Advance Directives: All historical and current Section Date Range: From patient's date of to the date document was created. This section includes ALL of a patient's completed or amended CT Advance and Rescinded Directives. The entries below indicate that a directive exists for the patient, but an actual copy is not included with this document. The data comes from all CT facilities. Date Advance Directives Provider Source May 17, 2018 ADVANCE DIRECTIVE KEVIN DEAL CT Lis [facility] Pathology Reports: +/- 30 days [...] the Encounter. The data comes from all CT treatment facilities. Date/Time Pathology Report Provider Source August 05, 2023 07:53 AM LR MICROBIOLOGY RE PORT: Reporting Lab: [facility] [CLIA# [id number]] [address] [place] [address] Accession [UID]: [id number] [[id number]] Received: August 05, 2023@07:53 Collection sample: URINE CLEAN CATCH Collection date: August 05, 2023 07:53 Site/Specimen: URINE Provider: JT NICOLE Comment on specimen: cc Test(s) ordered: URINE CULTURE(MWROX).......... completed: August 10, 2023 10:39 * BACTERIOLOGY FINAL REPORT => August 10, 2023 10:39 TECH CODE: [id number] Bacteriology Remark(s): NO GROWTH IN 24 HOURS, FINAL REPORT TO FOLLOW. FINAL AEROBIC REPORT: NO GROWTH =--=--=--=--=--=--=--=--=--=--=--=--= --=--=--=--=--=--=--=--=--=--=--=--=- -=-- Performing Laboratory: Bacteriology Report Performed By: [facility] [CLIA# [id number]] [address] [place] [address] Bact Report Remark #2 Performed By: [facility] [CLIA# [id number]] [address] [place] [address] [facility] Encounter Notes: All associated encounter notes This section contains the clinical notes associated to the Encounter. Date/Time Encounter Note(s) Provider Source August 13, 2023 03:03 PM NURSING NOTE: LOCAL TITLE: PRIMARY CARE NURSE NOTE STANDARD TITLE: NURSING NOTE DATE OF NOTE: AUGUST 13, 2023@15:03 ENTRY DATE: AUGUST 13, 2023@15:04 AUTHOR: VANDANA DING COSIGNER: URGENCY: STATUS: COMPLETED reports to [facility] for nursing visit to conduct Bladder Scan to measure post void residual. able to void immediately prior to measurement, PVR 446 ml. [place]a reports he experiences urge incontinence throughout the day, frequently having to void, denies having any accidents . Labs and urinalysis conducted 08/05/23. Urinalysis negative, GFR 46, PSA 1.58, A1C 5.9. Results communicated to PCP, CC Urology consult entered per PCP, follow-up already scheduled for 08/25/23 with PCP. Homelessness/Food Insecurity Screen: In the past 2 months, have you been living in stable housing that you own, rent, or stay in as part of a household? Yes - Living in stable housing. Are you worried or concerned that in the next 2 months you may NOT have stable housing that you own, rent, or stay in as part of a household? No - Not worried about housing near future The [place] reports the following: Within the past 12 months, you worried whether your food would run out before you got money to buy more. Never true Within the past 12 months, the food you bought just didn't last and you didn't have money to get more. Never true Sexual Orientation: The patient thinks of their sexual orientation as: Straight or Heterosexual RHS Screen: RHS Screen Environmental Check Upon inquiry, the individual reports that the environment is safe to proceed. Informed Consent to Screen and Document The individual consents to proceed with screening. The individual consents to documentation of responses. PRIMARY SCREEN: In the past 12 months, how often did a current or former intimate partner (e.g., boyfriend, girlfriend, , , sexual partner): 1. Scream or curse at you Never 2. Insult or talk down to you Never 3. Threaten you with harm Never 4. Physically hurt you Never 5. Force or pressure you to have sexual contact against your will, or when you were unable to say no Never ?? The HITS tool (items 1-4 above) is US copyright protected by Levy Perry MD, and the user has full rights to use it throughout the CT system. PRIMARY SCREEN RESULT: The Primary Screen is NEGATIVE. The individual answered never to all forms of IPV above (i.e., answered never to all 5 items) The individual accepts education and/or resources: Yes - Offered verbal universal education about IPV EDUCATION: The individual indicated readiness to learn. Education offered during this session as noted above. The individual indicated understanding by asking relevant questions and making appropriate comments. No barriers to learning were observed or identified. /swetha/ VANDANA DING RN REGISTERED NURSE Signed: 08/13/2023 15:14 VANDANA DING
--- OUTSIDE RECORDS SUMMARY | 2024-04-05 09:54 | XMS_ITS | Encounter Summary ---
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 (WNR) Apr 06, 2014 NO GROUP NUMBER [id number] BOWDER,RO RAY PATIENT [facility] (WNR) MEDICARE ADVANTAGE [facility](W NR) Apr 06, 2015 [id number] FRANSICODER,RO RAY PATIENT [facility] (WNR) MEDICARE ADVANTAGE [facility] (WNR) Apr 06, 2014 [id number] BOWDER,RO RAY PATIENT Selected Encounter This section includes the information on record at [place] for the Encounter. Date/Time Encounter Type Encounter Description Reason Pro vider Source Oct 21, 2023 12:00 AM Outpatient Encounter COMMUNITY CARE CONSULT IHE Encounter Template Text not used by [place] Plan of Treatment: Future Appointments (+ 6 months) and Future Tests (+/- 45 days) The Plan of Treatment section includes future care activities for the patient from all [place] treatmentfacilities. This section includes future appointments and future orders which are active, pending or scheduled. Future Appointments This section includes appointments that were scheduled to occur 6 months from the date of the Encounter, up to a maximum of 20 appointments. The data comes from all [place] treatment facilities. Appointment Date/Time Appointment Type Appointme nt Facility Name Nov 12, 2023 08:00 AM AMBULATORY - MEDICINE [facility] Nov 30, 2023 09:00 AM AMBULATORY - NONE [facility] Jan 19, 2024 11:00 AM AMBULATORY - PS[facility]CH[facility]ATRY [facility] Mar 15, 2024 09:00 AM AMBULATORY - MEDICINE [facility] Mar 24, 2024 08:00 AM AMBULATORY - MEDICINE [facility] Apr 19, 2024 08:30 AM AMBULATORY - NONE [facility] Social History: Smoking Status (Most current) and Tobacco Use (All prior to encounter date) This section includes the most current, and the historical, smoking and tobacco- related health factors from the [place] facility where the Encounter took place. Current Smoking Status This section includes the most current smoking, or tobacco-related health factor, from the [place] facility where the Encounter took place. Date/Time Current Smoking Status [facility] Facility August 30, 2009 09:45 AM QUIT TOBACCO USE > 7 YEARS AGO quit about 25 years ago [facility] Advance Directives: All historical and current Section Date Range: From patient's date of to the date document was created. This section includes ALL of a patient's completed or amended [place] Advance and Rescinded Directives. The entries below indicate that a directive exists for the patient, but an actual copy is not included with this document. The data comes from all [place] facilities. Date Advance Directives Provider Source May 17, 2018 ADVANCE DIRECTIVE [facility] DEAL [facility] Encounter Notes: All associated encounter notes This section contains the clinical notes associated to the Encounter. Date/Time Encounter Note(s) Provider Source Oct 21, 2023 12:00 AM NONVA CONSULT: LOCAL TITLE: COMMUNITY CARE-CONSULT RESULT NOTE STANDARD TITLE: NONVA CONSULT DATE OF NOTE: OCT 21, 2023 ENTRY DATE: NOV 11, 2023@14:29:47 AUTHOR: BARRY ROGEL EXP COSIGNER: URGENCY: STATUS: COMPLETED VistA Imaging - Scanned Document SCANNED DOCUMENT SIGNATURE NOT REQUIRED Electronically Filed: 11/11/2023 by: BARRY ROGEL LICENSED PRACTICAL NURSE BARRY ROGEL [place] [facility]
--- OUTSIDE RECORDS SUMMARY | 2024-04-05 09:54 | XMS_ITS | Encounter Summary ---
Author Name [facility] Organization [facility] Address [address] [place] [id number] Care Team Providers Care Transportation Planning Technician Name Role Phone JT NICOLE Primary Care [...] OF MASS PREFERRED PROVIDER ORGANIZAT ION (PPO) [facility] August 10, 2010 [id number] [phone] BOWDER,ZHOU RAY PATIENT [facility] (WNR) MEDICARE (M) [facility] (WNR) Apr 06, 2014 NO GROUP NUMBER [id number] BOWDER,RO RAY PATIENT [facility] (WNR) MEDICARE ADVANTAGE [facility](W NR) Apr 06, 2015 [id number] FRANSICODER,RO RAY PATIENT [facility] (WNR) MEDICARE ADVANTAGE [facility] (WNR) Apr 06, 2014 [id number] BOWDER,ZHOU RAY PATIENT Selected Encounter This section includes the information on record at MD for the Encounter. Date/Time Encounter Type Encounter Description Reason Provider Source Sep 16, 2023 11:30 AM OFF/OP EST AUGUST X REQ PHY/QHP PRIMARY CARE/MEDICINE ICD-10-CM I10 Essential (primary) hypertension VANDANA DING Encounter Template Text not used by MD Assessments - Encounter Diagnoses This section includes the primary and secondary diagnoses documented for the Encounter. Date/Time Primary/Secondary Diagnosis Diagnosis Name Provider Source Sep 16, 2023 11:55 AM PRIMARY Essential (primary) hypertension VANDANA DING Plan of Treatment: Future Appointments (+ 6 months) and Future Tests (+/- 45 days) The Plan of Treatment section includes future care activities for the patient [facility] This section includes future appointments and future orders which are active, pending or scheduled. Future Appointments This section includes appointments that were scheduled to occur 6 months from the date of the Encounter, up to a maximum of 20 appointments. The data comes from all MD treatment facilities. Appointment Date/Time Appointment Type Appointme nt Facility Name Oct 15, 2023 08:30 AM [facility] Oct 20, 2023 01:00 PM AMBULATORY - PSYCHIATRY [facility] Oct 21, 2023 10:30 AM [facility] Nov 12, 2023 08:00 AM AM[facility]ULAT[facility] - MEDICINE [facility] Nov 30, 2023 09:00 AM [facility]ORY NONE [facility] Jan 19, 2024 11:00 AM AMBULATORY - PSYCHIATRY [facility] Mar 15, 2024 09:00 AM AMBULATORY - MEDICINE [facility] Social History: Smoking Status (Most current) and Tobacco Use (All prior to encounter date) This section includes the most current, and the historical, smoking and tobacco- related health factors from the MD facility where the Encounter took place. Current Smoking Status This section includes the most current smoking, or tobacco-related health factor, from the MD facility where the Encounter took place. Date/Time Current Smoking Status Comment Facil it Jul 14, 2023 02:00 PM MD-TOBACCO NEVER USED [facility] Tobacco Use History This section includes a history of the smoking, or tobacco-related health factors, that were collected on or before the date of the Encounter. The data comes from the MD facility where the Encounter took place. Date/Time Smoking Status/Tobacco Use Comment F acility August 05, 2022 02:30 PM VA-TOBACCO NEVER USED [facility] September 03, 2021 09:30 AM VA-TOBACCO NEVER USED [facility] Sep 25, 2020 09:30 AM VA-TOBACCO NEVER USED [facility] Oct 12, 2019 10:35 AM VA-TOBACCO NEVER USED [facility] August 31, 2018 08:55 AM VA-TOBACCO NEVER USED [facility] Jul 30, 2017 09:07 AM LIFETIME NON-TOBACCO USER [facility] Feb 17, 2017 10:23 AM QUIT TOBACCO USE 1-7 YEARS AGO [facility] Dec 19, 2015 08:35 AM QUIT TOBACCO USE > 7 YEARS AGO [facility] Advance Directives: All historical and current Section Date Range: From patient's date of to the date document was created. This section includes ALL of a patient's completed or amended MD Advance and Rescinded Directives. The entries below indicate that a directive exists for the patient, but an actual copy is not included with this document. The data comes from all MD facilities. Date Advance Directives Provider Source May 17, 2018 ADVANCE DIRECTIVE KEVIN DEAL MD Lis GREGORYTRPablo [facility] Encounter Notes: All associated encounter notes This section contains the clinical notes associated to the Encounter. Date/Time Encounter Note(s) Provider Source Sep 16, 2023 11:37 AM NURSING NOTE: LOCAL TITLE: PRIMARY CARE NURSE NOTE STANDARD TITLE: NURSING NOTE DATE OF NOTE: SEP 16, 2023@11:37 ENTRY DATE: SEP 16, 2023@11:37:49 AUTHOR: VANDANA DING EXP COSIGNER: URGENCY: STATUS: COMPLETED F: LON QUINTERO is a 73 yo who presents to the clinic for a BP check/home BP monitor education per JT NICOLE for diagnosis of hypertension Allergies: RED DYES Recent BP Med Changes: No recent changes. Active Outpatient Medications (including Supplies): Issue Date Status Last Fill Active Outpatient Medications Refills Expiration 1) AMLODIPINE BESYLATE 5MG TAB Qty: 90 for ACTIVE (S) Issu:05-02-23 90 days Sig: TAKE ONE TABLET BY MOUTH Refills: 1 Last:12-06-23 DAILY FOR BLOOD PRESSURE/HEART, DO NOT Expr:05-02-24 TAKE WITH GRAPEFRUIT JUICE 2) ASPIRIN 81MG EC TAB Qty: 120 for 90 ACTIVE (S) Issu:08-25-23 days Sig: TAKE ONE TABLET BY MOUTH Refills: 2 Last:11-18-23 ONCE DAILY TO PREVENT STROKE/HEART Expr:08-25-24 ATTACK 3) BUPROPION HCL 150MG 12HR SA TAB Qty: 90 ACTIVE (S) Issu:12-15-22 for 90 days Sig: TAKE ONE TABLET BY Refills: 0 Last:12-08-23 MOUTH EVERY MORNING Expr:12-16-23 4) FINASTERIDE 5MG TAB Qty: 90 for 90 days ACTIVE (S) Issu:05-02-23 Sig: TAKE ONE TABLET BY MOUTH AT Refills: 2 Last:10-22-23 BEDTIME FOR PROSTATE Expr:05-02-24 5) GABAPENTIN 300MG CAP Qty: 450 for 90 ACTIVE (S) Issu:12-12-22 days Sig: TAKE ONE CAPSULE BY MOUTH Refills: 0 Last:11-17-23 TWICE DAILY AND TAKE THREE CAPSULES AT Expr:12-13-23 BEDTIME FOR PAIN, ANXIETY, POOR SLEEP, AND HEADACHES 6) HYDROXYZINE PAMOATE 50MG CAP Qty: 240 ACTIVE (S) Issu:07-14-23 for 60 days Sig: TAKE ONE CAPSULE BY Refills: 2 Last:10-07-23 MOUTH FOUR TIMES DAILY NEEDED FOR Expr:07-14-24 ANXIETY 7) OXYBUTYNIN CHLORIDE 10MG SA TAB Qty: 30 ACTIVE (S) Issu:08-07-23 for 30 days Sig: TAKE ONE TABLET BY Refills: 9 Last:09-26-23 MOUTH EVERY MORNING FOR BLADDER Expr:08-07-24 INSTABILITY 8) PRAZOSIN HCL 2MG CAP Qty: 360 for 90 ACTIVE (S) Issu:12-15-22 days Sig: TAKE FOUR CAPSULES BY MOUTH Refills: 0 Last:11-05-23 AT BEDTIME Expr:12-16-23 9) ROSUVASTATIN CA 40MG TAB Qty: 45 for 90 ACTIVE Issu:08-25-23 days Sig: TAKE ONE-HALF TABLET BY Refills: 3 Last:09-22-23 MOUTH ONCE DAILY FOR HIGH CHOLESTEROL Expr:08-25-24 10) SERTRALINE HCL 100MG TAB Qty: 90 for 90 ACTIVE (S) Issu:11-04-22 days Sig: TAKE ONE TABLET BY MOUTH Refills: 0 Last:10-26-23 EVERY MORNING Expr:11-05-23 11) SILDENAFIL CITRATE 100MG TAB Qty: 18 ACTIVE (S) Issu:08-25-23 for 90 days Sig: TAKE ONE TABLET BY Refills: 1 Last:11-13-23 MOUTH ONCE DAILY NEEDED FOR Expr:08-25-24 ERECTILE DYSFUNCTION TAKE 1 HOUR PRIOR TO SEXUAL ACTIVITY, AND SEPARATE FROM TAMSULOSIN AND PRAZOSIN BY AT LEAST 4 HOURS 12) TAMSULOSIN HCL 0.4MG CAP Qty: 60 for 30 ACTIVE Issu:08-25-23 days Sig: TAKE TWO CAPSULES BY MOUTH Refills: 10 Last:09-15-23 AT BEDTIME FOR ENLARGED PROSTATE Expr:08-25-24 13) VALSARTAN 320MG TAB Qty: 90 for 90 days ACTIVE (S) Issu:07-29-23 Sig: TAKE ONE TABLET BY MOUTH ONCE Refills: 2 Last:10-17-23 DAILY FOR HIGH BLOOD PRESSURE Expr:07-29-24 Medication Management: [place] states s/he takes medications every day at [address] [place] stores medication: [X} Pharmacy Bottles [X} [place] takes medications as prescribed [X} [place] knows what s/he is taking medications for [X} verbalizes side effects [X} [place] verablizes the refill process Symptoms: chest pain No shortness of breath No palpitations No cough No dizzyness No orthostatis No syncope No headache No visual changes No fatigue No edema No HOME BP DATA [place] states he checks BP occasionally but does not track findings. Reports BP has been in 110s-120s over 60s-70s. Reports compliance with medications, denies all symptoms PATIENT EDUCATION: Education and Discussion General education provided. A/P: 's blood pressure at this visit 135/68, pulse 56. RTC: PRN Upcoming Appointments: 10/15/2023 08:30 CWM/NO/DENTAL/RDH1 AM 10/20/2023 13:00 SPOPC/MHC/VASYL 11/12/2023 08:00 CWM/SO/PODIATRY/MORIS 03/15/2024 09:00 CWM/SO/PACT 5 No communication barriers. [place] understands and agrees to current treatment plan. If has any questions, concerns, or changes in current health status s/he will call PACT. 20 minutes spent in patient care and education /es/ VANDANA DING RN REGISTERED NURSE Signed: 09/16/2023 11:55 VANDANA DING
--- OUTSIDE RECORDS SUMMARY | 2024-04-05 09:54 | XMS_ITS | Encounter Summary ---
Author Name [facility] [place] Organization [facility] [place] Address [address] [place] [id number] Care Team Providers Care Editorial Specialist Name Role Phone JT NICOLE Primary Care [...] Patient's Relationship to Policy [place] BCBS OF [facility] PREFERRED PROVIDER ORGANIZAT ION (PPO) [facility] August 10, 2010 [id number] ZHOU QUINTERO RAY PATIENT [facility] (WNR) MEDICARE ([place]) [facility] (WNR) Apr 06, 2014 NO GROUP NUMBER [id number] INGRID,ZHOU RAY PATIENT JANE [facility] (WNR) MEDICARE ADVANTAGE [facility](W NR) Apr 06, 2015 [id number] INGRID,ZHOU RAY PATIENT JANE [facility] (WNR) MEDICARE ADVANTAGE [facility] (WNR) Apr 06, 2014 [id number] BOWLEXI,ZHOU RAY PATIENT Selected Encounter This section includes the information on record at [place] for the Encounter. Date/Time Encounter Type Encounter Description Reason Provider Source August 19, 2023 08:30 AM OFFICE O/P EST LOW 20 MIN PODIATRY ICD-10-CM L60.0 Ingrowing nail DAVID SUBRAMANIAN Zehra Encounter Template Text not used by [place] Assessments - Encounter Diagnoses This section includes the primary and secondary diagnoses documented for the Encounter. Date/Time Primary/Secondary Diagnosis Diagnosis Name Provider Source August 19, 2023 08:56 AM PRIMARY Ingrowing nail DAVID SUBRAMANIAN CRUZ August 19, 2023 08:56 AM SECONDARY Corns and callosities DAVID SUBRAMANIAN [facility] August 19, 2023 08:56 AM SECONDARY Pain in left foot DAVID SUBRAMANIAN L[facility] August 19, 2023 08:56 AM SECONDARY Pain in left toe(s) DAVID SUBRAMANIAN CRUZ August 19, 2023 08:56 AM SECONDARY Pain in right foot DAVID SUBRAMANIAN CRUZ August 19, 2023 08:56 AM SECONDARY Pain in right toe(s) DAVID SUBRAMANIAN CRUZ August 19, 2023 08:56 AM SECONDARY Peripheral vascular disease, unspecified DAVID SUBRAMANIAN CRUZ Plan of Treatment: Future Appointments (+ 6 months) and Future Tests (+/- 45 days) The Plan of Treatment section includes future care activities for the patient [facility] [place] [facility] This section includes future appointments and future orders which are active, pending or scheduled. Future Appointments This section includes appointments that were scheduled to occur 6 months from the date of the Encounter, up to a maximum of 20 appointments. The data comes from all [place] treatment facilities. Appointment Date/Time Appointment Type Appointme nt Facility Name August 25, 2023 09:00 AM AMBULATORY - MEDICINE [facility] Sep 16, 2023 11:30 [facility] Oct 15, 2023 08:30 AM AMBULATORY - NONE [facility] [place] [facility] Oct 20, 2023 01:00 PM AMBULATORY - PSYCHIATRY [facility] Oct 21, 2023 10:30 AM AMBULATORY - MEDICINE [place] [facility] [place] [facility] Nov 12, 2023 08:00 [facility] Nov 30, 2023 09:00 AM AMBULATORY - NONE [facility] [place] [facility] Jan 19, 2024 11:00 AM AMBULATORY [...] Range Comment August 05, 2023 07:53 AM [facility] MICROSCOPIC AUTOMATED, URINE Specimen T ype: URINE Comment: If Glucose = >500 and Ketones are positive, please alert the Physician. Ordering Provider: JT BROUSSARD Report Released Date/Time: Jul 30, 2023 08:43 AM Reporting Lab: [address] [address] Performing Lab: [address] [address] UA WBC 0-5 /[HPF] 0-5 UA MUCUS FEW /[LPF] Trace UA RBC 0-2 /[HPF] 0-3 August 05, 2023 07:53 AM [facility] FERRITIN Specimen Type: SERUM No comment entered. Ordering Provider: JT BROUSSARD Report Released Date/Time: Jan 22, 2023 11:47 AM Reporting Lab: [address] [address] Performing Lab: [address] [address] FERRITIN 159 ng/mL 20-300 August 05, 2023 07:53 AM [facility] MICROALBUMIN CREATININE RATIO PANEL Spe cimen Type: URINE No comment entered. Ordering Provider: JT BROUSSARD Report Released Date/Time: Jan 22, 2023 11:47 AM Reporting Lab: [address] [address] Performing Lab: [address] [address] MICROALBUMIN/C REATININE RATIO 114.6 mg/g H 0-29.9 MICROALBUMIN,Q UANTITATIVE 14.6 mg/dL RR UNAVAIL CREATININE URINE 127.42 mg/dL August 05, 2023 07:53 AM [facility] URINALYSIS Specimen Type: URINE Comment: If Glucose = >500 and Ketones are positive, please alert the Physician. Ordering Provider: JT BROUSSARD Report Released Date/Time: Jul 30, 2023 08:43 AM Reporting Lab: [facility] [address] [facility] [address] Performing Lab: [address] [address] UA COLOR Light-Yellow Yellow UA APPEARANCE Clear Clear UA GLUCOSE NEGATIVE mg/dL Negative UA KETONES NEGATIVE mg/dL Negative UA BLOOD NEGATIVE mg/dL Negative UA PROTEIN 30 mg/dL Negative UA NITRITE NEGATIVE mg/dL Negative UA BILIRUBIN NEGATIVE mg/dL Negative UA SPECIFIC GRAVITY 1.017 1.016-1.022 UA pH 6.5 5.0-9.0 UA UROBILINOGEN <2.0 mg/dL <2.0 UA LEUKOCYTE TRACE Negative August 05, 2023 07:53 AM [facility] PSA Specimen Type: SERUM No comment entered. Ordering Provider: JT BROUSSARD Report Released Date/Time: Jan 22, 2023 11:47 AM Reporting Lab: [address] [address] Performing Lab: [address] [address] PSA 1.58 ng/mL 0.00-4.00 August 05, 2023 07:53 AM [facility] LIPID PANEL FASTING Specimen Type: SERUM No comment entered. Ordering Provider: JT BROUSSARD Report Released Date/Time: Jan 22, 2023 11:47 AM Reporting Lab: [address] [address] Performing Lab: [address] [address] CHOLESTEROL 103 mg/dL TRIGLYCERIDE 116 mg/dL 0-150 LDL calculated 47 mg/dL 0-129 CHOL/HDL 3.1 HDL CHOLESTEROL 33 mg/dL L 40-60 August 05, 2023 07:53 AM [facility] HEMOGLOBIN A1C PANEL Specimen Type: BLOOD Comment: [...] Jan 22, 2023 11:47 AM Reporting Lab: [address] [address] Performing Lab: [address] [address] HEMOGLOBIN A1C 5.9 H 4.0-5.6 August 05, 2023 07:53 AM [facility] BASIC METABOLIC PANEL (fasting) Specime n Type: SERUM No comment entered. Ordering Provider: JT BROUSSARD Report Released Date/Time: Jan 22, 2023 11:47 AM Reporting Lab: [address] [address] Performing Lab: [address] [address] UREA NITROGEN 18 mg/dL 7-25 GLUCOSE 104 mg/dL H 65-100 SODIUM 139 mmol/L 135-145 POTASSIUM 4.0 mmol/L 3.5-5.0 CHLORIDE 104 mmol/L 100-110 CO2 26 meq/L 20-30 CREATININE, Serum 1.56 mg/dL H 0.50-1.40 eGFR(CKD-EPI 2020) 46 mL/min L >60 August 05, 2023 07:53 AM [facility] LIVER FUNCTION Specimen Type: SERUM No comment entered. Ordering Provider: JT BROUSSARD Report Released Date/Time: Jan 22, 2023 11:47 AM Reporting Lab: [address] [address] Performing Lab: [address] [address] PROTEIN,TOTAL 7.4 g/dL 6.0-8.3 ALBUMIN 4.0 g/dL 3.5-5.0 ALKALINE PHOSPHATASE 71 U/L 40-150 AST 27 U/L 5-34 ALT 33 U/L BILIRUBIN, TOTAL 0.7 mg/dL 0.2-1.2 August 05, 2023 07:53 AM [facility] TSH Specimen Type: SERUM No comment entered. Ordering Provider: JT BROUSSARD Report Released Date/Time: Jan 22, 2023 11:47 AM Reporting Lab: [address] [address] Performing Lab: [address] [address] TSH 2.55 u[IU]/mL 0.35-5.00 August 05, 2023 07:53 AM [facility] CBC AND DIFF (AUTO) Specimen Type: BLOOD No comment entered. Ordering Provider: JT BROUSSARD Report Released Date/Time: Jan 22, 2023 11:47 AM Reporting Lab: [address] [address] Performing Lab: [address] [address] WBC 6.98 10*3/uL 4.50-11.00 RBC 5.28 10*6/uL 4.23-5.66 HGB 14.4 g/dL 12.8-17 HCT 43.7 39.2-50.4 MCV 82.8 fL 82-99 MCHC 33.0 g/dL 30.8-35.1 PLT 237 10*3/uL 140-360 RDW-CV 12.7 12.0-16.0 Hickman, Abs 0.61 10*3/uL 0.30-1.10 MCH 27.3 pg 26.2-32.6 Neut % 62.8 43.7-75.8 Lymph % 25.4 14.0-42.3 Hickman % 8.7 5.1-13.7 Eos % 2.4 0.4-6.8 [...] Facil ity Jul 14, 2023 02:00 PM [place]-TOBACCO NEVER USED [facility] Tobacco Use History This section includes a history of the smoking, or tobacco-related health factors, that were collected on or before the date of the Encounter. The data comes from the [place] facility where the Encounter took place. Date/Time Smoking Status/Tobacco Use Comment F acility August 05, 2022 02:30 PM [facility]-TOBACCO NEVER USED [facility] September 03, 2021 09:30 AM VA-TOBACCO NEVER USED [facility] Sep 25, 2020 09:30 AM VA-TOBACCO NEVER USED [facility] Oct 12, 2019 10:35 AM VA-TOBACCO NEVER USED [facility] August 31, 2018 08:55 AM [place]-TOBACCO NEVER USED [facility] Jul 30, 2017 09:07 AM LIFETIME NON-TOBACCO USER [facility] Feb 17, 2017 10:23 AM QUIT TOBACCO USE 1-7 YEARS AGO [facility] Dec 19, 2015 08:35 AM QUIT TOBACCO USE > 7 YEARS AGO [facility] Advance Directives: All historical and current Section [...] 2018 ADVANCE DIRECTIVE KEVIN DEAL [place] Lis [facility] Pathology Reports: +/- 30 days of [...] AM LR MICROBIOLOGY RE PORT: Reporting Lab: [facility] [CLIA# [id number]] [address] [place] [address] Accession [UID]: [id number] [[id number]] Received: August 05, 2023@07:53 Collection sample: URINE CLEAN CATCH Collection date: August 05, 2023 07:53 Site/Specimen: URINE Provider: JT NICOLE Comment on specimen: cc Test(s) ordered: URINE CULTURE(MWROX).......... completed: August 10, 2023 10:39 * BACTERIOLOGY FINAL REPORT => August 10, 2023 10:39 TECH CODE: [id number] Bacteriology Remark(s): NO GROWTH IN 24 HOURS, FINAL REPORT TO FOLLOW. FINAL AEROBIC REPORT: NO GROWTH =--=--=--=--=--=--=--=--=--=--=--=--= --=--=--=--=--=--=--=--=--=--=--=--=- -=-- Performing Laboratory: Bacteriology Report Performed By: [facility] [CLIA# [id number]] [address] [place] [address] Bact Report Remark #2 Performed By: [facility] [CLIA# [id number]] [address] [place] [address] SUELLEN SHELL [facility] Encounter Notes: All associated encounter notes This section contains the clinical notes associated to the Encounter. Date/Time Encounter Note(s) Provider Source August 19, 2023 07:20 AM PODIATRY NOTE: LOCAL TITLE: PODIATRY NOTE STANDARD TITLE: PODIATRY NOTE DATE OF NOTE: AUGUST 19, 2023@07:20 ENTRY DATE: AUGUST 19, 2023@07:20:30 AUTHOR: DAVID SUBRAMANIAN COSIGNER: URGENCY: STATUS: COMPLETED NOTE: HAS RECEIVED BOTH COVID VACCINE DOSES AT [facility] LAST SEEN FOR TREATMENT: 05/27/2023 S: Pt. is a 73 yo alert [...] remission. Description of symptoms is of an labwvw-riybhodqq-hwqomdi nature. Contributing factors are: shoes and increased [...] present physical-medical status. Protective sensation utilizing a Linn-Xavi lOg monofilament is 07/10 RT & 10/10 [...] FUTURE. RTC: 12 WEEKS NEEDED TO MINIMIZE PAIN.(11/11@ 8:00AM) *DISCUSSED NEW PROTOCOLS AND WILL BE CALLED FOR RESCHEDULING I DISCUSSED THE FINDINGS & PLAN WITH PATIENT (UNCHANGED SINCE PREVIOUS VISIT) & PATIENT AGREES AND UNDERSTANDS PLAN DISCUSSED THE WEATHER , OUR LAWNS AND NEIGHBORS Medication Reconciliation: PERFORMED TODAY - SEE BELOW. Outpatient: Has the patient been taking medications as documented in the EMLR? YES: The patient has been taking medications as documented in the EMLR. Essential Medication List for Review used to complete this medication reconciliation. INCLUDED IN THIS LIST: Alphabetical list of active outpatient prescriptions dispensed from this [place] (local) and dispensed from another [place] or [...] JLV. Allergies/ADRs (Tool #5) FACILITY ALLERGY/ADR -------- [facility] RED D[facility] NO KNOWN ALLERGIES Med Recon NoGlotatiana (Tool #1) INCLUDED IN THIS LIST: Alphabetical list of active outpatient prescriptions disp[facility] from this [facility] (local) and dispensed from another VA or [...] the patient into personal health records (i.e. [employer]) are NOT included in this list. Non-VA medications documented outside this [place], remote inpatient orders (regardless of status) and remote clinic medications are NOT included in this list. The patient and provider must always discuss medications the patient is taking, regardless of where the medication was dispensed or obtained. OUTPT AMLODIPINE BESYLATE 5MG TAB (Status = Active/Suspended) TAKE ONE TABLET BY MOUTH DAILY FOR BLOOD PRESSURE/HEART, DO NOT TAKE WITH GRAPEFRUIT JUICE Rx# [id number] Last Released: 06/11/23 Qty/Days Supply: Rx Expiration Date: 05/02/24 Refills Remainin OUTPT ASCORBIC ACID 500MG TAB (Status = ) TAKE ONE TABLET BY MOUTH TWO TIMES A WEEK TO HELP ABSORB IRON FOR VITAMIN/NUTRITION SUPPLEMENT TAKE AT SAME TIME FERROUS SULFATE TABLETS Rx# [id number] Last Released: 05/06/23 Qty/Days Supply: Rx Expiration Date: 07/31/23 Refills Remainin Indication: TO HELP ABSORB IRON OUTPT ASPIRIN 81MG EC TAB (Status = Active) TAKE ONE TABLET BY MOUTH ONCE DAILY TO PREVENT STROKE/HEART ATTACK Rx# [id number] Last Released: 05/26/23 Qty/Days Supply: 120 Rx Expiration Date: 09/12/23 Refills Remainin Indication: FOR BLOOD CLOT PREVENTION FOLLOWING PCI OUTPT BUPROPION HCL 150MG 12HR SA TAB (Status = Active/Suspended) TAKE ONE TABLET BY MOUTH EVERY MORNING Rx# [id number] Last Released: 06/05/23 Qty/Days Supply: 90 Rx Expiration Date: 12/16/23 Refills Remainin OUTPT FERROUS SULFATE 325MG TAB (Status = ) TAKE ONE TABLET BY MOUTH TWO TIMES A WEEK TO SUPPLEMENT IRON TO SUPPLEMENT IRON TAKE ALONG WITH VITAMIN C (ASCORBIC ACID) Rx# [id number] Last Released: 05/06/23 Qty/Days Supply: 10090 Rx Expiration Date: 07/31/23 Refills Remainin Indication: TO SUPPLEMENT IRON OUTPT FINASTERIDE 5MG TAB (Status = Active/Suspended) TAKE ONE TABLET BY MOUTH AT BEDTIME FOR PROSTATE Rx# [id number] Last Released: 07/22/23 Qty/Days Supply: 90 Rx Expiration Date: 05/02/24 Refills Remainin OUTPT GABAPENTIN 300MG CAP (Status = Active) TAKE ONE CAPSULE BY MOUTH TWICE DAILY AND TAKE THREE CAPSULES AT BEDTIME FOR PAIN, ANXIETY, POOR SLEEP, AND HEADACHES Rx# [id number] Last Released: 08/10/23 Qty/Days Supply: 450/90 Rx Expiration Date: 12/13/23 Refills Remainin Indication: RLS OUTPT HYDROXYZINE PAMOATE 50MG CAP (Status = Discontinued) TAKE ONE CAPSULE BY MOUTH FOUR TIMES DAILY NEEDED FOR ANXIETY Rx# [id number] Last Released: 06/11/23 Qty/Days Supply: 240/60 Rx Expiration Date: 01/20/24 Refills Remainin OUTPT HYDROXYZINE PAMOATE 50MG CAP (Status = Active) TAKE ONE CAPSULE BY MOUTH FOUR TIMES DAILY NEEDED FOR ANXIETY Rx# [id number] Last Released: 08/10/23 Qty/Days Supply: 240/60 Rx Expiration Date: 07/14/24 Refills Remainin OUTPT OXYBUTYNIN CHLORIDE 10MG SA TAB (Status = Discontinued) TAKE ONE TABLET BY MOUTH EVERY MORNING FOR BLADDER INSTABILITY Rx# [id number] Last Released: 05/06/23 Qty/Days Supply: Rx Expiration Date: 07/18/23 Refills Remainin OUTPT OXYBUTYNIN CHLORIDE 10MG SA TAB (Status = Active) TAKE ONE TABLET BY MOUTH EVERY MORNING FOR BLADDER INSTABILITY Rx# [id number] Last Released: 08/18/23 Qty/Days Supply: Rx Expiration Date: 08/07/24 Refills Remainin OUTPT PRAZOSIN HCL 2MG CAP (Status = Active/Suspended) TAKE FOUR CAPSULES BY MOUTH AT BEDTIME Rx# [id number] Last Released: 07/29/23 Qty/Days Supply: 360/ Rx Expiration Date: 12/16/23 Refills Remainin OUTPT ROSUVASTATIN CA 40MG TAB (Status = Active/Suspended) TAKE ONE-HALF TABLET BY MOUTH ONCE DAILY FOR CHOLESTEROL INSTEAD OF PRAVASTATIN Rx# [id number] Last Released: 06/11/23 Qty/Days Supply: 45/ Rx Expiration Date: 01/21/24 Refills Remainin Indication: FOR HIGH CHOLESTEROL OUTPT SERTRALINE HCL 100MG TAB (Status = Active/Suspended) TAKE ONE TABLET BY MOUTH EVERY MORNING Rx# [id number] Last Released: 07/22/23 Qty/Days Supply: Rx Expiration Date: 11/05/23 Refills Remainin OUTPT SILDENAFIL CITRATE 100MG TAB (Status = ) TAKE ONE TABLET BY MOUTH ONCE DAILY NEEDED FOR ERECTILE DYSFUNCTION TAKE 1 HOUR PRIOR TO SEXUAL ACTIVITY, AND SEPARATE FROM TAMSULOSIN AND PRAZOSIN BY AT LEAST 4 HOURS Rx# [id number] Last Released: 01/15/23 Qty/Days Supply: 10/03 Rx Expiration Date: 07/28/23 Refills Remainin Indication: FOR ERECTILE DYSFUNCTION OUTPT TAMSULOSIN HCL 0.4MG CAP (Status = Active) TAKE ONE CAPSULE BY MOUTH AT BEDTIME Rx# [id number] Last Released: 08/04/23 Qty/Days Supply: Rx Expiration Date: 12/13/23 Refills Remainin OUTPT VALSARTAN 320MG TAB (Status = Discontinued) TAKE ONE TABLET BY MOUTH ONCE DAILY FOR HIGH BLOOD PRESSURE Rx# [id number] Last Released: 05/04/23 Qty/Days Supply: Rx Expiration Date: 07/18/23 Refills Remainin Indication: FOR HIGH BLOOD PRESSURE OUTPT VALSARTAN 320MG TAB (Status = Active/Suspended) TAKE ONE TABLET BY MOUTH ONCE DAILY FOR HIGH BLOOD PRESSURE Rx# [id number] Last Released: 07/29/23 Qty/Days Supply: Rx Expiration Date: 07/29/24 Refills Remainin Indication: FOR HIGH BLOOD PRESSURE SUPPLIES /es/ DAVID F ROSS, DPM CRAWLER CRANE OPERATOR Signed: 08/19/2023 08:57 DAVID SUBRAMANIAN
--- OUTSIDE RECORDS SUMMARY | 2024-04-05 09:54 | XMS_ITS | Encounter Summary ---
Author Name Department of [place] Organization [place] Address [address] [place] [address] Care Team Providers Care Home Health Outreach Coordinator Name Role Phone JT NICOLE Primary Care [...] Patient's Relationship to Policy [place] BCBS OF [facility] PREFERRED PROVIDER ORGANIZAT ION (PPO) [facility] August 10, 2010 [id number] BOWDER,RO RAY PATIENT [facility] (WNR) MEDICARE (M) [facility] (WNR) Apr 06, 2014 NO GROUP NUMBER [id number] BOWDER,RO RAY PATIENT [facility] (WNR) MEDICARE ADVANTAGE [facility](W NR) Apr 06, 2015 [id number] BOWDER,RO RAY PATIENT [facility] (WNR) MEDICARE ADVANTAGE [facility] (WNR) Apr 06, 2014 [id number] BOWDER,RO RAY PATIENT Selected Encounter This section includes the information on record at [place] for the Encounter. Date/Time Encounter Type Encounter Description Reason Pro vider Source August 25, 2023 09:00 AM Outpatient Encounter PRIMARY CARE/MEDICINE IHE Encounter Template Text not used by [place] Plan of Treatment: Future Appointments (+ 6 months) and Future Tests (+/- 45 days) The Plan of Treatment section includes future care activities for the patient [facility] [place] [facility] This section includes future [...] 16, 2023 11:30 AM AMBULATORY - MEDICINE [facility] Oct 15, 2023 08:30 AM AMBULATORY - NONE [facility] Oct 20, 2023 01:00 PM AMBULATORY - PSYCHIATRY [facility] Oct 21, 2023 10:30 AM AMBULATORY - MEDICINE [facility] Nov 12, 2023 08:00 AM AMBULATORY - MEDICINE [facility] Nov 30, 2023 09:00 AM AMBULATORY - NONE [facility] Jan 19, 2024 11:00 AM AMBULATORY - PSYCHIATRY [facility] Lab Results: +/- 30 days of [...] Range Comment August 05, 2023 07:53 AM [place] MICROSCOPIC AUTOMATED, URINE Specimen T ype: URINE Comment: If Glucose = >500 and Ketones are positive, please alert the Physician. Ordering Provider: JT BROUSSARD Report Released Date/Time: Jul 30, 2023 08:43 AM Reporting Lab: [facility] [address] [facility] [address] Performing Lab: [address] [address] UA WBC 0-5 /[HPF] 0-5 UA MUCUS FEW /[LPF] Trace UA RBC 0-2 /[HPF] 0-3 August 05, 2023 07:53 AM [place] FERRITIN Specimen Type: SERUM No comment entered. Ordering Provider: JT BROUSSARD Report Released Date/Time: Jan 22, 2023 11:47 AM Reporting Lab: [facility] [address] [facility] [address] Performing Lab: [facility] [address] [facility] [address] FERRITIN 159 ng/mL 20-300 August 05, 2023 07:53 AM [place] MICROALBUMIN CREATININE RATIO PANEL Spe cimen Type: URINE No comment entered. Ordering Provider: JT BROUSSARD Report Released Date/Time: Jan 22, 2023 11:47 AM Reporting Lab: [facility] [address] [address] Performing Lab: [facility] [address] [facility] [address] MICROALBUMIN/C REATININE RATIO 114.6 mg/g H 0-29.9 MICROALBUMIN,Q UANTITATIVE 14.6 mg/dL RR UNAVAIL CREATININE URINE 127.42 mg/dL August 05, 2023 07:53 AM [place] PSA Specimen Type: SERUM No comment entered. Ordering Provider: JT BROUSSARD Report Released Date/Time: Jan 22, 2023 11:47 AM Reporting Lab: [facility] [address] [facility] [address] Performing Lab: [facility] [address] PSA 1.58 ng/mL 0.00-4.00 August 05, 2023 07:53 AM [place] URINALYSIS Specimen Type: URINE Comment: If Glucose = >500 and Ketones are positive, please alert the Physician. Ordering Provider: JT BROUSSARD Report Released Date/Time: Jul 30, 2023 08:43 AM Reporting Lab: [facility] [address] [facility] [address] Performing Lab: [address] [address] UA COLOR Light-Yellow Yellow UA APPEARANCE Clear Clear UA GLUCOSE NEGATIVE mg/dL Negative UA KETONES NEGATIVE mg/dL Negative UA BLOOD NEGATIVE mg/dL Negative UA PROTEIN 30 mg/dL Negative UA NITRITE NEGATIVE mg/dL Negative UA BILIRUBIN NEGATIVE mg/dL Negative UA SPECIFIC GRAVITY 1.017 1.016-1.022 UA pH 6.5 5.0-9.0 UA UROBILINOGEN <2.0 mg/dL <2.0 UA LEUKOCYTE TRACE Negative August 05, 2023 07:53 AM [place] LIPID PANEL FASTING Specimen Type: SERUM No comment entered. Ordering Provider: JT BROUSSARD Report Released Date/Time: Jan 22, 2023 11:47 AM Reporting Lab: [address] [address] Performing Lab: [address] [address] CHOLESTEROL 103 mg/dL TRIGLYCERIDE 116 mg/dL 0-150 LDL calculated 47 mg/dL 0-129 CHOL/HDL 3.1 HDL CHOLESTEROL 33 mg/dL L 40-60 August 05, 2023 07:53 AM [place] LIVER FUNCTION Specimen Type: SERUM No comment entered. Ordering Provider: JT BROUSSARD Report Released Date/Time: Jan 22, 2023 11:47 AM Reporting Lab: [address] [address] Performing Lab: [address] [address] PROTEIN,TOTAL 7.4 g/dL 6.0-8.3 ALBUMIN 4.0 g/dL 3.5-5.0 ALKALINE PHOSPHATASE 71 U/L 40-150 AST 27 U/L 5-34 ALT 33 U/L BILIRUBIN, TOTAL 0.7 mg/dL 0.2-1.2 August 05, 2023 07:53 AM [place] BASIC METABOLIC PANEL (fasting) Specime n Type: SERUM No comment entered. Ordering Provider: JT BROUSSARD Report Released Date/Time: Jan 22, 2023 11:47 AM Reporting Lab: [facility] [address] [facility] [address] Performing Lab: [address] [address] UREA NITROGEN 18 mg/dL 7-25 GLUCOSE 104 mg/dL H 65-100 SODIUM 139 mmol/L 135-145 POTASSIUM 4.0 mmol/L 3.5-5.0 CHLORIDE 104 mmol/L 100-110 CO2 26 meq/L 20-30 CREATININE, Serum 1.56 mg/dL H 0.50-1.40 eGFR(CKD-EPI 2020) 46 mL/min L >60 August 05, 2023 07:53 AM [place] HEMOGLOBIN A1C PANEL Specimen Type: BLOOD Comment: [...] Jan 22, 2023 11:47 AM Reporting [facility]: [facility] [address] [address] Performing Lab: [address] [address] HEMOGLOBIN A1C 5.9 H 4.0-5.6 August 05, 2023 07:53 AM [place] TSH Specimen Type: SERUM No comment entered. Ordering Provider: JT BROUSSARD Report Released Date/Time: Jan 22, 2023 11:47 AM Reporting Lab: [facility] [address] [address] Performing Lab: [facility] [address] [address] TSH 2.55 u[IU]/mL 0.35-5.00 August 05, 2023 07:53 AM [place] CBC AND DIFF (AUTO) Specimen Type: BLOOD No comment entered. Ordering Provider: JT BROUSSARD Report Released Date/Time: Jan 22, 2023 11:47 AM Reporting Lab: [facility] [address] [facility] [address] Performing Lab: [facility] [address] [facility] [address] WBC 6.98 10*3/uL 4.50-11.00 RBC 5.28 10*6/uL 4.23-5.66 HGB 14.4 g/dL 12.8-17 HCT 43.7 39.2-50.4 MCV 82.8 fL 82-99 MCHC 33.0 g/dL 30.8-35.1 PLT 237 10*3/uL 140-360 RDW-CV 12.7 12.0-16.0 [place], Abs 0.61 10*3/uL 0.30-1.10 MCH 27.3 pg 26.2-32.6 Neut % 62.8 43.7-75.8 Lymph % 25.4 14.0-42.3 [place] % 8.7 5.1-13.7 Eos % 2.4 0.4-6.8 [...] Encounter took place. Date/Time Current Smoking Status [facility] Facility August 30, 2009 09:45 AM QUIT TOBACCO USE > 7 YEARS AGO quit about 25 years ago [facility] Advance Directives: All historical and current Section [...] May 17, 2018 ADVANCE DIRECTIVE SAYKEVIN WATKINS [facility] Pathology Reports: +/- 30 days of [...] AM LR MICROBIOLOGY RE PORT: Reporting Lab: [facility] [CLIA# [id number]] [address] [place] [id number] Accession [UID]: [id number] [[id number]] Received: August 05, 2023@07:53 Collection sample: URINE CLEAN CATCH Collection date: August 05, 2023 07:53 Site/Specimen: URINE Provider: JT NICOLE Comment on specimen: cc Test(s) ordered: URINE CULTURE(MWROX).......... completed: August 10, 2023 10:39 * BACTERIOLOGY FINAL REPORT => August 10, 2023 10:39 TECH CODE: [id number] Bacteriology Remark(s): NO GROWTH IN 24 HOURS, FINAL REPORT TO FOLLOW. FINAL AEROBIC REPORT: NO GROWTH =--=--=--=--=--=--=--=--=--=--=--=--= --=--=--=--=--=--=--=--=--=--=--=--=- -=-- Performing Laboratory: Bacteriology Report Performed By: [facility] [CLIA# [id number]] [address] [place] [address] Bact Report Remark #2 Performed By: [facility] [CLIA# [id number]] [address] [place] [address] SUMAYASUELLEN ARROYO Encounter Notes: All associated encounter notes This section contains the clinical notes associated to the Encounter. Date/Time Encounter Note(s) Provider Source August 25, 2023 09:26 AM PREVENTIVE MEDICIN E NURSING NOTE: LOCAL TITLE: CLINICAL REMINDERS/NURSING STANDARD TITLE: PREVENTIVE MEDICINE NURSING NOTE DATE OF NOTE: AUGUST 25, 2023@09:26 ENTRY DATE: AUGUST 25, 2023@09:26:55 AUTHOR: MINESH LAZARO EXP COSIGNER: URGENCY: STATUS: COMPLETED Advance Directive Screen MH AD: Patient has an Advance Directive on file at this [facility]. No updates are needed at this time. The patient received education about Advance Directives and written notification of his/her rights. COVID VACCINE - WILL SCHEDULE WHEN READY /es/ MINESH LAZARO LPN LPN Signed: 08/25/2023 09:27 MINESH LAZARO
--- OUTSIDE RECORDS SUMMARY | 2024-04-05 09:54 | XMS_ITS ---
Author Name [facility] [place] Organization [place] Address [address] [place] [address] Care Team Providers Care Blind Lacer Name Role Phone JT NICOLE Primary Care [...] [facility] PREFERRED PROVIDER ORGANIZAT ION (PPO) [facility] August 10, 2010 [id number] BOWDER,RO RAY PATIENT [facility] (WNR) MEDICARE (M) [facility] (WNR) Apr 06, 2014 NO GROUP NUMBER [id number] BOWDER,RO RAY PATIENT [facility] (WNR) MEDICARE ADVANTAGE [facility](W NR) Apr 06, 2015 [id number] BOWDER,RO RAY PATIENT JANE [facility] (WNR) MEDICARE ADVANTAGE [facility] (WNR) Apr 06, 2014 [id number] BOWDER,RO RAY PATIENT Selected Encounter This section includes the information on record at [place] for the Encounter. Date/Time Encounter Type Encounter Description Reason Provider Source Oct 15, 2023 08:30 AM TOPICAL FLUORIDE VARNISH DENTAL ICD-10-CM K03.6 Deposits [accretions] on teeth CARMEN LEONARDO IHE Encounter Template Text not used by [place] Assessments - Encounter Diagnoses This section includes the primary and secondary diagnoses documented for the Encounter. Date/Time Primary/Secondary Diagnosis Diagnosis Name Provider Source Oct 15, 2023 10:36 AM PRIMARY Deposits [accretions] on teeth CARMEN LEONARDO [facility] Plan of Treatment: Future Appointments (+ 6 months) and Future Tests (+/- 45 days) The Plan of Treatment section includes future care activities for the patient from all [place] [facility]. This section includes future appointments and future orders which are active, pending or scheduled. Future Appointments This section includes appointments that were scheduled to occur 6 months from the date of the Encounter, up to a maximum of 20 appointments. The data comes from all [place] treatment facilities. Appointment Date/Time Appointment Type Appointme nt Facility Name Oct 20, 2023 01:00 PM AMBULATORY - PSYCHIATRY [facility] Oct 21, 2023 10:30 AM AMBULATORY - MEDICINE [facility] Nov 12, 2023 08:00 AM AMBULATORY - MEDICINE [facility] Nov 30, 2023 09:00 AM AMBULATORY - NONE [facility] Jan 19, 2024 11:00 AM AMBULATORY - PSYCHIATRY [facility] Mar 15, 2024 09:00 AM AMBULATORY - MEDICINE [facility] Mar 24, 2024 08:00 AM AMBULATORY - MEDICINE [facility] Social History: Smoking Status (Most current) and Tobacco Use (All prior to encounter date) This section includes the most current, and the historical, smoking and tobacco- related health factors from the [place] facility where the Encounter took place. Current Smoking Status This section includes the most current smoking, or tobacco-related health factor, from the [place] facility where the Encounter took place. Date/Time Current Smoking Status Comment Facility August 30, 2009 09:45 AM QUIT TOBACCO USE > 7 YEARS AGO quit about 25 years ago [facility] Advance Directives: All historical and current Section Date Range: From patient's date of to the date document was created. This section includes ALL of a patient's completed or amended [place] Advance and Rescinded Directives. The entries below indicate that a directive exists for the patient, but an actual copy is not included with this document. The data comes from all [place] facilities. Date Advance Directives Provider Source May 17, 2018 ADVANCE DIRECTIVE KEVIN DEAL [place] [facility] NTRL [facility] Encounter Notes: All associated encounter notes This section contains the clinical notes associated to the Encounter. Date/Time Encounter Note(s) Provider Source Oct 15, 2023 10:27 AM DENTISTRY NOTE: LOCAL TITLE: DENTAL NOTE STANDARD TITLE: DENTISTRY NOTE DATE OF NOTE: OCT 15, 2023@10:27 ENTRY DATE: OCT 15, 2023@10:36:08 AUTHOR: CARMEN LEONARDO COSIGNER: URGENCY: STATUS: COMPLETED Patient Name: LON QUINTERO, : 1950, Age: 73 Visit: S: Oct 15, 2023@08:30 CWM/NO/DENTAL/RDH1 AM. Primary PCE Diagnosis: K03.6 (Deposits [accretions] on teeth). Dental Category: 15-OPC, Class IV. Treatment Status: Maintenance. Completed Care: (D1110) DENTAL PROPHYLAXIS ADULT. DX: K03.6 Deposits [Accretions] on Teeth (D1330) ORAL HYGIENE INSTRUCTION. DX: K03.6 Deposits [Accretions] on Teeth (D1206) TOPICAL FLUORIDE VARNISH. DX: K03.6 Deposits [Accretions] on Teeth Dental Alerts: 01/10/19 Left knee replacement; amox pre med necessary for [address] Busch Oral Health Assessment Findings: Plaque Index: 3 - Heavy Xerostomia: 0 - None Caries Risk: 3 - High Oral Hygiene: 3 - Poor - - - - - - - - - - - - - - - - - - - - - - - - - - - - - - TIME OUT/Safety goals were verified immediately prior to the procedure. (Correct patient, procedure, site, position) Full name and date used. STERILIZATION MONITOR IN INSTRUMENT PACK CHECKED AND CONFIRMED CC: No concerns PREMEDICATION: Patient does not need to premed anymore PAST MEDICAL HISTORY: Reviewed, no contraindications for treatment. LAST RADIOGRAPHS: BWX: 11/14/21 PANO: 09/28/20 FMX: 01/09/23 NEW RADIOGRAPHS: Not due SOFT TISSUE SCREENING: no abnormalities noted EXAMINATION: Not due ORAL HYGIENE ASSESSMENT: generalized heavy plaque generalized moderate stain PERIODONTAL ASSESSMENT: generalized moderate calculus generalized heavy inflammation generalized heavy bleeding generalized recession DENTAL TREATMENT PROVIDED: PROPHYLAXIS - hand scaling, piezo, slovenian, floss TOPICAL FLUORIDE APPLICATION - Varnish PRE-RINSE WITH CREST RINSE ORAL HYGIENE INSTRUCTIONS GIVEN TO PATIENT: Patient uses an electric toothbrush at least once a day. Discussed brushing 2 times a day for 2 minutes each and flossing daily. Discussed angling bristles into gumlines to remove plaque and bacteria. Stressed brushing reccession and root surface due to higher risk for cavities in that area. Patient understood. Sent Dr. Baird a message about most likely cavities on #4 DB class V, # 13 V, and #20 DB class V, and also possibly #11 V and #15 V. and also script for prevident. Dr. Watson put in an RTC for restorative, xrays and KENIA DISPOSITION: 6 MONTHS RECARE NEXT VISIT: KENIA, BWX and restoative /es/ CARMEN LEONARDO [address] RD, DENTAL SERVICE Signed: 10/15/2023 10:36 CARMEN LEONARDO [facility]
--- OUTSIDE RECORDS SUMMARY | 2024-04-05 09:54 | XMS_ITS | Encounter Summary ---
Author Name [place] Organization [facility] Address [address] [place] [address] Care Team Providers Care Scouring Machine Tender Name Role Phone JT NICOLE Primary Care [...] Patient's Relationship to Policy [place] BCBS OF [facility] PREFERRED PROVIDER ORGANIZAT ION (PPO) [facility] August 10, 2010 [id number] BOWDER,RO RAY PATIENT [facility] (WNR) MEDICARE (M) [facility] (WNR) Apr 06, 2014 NO GROUP NUMBER [id number] BOWDER,RO RAY PATIENT [facility] (WNR) MEDICARE ADVANTAGE [facility](W NR) Apr 06, 2015 [id number] BOWDER,RO RAY PATIENT [facility] (WNR) MEDICARE ADVANTAGE [facility] (WNR) Apr 06, 2014 [id number] BOWDER,RO RAY PATIENT Selected Encounter This section includes the information on record at [place] for the Encounter. Date/Time Encounter Type Encounter Description Reason Pro vider Source Oct 14, 2023 08:42 AM Outpatient Encounter DENTAL IHE Encounter Template Text not used by [place] Plan of Treatment: Future Appointments (+ 6 months) and Future Tests (+/- 45 days) The Plan of Treatment section includes future care activities for the patient from all [place] [facility]. This section includes future appointments and future orders which are active, pending or scheduled. Future Appointments This section includes appointments that were scheduled to occur 6 months from the date of the Encounter, up to a maximum of 20 appointments. The data comes from all [place] treatment facilities. Appointment Date/Time Appointment Type Appointme nt Facility Name Oct 15, 2023 08:30 AM AMBULATORY - NONE [facility] Oct 20, 2023 01:00 PM AMBULATORY - PSYCHIATRY [facility] Oct 21, 2023 10:30 AM [facility] Nov 12, 2023 08:00 AM AMBULATORY - MEDICINE [facility] Nov 30, 2023 09:00 AM AMBULATORY - NONE [facility] Jan 19, 2024 11:00 AM AMBULATORY - PSYCHIATRY [facility] Mar 15, 2024 09:00 AM AMBULATORY - MEDICINE [facility] Mar 24, 2024 08:00 AM AMBULATORY - MEDICINE [facility] Social History: Smoking Status (Most current) and Tobacco Use (All prior to encounter date) This section includes the most current, and the historical, smoking and tobacco- related health factors from the [place] facility where the Encounter took place. Current Smoking Status This section includes the most current smoking, or tobacco-related health factor, from the [place] facility where the Encounter took place. Date/Time Current Smoking Status Comment Facility August 30, 2009 09:45 AM QUIT TOBACCO USE > 7 YEARS AGO quit about 25 years ago [facility] Advance Directives: All historical and current Section Date Range: From patient's date of to the date document was created. This section includes ALL of a patient's completed or amended [place] Advance and Rescinded Directives. The entries below indicate that a directive exists for the patient, but an actual copy is not included with this document. The data comes from all [place] facilities. Date Advance Directives Provider Source May 17, 2018 ADVANCE DIRECTIVE KEVIN DEAL C [facility]TR[facility] [place] [facility] Encounter Notes: All associated encounter notes This section contains the clinical notes associated to the Encounter. Date/Time Encounter Note(s) Provider Source Oct 14, 2023 08:42 AM DENTISTRY TELEPHON E ENCOUNTER NOTE: LOCAL TITLE: TELEPHONE NOTE/DENTAL STANDARD TITLE: DENTISTRY TELEPHONE ENCOUNTER NOTE DATE OF NOTE: OCT 14, 2023@08:42 ENTRY DATE: OCT 14, 2023@08:42:49 AUTHOR: ELENITA JAMES EXP COSIGNER: URGENCY: STATUS: COMPLETED Spoke with pt to confirm dental appointment on 10/15/2023 at 8:30 am. /swetha/ ELENITA JAMES ADVANCED SHEET ROCK TAPER Signed: 10/14/2023 08:43 ELENITA JAMES CNTRL [facility] [place] [facility]
--- OUTSIDE RECORDS SUMMARY | 2024-04-05 09:55 | XMS_ITS | Encounter Summary ---
Author Name [facility] [place] Address [address] [place] [id number] Care Team Providers Care Fish Butcher Name Role Phone JT NICOLE Primary Care [...] Patient's Relationship to Policy Solano BCBS OF [facility] PREFERRED PROVIDER ORGANIZAT ION (PPO) [facility] August 10, 2010 [id number] BOWDER,RO RAY PATIENT [facility] (WNR) MEDICARE (M) [facility] (WNR) Apr 06, 2014 NO GROUP NUMBER [id number] BOWDER,RO RAY PATIENT JANE [facility] (WNR) MEDICARE ADVANTAGE [facility](W NR) Apr 06, 2015 [id number] BOWDER,RO RAY PATIENT JANE [facility] (WNR) MEDICARE ADVANTAGE [facility] (WNR) Apr 06, 2014 [id number] BOWDER,RO RAY PATIENT Selected Encounter This section includes the information on record at [place] for the Encounter. Date/Time Encounter Type Encounter Description Reason Provider Source Jan 12, 2024 12:02 PM Outpatient Encounter PRIMARY CARE/MEDICINE TEJASMINESH KAMILLAZehra Encounter Template Text not used by [place] Plan of Treatment: Future Appointments (+ 6 months) and Future Tests (+/- 45 days) The Plan of Treatment section includes future care activities for the patient from all [place] [facility]. This section includes future appointments and future orders which are active, pending or scheduled. Future Appointments This section includes appointments that were scheduled to occur 6 months from the date of the Encounter, up to a maximum of 20 appointments. The data comes from all [place] treatment facilities. Appointment Date/Time Appointment Type Appointme nt Facility Name Jan 19, 2024 11:00 AM AMBULATORY - PSYCHIATRY [facility] Mar 15, 2024 09:00 AM AMBULATORY - MEDICINE [facility] Mar 24, 2024 08:00 AM AMBULATORY - MEDICINE [facility] Apr 19, 2024 08:30 AM AMBULATORY - NONE [facility] May 17, 2024 01:30 PM AMBULATORY - PSYCHIATRY [facility] Social History: Smoking Status (Most current) and Tobacco Use (All prior to encounter date) This section includes the most current, and the historical, smoking and tobacco- related health factors from the [place] facility where the Encounter took place. Current Smoking Status This section includes the most current smoking, or tobacco-related health factor, from the [place] facility where the Encounter took place. Date/Time Current Smoking Status [facility] August 30, 2009 09:45 AM QUIT TOBACCO USE > 7 YEARS AGO quit about 25 years ago [facility] Advance Directives: All historical and current Section Date Range: From patient's date of to the date document was created. This section includes ALL of a patient's completed or amended [place] Advance and Rescinded Directives. The entries below indicate that a directive exists for the patient, but an actual copy is not included with this document. The data comes from all [place] facilities. Date Advance Directives Provider Source May 17, 2018 ADVANCE DIRECTIVE KEVIN DEAL [facility] Encounter Notes: All associated encounter notes This section contains the clinical notes associated to the Encounter. Date/Time Encounter Note(s) Provider Source Jan 12, 2024 12:02 PM PRIMARY CARE SECUR E MESSAGING: LOCAL TITLE: PRIMARY CARE SECURE MESSAGING STANDARD TITLE: PRIMARY CARE SECURE MESSAGING DATE OF NOTE: JAN 12, 2024@12:02 ENTRY DATE: JAN 12, 2024@12:02:27 AUTHOR: MINESH LAZARO COSIGNER: URGENCY: STATUS: COMPLETED ------Original Message -------- Sent: 01/11/2024 03:49 PM ET From: LON QUINTERO To: COREY,O_P [facility] Subject: Medication:Medication Inquiry [facility], would you please renew a script for jaspal elkins/ MINESH LAZARO LPN LPN Signed: 01/12/2024 12:02 MINESH LAZARO CNTRL [facility]
--- OUTSIDE RECORDS SUMMARY | 2024-04-05 09:55 | XMS_ITS ---
Author Name [facility] [place] [facility] [place] Address [address] [place] [address] Care Team Providers Care Cartridge Assembler Name Role Phone JT NICOLE Primary Care [...] Patient's Relationship to Policy [place] BCBS OF [facility] PREFERRED PROVIDER ORGANIZAT ION (PPO) [facility] August 10, 2010 [id number] [phone] BOWDER,RO RAY PATIENT [facility] (WNR) MEDICARE (M) [facility] (WNR) Apr 06, 2014 NO GROUP NUMBER [id number] [phone] BOWDER,RO RAY PATIENT JANE [facility] (WNR) MEDICARE ADVANTAGE [facility](W NR) Apr 06, 2015 [id number] BOWDER,RO RAY PATIENT JANE [facility] (WNR) MEDICARE ADVANTAGE [facility] (WNR) Apr 06, 2014 [id number] BOWDER,RO RAY PATIENT Selected Encounter This section includes the information on record at [place] for the Encounter. Date/Time Encounter Type Encounter Description Reason Provider Source Jan 12, 2024 12:00 PM Outpatient Encounter PRIMARY CARE/MEDICINE TEJASMINESH KAMILLAZehra Encounter Template Text not used by [place] Plan of Treatment: Future Appointments (+ 6 months) and Future Tests (+/- 45 days) The Plan of Treatment section includes future care activities for the patient [facility] [place] [facility] [place] This section includes future appointments and future orders which are active, pending or scheduled. Future Appointments This section includes appointments that were scheduled to occur 6 months from the date of the Encounter, up to a maximum of 20 appointments. The data comes from all [place] treatment facilities. Appointment Date/Time Appointment Type Appointme nt Facility Name Jan 19, 2024 11:00 AM AMBULATORY - PSYCHIATRY [facility] Mar 15, 2024 09:00 AM AMBULATORY - MEDICINE [facility] Mar 24, 2024 08:00 AM AMBULATORY - MEDICINE [facility] Apr 19, 2024 08:30 AM AMBULATORY - NONE [facility] May 17, 2024 01:30 PM AMBULATORY - PSYCHIATRY [facility] Social History: Smoking Status (Most current) and Tobacco Use (All prior to encounter date) This section includes the most current, and the historical, smoking and tobacco- related health factors from the [place] facility where the Encounter took place. Current Smoking Status This section includes the most current smoking, or tobacco-related health factor, from the [place] facility where the Encounter took place. Date/Time Current Smoking Status [facility] August 30, 2009 09:45 AM QUIT TOBACCO USE > 7 YEARS AGO quit about 25 years ago [facility] Advance Directives: All historical and current Section Date Range: From patient's date of to the date document was created. This section includes ALL of a patient's completed or amended [place] Advance and Rescinded Directives. The entries below indicate that a directive exists for the patient, but an actual copy is not included with this document. The data comes from all [place] facilities. Date Advance Directives Provider Source May 17, 2018 ADVANCE DIRECTIVE KEVIN DEAL [facility] Encounter Notes: All associated encounter notes This section contains the clinical notes associated to the Encounter. Date/Time Encounter Note(s) Provider Source Jan 12, 2024 12:00 PM PRIMARY CARE SECUR E MESSAGING: LOCAL TITLE: PRIMARY CARE SECURE MESSAGING STANDARD TITLE: PRIMARY CARE SECURE MESSAGING DATE OF NOTE: JAN 12, 2024@12:00 ENTRY DATE: JAN 12, 2024@12:00:22 AUTHOR: MINESH LAZARO COSIGNER: URGENCY: STATUS: COMPLETED ------Original Message --------- Sent: 01/11/2024 03:51 PM ET From: LON QUINTERO To: COREY,O_ PRIMARY CARE_[facility] Subject: Medication:Medication Inquiry trinity /swetha/ MINESH LAZARO LPN LPN Signed: 01/12/2024 12:00 MINESH LAZARO CNTRL [facility]
--- OUTSIDE RECORDS SUMMARY | 2024-04-05 09:55 | XMS_ITS | Encounter Summary ---
Author Name [facility] [place] Organization [place] Address [address] [place] [id number] Care Team Providers Care Plug Grower Name Role Phone JT NICOLE Primary Care [...] Patient's Relationship to Policy [place] BCBS OF [facility] PREFERRED PROVIDER ORGANIZAT ION (PPO) [facility] August 10, 2010 [id number] [phone] ZHOU QUINTERO RAY PATIENT [facility] (WNR) MEDICARE (M) [facility] (WNR) Apr 06, 2014 NO GROUP NUMBER [id number] INGRID,ZHOU RAY PATIENT JANE [facility] (WNR) MEDICARE ADVANTAGE [facility](W NR) Apr 06, 2015 [id number] INGRID,ZHOU RAY PATIENT JANE [facility] (WNR) MEDICARE ADVANTAGE [facility] (WNR) Apr 06, 2014 [id number] BOWLEXI,ZHOU RAY PATIENT Selected Encounter This section includes the information on record at [place] for the Encounter. Date/Time Encounter Type Encounter Description Reason Provider Source Jan 19, 2024 11:00 AM OFFICE O/P EST LOW 20 MIN [facility] - IND ICD-10-CM F43.12 Post-traumatic stress disorder, chronic FALLON,NEYMAR Justo Zehra Encounter Template Text not used by [place] Assessments - Encounter Diagnoses This section includes the primary and secondary diagnoses documented for the Encounter. Date/Time Primary/Secondary Diagnosis Diagnosis Name Provider Source Jan 19, 2024 11:15 AM PRIMARY Post-traumatic stress disorder, chronic NEYMAR FALLON CRUZ Plan of Treatment: Future Appointments (+ 6 months) and Future Tests (+/- 45 days) The Plan of Treatment section includes future care activities for the patient from all [place] [facility]. This section includes future appointments and future orders which are active, pending or scheduled. Future Appointments This section includes appointments that were scheduled to occur 6 months from the date of the Encounter, up to a maximum of 20 appointments. The data comes from all [place] treatment facilities. Appointment Date/Time Appointment Type Appointme nt Facility Name Mar 15, 2024 09:00 AM AMBULATORY - MEDICINE [facility] Mar 24, 2024 08:00 AM [facility] Apr 19, 2024 08:30 AM AMBULATORY - NONE [facility] May 17, 2024 01:30 PM AMBULATORY - PSYCHIATRY [facility] Jul 14, 2024 08:00 AM AMBULATORY - MEDICINE [facility] Social History: Smoking Status (Most current) [...] 14, 2023 02:00 PM VA-TOBACCO NEVER USED [facility] Tobacco Use History This section includes a history of the smoking, or tobacco-related health factors, that were collected on or before the date of the Encounter. The data comes from the [place] facility where the Encounter took place. Date/Time Smoking Status/Tobacco Use Comment F acdiana August 05, 2022 02:30 PM [place]-TO[place]ACCO NEVER USED [facility] September 03, 2021 09:30 AM [place]-TO[place]ACCO NEVER USED [facility] Sep 25, 2020 09:30 AM VA-TOBACCO NEVER USED [facility] Oct 12, 2019 10:35 AM VA-TOBACCO NEVER USED [facility] August 31, 2018 08:55 AM VA-TOBACCO NEVER USED [facility] Jul 30, 2017 09:07 AM LIFETIME NON-TOBACCO USER [facility] Feb 17, 2017 10:23 AM QUIT TOBACCO USE 1-7 YEARS AGO [facility] Dec 19, 2015 08:35 AM QUIT TOBACCO USE > 7 YEARS AGO [facility] Advance Directives: All historical and current Section [...] May 17, 2018 ADVANCE DIRECTIVE KEVIN DEAL [place] [facility] Encounter Notes: All associated encounter notes This section contains the clinical notes associated to the Encounter. Date/Time Encounter Note(s) Provider Source Jan 19, 2024 10:56 AM CLINICAL NURSE SPE CIALIST NOTE: LOCAL TITLE: CLINICAL NURSE SPECIALIST/MENTAL HEALTH STANDARD TITLE: CLINICAL NURSE SPECIALIST NOTE DATE OF NOTE: JAN 19, 2024@10:56 ENTRY DATE: JAN 19, 2024@10:56:45 AUTHOR: NEYMAR FALLON EXP COSIGNER: URGENCY: STATUS: COMPLETED Pertinent symptoms: PTSD,chronic.- medication management In person visit - 22 min Active problems - Computerized Problem List is the source for the followin. Cannabis dependence 2. Aneurysm of iliac artery (SNOMED CT 33025981) 3. Cannabis dependence, episodic 4. IRON DEFICIENCY 5. Elevated Prostate Specific antigen [psa] 6. Depressive Disorder NOS * 7. Anxiety * 8. PTSD, Chronic 9. Hypertension 10. Periph Vascular Dis 11. Acute, but ill-defined, cerebrovascular disease 12. Sleep apnea (SNOMED CT 26031362) 13. Restless Legs * The following VA and Non-VA medications were reconciled Dx PTSD- chronic - medication management. [facility] reports that he is in a group of vets and is doing very well. Followed [...] Assessment: Mood remains generally stable- . PTSD .He has now returned to group at the [facility]. He states that he feels better about returning to group.They are meeting weekly. Still has revisiting memories of [place] that resurface. He reports that family is well. He is taking square dancing with his - feels that it is a great outlet for them. Plan: Renew Bupropion 150mg SA daily , Zoloft 100mg daily, Hydroxyzine 50 mg for anxiety prn - can take up to 4 caps daily prn. Takes Prazosin 8 mg at hs, nightmares are infrequent - good response-takes all meds as prescribed- no side effects. Labs/Radiology/Tests/Consultation _x_ none ordered __ obtained: labs [...] psychiatric medications outweigh risks for this patient. Medication Reconciliation: Outpatient: Has the patient been taking medications as documented in the EMLR? YES: The patient has been taking medications as documented in the EMLR. Essential Medication List for Review used to complete this medication reconciliation. INCLUDED IN THIS LIST: Alphabetical list of active outpatient prescriptions dispensed from this [place] (local) and dispensed from another VA or [facility] facility (remote) as well as [...] with a VA or non-VA provider. /swetha/ Neymar Fallon APRN, STAFF CLINICAL NURSE SPECIALIST Signed: 01/19/2024 11:15 NEYMAR FALLON [facility]
--- OUTSIDE RECORDS SUMMARY | 2024-04-05 09:55 | XMS_ITS ---
Author Name Department of [place] [place] Organization [place] Address [address] [place] [id number] Care Team Providers Care Lip Reading Teacher Name Role Phone JT NICOLE Primary Care [...] [facility] PREFERRED PROVIDER ORGANIZAT ION (PPO) [facility] August 10, 2010 [id number] BOWDER,RO RAY PATIENT [facility] (WNR) MEDICARE (M) [facility] (WNR) Apr 06, 2014 NO GROUP NUMBER [id number] BOWDER,RO RAY PATIENT JANE [facility] (WNR) MEDICARE ADVANTAGE [facility](W NR) Apr 06, 2015 [id number] BOWDER,RO RAY PATIENT JANE [facility] (WNR) MEDICARE ADVANTAGE [facility] (WNR) Apr 06, 2014 [id number] BOWDER,RO RAY PATIENT Selected Encounter This section includes the information on record at [place] for the Encounter. Date/Time Encounter Type Encounter Description Reason Pro vider Source Jan 12, 2024 12:00 PM Outpatient Encounter PRIMARY CARE/MEDICINE IHE Encounter Template Text not used by [place] Plan of Treatment: Future Appointments (+ 6 months) and Future Tests (+/- 45 days) The Plan of Treatment section includes future care activities for the patient from all [place] [facility] This section includes future appointments and future [...] AMBULATORY - PSYCHIATRY [facility] Mar 15, 2024 09:00 AM [facility] Mar 24, 2024 08:00 [facility] Apr 19, 2024 08:30 AM AMBULATORY - NONE [facility] May 17, 2024 01:30 PM AMBULATORY - PSYCHIATRY [facility] Social History: Smoking Status (Most current) [...] Encounter took place. Date/Time Current Smoking Status [facility] Facility August 30, 2009 09:45 AM QUIT TOBACCO USE > 7 YEARS AGO quit about 25 years ago [facility] Advance Directives: All historical and current [...] May 17, 2018 ADVANCE DIRECTIVE KEVIN DEAL [facility] Encounter Notes: All associated encounter notes This section contains the clinical notes associated to the Encounter. Date/Time Encounter Note(s) Provider Source Jan 12, 2024 12:00 PM MEDICATION MGT NOT E: LOCAL TITLE: OUTPATIENT MEDICATION REQUEST STANDARD TITLE: MEDICATION MGT NOTE DATE OF NOTE: JAN 12, 2024@12:00 ENTRY DATE: JAN 12, 2024@12:01:07 AUTHOR: MINESH LAZARO COSIGNER: URGENCY: STATUS: COMPLETED Medication Request Date of Request: Jan Is this a New Medication? No PLEASE RENEW AND MAIL 12) VALSARTAN 320MG TAB TAKE ONE TABLET BY MOUTH ONCE ACTIVE (S) DAILY FOR HIGH BLOOD PRESSURE /es/ MINESH LAZARO LPN LPN Signed: 01/12/2024 12:01 Receipt Acknowledged By: 01/12/2024 13:59 /es/ IMER GREEN NP NURSE PRACTITIONER for MINESH PRUETT
--- OUTSIDE RECORDS SUMMARY | 2024-04-05 09:55 | XMS_ITS | Encounter Summary ---
Author Name [facility] [place] Organization [facility] Address [address] [place] [id number] Care Team Providers Care Driver/Refuse Collector Name Role Phone JT NICOLE Primary Care [...] to Policy [place] [facility] PREFERRED PROVIDER ORGANIZAT ION (PPO) [facility] August 10, 2010 [id number] [phone] BOWDER,RO RAY PATIENT [facility] (WNR) MEDICARE (M) [facility] (WNR) Apr 06, 2014 NO GROUP NUMBER [id number] BOWDER,RO RAY PATIENT JANE [facility] (WNR) MEDICARE ADVANTAGE [facility](W NR) Apr 06, 2015 [id number] BOWDER,RO RAY PATIENT [facility] (WNR) MEDICARE ADVANTAGE [facility] (WNR) Apr 06, 2014 [id number] BOWDER,RO RAY PATIENT Selected Encounter This section includes the information on record at [place] for the Encounter. Date/Time Encounter Type Encounter Description Reason Pro vider Source Nov 27, 2023 08:26 AM Outpatient Encounter DENTAL IHE Encounter Template Text not used by [place] Plan of Treatment: Future Appointments (+ 6 months) and Future Tests (+/- 45 days) The Plan of Treatment section includes future care activities for the patient from all [place] [facility]. This section includes future appointments and future orders which are active, pending or scheduled. Future Appointments This section includes appointments that were scheduled to occur 6 months from the date of the Encounter, up to a maximum of 20 appointments. The data comes from all [place] treatment facilities. Appointment Date/Time Appointment Type Appointme nt Facility Name Nov 30, 2023 09:00 AM AMBULATORY - NONE [facility] Jan 19, 2024 11:00 AM AMBULATORY - PS[facility]CHIATRY [facility] Mar 15, 2024 09:00 AM AMBULATORY - MEDICINE [facility] Mar 24, 2024 08:00 AM AMBULATORY - MEDICINE [facility] Apr 19, 2024 08:30 AM AMBULATORY - NONE [facility] May 17, 2024 01:30 PM AMBULATORY [...] Encounter took place. Date/Time Current Smoking Status [facility] Facility August 30, 2009 09:45 AM QUIT TOBACCO USE > 7 YEARS AGO quit about 25 years ago [facility] Advance Directives: All historical and current [...] May 17, 2018 ADVANCE DIRECTIVE KEVIN DEAL [facility] Encounter Notes: All associated encounter notes This section contains the clinical notes associated to the Encounter. Date/Time Encounter Note(s) Provider Source Nov 27, 2023 08:26 AM DENTISTRY TELEPHON E ENCOUNTER NOTE: LOCAL TITLE: TELEPHONE NOTE/DENTAL STANDARD TITLE: DENTISTRY TELEPHONE ENCOUNTER NOTE DATE OF NOTE: NOV 27, 2023@08:26 ENTRY DATE: NOV 27, 2023@08:26:07 AUTHOR: ELENITA JAMES EXP COSIGNER: URGENCY: STATUS: COMPLETED Spoke with pt to confirm dental appointment on 11/30/2023 at 9:00 am. /swetha/ ELENITA JAMES ADVANCED CONTROL ROOM TENDER Signed: 11/27/2023 08:27 ELENITA JAMES CNTRL [facility]
--- OUTSIDE RECORDS SUMMARY | 2024-04-05 09:55 | XMS_ITS | Encounter Summary ---
Author Name [place] Address [address] [place] [id number] Care Team Providers Care Showroom Consultant Name Role Phone JT NICOLE Primary Care [...] Patient's Relationship to Policy [place] BCBS OF [facility] PREFERRED PROVIDER ORGANIZAT ION (PPO) [facility] August 10, 2010 [id number] ZHOU QUINTERO RAY PATIENT [facility] (WNR) MEDICARE (M) [facility] (WNR) Apr 06, 2014 NO GROUP NUMBER [id number] INGRID,ZHOU RAY PATIENT JANE [facility] (WNR) MEDICARE ADVANTAGE [facility](W NR) Apr 06, 2015 [id number] INGRID,ZHOU RAY PATIENT JANE [facility] (WNR) MEDICARE ADVANTAGE [facility] (WNR) Apr 06, 2014 [id number] BOWLEXI,ZHOU RAY PATIENT Selected Encounter This section includes the information on record at [place] for the Encounter. Date/Time Encounter Type Encounter Description Reason Provider Source Nov 12, 2023 08:00 AM OFFICE O/P EST LOW 20 MIN PODIATRY ICD-10-CM L60.0 Ingrowing nail DAVID SUBRAMANIAN [facility] Encounter Template Text not used by [place] Assessments - Encounter Diagnoses This section includes the primary and secondary diagnoses documented for the Encounter. Date/Time Primary/Secondary Diagnosis Diagnosis Name Provider Source Nov 12, 2023 08:28 AM PRIMARY Ingrowing nail DAVID SUBRAMANIAN [facility] Nov 12, 2023 08:28 AM SECONDARY Corns and callosities DAVID SUBRAMANIAN [facility] Nov 12, 2023 08:28 AM SECONDARY Peripheral vascular disease, unspecified DAVID SUBRAMANIAN [facility] Nov 12, 2023 08:28 AM SECONDARY Prediabetes DAVID SUBRAMANIAN [facility] Plan of Treatment: Future Appointments (+ 6 months) and Future Tests (+/- 45 days) The Plan of Treatment section includes future care activities for the patient from all [place] [facility]. This section includes future appointments and future orders which are active, pending or scheduled. Future Appointments This section includes appointments that were scheduled to occur 6 months from the date of the Encounter, up to a maximum of 20 appointments. The data comes from all [place] treatment facilities. Appointment Date/Time Appointment Type Appointme nt Facility Name Nov 30, 2023 09:00 AM AMBULATORY - NONE [facility] Jan 19, 2024 11:00 AM AMBULATORY - PSYCHIATRY [facility] Mar 15, 2024 09:00 AM AMBULATORY - MEDICINE [facility] Mar 24, 2024 08:00 AM AMBULATORY - MEDICINE [facility] Apr 19, 2024 08:30 AM AMBULATORY - NONE [facility] Social History: Smoking Status (Most current) and Tobacco Use (All prior to encounter date) This section includes the most current, and the historical, smoking and tobacco- related health factors from the VA facility where the Encounter took place. Current Smoking Status This section includes the most current smoking, or tobacco-related health factor, from the VA facility where the Encounter took place. Date/Time Current Smoking Status Julián james Jul 14, 2023 02:00 PM VA-TOBACCO NEVER USED [facility] Tobacco Use History This section includes a history of the smoking, or tobacco-related health factors, that were collected on or before the date of the Encounter. The data comes from the [place] facility where the Encounter took place. Date/Time Smoking Status/Tobacco Use Comment F acility August 05, 2022 02:30 PM VA-TOBACCO NEVER USED [facility] September 03, 2021 09:30 AM VA-TOBACCO NEVER USED [facility] Sep 25, 2020 09:30 AM VA-TOBACCO NEVER USED [facility] Oct 12, 2019 10:35 AM VA-TOBACCO NEVER USED [facility] August 31, 2018 08:55 AM VA-TOBACCO NEVER USED [facility] Jul 30, 2017 09:07 AM LIFETIME NON-TOBACCO USER [facility] Feb 17, 2017 10:23 AM QUIT TOBACCO USE 1-7 YEARS AGO [facility] Dec 19, 2015 08:35 AM QUIT TOBACCO USE > 7 YEARS AGO [facility] Advance Directives: All historical and current Section Date Range: From patient's date of to the date document was created. This section includes ALL of a patient's completed or amended [place] Advance and Rescinded Directives. The entries below indicate that a directive exists for the patient, but an actual copy is not included with this document. The data comes from all [place] facilities. Date Advance Directives Provider Source May 17, 2018 ADVANCE DIRECTIVE KEVIN DEAL [place] Lis NTRL [facility] Encounter Notes: All associated encounter notes This section contains the clinical notes associated to the Encounter. Date/Time Encounter Note(s) Provider Source Nov 12, 2023 07:13 AM PODIATRY NOTE: LOCAL TITLE: PODIATRY NOTE STANDARD TITLE: PODIATRY NOTE DATE OF NOTE: NOV 12, 2023@07:13 ENTRY DATE: NOV 12, 2023@07:13:43 AUTHOR: DAVID SUBRAMANIAN EXP COSIGNER: URGENCY: STATUS: COMPLETED NOTE: HAS RECEIVED BOTH COVID VACCINE DOSES AT [facility] LAST SEEN FOR TREATMENT: 05/27/2023 S: [...] remission. Description of symptoms is of an lziutp-qqmhecciw-yxlinub nature. Contributing factors are: shoes and increased [...] present physical-medical status. Protective sensation utilizing a Munday-Xavi lOg monofilament is 07/10 RT & 10/10 [...] WEEKS NEEDED IF AVAILABLE TO MINIMIZE PAIN.(03/24@ TTBD) *DISCUSSED NEW PROTOCOLS AND WILL BE CALLED FOR RESCHEDULING I DISCUSSED THE FINDINGS & PLAN WITH PATIENT (UNCHANGED SINCE PREVIOUS VISIT) & PATIENT AGREES AND UNDERSTANDS PLAN Medication Reconciliation: PERFORMED TODAY - SEE BELOW. Outpatient: Has the patient been taking medications as documented in the EMLR? YES: The patient has been taking medications as documented in the EMLR. Essential Medication List for Review used to complete this medication reconciliation. INCLUDED IN THIS LIST: Alphabetical list of active outpatient prescriptions dispensed from this VA (local) and dispensed from another [place] or DoD facility (remote) as well as [...] #5) FACILITY ALLERGY/ADR -------- [facility] [place] CN[facility] NO KNOWN ALLERGIES Med Recon Marcia (Tool #1) INCLUDED IN THIS LIST: Alphabetical list of active outpatient prescriptions dispensed from this [place] (local) and dispensed from another [place] or [facility] facility (remote) as well as inpatient orders (local pending and active), local clinic medications, locally documented non-VA medications, and local prescriptions that have or been discontinued in the past 90 days. Non-VA Meds Last Documented On: Dec 04, 2011 NOTE The display of VA prescriptions dispensed from another [place] or DoD facility (remote) is limited to active outpatient prescription entries matched to National Drug File at the originating site and may not include some items such as investigational drugs, compounds, etc. NOT INCLUDED IN THIS LIST: Medications self-entered by the patient into personal health records (i.e. Commissioner) are NOT included in this list. Non-VA medications documented outside this [place], remote inpatient orders (regardless of status) and remote clinic medications are NOT included in this list. The patient and provider must always discuss medications the patient is taking, regardless of where the medication was dispensed or obtained. OUTPT AMLODIPINE BESYLATE 5MG TAB (Status = Active/Suspended) TAKE ONE TABLET BY MOUTH DAILY FOR BLOOD PRESSURE/HEART, DO NOT TAKE WITH GRAPEFRUIT JUICE Rx# [id number] Last Released: 08/27/23 Qty/Days Supply: Rx Expiration Date: 05/02/24 Refills Remainin OUTPT ASPIRIN 81MG EC TAB (Status = Discontinued) TAKE ONE TABLET BY MOUTH ONCE DAILY TO PREVENT STROKE/HEART ATTACK Rx# [id number] Last Released: 05/26/23 Qty/Days Supply: 120/90 Rx Expiration Date: 09/12/23 Refills Remainin Indication: FOR BLOOD CLOT PREVENTION FOLLOWING PCI OUTPT ASPIRIN 81MG EC TAB (Status = Active/Suspended) TAKE ONE TABLET BY MOUTH ONCE DAILY TO PREVENT STROKE/HEART ATTACK Rx# [id number] Last Released: 11/04/23 Qty/Days Supply: 12090 Rx Expiration Date: 08/25/24 Refills Remainin Indication: FOR BLOOD CLOT PREVENTION FOLLOWING PCI OUTPT BUPROPION HCL 150MG 12HR SA TAB (Status = Discontinued) TAKE ONE TABLET BY MOUTH EVERY MORNING Rx# [id number] Last Released: 09/02/23 Qty/Days Supply: 90 Rx Expiration Date: 12/16/23 Refills Remainin OUTPT BUPROPION HCL 150MG 12HR SA TAB (Status = Active/Suspended) TAKE ONE TABLET BY MOUTH EVERY MORNING Rx# [id number] Last Released: Qty/Days Supply: 90 Rx Expiration Date: 10/20/24 Refills Remainin OUTPT FINASTERIDE 5MG TAB (Status = Active/Suspended) TAKE ONE TABLET BY MOUTH AT BEDTIME FOR PROSTATE Rx# [id number] Last Released: 10/15/23 Qty/Days Supply: 90 Rx Expiration Date: 05/02/24 Refills Remainin OUTPT GABAPENTIN 300MG CAP (Status = Active) TAKE ONE CAPSULE BY MOUTH TWICE DAILY AND TAKE THREE CAPSULES AT BEDTIME FOR PAIN, ANXIETY, POOR SLEEP, AND HEADACHES Rx# [id number] Last Released: 08/10/23 Qty/Days Supply: 450/90 Rx Expiration Date: 12/13/23 Refills Remainin Indication: RLS OUTPT HYDROXYZINE PAMOATE 50MG CAP (Status = Discontinued) TAKE ONE CAPSULE BY MOUTH FOUR TIMES DAILY NEEDED FOR ANXIETY Rx# [id number] Last Released: 09/29/23 Qty/Days Supply: 240/60 Rx Expiration Date: 07/14/24 Refills Remainin OUTPT HYDROXYZINE PAMOATE 50MG CAP (Status = Active/Suspended) TAKE ONE CAPSULE BY MOUTH FOUR TIMES DAILY NEEDED FOR ANXIETY Rx# [id number] Last Released: Qty/Days Supply: 240/60 Rx Expiration Date: 10/20/24 Refills Remainin OUTPT OXYBUTYNIN CHLORIDE 10MG SA TAB (Status = Active/Suspended) TAKE ONE TABLET BY MOUTH EVERY MORNING FOR BLADDER INSTABILITY Rx# [id number] Last Released: 10/15/23 Qty/Days Supply: Rx Expiration Date: 08/07/24 Refills Remainin OUTPT PRAZOSIN HCL 2MG CAP (Status = Discontinued) TAKE FOUR CAPSULES BY MOUTH AT BEDTIME Rx# [id number] Last Released: 07/29/23 Qty/Days Supply: 360 Rx Expiration Date: 12/16/23 Refills Remainin OUTPT PRAZOSIN HCL 2MG CAP (Status = Active/Suspended) TAKE FOUR CAPSULES BY MOUTH AT BEDTIME Rx# [id number] Last Released: 10/28/23 Qty/Days Supply: 360/90 Rx Expiration Date: 10/20/24 Refills Remainin OUTPT ROSUVASTATIN CA 40MG TAB (Status = Discontinued) TAKE ONE-HALF TABLET BY MOUTH ONCE DAILY FOR CHOLESTEROL INSTEAD OF PRAVASTATIN Rx# [id number] Last Released: 06/11/23 Qty/Days Supply: 45 Rx Expiration Date: 01/21/24 Refills Remainin Indication: FOR HIGH CHOLESTEROL OUTPT ROSUVASTATIN CA 40MG TAB (Status = Active/Suspended) TAKE ONE-HALF TABLET BY MOUTH ONCE DAILY FOR HIGH CHOLESTEROL Rx# [id number] Last Released: 09/09/23 Qty/Days Supply: 45 Rx Expiration Date: 08/25/24 Refills Remainin Indication: FOR HIGH CHOLESTEROL OUTPT SERTRALINE HCL 100MG TAB (Status = Discontinued) TAKE ONE TABLET BY MOUTH EVERY MORNING Rx# [id number] Last Released: 10/15/23 Qty/Days Supply: Rx Expiration Date: 11/05/23 Refills Remainin OUTPT SERTRALINE HCL 100MG TAB (Status = Active/Suspended) TAKE ONE TABLET BY MOUTH EVERY MORNING Rx# [id number] Last Released: Qty/Days Supply: Rx Expiration Date: 10/20/24 Refills Remainin OUTPT SILDENAFIL CITRATE 100MG TAB (Status = Active) TAKE ONE TABLET BY MOUTH ONCE DAILY NEEDED FOR ERECTILE DYSFUNCTION TAKE 1 HOUR PRIOR TO SEXUAL ACTIVITY, AND SEPARATE FROM TAMSULOSIN AND PRAZOSIN BY AT LEAST 4 HOURS Rx# [id number] Last Released: 11/04/23 Qty/Days Supply: Rx Expiration Date: 08/25/24 Refills Remainin Indication: FOR ERECTILE DYSFUNCTION OUTPT TAMSULOSIN HCL 0.4MG CAP (Status = Discontinued) TAKE ONE CAPSULE BY MOUTH AT BEDTIME Rx# [id number] Last Released: 08/04/23 Qty/Days Supply: Rx Expiration Date: 12/13/23 Refills Remainin OUTPT TAMSULOSIN HCL 0.4MG CAP (Status = Active/Suspended) TAKE TWO CAPSULES BY MOUTH AT BEDTIME FOR ENLARGED PROSTATE Rx# [id number] Last Released: 11/06/23 Qty/Days Supply: Rx Expiration Date: 08/25/24 Refills Remainin Indication: FOR ENLARGED PROSTATE OUTPT VALSARTAN 320MG TAB (Status = Active/Suspended) TAKE ONE TABLET BY MOUTH ONCE DAILY FOR HIGH BLOOD PRESSURE Rx# [id number] Last Released: 10/05/23 Qty/Days Supply: Rx Expiration Date: 07/29/24 Refills Remainin Indication: FOR HIGH BLOOD PRESSURE SUPPLIES /swetha/ DAVID SUBRAMANIAN DPM SECURITIES SETTLEMENT PROCESSOR Signed: 11/12/2023 08:29 DAVID SUBRAMANIANFIELD
--- OUTSIDE RECORDS SUMMARY | 2024-04-05 09:55 | XMS_ITS ---
Author Name [place] Address [address] [place] [address] Care Team Providers Care Brick Tender Name Role Phone JT NICOLE Primary [...] Patient's Relationship to Policy [place] BCBS OF [facility] PREFERRED PROVIDER ORGANIZAT ION (PPO) [facility] August 10, 2010 [id number] [phone] BOWDER,RO RAY PATIENT JANE [facility] (WNR) MEDICARE (M) [facility] (WNR) Apr 06, 2014 NO GROUP NUMBER [id number] BOWDER,RO RAY PATIENT JANE [facility] (WNR) MEDICARE ADVANTAGE [facility](W NR) Apr 06, 2015 [id number] BOWDER,RO RAY PATIENT JANE [facility] (WNR) MEDICARE ADVANTAGE [facility] (WNR) Apr 06, 2014 [id number] BOWDER,RO RAY PATIENT Selected Encounter This section includes the information on record at [place] for the Encounter. Date/Time Encounter Type Encounter Description Reason Provider Source Nov 30, 2023 09:00 AM POST 1 SRFC RESINBASED CMPST DENTAL ICD-10-CM K02.62 Dental caries on smooth surface penetrating into dentin FIOR FRANCO IHZehra Encounter Template Text not used by [place] Assessments - Encounter Diagnoses This section includes the primary and secondary diagnoses documented for the Encounter. Date/Time Primary/Secondary Diagnosis Diagnosis Name Provider Source Nov 30, 2023 10:06 AM PRIMARY Dental caries on smooth surface penetrating into dentin GILES FRANCO ENT [facility] Nov 30, 2023 10:06 AM SECONDARY Deposits [accretions] on teeth [facility] Plan of Treatment: Future Appointments (+ 6 months) and Future Tests (+/- 45 days) The Plan of Treatment section includes future care activities for the patient from all [place] [facility]. This section includes future appointments and future orders which are active, pending or scheduled. Future Appointments This section includes appointments that were scheduled to occur 6 months from the date of the Encounter, up to a maximum of 20 appointments. The data comes from all [place] treatment facilities. Appointment Date/Time Appointment Type Appointme nt Facility Name Jan 19, 2024 11:00 AM AMBULATORY - PSYCHIATRY [facility] Mar 15, 2024 09:00 AM AMBULATORY - MEDICINE [facility] Mar 24, 2024 08:00 AM AMBULATORY - MEDICINE [facility] Apr 19, 2024 08:30 AM AMBULATORY - NONE [facility] May 17, 2024 01:30 PM AMBULATORY - PSYCHIATRY [facility] Social History: Smoking Status (Most current) and Tobacco Use (All prior to encounter date) This section includes the most current, and the historical, smoking and tobacco- related health factors from the [place] facility where the Encounter took place. Current Smoking Status This section includes the most current smoking, or tobacco-related health factor, from the [place] facility where the Encounter took place. Date/Time Current Smoking Status [facility] Facility August 30, 2009 09:45 AM QUIT TOBACCO USE > 7 YEARS AGO quit about 25 years ago [facility] Advance Directives: All historical and current Section Date Range: From patient's date of to the date document was created. This section includes ALL of a patient's completed or amended [place] Advance and Rescinded Directives. The entries below indicate that a directive exists for the patient, but an actual copy is not included with this document. The data comes from all [place] facilities. Date Advance Directives Provider Source May 17, 2018 ADVANCE DIRECTIVE KEVIN DEAL [place] Lis NTRL [facility] [place] [facility] Encounter Notes: All associated encounter notes This section contains the clinical notes associated to the Encounter. Date/Time Encounter Note(s) Provider Source Nov 30, 2023 10:03 AM DENTISTRY NOTE: LOCAL TITLE: DENTAL NOTE STANDARD TITLE: DENTISTRY NOTE DATE OF NOTE: NOV 30, 2023@10:03 ENTRY DATE: NOV 30, 2023@10:06:30 AUTHOR: SAMEERA FRANCO COSIGNER: URGENCY: STATUS: COMPLETED Patient Name: LON QUINTERO, : 1950, Age: 73 Visit: S: Nov 30, 2023@09:00 [facility] DENTAL DMD 2. Primary PCE Diagnosis: K02.62 (Dental caries on smooth surface penetrating into dentin). Dental Category: 15-OPC, Class IV. Treatment Status: Maintenance. Dental Examination: Missing Teeth: 1, 3, 5, 12, 13, 14, 16, 17, 19, 21, 30, 31. Caries: 4(BD), 11(F), 13(B), 15(B), 20(BD). Chipped: 9(DL). Completed Care: (D1206) TOPICAL FLUORIDE VARNISH. DX: K03.6 Deposits [Accretions] on Teeth (D2332) RESIN THREE SURFACES-ANTERIO. Tooth: 11. Surface(s): MFD. DX: K02.62 Dental Caries on Smooth Surface Penetrating into Dentin (D2335) RESIN 4/> SURF OR W INCIS AN. Tooth: 9. Surface(s): DIFL. DX: K02.62 Dental Caries on Smooth Surface Penetrating into Dentin (D2392) POST 2 SRFC RESINBASED CMPST. Tooth: 13. Surface(s): MB. DX: K02.62 Dental Caries on Smooth Surface Penetrating into Dentin (D2393) POST 3 SRFC RESINBASED CMPST. Tooth: 20. Surface(s): MBD. DX: K02.62 Dental Caries on Smooth Surface Penetrating into Dentin (D2393) POST 3 SRFC RESINBASED CMPST. Tooth: 4. Surface(s): MBD. DX: K02.62 Dental Caries on Smooth Surface Penetrating into Dentin (D2391) POST 1 SRFC RESINBASED CMPST. Tooth: 15. Surface(s): B. DX: K02.62 Dental Caries on Smooth Surface Penetrating into Dentin Dental Alerts: 01/10/19 Left knee replacement; amox pre med necessary for [address] Busch - - - - - - - - - - - - - - - - - - - - - - - - - - - - - - Patient presented to dental clinic for zoroastrianism of multiple caries sites Rampant caries activity due to dry mouth --- prescibing prevident TIME OUT/Safety goals (correct patient, procedure, site, position) were verified immediately prior to the procedure. Full name and last-4-SSN used. Checked and confirmed sterilization monitors in instrument packs. Medical history reviewed. All VA & non-VA medications reconciled within the scope of dental. Reviewed findings, treatment plan, risks, benefits, and possible complications requiring other treatment. Patient understood and agreed to treatment plan. Answered all questions. Anesthetic: none required Tx: Removed caries at sites indicated, smoothed preparation, restored with composite (A3). Adjusted margins, contacts, and occlusion. Patient advised: -Possible temporary sensitivity, soreness -May need future root canal/crown/extraction -May fracture in the future -Importance of oral hygiene -Call if there are any concerns. [place]: Prophylaxis + KENIA /swetha/ SAMEERA FRANCO DMD DENTIST Signed: 11/30/2023 10:06 SAMEERA FRANCO CNTRL [facility] [place] [facility]
--- OUTSIDE RECORDS SUMMARY | 2024-04-05 09:56 | XMS_ITS | Encounter Summary ---
Author Name [facility] [place] Organization [place] Address [address] [place] [address] Care Team Providers Care Longshore Equipment Operator Name Role Phone JT NICOLE Primary [...] to Policy [place] BCBS OF [facility] PREFERRED PROVIDER ORGANIZAT ION (PPO) [facility] August 10, 2010 [id number] BOWDER,RO RAY PATIENT [facility] (WNR) MEDICARE (M) [facility] (WNR) Apr 06, 2014 NO GROUP NUMBER [id number] BOWDER,RO RAY PATIENT JANE [facility] (WNR) MEDICARE ADVANTAGE [facility](W NR) Apr 06, 2015 [id number] BOWDER,RO RAY PATIENT JANE [facility] (WNR) MEDICARE ADVANTAGE [facility] (WNR) Apr 06, 2014 [id number] BOWDER,RO RAY PATIENT Selected Encounter This section includes the information on record at NE for the Encounter. Date/Time Encounter Type Encounter Description Reason Pro vider Source Mar 08, 2024 04:19 PM Outpatient Encounter PRIMARY CARE/MEDICINE IHE Encounter Template Text not used by NE Plan of Treatment: Future Appointments (+ 6 months) and Future Tests (+/- 45 days) The Plan of Treatment section includes future care activities for the patient from all NE treatmentfacilities. This section includes future appointments and future orders which are active, pending or scheduled. Future Appointments This section includes appointments that were scheduled to occur 6 months from the date of the Encounter, up to a maximum of 20 appointments. The data comes from all NE treatment facilities. Appointment Date/Time Appointment Type Appointme nt Facility Name Mar 15, 2024 09:00 AM AMBULATORY - MEDICINE [facility] Mar 24, 2024 08:00 AM AMBULATORY - MEDICINE [facility] Apr 19, 2024 08:30 AM AMBULATORY - NONE [facility] May 17, 2024 01:30 PM AMBULATORY - PSYCHIATRY [facility] Jul 14, 2024 08:00 AM AMBULATORY - MEDICINE [facility] Lab Results: +/- 30 days of the encounter This section includes the Chemistry and Hematology Lab Results on record with NE for the patient. Radiology Reports and Pathology Reports are provided separately, in subsequent sections. Lab Results This section contains the Chemistry/Hematology Results that were resulted 30 days before or 30 daysafter the date of the Encounter. Date/Time Source Result Type Result - Unit Interpretation Reference Range Comment Mar 11, 2024 11:40 AM [place] TSH Specimen Type: SERUM No comment entered. Ordering Provider: JT BROUSSARD Report Released Date/Time: Mar 09, 2024 02:10 PM Reporting Lab: [facility] [address] [facility] [address] Performing Lab: [address] [address] TSH 3.07 u[IU]/mL 0.35-5.00 Mar 11, 2024 11:40 AM [place] HEMOGLOBIN A1C PANEL Specimen Type: BLOOD Comment: [...] Mar 09, 2024 02:10 PM Reporting Lab: [address] [address] Performing Lab: [address] [address] HEMOGLOBIN A1C 5.9 H 4.0-5.6 Mar 11, 2024 11:40 AM [place] LIPID PANEL FASTING Specimen Type: SERUM No comment entered. Ordering Provider: JT BROUSSARD Report Released Date/Time: Mar 09, 2024 02:10 PM Reporting Lab: [address] [address] Performing Lab: [address] [address] CHOLESTEROL 124 mg/dL TRIGLYCERIDE 144 mg/dL 0-150 LDL calculated 59 mg/dL 0-129 CHOL/HDL 3.4 HDL CHOLESTEROL 36 mg/dL L 40-60 Mar 11, 2024 11:40 AM [place] BASIC METABOLIC PANEL (non-fasting) Spe cimen Type: SERUM No comment entered. Ordering Provider: JT BROUSSARD Report Released Date/Time: Mar 09, 2024 02:10 PM Reporting Lab: [address] [address] Performing Lab: [address] [address] UREA NITROGEN 29 mg/dL H 7-25 GLUCOSE 109 mg/dL H 65-100 SODIUM 141 mmol/L 135-145 POTASSIUM 4.2 mmol/L 3.5-5.0 CHLORIDE 106 mmol/L 100-110 CO2 27 meq/L 20-30 CREATININE, Serum 1.19 mg/dL 0.50-1.40 eGFR(CKD-EPI 2020) 64 mL/min >60 Mar 11, 2024 11:40 AM [place] LIVER FUNCTION Specimen Type: SERUM No comment entered. Ordering Provider: JT BROUSSARD Report Released Date/Time: Mar 09, 2024 02:10 PM Reporting [facility] [address] [facility] [address] Performing Lab: [facility] [address] [address] PROTEIN,TOTAL 7.1 g/dL 6.0-8.3 ALBUMIN 3.7 g/dL 3.5-5.0 ALKALINE PHOSPHATASE 68 U/L 40-150 AST 20 U/L 5-34 ALT 24 U/L BILIRUBIN, TOTAL 0.4 mg/dL 0.2-1.2 Mar 11, 2024 11:40 AM [place] CALCIUM Specimen Type: SERUM No comment entered. Ordering Provider: JT BROUSSARD Report Released Date/Time: Mar 09, 2024 02:10 PM Reporting Lab: [address] [address] Performing [facility]: [facility] [address] [address] CALCIUM 9.8 mg/dL 8.5-10.2 Mar 11, 2024 11:40 AM [place] URIC ACID Specimen Type: SERUM No comment entered. Ordering Provider: JT BROUSSARD Report Released Date/Time: Mar 09, 2024 02:10 PM Reporting Lab: [facility] [address] [address] Performing Lab: [facility] [address] URIC ACID 5.4 mg/dL 3.5-7.2 Mar 11, 2024 11:40 AM [place] CBC AND DIFF (AUTO) Specimen Type: BLOOD No comment entered. Ordering Provider: JT BROUSSARD Report Released Date/Time: Mar 09, 2024 02:10 PM Reporting Lab: [address] [address] Performing Lab: [facility] [address] WBC 7.48 10*3/uL 4.50-11.00 RBC 5.19 10*6/uL [...] and tobacco- related health factors from the NE facility where the Encounter took place. Current Smoking Status This section includes the most current smoking, or tobacco-related health factor, from the NE facility where the Encounter took place. Date/Time Current Smoking Status [facility] Facility August 30, 2009 09:45 AM QUIT TOBACCO USE > 7 YEARS AGO quit about 25 years ago NE [facility] Advance Directives: All historical and current Section Date Range: From patient's date of to the date document was created. This section includes ALL of a patient's completed or amended NE Advance and Rescinded Directives. The entries below indicate that a directive exists for the patient, but an actual copy is not included with this document. The data comes from all NE facilities. Date Advance Directives Provider Source May 17, 2018 ADVANCE DIRECTIVE KEVIN DEAL NE C [facility]L [facility] Encounter Notes: All associated encounter notes This section contains the clinical notes associated to the Encounter. Date/Time Encounter Note(s) Provider Source Mar 08, 2024 04:19 PM PRIMARY CARE [employer] MESSAGING: LOCAL TITLE: PRIMARY CARE SECURE MESSAGING STANDARD TITLE: PRIMARY CARE SECURE MESSAGING DATE OF NOTE: MAR 08, 2024@16:19 ENTRY DATE: MAR 08, 2024@16:19:11 AUTHOR: BRANDIE ESPANA EXP COSIGNER: URGENCY: STATUS: COMPLETED PRIMARY CARE SECURE MESSAGING Has ADDENDA ------Original Message -------- Sent: 03/07/2024 09:31 AM ET From: MINESH LAZARO To: LON QUINTERO Subject: General:GENERAL Good day, Have you had labs completed recently with your community PCP? If so you can bring them to your appt. Please let us know if you have had labs completed and will be bringing them with you to your appt. ------Original Message -------- Sent: 03/08/2024 03:42 PM ET From: LON QUINTERO To: COREY,O_P [facility] Subject: General:GENERAL Hello, the last time I had blood work done was at my last pcp check up. I dont remember when that was. /swetha/ BRANDIE YODER Signed: 03/08/2024 16:19 Receipt Acknowledged By: 03/10/2024 13:29 /swetha/ MINESH LAZARO LPN LPN 03/09/2024 14:15 /es/ BEN HINES RN REGISTERED NURSE 03/09/2024 ADDENDUM STATUS: COMPLETED Responds sent via Dely secure message. /es/ BEN HINES RN REGISTERED NURSE Signed: 03/09/2024 14:15 BRANDIE ESPANAL [facility]
--- OUTSIDE RECORDS SUMMARY | 2024-04-05 09:56 | XMS_ITS ---
Author Name Department of Vetera ns Affairs ([place]) Organization Department of Vetera Affairs [place]) Address [address] [place] [address] Care Team Providers Care Collection Development Librarian Name Role Phone JT NICOLE Primary [...] Relationship to Policy [place] BCBS OF [facility] PREFERRED PROVIDER ORGANIZAT ION (PPO) [facility] August 10, 2010 [id number] BOWDER,RO RAY PATIENT JANE [facility] (WNR) MEDICARE (M) [facility] (WNR) Apr 06, 2014 NO GROUP NUMBER [id number] BOWDER,RO RAY PATIENT JANE [facility] (WNR) MEDICARE ADVANTAGE [facility](W NR) Apr 06, 2015 [id number] BOWDER,RO RAY PATIENT JANE [facility] (WNR) MEDICARE ADVANTAGE [facility] (WNR) Apr 06, 2014 [id number] BOWDER,RO RAY PATIENT Selected Encounter This section includes the information on record at MD for the Encounter. Date/Time Encounter Type Encounter Description Reason Pro vider Source Mar 07, 2024 12:11 PM Outpatient Encounter ADMIN PAT ACTIVTIES (ADAMNONCT) IHE Encounter Template Text not used by MD Plan of Treatment: Future Appointments (+ 6 months) and Future Tests (+/- 45 days) The Plan of Treatment section includes future care activities for the patient from all MD treatmentfacilities. This section includes future appointments and [...] 19, 2024 08:30 AM AMBULATORY - NONE [facility] May 17, 2024 01:30 PM AMBULATORY - PSYCHIATRY [facility] Jul 14, 2024 08:00 AM AMBULATORY - MEDICINE [facility] Lab Results: +/- 30 days of the encounter This section includes the Chemistry and Hematology Lab Results on record with MD for the patient. Radiology Reports and Pathology Reports are provided separately, in subsequent sections. Lab Results This section contains the Chemistry/Hematology Results that were resulted 30 days before or 30 daysafter the date of the Encounter. Date/Time Source Result Type Result - Unit Interpretation Reference Range Comment Mar 11, 2024 11:40 AM [place] HEMOGLOBIN A1C PANEL Specimen Type: BLOOD Comment: [...] Mar 09, 2024 02:10 PM Reporting Lab: [address] [address] Performing Lab: [address] [address] HEMOGLOBIN A1C 5.9 H 4.0-5.6 Mar 11, 2024 11:40 AM [place] TSH Specimen Type: SERUM No comment entered. Ordering Provider: JT BROUSSARD Report Released Date/Time: Mar 09, 2024 02:10 PM Reporting [facility]: [facility] [address] [address] Performing Lab: [facility] [address] [address] TSH 3.07 u[IU]/mL 0.35-5.00 Mar 11, 2024 11:40 AM [place] LIPID PANEL FASTING Specimen Type: SERUM No comment entered. Ordering Provider: JT BROUSSARD Report Released Date/Time: Mar 09, 2024 02:10 PM Reporting Lab: [facility] [address] [address] Performing Lab: [facility] [address] CHOLESTEROL 124 mg/dL TRIGLYCERIDE 144 mg/dL 0-150 LDL calculated 59 mg/dL 0-129 CHOL/HDL 3.4 HDL CHOLESTEROL 36 mg/dL L 40-60 Mar 11, 2024 11:40 AM [place] BASIC METABOLIC PANEL (non-fasting) Spe cimen Type: SERUM No comment entered. Ordering Provider: JT BROUSSARD Report Released Date/Time: Mar 09, 2024 02:10 PM Reporting Lab: [facility] [address] [address] Performing Lab: [facility]ITAL[facility]US[facility] [address] [address] UREA NITROGEN 29 mg/dL H 7-25 GLUCOSE 109 mg/dL H 65-100 SODIUM 141 mmol/L 135-145 POTASSIUM 4.2 mmol/L 3.5-5.0 CHLORIDE 106 mmol/L 100-110 CO2 27 meq/L 20-30 CREATININE, Serum 1.19 mg/dL 0.50-1.40 eGFR(CKD-EPI 2020) 64 mL/min >60 Mar 11, 2024 11:40 AM [place] LIVER FUNCTION Specimen Type: SERUM No comment entered. Ordering Provider: JT BROUSSARD Report Released Date/Time: Mar 09, 2024 02:10 PM Reporting Lab: [facility] [place] [facility] [address] [facility] [address] Performing Lab: [facility]ETS [address] [address] PROTEIN,TOTAL 7.1 g/dL 6.0-8.3 ALBUMIN 3.7 g/dL 3.5-5.0 ALKALINE PHOSPHATASE 68 U/L 40-150 AST 20 U/L 5-34 ALT 24 U/L BILIRUBIN, TOTAL 0.4 mg/dL 0.2-1.2 Mar 11, 2024 11:40 AM [place] CALCIUM Specimen Type: SERUM No comment entered. Ordering Provider: JT BROUSSARD Report Released Date/Time: Mar 09, 2024 02:10 PM Reporting Lab: [facility] [place] [address] [address] Performing Lab: [facility] [place] [address] [address] CALCIUM 9.8 mg/dL 8.5-10.2 Mar 11, 2024 11:40 AM [place] URIC ACID Specimen Type: SERUM No comment entered. Ordering Provider: JT BROUSSARD Report Released Date/Time: Mar 09, 2024 02:10 PM Reporting Lab: [facility] [place] [address] [address] Performing Lab: [facility] [address] [address] URIC ACID 5.4 mg/dL 3.5-7.2 Mar 11, 2024 11:40 AM [place] CBC AND DIFF (AUTO) Specimen Type: BLOOD No comment entered. Ordering Provider: JT BROUSSARD Report Released Date/Time: Mar 09, 2024 02:10 PM Reporting Lab: [facility]ITAL[facility] [address] [address] Performing Lab: [facility] [address] [facility] [address] WBC 7.48 10*3/uL 4.50-11.00 RBC 5.19 10*6/uL [...] Encounter took place. Date/Time Current Smoking Status [facility] Facility August 30, 2009 09:45 AM QUIT TOBACCO USE > 7 YEARS AGO quit about 25 years ago [facility] Advance Directives: All historical and current [...] May 17, 2018 ADVANCE DIRECTIVE [facility]EVIN [facility] Encounter Notes: All associated encounter notes This section contains the clinical notes associated to the Encounter. Date/Time Encounter Note(s) Provider Source Mar 07, 2024 12:11 PM ADMINISTRATIVE NOT E: LOCAL TITLE: CCC: SCHEDULING ADMINISTRATION STANDARD TITLE: ADMINISTRATIVE NOTE DATE OF NOTE: MAR 07, 2024@12:11:44 ENTRY DATE: MAR 07, 2024@12:11:45 AUTHOR: SHRUTI FU EXP COSIGNER: URGENCY: STATUS: COMPLETED CCC: SCHEDULING ADMINISTRATION Has ADDENDA Patient Demographics Patient Name: LON QUINTERO Patient Primary Phone: [phone] Patient Primary Address[address] [address] [place] [address] Patient : 1950 Patient Age: 73 Call Back Number: [phone] Caller/Recipient Relation to Patient: Self Caller Name: LON QUINTERO Administrative Administrative Note Reason: Returned Call Administrative Note Comments: Vet calling to notify PACT that he does not remember when he last had blood work done and if would like a call or text back to let him know if he needs to schedule or come in for blood work prior to upcoming appointment IMPORTANT: This note was created by [facility] Clinical Contact Center staff. Please do not alert the staff member by adding them as a signer for future communications. Alerts are not monitored by this user. /desi FU Signed: 03/07/2024 12:11 Receipt Acknowledged By: 03/10/2024 16:14 /swetha/ MINESH LAZARO LPN LPN 03/09/2024 14:16 /swetha/ BEN HINES RN REGISTERED NURSE 03/09/2024 ADDENDUM STATUS: COMPLETED Responds sent via Ticies secure message. /desi HINES RN REGISTERED NURSE Signed: 03/09/2024 14:15 SHRUTI FU [facility]
--- OUTSIDE RECORDS SUMMARY | 2024-04-05 09:56 | XMS_ITS | Encounter Summary ---
Author Name Department of [place] Organization Department of [place] Address [address] [place] [address] Care Team Providers Care Geological E Logger Name Role Phone JT NICOLE Primary Care [...] MEDICAL CENTER PREFERRED PROVIDER ORGANIZAT ION (PPO) [facility] August 10, 2010 [id number] BOWDER,RO RAY PATIENT [facility] (WNR) MEDICARE (M) [facility] (WNR) Apr 06, 2014 NO GROUP NUMBER [id number] BOWDER,RO RAY PATIENT JANE [facility] (WNR) MEDICARE ADVANTAGE [facility](W NR) Apr 06, 2015 [id number] BOWDER,RO RAY PATIENT JANE [facility] (WNR) MEDICARE ADVANTAGE [facility] (WNR) Apr 06, 2014 [id number] BOWDER,RO RAY PATIENT Selected Encounter This section includes the information on record at [place] for the Encounter. Date/Time Encounter Type Encounter Description Reason Pro vider Source Jan 19, 2024 02:02 PM Outpatient Encounter PRIMARY CARE/MEDICINE IHE Encounter Template Text not used by AL Plan of Treatment: Future Appointments (+ 6 months) and Future Tests (+/- 45 days) The Plan of Treatment section includes future care activities for the patient from all [place] treatmentfacilities. This section includes future appointments and [...] 15, 2024 09:00 AM AMBULATORY - [facility]ICINE [facility] Mar 24, 2024 08:00 AM AM[facility]ATORY - [facility]ICINE [facility] Apr 19, 2024 08:30 AM AMBULATORY - NONE [facility] May 17, 2024 01:30 PM [facility] Jul 14, 2024 08:00 AM [facility] Social History: Smoking Status [...] Encounter took place. Date/Time Current Smoking Status [facility] August 30, 2009 09:45 AM QUIT TOBACCO USE > 7 YEARS AGO quit about 25 years ago [facility] Advance Directives: All historical and current Section [...] Source May 17, 2018 ADVANCE DIRECTIVE KEVIN [facility] Encounter Notes: All associated encounter notes This section contains the clinical notes associated to the Encounter. Date/Time Encounter Note(s) Provider Source Jan 19, 2024 02:02 PM PRIMARY CARE SECUR E MESSAGING: LOCAL TITLE: PRIMARY CARE SECURE MESSAGING STANDARD TITLE: PRIMARY CARE SECURE MESSAGING DATE OF NOTE: JAN 19, 2024@14:02 ENTRY DATE: JAN 19, 2024@14:02:26 AUTHOR: MONY BAEZA EXP COSIGNER: URGENCY: STATUS: COMPLETED ------Original Message ------ Sent: 01/19/2024 01:40 PM ET From: LON QUINTERO To: Marko NICOLE_[facility] Subject: Medication:script Please write me a new script for Gabapentin. thank you /swetha/ MONY BAEZA AMSA Signed: 01/19/2024 14:02 Receipt Acknowledged By: 01/20/2024 15:13 /es/ MINESH LAZARO LPN LPN 01/22/2024 08:52 /es/ BEN HINES RN REGISTERED NURSE MONY BAEZA [facility]
--- OUTSIDE RECORDS SUMMARY | 2024-04-05 09:56 | XMS_ITS | Encounter Summary ---
Author Name [facility] [place] Organization [facility] [place] Address [address] [place] [address] Care Team Providers Care Vice Chair Name Role Phone DAVON HERNANDEZ Primary Care Provide r Unavailable Insurance Providers: [...] [facility] P[facility]ERRED [facility]ER ORGANIZAT ION (PPO) [facility] August 10, 2010 [id number] BOWDER,RO RAY PATIENT [facility] (WNR) MEDICARE (M) [facility] (WNR) Apr 06, 2014 NO GROUP NUMBER [id number] BOWDER,RO RAY PATIENT JANE [facility] (WNR) MEDICARE ADVANTAGE [facility](W NR) Apr 06, 2015 [id number] BOWDER,RO RAY PATIENT JANE [facility] (WNR) MEDICARE ADVANTAGE [facility] (WNR) Apr 06, 2014 [id number] BOWDER,RO RAY PATIENT Selected Encounter This section includes the information on record at [place] for the Encounter. Date/Time Encounter Type Encounter Description Reason Pro vider Source Jan 20, 2024 03:11 PM Outpatient Encounter PRIMARY CARE/MEDICINE IHE Encounter Template Text not used by [place] Plan of Treatment: Future Appointments (+ 6 months) and Future Tests (+/- 45 days) The Plan of Treatment section includes future care activities for the patient from all [place] treatmentfacilities. This section includes future appointments and future orders which are active, pending or scheduled. Future Appointments This section includes appointments that were scheduled to occur 6 months from the date of the Encounter, up to a maximum of 20 appointments. The data comes from all [place] treatment facilities. Appointment Date/Time Appointment Type Appointme nt Facility Name Mar 15, 2024 09:00 AM AMBULATORY - MEDICINE [facility] Mar 24, 2024 08:00 AM [facility] Apr 19, 2024 08:30 AM AMBULATORY - NONE [facility] May 17, 2024 01:30 PM AMBULATORY - PSYCHIATRY [facility] Jul 14, 2024 08:00 AM AMBULATORY - MEDICINE [facility] Social History: Smoking Status (Most current) and Tobacco Use (All prior to encounter date) This section includes the most current, and the historical, smoking and tobacco- related health factors from the [place] facility where the Encounter took place. Current Smoking Status This section includes the most current smoking, or tobacco-related health factor, from the [place] facility where the Encounter took place. Date/Time Current Smoking Status [facility] Facility August 30, 2009 09:45 AM QUIT TOBACCO USE > 7 YEARS AGO quit about 25 years ago [facility] Advance Directives: All historical and current Section Date Range: From patient's date of to the date document was created. This section includes ALL of a patient's completed or amended [place] Advance and Rescinded Directives. The entries below indicate that a directive exists for the patient, but an actual copy is not included with this document. The data comes from all [place] facilities. Date Advance Directives Provider Source May 17, 2018 ADVANCE DIRECTIVE KEVIN DEAL [facility] Encounter Notes: All associated encounter notes This section contains the clinical notes associated to the Encounter. Date/Time Encounter Note(s) Provider Source Jan 20, 2024 03:13 PM ACCOUNTING OF DISC LOSURES NOTE: LOCAL TITLE: STATE PRESCRIPTION DRUG MONITORING PROGRAM STANDARD TITLE: ACCOUNTING OF DISCLOSURES NOTE DATE OF NOTE: JAN 20, 2024@15:13:28 ENTRY DATE: JAN 20, 2024@15:13:28 AUTHOR: ZEE LAZARO EXP COSIGNER: DAVON HERNANDEZ URGENCY: STATUS: COMPLETED This PDMP query was submitted by Zee Lazaro on behalf of Davon Hernandez The clinical justification for this PDMP query is to review controlled substances prescribed outside of the [facility], and any additional information that may become available, as an important component of standard clinical care, and in accordance with [facility] policy. Patient information was shared with the PDMP [place]. The VA prescriber, for which I am a delegate, will be alerted of these PDMP findings through co-signature of this progress note. No prescription(s) for controlled substances outside the [facility] were found in the last 90 days. /sewtha/ ZEE LAZARO LPN [facility] [facility] REGISTRAR Signed: 01/20/2024 15:13 /[email or web address]/ DAVON HERNANDEZ MD PHYSICIAN Cosigned: 01/25/2024 20:55 ZEE LAZARO Jan 20, 2024 03:13 PM PAIN MEDICATION MG T NOTE: LOCAL TITLE: OPIOID/CONTROLLED SUBSTANCE NOTE STANDARD TITLE: PAIN MEDICATION MGT NOTE DATE OF NOTE: JAN 20, 2024@15:13 ENTRY DATE: JAN 20, 2024@15:13:56 AUTHOR: ZEE LAZARO EXP COSIGNER: URGENCY: STATUS: COMPLETED OPIOID/CONTROLLED SUBSTANCE NOTE Controlled Substance Renewal Request REQUESTED MEDICATIONS: MAIL TO PATIENT A valid consent for Long-Term Opioid therapy for Pain is required for opioid duration of 90 days or greater. No CONSENT FOR LONG-TERM OPIOIDS FOR PAIN note found. Prescription Drug Monitoring Program (PDMP): A PDMP note is required at every new prescription for a controlled substance. PDMP HISTORY 1 YEAR Info Disclosed: Patient Demographics Purpose: Accessing Prescription Drug Monitoring Program (PDMP) databases for review of controlled substances prescribed outside of the [facility], and any additional information that may become available, as an important component of standard clinical care and in accordance with [facility] policy. 01/20/24 15:12 Zee Lazaro PDMP [place] Urine Drug Screen: A urine drug screen is required prior to reaching 90 days of opioid therapy and at least annually thereafter. No data available for: OPIATES SCREEN OXYCODONE SCREEN METHADONE SCREEN BENZODIAZEPINES SCREEN COCAINE SCREEN CANNABINOIDS SCREEN ALCOHOL, ETHYL URINE AMPHETAMINES SCREEN BUPRENORPHINE (URINE) Ethyl Glucuronide Screen Ethyl Sulfate Ethyl Glucuronide Conf Most Recent Naloxone Prescription Information: No prior Naloxone prescription was found. /desi LAZARO LPN LPN Signed: 01/20/2024 15:14 ZEE LAZARO Jan 20, 2024 03:11 PM MEDICATION MGT NOT E: LOCAL TITLE: OUTPATIENT MEDICATION REQUEST STANDARD TITLE: MEDICATION MGT NOTE DATE OF NOTE: JAN 20, 2024@15:11 ENTRY DATE: JAN 20, 2024@15:11:54 AUTHOR: ZEE LAZARO EXP COSIGNER: URGENCY: STATUS: COMPLETED Medication Request Date of Request: Jan Is this a New Medication? No PLEASE RENEW AND MAIL GABAPENTIN CAP,ORAL 300MG Instructions: 300MG ORAL BID AND 900MG ORAL QHS /desi LAZARO LPN LPN Signed: 01/20/2024 15:12 Receipt Acknowledged By: 01/25/2024 20:56 /swetha/ DAVON HERNANDEZ MD PHYSICIAN ZEE LAZARO
--- OUTSIDE RECORDS SUMMARY | 2024-04-05 09:56 | XMS_ITS | Encounter Summary ---
Author Name [facility] [place] Address [address] [place] [address] Care Team Providers Care Acting Professor Name Role Phone ZBIGNIEWRENEESTEFFANYAMANADELINAGENARO Primary Care Provide r Unavailable Insurance Providers: [...] [facility] PREFERRED PROVIDER ORGANIZAT ION (PPO) [facility] August 10, 2010 [id number] BOWDER,RO RAY PATIENT [facility] (WNR) MEDICARE (M) [facility] (WNR) Apr 06, 2014 NO GROUP NUMBER [id number] BOWDER,RO RAY PATIENT JANE [facility] (WNR) MEDICARE ADVANTAGE [facility](W NR) Apr 06, 2015 [id number] BOWDER,RO RAY PATIENT JANE [facility] (WNR) MEDICARE [facility] (WNR) Apr 06, 2014 [id number] BOWDER,RO RAY PATIENT Selected Encounter This section includes the information on record at [place] for the Encounter. Date/Time Encounter Type Encounter Description Reason Pro vider Source IHE Encounter Template Text not used by [place] Advance Directives: All historical and current Section Date Range: From patient's date of to the date document was created. This section includes ALL of a patient's completed or amended [place] Advance and Rescinded Directives. The entries below indicate that a directive exists for the patient, but an actual copy is not included with this document. The data comes from all [place] facilities. Date Advance Directives Provider Source May 17, 2018 ADVANCE DIRECTIVE KEVIN DEAL [place] [facility]
--- OUTSIDE RECORDS SUMMARY | 2024-04-05 09:56 | XMS_ITS | Encounter Summary ---
Author Name [facility] [place] Address [address] [place] [address] Care Team Providers Care Equipment Mechanic Specialist Name Role Phone JT NICOLE Primary [...] [facility] PREFERRED PROVIDER ORGANIZAT ION (PPO) [facility] August 10, 2010 [id number] BOWDER,RO RAY PATIENT [facility] (WNR) MEDICARE (M) [facility] (WNR) Apr 06, 2014 NO GROUP NUMBER [id number] BOWDER,RO RAY PATIENT JANE [facility] (WNR) MEDICARE ADVANTAGE [facility](W NR) Apr 06, 2015 [id number] BOWDER,RO RAY PATIENT JANE [facility] (WNR) MEDICARE ADVANTAGE [facility] (WNR) Apr 06, 2014 [id number] BOWDER,RO RAY PATIENT Selected Encounter This section includes the information on record at [place] for the Encounter. Date/Time Encounter Type Encounter Description Reason Pro vider Source Mar 04, 2024 12:12 PM Outpatient Encounter PRIMARY CARE/MEDICINE IHE Encounter Template Text not used by [place] Plan of Treatment: Future Appointments (+ 6 months) and Future Tests (+/- 45 days) The Plan of Treatment section includes future care activities for the patient from all [place] treatmentfacilities. This section includes future appointments and future orders which are active, pending or scheduled. Future Appointments This section includes appointments that were scheduled to occur 6 months from the date of the Encounter, up to a maximum of 20 appointments. The data comes from all [place] treatment facilities. Appointment Date/Time Appointment Type Appointme nt Facility Name Mar 15, 2024 09:00 AM AMBULATORY - MEDICINE [facility] Mar 24, 2024 08:00 AM AMBULATORY - MEDICINE [facility] Apr 19, 2024 08:30 AM AMBULATORY - NONE [facility] May 17, 2024 01:30 PM AMBULATORY - PSYCHIATRY [facility] Jul 14, 2024 08:00 AM AMBULATORY - MEDICINE [facility] Lab Results: +/- 30 days of the encounter This section includes the Chemistry and Hematology Lab Results on record with [place] for the patient. Radiology Reports and Pathology Reports are provided separately, in subsequent sections. Lab Results This section contains the Chemistry/Hematology Results that were resulted 30 days before or 30 daysafter the date of the Encounter. Date/Time Source Result Type Result - Unit Interpretation Reference Range Comment Mar 11, 2024 11:40 AM [facility] HEMOGLOBIN A1C PANEL Specimen Type: BLOOD Comment: [...] Mar 09, 2024 02:10 PM Reporting Lab: [address] [address] Performing Lab: [address] [address] HEMOGLOBIN A1C 5.9 H 4.0-5.6 Mar 11, 2024 11:40 AM [facility] TSH Specimen Type: SERUM No comment entered. Ordering Provider: JT BROUSSARD Report Released Date/Time: Mar 09, 2024 02:10 PM Reporting Lab: [facility] [address] [facility] [address] Performing Lab: [address] [address] TSH 3.07 u[IU]/mL 0.35-5.00 Mar 11, 2024 11:40 AM [facility] LIPID PANEL FASTING Specimen Type: SERUM No comment entered. Ordering Provider: JT BROUSSARD Report Released Date/Time: Mar 09, 2024 02:10 PM Reporting Lab: [address] [address] Performing Lab: [address] [address] CHOLESTEROL 124 mg/dL TRIGLYCERIDE 144 mg/dL 0-150 LDL calculated 59 mg/dL 0-129 CHOL/HDL 3.4 HDL CHOLESTEROL 36 mg/dL L 40-60 Mar 11, 2024 11:40 AM [facility] BASIC METABOLIC PANEL (non-fasting) Spe cimen Type: SERUM No comment entered. Ordering Provider: JT BROUSSARD Report Released Date/Time: Mar 09, 2024 02:10 PM Reporting Lab: [address] [address] Performing Lab: [address] [address] UREA NITROGEN 29 mg/dL H 7-25 GLUCOSE 109 mg/dL H 65-100 SODIUM 141 mmol/L 135-145 POTASSIUM 4.2 mmol/L 3.5-5.0 CHLORIDE 106 mmol/L 100-110 CO2 27 meq/L 20-30 CREATININE, Serum 1.19 mg/dL 0.50-1.40 eGFR(CKD-EPI 2020) 64 mL/min >60 Mar 11, 2024 11:40 AM [facility] LIVER FUNCTION Specimen Type: SERUM No comment entered. Ordering Provider: JT BROUSSARD Report Released Date/Time: Mar 09, 2024 02:10 PM [facility] [address] [facility] [address] [facility]forming [facility] [address] [address] PROTEIN,TOTAL 7.1 g/dL 6.0-8.3 ALBUMIN 3.7 g/dL 3.5-5.0 ALKALINE PHOSPHATASE 68 U/L 40-150 AST 20 U/L 5-34 ALT 24 U/L BILIRUBIN, TOTAL 0.4 mg/dL 0.2-1.2 Mar 11, 2024 11:40 AM [facility] CALCIUM Specimen Type: SERUM No comment entered. Ordering Provider: JT BROUSSARD Report Released Date/Time: Mar 09, 2024 02:10 PM Reporting Lab: [address] [address] [facility]forming [facility] [address] [address] CALCIUM 9.8 mg/dL 8.5-10.2 Mar 11, 2024 11:40 AM [facility] URIC ACID Specimen Type: SERUM No comment entered. Ordering Provider: JT BROUSSARD Report Released Date/Time: Mar 09, 2024 02:10 PM Reporting [facility]: [facility] [address] [address] [facility] Lab[facility] [address] URIC ACID 5.4 mg/dL 3.5-7.2 Mar 11, 2024 11:40 AM [facility] CBC AND DIFF (AUTO) Specimen Type: BLOOD No comment entered. Ordering Provider: JT BROUSSARD Report Released Date/Time: Mar 09, 2024 02:10 PM Reporting Lab: [address] [address] [facility]forming Lab[facility] [address] WBC 7.48 10*3/uL 4.50-11.00 RBC 5.19 10*6/uL [...] and tobacco- related health factors from the [place] facility where the Encounter took place. Current Smoking Status This section includes the most current smoking, or tobacco-related health factor, from the [place] facility where the Encounter took place. Date/Time Current Smoking Status [facility] August 30, 2009 09:45 AM QUIT TOBACCO USE > 7 YEARS AGO quit about 25 years ago [place] [facility] Advance Directives: All historical and current Section Date Range: From patient's date of to the date document was created. This section includes ALL of a patient's completed or amended [place] Advance and Rescinded Directives. The entries below indicate that a directive exists for the patient, but an actual copy is not included with this document. The data comes from all [place] facilities. Date Advance Directives Provider Source May 17, 2018 ADVANCE DIRECTIVE [facility]EVIN DEAL [place] [facility] Encounter Notes: All associated encounter notes This section contains the clinical notes associated to the Encounter. Date/Time Encounter Note(s) Provider Source Mar 04, 2024 12:12 PM PRIMARY CARE SECUR E MESSAGING: LOCAL TITLE: PRIMARY CARE SECURE MESSAGING STANDARD TITLE: PRIMARY CARE SECURE MESSAGING DATE OF NOTE: MAR 04, 2024@12:12 ENTRY DATE: MAR 04, 2024@12:12:51 AUTHOR: BRANDIE ESPANA EXP COSIGNER: URGENCY: STATUS: COMPLETED PRIMARY CARE SECURE MESSAGING Has ADDENDA ------Original Message -------- Sent: 03/04/2024 11:58 AM ET From: LON QUINTERO To: [facility] Subject: General:visit I have a appointment coming up in March, will I need to have blood drawn? Thank You. /desi YODER Signed: 03/04/2024 12:12 Receipt Acknowledged By: 03/07/2024 09:31 /desi LAZARO LPN LPN 03/09/2024 14:06 /swetha/ BEN HINES RN REGISTERED NURSE 03/07/2024 ADDENDUM STATUS: COMPLETED Response sent via secure message: Good day, Have you had labs completed recently with your community PCP? If so you can bring them to your appt. Please let us know if you have had labs completed and will be bringing them with you to your appt. /desi LAZARO LPN LPN Signed: 03/07/2024 09:31 BRANDIE ESPANA CNTRL [facility]
--- OUTSIDE RECORDS SUMMARY | 2024-04-05 09:56 | XMS_ITS | Encounter Summary ---
Author Name [facility] [place] Organization [facility] [place] Address [address] [place] [address] Care Team Providers Care Supervisor [employer] Name Role Phone JT NICOLE Primary Care [...] Patient's Relationship to Policy [place] BCBS OF [facility] PREFERRED PROVIDER ORGANIZAT ION (PPO) [facility] August 10, 2010 [id number] BOWDER,RO RAY PATIENT [facility] (WNR) MEDICARE (M) [facility] (WNR) Apr 06, 2014 NO GROUP NUMBER [id number] BOWDER,RO RAY PATIENT JANE [facility] (WNR) MEDICARE ADVANTAGE [facility](W NR) Apr 06, 2015 [id number] BOWDER,RO RAY PATIENT JANE [facility] (WNR) MEDICARE ADVANTAGE [facility] (WNR) Apr 06, 2014 [id number] BOWDER,RO RAY PATIENT Selected Encounter This section includes the information on record at [place] for the Encounter. Date/Time Encounter Type Encounter Description Reason Provider Source Mar 09, 2024 02:14 PM Outpatient Encounter PRIMARY CARE/MEDICINE MARK HINES Encounter Template Text not used by [place] Plan of Treatment: Future Appointments (+ 6 months) and Future Tests (+/- 45 days) The Plan of Treatment section includes future care activities for the patient from all [place] treatmentfacilities. This section includes future appointments and future orders which are active, pending or scheduled. Future Appointments This section includes appointments that were scheduled to occur 6 months from the date of the Encounter, up to a maximum of 20 appointments. The data comes from all [place] treatment facilities. Appointment Date/Time Appointment Type Appointme nt Facility Name Mar 15, 2024 09:00 AM AMBULATORY - MEDICINE [facility] Mar 24, 2024 08:00 AM AMBULATORY - MEDICINE [facility] Apr 19, 2024 08:30 AM AMBULATORY - NONE [facility] May 17, 2024 01:30 PM AMBULATORY - PSYCHIATRY [facility] Jul 14, 2024 08:00 AM AMBULATORY - MEDICINE [facility] Lab Results: +/- 30 days of the encounter This section includes the Chemistry and Hematology Lab Results on record with [place] for the patient. Radiology Reports and Pathology Reports are provided separately, in subsequent sections. Lab Results This section contains the Chemistry/Hematology Results that were resulted 30 days before or 30 daysafter the date of the Encounter. Date/Time Source Result Type Result - Unit Interpretation Reference Range Comment Mar 11, 2024 11:40 AM [place] HEMOGLOBIN A1C PANEL Specimen Type: BLOOD Comment: [...] Mar 09, 2024 02:10 PM Reporting Lab: [address] [address] Performing Lab: [address] [address] HEMOGLOBIN A1C 5.9 H 4.0-5.6 Mar 11, 2024 11:40 AM [place] TSH Specimen Type: SERUM No comment entered. Ordering Provider: JT BROUSSARD Report Released Date/Time: Mar 09, 2024 02:10 PM Reporting [facility] [address] [facility] [address] Performing [facility]: [facility] [address] [facility] [address] TSH 3.07 u[IU]/mL 0.35-5.00 Mar 11, 2024 11:40 AM [place] LIPID PANEL FASTING Specimen Type: SERUM No comment entered. Ordering Provider: JT BROUSSARD Report Released Date/Time: Mar 09, 2024 02:10 PM Reporting [facility] [address] [address] Performing Lab: [facility] [address] [facility] [address] CHOLESTEROL 124 mg/dL TRIGLYCERIDE 144 mg/dL 0-150 LDL calculated 59 mg/dL 0-129 CHOL/HDL 3.4 HDL CHOLESTEROL 36 mg/dL L 40-60 Mar 11, 2024 11:40 AM [place] BASIC METABOLIC PANEL (non-fasting) Spe cimen Type: SERUM No comment entered. Ordering Provider: JT BROUSSARD Report Released Date/Time: Mar 09, 2024 02:10 PM Reporting Lab[facility] [address] [facility] [address] Performing Lab: [facility] [address] [facility] [address] UREA NITROGEN 29 mg/dL H 7-25 GLUCOSE 109 mg/dL H 65-100 SODIUM 141 mmol/L 135-145 POTASSIUM 4.2 mmol/L 3.5-5.0 CHLORIDE 106 mmol/L 100-110 CO2 27 meq/L 20-30 CREATININE, Serum 1.19 mg/dL 0.50-1.40 eGFR(CKD-EPI 2020) 64 mL/min >60 Mar 11, 2024 11:40 AM [place] LIVER FUNCTION Specimen Type: SERUM No comment entered. Ordering Provider: JT BROUSSARD Report Released Date/Time: Mar 09, 2024 02:10 PM Reporting Lab: [facility] [address] [facility] [address] Performing Lab: [facility] [address] PROTEIN,TOTAL 7.1 g/dL 6.0-8.3 ALBUMIN 3.7 g/dL 3.5-5.0 ALKALINE PHOSPHATASE 68 U/L 40-150 AST 20 U/L 5-34 ALT 24 U/L BILIRUBIN, TOTAL 0.4 mg/dL 0.2-1.2 Mar 11, 2024 11:40 AM [place] CALCIUM Specimen Type: SERUM No comment entered. Ordering Provider: JT BROUSSARD Report Released Date/Time: Mar 09, 2024 02:10 PM Reporting Lab: [facility] [address] Performing Lab: [facility] [address] CALCIUM 9.8 mg/dL 8.5-10.2 Mar 11, 2024 11:40 AM [place] URIC ACID Specimen Type: SERUM No comment entered. Ordering Provider: JT BROUSSARD Report Released Date/Time: Mar 09, 2024 02:10 PM Reporting Lab: [facility] [address] Performing Lab: [facility]ITAL[facility] [address] URIC ACID 5.4 mg/dL 3.5-7.2 Mar 11, 2024 11:40 AM [place] CBC AND DIFF (AUTO) Specimen Type: BLOOD No comment entered. Ordering Provider: JT BROUSSARD Report Released Date/Time: Mar 09, 2024 02:10 PM Reporting Lab: [facility] [address] Performing Lab: [facility] [address] [facility] [address] WBC 7.48 10*3/uL 4.50-11.00 RBC 5.19 10*6/uL [...] and tobacco- related health factors from the [place] facility where the Encounter took place. Current Smoking Status This section includes the most current smoking, or tobacco-related health factor, from the [place] facility where the Encounter took place. Date/Time Current Smoking Status [facility] Facility August 30, 2009 09:45 AM QUIT TOBACCO USE > 7 YEARS AGO quit about 25 years ago [facility] Advance Directives: All historical and current Section Date Range: From patient's date of to the date document was created. This section includes ALL of a patient's completed or amended [place] Advance and Rescinded Directives. The entries below indicate that a directive exists for the patient, but an actual copy is not included with this document. The data comes from all [place] facilities. Date Advance Directives Provider Source May 17, 2018 ADVANCE DIRECTIVE KEVIN DEAL [facility] Encounter Notes: All associated encounter notes This section contains the clinical notes associated to the Encounter. Date/Time Encounter Note(s) Provider Source Mar 09, 2024 02:14 PM PRIMARY CARE SECUR E MESSAGING: LOCAL TITLE: PRIMARY CARE SECURE MESSAGING STANDARD TITLE: PRIMARY CARE SECURE MESSAGING DATE OF NOTE: MAR 09, 2024@14:14 ENTRY DATE: MAR 09, 2024@14:14:59 AUTHOR: BEN HINES EXP COSIGNER: URGENCY: STATUS: COMPLETED ------Original Message Sent: 03/09/2024 02:14 PM ET From: BEN HINES To: FRANSICOLEXILON Subject: Test:Test; [facility] Mr. Quintero, The last time you did labs was on August 05, 2023. We would like for you to get another set of Non-fasting labs done prior to your PCP appointment. The lab opens from Thursday - Thursday 7:30 am - 2:40 pm. Thank you. Ben. MARY BA. /swetha/ BEN HINES RN REGISTERED NURSE Signed: 03/09/2024 14:14 BEN HINES [facility]
--- OUTSIDE RECORDS SUMMARY | 2024-04-05 09:56 | XMS_ITS ---
Author Name [facility] [place] Organization [facility] [place] [place] [facility] [place] Address [address] [place] [address] Care Team Providers Care Sales Office Manager Name Role Phone JT NICOLE Primary Care [...] Relationship to Policy [place] BCBS OF [facility] PREFERRED PROVIDER ORGANIZAT ION (PPO) [facility] August 10, 2010 [id number] [phone] BOWDER,RO RAY PATIENT JANE [facility] (WNR) MEDICARE (M) [facility] (WNR) Apr 06, 2014 NO GROUP NUMBER [id number] [phone] BOWDER,RO RAY PATIENT JANE [facility] (WNR) MEDICARE ADVANTAGE [facility](W NR) Apr 06, 2015 [id number] BOWDER,RO RAY PATIENT JANE [facility] (WNR) MEDICARE ADVANTAGE [facility] (WNR) Apr 06, 2014 [id number] BOWDER,RO RAY PATIENT Selected Encounter This section includes the information on record at [place] for the Encounter. Date/Time Encounter Type Encounter Description Reason Provider Source Feb 03, 2024 01:33 PM SPECIAL SUPPLIES PHYS/QHP ADMIN PAT ACTIVTIES (MASNONCT) ICD-10-CM G47.30 Sleep apnea, unspecified GEOFF MELLO Fidelina IHE Encounter Template Text not used by [place] Assessments - Encounter Diagnoses This section includes the primary and secondary diagnoses documented for the Encounter. Date/Time Primary/Secondary Diagnosis Diagnosis Name Provider Source Feb 04, 2024 10:33 AM PRIMARY Sleep apnea, unspecified [facility] Plan of Treatment: Future Appointments (+ 6 months) and Future Tests (+/- 45 days) The Plan of Treatment section includes future care activities for the patient from all [place] treatmentfacilities. This section includes future appointments and future orders which are active, pending or scheduled. Future Appointments This section includes appointments that were scheduled to occur 6 months from the date of the Encounter, up to a maximum of 20 appointments. The data comes from all [place] treatment facilities. Appointment Date/Time Appointment Type Appointme nt Facility Name Mar 15, 2024 09:00 AM [facility]ATORY [facility]INE [facility] Mar 24, 2024 08:00 AM [facility] Apr 19, 2024 08:30 AM AMBULATORY - NONE [facility] May 17, 2024 01:30 PM AMBULATORY - PSYCHIATRY [facility] Jul 14, 2024 08:00 AM AMBULATORY - MEDICINE [facility] Social History: Smoking Status (Most current) and Tobacco Use (All prior to encounter date) This section includes the most current, and the historical, smoking and tobacco- related health factors from the [place] facility where the Encounter took place. Current Smoking Status This section includes the most current smoking, or tobacco-related health factor, from the [place] facility where the Encounter took place. Date/Time Current Smoking Status [facility] August 30, 2009 09:45 AM QUIT TOBACCO USE > 7 YEARS AGO quit about 25 years ago [facility] Advance Directives: All historical and current Section Date Range: From patient's date of to the date document was created. This section includes ALL of a patient's completed or amended [place] Advance and Rescinded Directives. The entries below indicate that a directive exists for the patient, but an actual copy is not included with this document. The data comes from all [place] facilities. Date Advance Directives Provider Source May 17, 2018 ADVANCE DIRECTIVE KEVIN DEAL [place] Lis [facility] Encounter Notes: All associated encounter notes This section contains the clinical notes associated to the Encounter. Date/Time Encounter Note(s) Provider Source Feb 04, 2024 10:32 AM RESPIRATORY THERAP Y NOTE: LOCAL TITLE: RESPIRATORY THERAPY NOTE(BLANK) STANDARD TITLE: RESPIRATORY THERAPY NOTE DATE OF NOTE: FEB 04, 2024@10:32 ENTRY DATE: FEB 04, 2024@10:32:29 AUTHOR: GEOFF MELLO EXP COSIGNER: URGENCY: STATUS: COMPLETED Driscoll diagnosed with sleep apnea will have CPAP prescription renewed for 1 year using AirView. Driscoll is using ResMed Airsense 11 set to CPAP @10 cmH2O. AirView data follows note. Driscoll will be resupplied. Written cleaning, resupply schedule and contact information will be sent. will be scheduled for a follow-up via self-alert system to renew CPAP prescription in one year. Vet will be followed in clinic as needed as well as via the Airview program. AirView Compliance Report Usage 01/04/2024 - 02/02/2024 Usage days 30/30 days (100%) >= 4 hours 30 days (100%) < 4 hours 0 days (0%) Usage hours 270 hours 48 minutes Average usage (total days) 9 hours 2 minutes Average usage (days used) 9 hours 2 minutes Median usage (days used) 9 hours 14 minutes Total used hours (value since last reset - 02/02/2024) 3,804 hours AirSense 11 AutoSet Serial number [id number] Mode CPAP Set pressure 10 cmH2O EPR Fulltime EPR level 2 Therapy Leaks - L/min Median: 17.7 95th percentile: 35.7 Maximum: 51.0 Events per hour AI: 0.6 HI: 0.3 AHI: 0.9 Apnea Index Central: 0.4 Obstructive: 0.1 Unknown: 0.1 RERA Index 0.0 Jelani-Duffy respiration (average duration per night) 0 minutes (0%) /swetha/ GEOFF MELLO RESPIRATORY THERAPIST Signed: 02/04/2024 10:33 GEOFF MELLORChely [facility]
--- OUTSIDE RECORDS SUMMARY | 2024-04-05 09:56 | XMS_ITS | Patient Health Record ---
Author Organization [facility] Address [address] [place] [address] Care Team Providers Care Senior Media Planner Name Role Phone DMITRY MCMULLEN Primary Care Provider Clarence Stevens Jr Unavailable [phone] ALLERGIES Allergen (clinical drug ingredient) Drug/Non Drug Allergy documented on EMR Reaction Allergy Type Onset Date Status Shellfish (FN) Shellfish (uncoded) Unknown Allergy Active Red Dye (uncoded) Unknown Allergy Ac tive REASON FOR REFERRAL No Information MEDICATIONS Medication SIG (Take, Route, Frequency, Duration) Notes Start Date End Date Status Multivitamin Active Vitamin D Active Vitamin B Complex Ac tive hydrOXYzine HCl 50 MG Orally Active Vitamin D Active Valsartan 160 MG Orally Act edwardo Elderberry Active buPROPion HCl 150 mg Active Aspir-81 Active Gabapentin 600 MG Orally Ac tive Sertraline HCl 100 MG Orally Active Suprep Bowel Prep 1 as directed Orally 1 for 1 dose 04/16/2020 Active Finasteride 5 MG Orally Act edwardo Suprep Bowel Prep 1 as directed Orally 1 for 1 dose 04/16/2020 Active Pravastatin Sodium 40 MG Orally Active Prazosin HCl 2 MG Orally Ac tive IMMUNIZATIONS Vaccine Route Administration Date Status Comme nts Influenza Unknown 01/18/2020 Administered SOCIAL HISTORY Tobacco Use: Social History Observation Description Date Details (start date - stop date) Never Smoker NA - NA Sex Assigned At : Social History Observation Description Sex Assigned At Unknown Tobacco Use/Smoking Question Answer Notes Patient is a nonsmoker Alcohol Screen Question Answer Notes Did you have a drink containing alcohol in the p ast year? No Points 0 Interpretation Negative PROBLEMS Problem Type ICD Code Onset Dates Problem Status W/U Status Risk SNOMED Code Notes Problem Colon cancer screening (Z12.11) Active confirmed 539921152 Problem Encounter for other preprocedural examination (Z01.818) Active confirmed 570621087 Problem longterm (current) use of aspirin (Z79.82) Active confirmed [id number] PLAN OF TREATMENT Future Test Test Name Order Date COLONOSCOPY 04/16/2020 Insurance Providers Payer Name Payer Address Payer Phone Subscriber Number Group Number Insured Name Patient Relationship to Insured Coverage Start Date Coverage End Date [facility] [employer] [address] [place] [address] [id number] LON QUINTERO Self - patient is the insured MEDICAL (GENERAL) HISTORY Medical History History ICD Code hypertension anxiety/depression/PTSD abdominal aortic aneurysm CVA restless leg syndrome hyperlipidemia elevated PSA peripheral vascular disease obstructive sleep apnea Surgical History Surgery Date(Month/Year) detached retina - right and left
[2024-04-05 09:59] VITALS: BMI 29.4
== END 2024-04-05 10:46 | disposition home or self-care (01) ==
PROVIDERS: PCP Internal Medicine; Visit Provider Internal Medicine
DX: Z00.00 Encounter for general adult medical examination without abnormal findings (principal); I71.9 Aortic aneurysm of unspecified site, without rupture; I10 Essential (primary) hypertension; E78.5 Hyperlipidemia, unspecified; F32.9 Major depressive disorder, single episode, unspecified; G47.30 Sleep apnea, unspecified; Z98.890 Other specified postprocedural states

== ENCOUNTER → 2024-04-05 09:48 | Outpatient (BNVA) | payer MEDICARE, SELFPAY | PROVIDERS: PCP Internal Medicine; Visit Provider Internal Medicine | DX: Z00.00 Encounter for general adult medical examination without abnormal findings (principal); I71.9 Aortic aneurysm of unspecified site, without rupture; I10 Essential (primary) hypertension; E78.5 Hyperlipidemia, unspecified; F32.9 Major depressive disorder, single episode, unspecified; G47.30 Sleep apnea, unspecified; Z98.890 Other specified postprocedural states | CPT/HCPCS: 96127 ==

== ENCOUNTER 2025-01-12 09:45 | Outpatient (AMB) | payer MEDICARE, SELFPAY ==
[2025-01-12 09:47] VITALS: BP 160/80; PULSE 76; O2SAT 97
--- NOTE | 2025-01-12 09:47 | MHC.OFFWIV ---
Intake Vital Signs 01/12/25 09:47 Height 6 ft BMI Reason not done Patient refused/unable BP 160/80 H Blood Pressure Location Lt brachial Position Sitting Pulse 76 Pulse Source Pulse Oximeter Pulse Oximetry (%) 97 Intake Visit Reasons: EP Discomfort in stomach radiating to back/sides Patient Tobacco Use Status: Never used Tobacco Allergies red dye (RED DYE) Allergy (Unknown, Verified 01/12/25 09:47) + ALLERGY TEST shellfish derived (SHELLFISH DERIVED) Allergy (Unknown, Verified 01/12/25 09:47) + ALLERGY TEST codeine Allergy (Verified 01/12/25 09:47) upset stomach Do you need a note to return to daycare/school/sports/work: No HPI HPI Comments History of Present Illness Details 74 y/o Male patient who presents to the walk in clinic with c/o Lower back pain for 2 days. Reports Spasm on his Right sided Back. He has been using Voltaren Cream with good relief. Denies taking any Pain medications. Denies injury or trauma to the back. Denies bowel or bladder symptoms. [facility] Medical History (Updated 01/12/25 @ 10:45 by Mendy Orona NP) Arrhythmia Back pain History of hepatitis B Osteoarthritis Hx-TIA (transient ischemic attack) Aortic aneurysm Sleep apnea RLS (restless legs syndrome) HTN (hypertension) Post traumatic stress disorder (PTSD) Depression Prostatitis Hyperlipidemia Anxiety Surgical History (Updated 04/05/24 @ 10:40 by Teresa Lyn MD) Hx of detached retina repair S/P left knee arthroscopy History of total left knee replacement History of tonsillectomy Family History Father No problems noted. Mother No problems noted. Social History Housing: House Alcohol intake: never Patient Tobacco Use Status: Never used Tobacco e-Cigarette/Vaping Use: Never Used Current occupational status: retired Current occupation: Right Handed Cognitive needs: No Hearing needs: No Vision needs: No Review of Systems Const All systems reviewed & are unremarkable except as noted in HPI and below Physical Exam Vital Signs: Last Vital Signs Pulse 76 01/12/25 09:47 BP 160/80 H 01/12/25 09:47 Pulse Ox 97 01/12/25 09:47 Const General: comfortable and no acute distress Nutritional Appearance: overweight Orientation/consciousness: patient oriented x3 Back/Spine/Pelvis Back: back tenderness Thoracic/Lumbar Spine: pain with thoraco-lumbar ROM, thoraco-lumbar spasm, thoracic spinal tenderness and lumbar spinal tenderness Neuro General: patient oriented x3, gait normal and moves all extremities Assessment & Plan Assessment & Plan (1) Back pain: Code(s): M54.9 - Dorsalgia, unspecified Qualifiers: Back pain laterality: right Back pain location: low back pain Chronicity: chronic Sciatica presence: without sciatica Qualified Code(s): M54.50 - Low back pain, unspecified; G89.29 - Other chronic pain Plan: Ordered Ibuprofen for pain relief. Continue using Voltaren Ordered Flexeril for Back Spasm Declined PT today. Medications: New ibuprofen 800 mg PO Q8H 30 tabs 0RF G89.29 - Other chronic pain, M54.50 - Low back pain, unspecified cyclobenzaprine 10 mg PO BEDTIME 14 tabs 0RF G89.29 - Other chronic pain, M54.50 - Low back pain, unspecified Coding Level of Care Code Est Pt Level 4 (12952) Diagnoses Chronic right-sided low back pain without sciatica M54.50; G89.29 Back pain laterality: right Back pain location: low back pain Chronicity: chronic Sciatica presence: without sciatica Time Spent (min) 20
== END 2025-01-12 10:49 | disposition home or self-care (01) ==
PROVIDERS: PCP Internal Medicine; Visit Provider Nurse Practitioner Family
DX: M54.50 Low back pain, unspecified (principal); G89.29 Other chronic pain

== ENCOUNTER → 2025-01-12 09:45 | Outpatient (BNVA) | payer MEDICARE, SELFPAY | PROVIDERS: PCP Internal Medicine; Visit Provider Nurse Practitioner Family | DX: M54.50 Low back pain, unspecified (principal); G89.29 Other chronic pain | CPT/HCPCS: 99212 ==